=== PATIENT | male | born 1945 | race Caucasian/White ===

== ENCOUNTER 2017-03-06 06:48 | Inpatient (IN) | payer BC ==
[~2017-03-06] VITALS: Ht 182.9 cm; Wt 101.9 kg
[~2017-03-06 06:48] MED LIST: ABIR250T PO; ASPI-482 PO; BICA50TA4 PO; BISA-42 PO; BUDE10.2 IH; CALC625T12 PO; CHOL100013 PO; CLOP75TA PO; ENZA40CA PO; FURO40TA4 PO; GABA600T2 PO; LORA0.5T96 PO; METO25TA9 PO; MULT-246 PO; OMEP40CA5 PO; PANT40TA3 PO; POTA20TA4 PO; PRED20TA PO; SENN-37 PO; SIMV40TA3 PO; TIOT18CA IH; lupron
[2017-03-06] MEDS ORDERED: CHOL10003 PO (07:05)
[2017-03-06] MEDS ORDERED: CALC-98 PO (07:05)
[2017-03-06 07:15] LABS: HEMATOCRIT 36.9 % (39.0-53.0); HEMOGLOBIN 11.8 g/dL (13.0-17.5); RED BLOOD COUNT 4.05 x10^6/uL (4.30-5.70); RED CELL DISTRIBUTION WIDTH 16.4 % (11.5-14.5); WHITE BLOOD COUNT 8.4 x10^3/uL (4.0-11.0)
[2017-03-06 07:27] LABS: INR 1.1 (0.8-1.1); PROTHROMBIN TIME PATIENT 13.3 SEC (11.7-14.0)
[2017-03-06 07:31] LABS: GFR 73.9; POTASSIUM 4.2 mmol/L (3.5-5.1)
[2017-03-06] MEDS ORDERED: LIDOCAINE 2% 20 ML VIAL. ONE (07:33)
[2017-03-06] MEDS ORDERED: IODIXANOL 320 MG/ML 100 ML VIAL. ONE (07:33)
[2017-03-06 08:18] VITALS: BP 149/75
[2017-03-06] MEDS ORDERED: MIDAZOLAM HCL/PF 5 MG/5 ML VIAL. ONE (08:28)
[2017-03-06] MEDS ORDERED: fentaNYL PF VIAL 250 MCG/5 ML VIAL ONE (08:28)
[2017-03-06] MEDS ORDERED: HEPARIN for IV BOLUS 10,000 UNIT/10 ML VIAL. ONE ×2 (08:28→11:32)
[2017-03-06] MEDS ORDERED: IODIXANOL 320 MG/ML 100 ML VIAL. IART ONE (08:45)
[2017-03-06] MEDS ORDERED: LIDOCAINE 2% 20 ML VIAL. IJ ONE (08:45)
[2017-03-06] MEDS ORDERED: MIDAZOLAM HCL/PF 5 MG/5 ML VIAL. IV ONE (08:45)
[2017-03-06] MEDS ORDERED: fentaNYL PF VIAL 250 MCG/5 ML VIAL IV ONE (08:45)
[2017-03-06] MEDS ORDERED: CONTRAST GIVEN MC PRN (09:00)
[2017-03-06] MEDS ORDERED: HEPARIN for IV BOLUS 10,000 UNIT/10 ML VIAL. IV ONE (09:30)
[2017-03-06] MEDS ORDERED: MIDAZOLAM HCL/PF 2 MG/2 ML VIAL. ONE ×2 (10:34→11:33)
[2017-03-06] MEDS ORDERED: fentaNYL PF VIAL 100 MCG/2 ML VIAL ONE ×2 (10:34→11:33)
[2017-03-06] MEDS ORDERED: NITROGLYCERIN 200 MCG/2 ML SYRINGE FOR CATH/VASC LAB. IART ONE (11:30)
[2017-03-06] MEDS ORDERED: MIDAZOLAM HCL/PF 2 MG/2 ML VIAL. IV ONE (11:30)
[2017-03-06] MEDS ORDERED: fentaNYL PF VIAL 100 MCG/2 ML VIAL IV ONE ×2 (11:30→13:00)
[2017-03-06] MEDS ORDERED: ASPIRIN 325 MG TABLET ONE (12:22)
[2017-03-06] MEDS ORDERED: NITROGLYCERIN 200 MCG/2 ML SYRINGE FOR CATH/VASC LAB. ONE (12:22)
[2017-03-06] MEDS ORDERED: CLOPIDOGREL BISULFATE 75 MG TABLET ONE (12:22)
[2017-03-06] MEDS ORDERED: CLOPIDOGREL BISULFATE 75 MG TABLET PO ONE (12:30)
[2017-03-06] MEDS ORDERED: ASPIRIN 325 MG TABLET PO ONE (12:30)
[2017-03-06 12:43] VITALS: BP 160/88
[2017-03-06] MEDS: IV 1/2 NORMAL SALINE 1,000 ML IV SCH ×2 (12:47→22:47)
--- NOTE | 2017-03-06 12:47 | PDOC ---
MODERATE SEDATION ASSESSMENT RISKS/ALTERNATIVES Risks/Alternatives Risks and alternatives of this type of sedation and procedure discussed with: RISK/ALTERNATIVES: Patient H & P ON CHART H & P H & P on chart and reviewed for co-morbid conditions and appropriate labs. H&P ON CHART: Yes STATUS PREG STATUS ASSESSED: N/A MEDS/ALLERGIES REVIEWED Meds/Allergies Reviewed Medications and Allergies including time and route of recently administered narcotics and sedatives. MEDS/ALLERGIES REVIEWED: Yes ASA RATING ASA RATING: II AIRWAY ASSESSMENT Airway Assessment Airway patency, oral function limitations, presence of caps, crowns, dentures, partials, and ability to extend neck assessed. AIRWAY ASSESSMENT: Yes MALLAMPATI SCORE MALLAMPATI SCORE: II PRE-SEDATION ASSESSMENT PRE-SEDATION ASSESSMENT: Yes CHRIS LOUIS MD March 06, 2017 12:47
[2017-03-06] MEDS ORDERED: MAGNESIUM HYDROXIDE 2,400 MG/30 ML ORAL.SUSP. PO PRN (13:00)
[2017-03-06] MEDS ORDERED: ACETAMINOPHEN 325 MG TABLET. PO PRN (13:00)
[2017-03-06] MEDS ORDERED: NITROGLYCERIN SUBLINGUAL 0.4 MG BOTTLE OF 25. SL PRN (13:00)
[2017-03-06] MEDS ORDERED: ONDANSETRON PF 4 MG/2 ML VIAL. IV PRN (13:15)
[2017-03-06] MEDS ORDERED: ENZA40CA PO (13:22)
[2017-03-06] MEDS ORDERED: VENTOLIN HFA18 GM INH (13:25)
[2017-03-06 13:26] VITALS: BP 117/64
[2017-03-06] MEDS: HYDROcodone/APAP 5/325MG 1 TAB TABLET PO PRN ×3 (13:47→20:43)
--- NOTE | 2017-03-06 14:46 | CARD ---
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 He presented today for angioplasty and stent placement since his symptoms did not improve with conservative management.. PROCEDURE NARRATIVE After explaining the risks, benefits and alternative options, informed consent was obtained from kathy ent. Patient was brought to the [facility], placed in prone position and his left popliteal lorin a was prepped and draped in the usual fashion. 10 mL of 2% lidocaine was infiltrated into the skin an d subcutaneous tissues for local anesthesia. Under vascular ultrasound guidance, the left popliteal a rtery was accessed and a 6 Icelandic sheath was inserted. Several initial attempts to cross the long, he avily calcified and chronic total occlusion involving the left superficial femoral artery using 0.014 Astato 20, Duff 250T and 0.018 Glidewire advantage guidewires with support from quickcross microca theter for unsuccessful. Subsequently, this lesion was crossed with a 0.035 inch Glidewire with suppo rt from 4F angled glide catheter. Multiple dilations were then performed within the lesion using 4.0 x 40 mm Leming balloon followed by 5.5 x 1 50 mm Leming balloon. There was a resistant lesion in the midsegment there was again dilated with a 6.0 x 40 mm Leming balloon. Subsequently, the left superfic ial femoral artery was treated with two overlapping 5.5 x 1 50 mm Duff Supera self expanding stents that were post dilated with the 5.5 balloon. Follow-up angiography showed resolution of the stenosi s to 0% with good distal flow. Patient part of the procedure well. Hemostasis was achieved using manu al compression. There were no immediate complications. Conclusion Successful complex LOAN APPROVER/stents placement to chronic total occlusion involving the left superficial fem oral artery
[2017-03-06 15:00] VITALS: BP 112/59
[2017-03-06] MEDS: PANTOPRAZOLE 40 MG TABLET.DR. PO SCH (16:30)
[2017-03-06] MEDS: FUROSEMIDE 40 MG TABLET. PO SCH (16:30)
[2017-03-06] MEDS: POTASSIUM CHLORIDE 20 MEQ TABLET.ER. PO SCH (16:30)
[2017-03-06] MEDS: predniSONE 5 MG TABLET PO SCH (17:41)
[2017-03-06] MEDS: METOPROLOL SUCC 24HR ER 25 MG TAB.ER.24H. PO SCH (17:41)
[2017-03-06 19:10] VITALS: BP 117/87
[2017-03-06] MEDS: GABAPENTIN 300 MG CAPSULE. PO SCH (20:42)
[2017-03-06] MEDS: SENNOSIDES/DOCUSATE 8.6/50MG TABLET. PO SCH (20:42)
[2017-03-06] MEDS ORDERED: SIMVASTATIN 40 MG TABLET. PO SCH (21:00)
[2017-03-06] MEDS ORDERED: predniSONE 20 MG TABLET PO SCH (21:00)
[2017-03-06 23:00] VITALS: BP 122/59
[2017-03-07 03:10] VITALS: BP 125/66
[2017-03-07] MEDS: HYDROcodone/APAP 5/325MG 1 TAB TABLET PO PRN ×2 (05:09→09:27)
[2017-03-07 05:52] LABS: CALCIUM 8.8 mg/dL (8.5-10.1); CREATININE 0.9 mg/dL (0.7-1.3); GFR 83.4; POTASSIUM 4.1 mmol/L (3.5-5.1)
[2017-03-07 07:00] VITALS: BP 129/60
[2017-03-07] MEDS: IV 1/2 NORMAL SALINE 1,000 ML IV SCH (08:47)
[2017-03-07] MEDS: FUROSEMIDE 40 MG TABLET. PO SCH (09:00)
[2017-03-07] MEDS: POTASSIUM CHLORIDE 20 MEQ TABLET.ER. PO SCH (09:02)
[2017-03-07] MEDS: GABAPENTIN 300 MG CAPSULE. PO SCH (09:02)
[2017-03-07 09:03] VITALS: BP 129/60
[2017-03-07] MEDS: METOPROLOL SUCC 24HR ER 25 MG TAB.ER.24H. PO SCH (09:03)
[2017-03-07] MEDS: SENNOSIDES/DOCUSATE 8.6/50MG TABLET. PO SCH (09:04)
[2017-03-07] MEDS: PANTOPRAZOLE 40 MG TABLET.DR. PO SCH (09:04)
[2017-03-07] MEDS: predniSONE 5 MG TABLET PO SCH (09:07)
--- NOTE | 2017-03-07 10:15 | PDOC3 ---
Discharge Summary Visit Information Date of Admission: March 06, 2017 Date of Discharge: March 07, 2017 Admitting Diagnosis: peripheral vascular disease with claudication Final Diagnosis Peripheral vascular disease with claudication Coronary artery disease Hypertension Hyperlipidemia Brief Hospital Course Allergies Allergies Coded Allergies Type Severity Reaction Last Updated Verified NSAIDS (Non-Steroidal Anti-Inflamma Adverse Reaction Intermediate "vomiting" 10/10/14 Yes Vital Signs Vital Signs Date Time Temp Pulse Resp B/P (MAP) Pulse Ox O2 Delivery O2 Flow Rate FiO2 03/07/17 09:27 Nasal Cannula 3.0 03/07/17 09:03 84 129/60 03/07/17 07:00 97.6 20 91 97.6 Lab Results Laboratory Tests Test 03/06/17 07:09 03/07/17 05:00 White Blood Count 8.4 x10^3/uL (4.0-11.0) Red Blood Count 4.05 x10^6/uL (4.30-5.70) Hemoglobin 11.8 g/dL (13.0-17.5) Hematocrit 36.9 % (39.0-53.0) Mean Corpuscular Volume 91 fL (79-100) Mean Corpuscular Hemoglobin 29 pg (25-35) Mean Corpuscular Hemoglobin Concent 32 g/dL (31-37) Red Cell Distribution Width 16.4 % (11.5-14.5) Platelet Count 181 x10^3/uL (140-400) Prothrombin Time 13.3 SEC (11.7-14.0) Prothromb Time International Ratio 1.1 (0.8-1.1) Activated Partial Thromboplast Time 31 SEC (24-38) Sodium Level 140 mmol/L (136-145) 139 mmol/L (136-145) Potassium Level 4.2 mmol/L (3.5-5.1) 4.1 mmol/L (3.5-5.1) Chloride Level 101 mmol/L (98-107) 102 mmol/L (98-107) Carbon Dioxide Level 27 mmol/L (21-32) 28 mmol/L (21-32) Anion Gap 12 (6-14) 9 (6-14) Blood Urea Nitrogen 15 mg/dL (8-26) 16 mg/dL (8-26) Creatinine 1.0 mg/dL (0.7-1.3) 0.9 mg/dL (0.7-1.3) Estimated GFR (Cockcroft-Gault) 73.9 83.4 Glucose Level 120 mg/dL (70-99) 111 mg/dL (70-99) Calcium Level 10.0 mg/dL (8.5-10.1) 8.8 mg/dL (8.5-10.1) Laboratory Tests Test 03/07/17 05:00 Sodium Level 139 mmol/L (136-145) Potassium Level 4.1 mmol/L (3.5-5.1) Chloride Level 102 mmol/L (98-107) Carbon Dioxide Level 28 mmol/L (21-32) Anion Gap 9 (6-14) Blood Urea Nitrogen 16 mg/dL (8-26) Creatinine 0.9 mg/dL (0.7-1.3) Estimated GFR (Cockcroft-Gault) 83.4 Glucose Level 111 mg/dL (70-99) Calcium Level 8.8 mg/dL (8.5-10.1) Brief Hospital Course Mr. Balderas is a 71 old male with history of peripheral vascular disease was found to have patent aortobifemoral bypass graft and patent right femoropopliteal bypass graft on aortogram done in September 2016. His left femoropopliteal bypass graft was found to be occluded and he had long heavily calcified chronic total occlusion of left superficial femoral artery at that time. He initially elected for conservative management but since he continued to be symptomatic he presented for percutaneous intervention. He underwent successful complex angioplasty and stents placement to his left superficial femoral artery via left popliteal artery access. He remained hemodynamically stable and symptom-free during his hospital stay. His access site looked good at the time of discharge. He will follow up with our office in one month. Discharge Information Condition at Discharge: Stable Follow Up: Months (one) Disposition/Orders: D/C to Home Scheduled Abiraterone Acetate (Zytiga), 1,000 MG PO DAILY@1700, (Reported) Albuterol Sulfate (Ventolin Hfa Inhaler), 2 PUFF INH Q4HRS, (Reported) Aspirin (Aspir 81), 81 MG PO DAILY, (Reported) Budesonide/Formoterol Fumarate (Symbicort 160-4.5 Mcg Inhaler), 2 PUFF IH BID, ( Reported) Calcium Carbonate/Vitamin D3 (Calcium + Vitamin D Tablet), 1 EACH PO BID, ( Reported) Cholecalciferol (Vitamin D3) (Vitamin D3), 1 TAB PO DAILY, (Reported) Clopidogrel Bisulfate (Clopidogrel), 75 MG PO DAILY, (Reported) Enzalutamide (Xtandi), 160 MG PO DAILY@1000, (Reported) Furosemide (Furosemide), 40 MG PO DAILY, (Reported) Gabapentin (Gabapentin), 600 MG PO BID, (Reported) Metoprolol Succinate (Metoprolol Succinate ( Xl )), 25 MG PO DAILY, (Reported) Pantoprazole Sodium (Protonix), 40 MG PO DAILY, (Reported) Potassium Chloride (Klor-Con M20), 10 MEQ PO DAILY, (Reported) Prednisone (Prednisone), 5 MG PO BID, (Reported) Simvastatin (Simvastatin), 40 MG PO HS, (Reported) Tiotropium Moca (Spiriva), 2 INH IH DAILY, (Reported) Miscellaneous Medications Cholecalciferol (Vitamin D3) (Vitamin D), 1,000 UNIT PO, (Reported) Sennosides/Docusate Sodium (Senokot-S Tablet), 1 EACH PO, (Reported) [lupron], (Reported) Discontinued Medications Enzalutamide (Xtandi), 40 MG PO QID, (Reported) CHRIS LOUIS MD March 07, 2017 10:15
--- NOTE | 2017-03-07 11:28 | ACF ---
Admission Forms Criteria VASCULAR DISEASE GRG Clinical Indications for Admission to Inpatient Care (Place 'X' for any and all applicable criteria): Hospital admission is needed for appropriate care of the patient because of ANY ONE of the following (1)(2)(3)(4): [ ]I. Life-threatening or limb-threatening skin ulcer as indicated by ANY ONE of the following(5): [ ]a) Surrounding cellulitis unresponsive to outpatient treatment [ ]b) Wet gangrene [ ]c) Lymphangitis [ ]d) Bacteremia [ ]II. Gangrene requiring intensity and frequency of care not manageable to outpatient, emergency, or observation level of care(5) [ ]III. Severe pain requiring acute inpatient management [X]IV. Interventional revascularization (eg, surgery, thrombolysis) needed (eg , critical limb ischemia)(21) [ ]V. Urgent inpatient IV anticoagulation needed due to ALL of the following: [ ]a) Temporary subtherapeutic anticoagulation unacceptable because of high risk of short-term venous or arterial thromboembolism due to ANY ONE of the following(7)(8)(9): [ ]i) Venous thromboembolism within the past 12 months [ ]ii) Underlying malignancy [ ]iii) Patient with mechanical cardiac valve(10)(11) [ ]iv) Underlying hypercoagulable state (eg, protein C or protein S deficiency, antithrombin deficiency, antiphospholipid antibodies) [ ]v) Patient at high risk of thromboembolism (eg, status post orthopedic surgery, history of recurrent venous thromboembolism) [ ]vi) Atrial fibrillation with rheumatic valvular heart disease [ ]vii) Atrial fibrillation with 3 or MORE of the following : [ ]1) Congestive heart failure [ ]2) Hypertension [ ]3) Age 65 years or older [ ]4) Diabetes mellitus [ ]5) History of thromboembolism (eg, stroke, TIA , or systemic embolization) more than 3 months ago [ ]6) Female gender [ ]b) Contraindications to outpatient use of "bridging" agent or alternative oral anticoagulant as indicated by ALL of the following: [ ]i) Contraindication to outpatient use of low-molecular -weight heparin as "bridging" agent as indicated by ANY ONE of the following(8) : [ ]1) Documented current or history of heparin- induced thrombocytopenia(12) [ ]2) Severe thrombocytopenia (eg, platelet count less than 50,000/mm3 (50 x109/L)) [ ]3) Documented allergy to heparin, low- molecular-weight heparin, or pork products [ ]4) Renal failure (creatinine clearance < 30 mL /min/1.73m2 (0.50 mL/sec/1.73m2) or on dialysis) [ ]5) Inability to manage self-injection (eg, by patient, caregiver, or visiting nurse) [ ]ii) Contraindication to outpatient use of fondaparinux as "bridging" agent as indicated by ANY ONE of the following(13)(14)(15)(16): [ ]1) Severe thrombocytopenia (eg, platelet count less than 50,000/mm3 (50 x109/L)) [ ]2) Hypersensitivity to fondaparinux, related drugs, or product components [ ]3) Renal failure (creatinine clearance less than 30 mL/min/1.73m2 (0.50 mL/sec/1.73m2) or on dialysis) [ ]4) Inability to manage self-injection (eg, by patient, caregiver, or visiting nurse) [ ]iii) Oral direct thrombin inhibitor (eg, dabigatran) or oral coagulation factor Xa inhibitor (eg, rivaroxaban) not appropriate as oral anticoagulation (eg, indication not appropriate) or contraindicated (eg, hypersensitivity, renal failure)(13)(16)(17)(18)(19)(20) [ ]. Suspected severe acute ischemia due to peripheral vascular disease as indicated by ANY ONE of the following(5)(6): [ ]a) Tissue necrosis [ ]b) Severe pain [ ]c) Acute pulselessness [ ]d) Other evidence of acute severe ischemia (eg, lactic acidosis , motor dysfunction) [ ]VII. Acute or newly diagnosed major vessel (eg, aorta) dissection, rupture, or leakage(5)(6)(22)(23) [ ]VIII.Vascular Disease and ALL of the following: [ ]a) Symptom or finding for which emergency and observation care have failed or are not considered appropriate (Use General Criteria: Observation Care as appropriate) [ ]b) Presence of ANY ONE of the following: [ ]i) A General Admission Criteria [ ]ii) A Pediatric General Admission Criteria The original [facility] content created by [facility] has been revised. The portions of the content which have been revised are identified through the use of italic text or in bold, and [facility] has neither reviewed nor approved the modified material. All other unmodified content is copyright [facility]. Please see references footnoted in the original [facility] edition 2016 Admission Criteria Met?: Yes ERI TERAN March 07, 2017 11:28
== END 2017-03-07 11:05 | disposition home or self-care (01) | DRG 253 ==
LOC: CCL 06:48 → 2 NORTH 11:18
PROVIDERS: ADMIT Internal Medicine Cardiovascular Disease; ATTEND Internal Medicine Cardiovascular Disease
PROC: 047L3EZ Dilation of Left Femoral Artery with Two Intraluminal Devices, Percutaneous Approach (ICD-10-PCS; principal; 2017-03-06)
DX: I70.512 Atherosclerosis of nonautologous biological bypass graft(s) of the extremities with intermittent claudication, left leg (principal); I70.92 Chronic total occlusion of artery of the extremities; E78.5 Hyperlipidemia, unspecified; I10 Essential (primary) hypertension; I25.10 Atherosclerotic heart disease of native coronary artery without angina pectoris; Z88.8 Allergy status to other drugs, medicaments and biological substances
CPT/HCPCS: 36415; 37226; 76937; 80048; 85027; 85610; 85730; C1769; C1876; C1885; C1892; J2250; J2405; J3010; J3490; J7512

== ENCOUNTER → 2017-04-24 | Outpatient (CLI) | payer BC ==
[~2017-04-24] MED LIST changes: +CALC-98 PO; +CHOL10003 PO; +VENTOLIN HFA18 GM INH
--- NOTE | 2017-04-24 09:33 | RAD ---
Bilateral lower extremity venous ultrasound, 04/24/2017: History: Bilateral leg edema Duplex evaluation of the deep veins in the lower extremities was performed including grayscale, color-flow and spectral Doppler analysis. The femoral and popliteal veins demonstrate normal compressibility and normal responses to distal augmentation maneuvers. Color imaging of those vessels shows no evidence of intraluminal clot. The visualized deep veins in both calves are patent. IMPRESSION: There is no sonographic evidence of deep vein thrombosis in either lower extremity.
== END | disposition home or self-care (01) ==
LOC: US 07:11
PROVIDERS: ATTEND Internal Medicine Hematology & Oncology
DX: R60.0 Localized edema (principal)
CPT/HCPCS: 93970

== ENCOUNTER 2017-05-05 08:14 | Inpatient (IN) | payer BC ==
[~2017-05-05] VITALS: Ht 182.9 cm; Wt 90.4 kg
[2017-05-05 08:58] LABS: BASO % 1 % (0-3); EOS % 1 % (0-3); HEMATOCRIT 35.4 % (39.0-53.0); HEMOGLOBIN 11.5 g/dL (13.0-17.5); LYMPH # 0.3 x10^3/uL (1.0-4.8); LYMPH % 3 % (24-48); MEAN CORPUSCULAR HEMOGLOBIN 27 pg (25-35); MEAN CORPUSCULAR HGB CONC 33 g/dL (31-37); MEAN CORPUSCULAR VOLUME 83 fL (79-100); MONO % 11 % (0-9); NEUT % 85 % (31-73); PLATELET COUNT 185 x10^3/uL (140-400); RED BLOOD COUNT 4.25 x10^6/uL (4.30-5.70); RED CELL DISTRIBUTION WIDTH 17.1 % (11.5-14.5); WHITE BLOOD COUNT 10.3 x10^3/uL (4.0-11.0)
--- NOTE | 2017-05-05 09:07 | EKG ---
[facility] [address] [place] [address] Test Date: 2017-05-05 Test Time: 08:43:51 Pat Name: LEYDA GUARDADO Department: Room: Gender: Hotel [employer]ge: : 1945 Requested By: MILY DEL VALLE Order Number: [id number] Reading MD: Rosales Ziegler Measurements Intervals Fletcher Rate: 71 P: 49 LA: 160 QRS: 76 QRSD: 84 T: 83 QT: 402 QTc: 442 Interpretive Statements SINUS RHYTHM Electronically Signed On 05-07-2017 8:47:57 CDT by Rosales Ziegler
[2017-05-05 09:08] LABS: CALCIUM 11.1 mg/dL (8.5-10.1); CREATININE 1.1 mg/dL (0.7-1.3); GFR 66.2; POTASSIUM 3.5 mmol/L (3.5-5.1)
[2017-05-05 09:12] LABS: ALBUMIN 3.6 g/dL (3.4-5.0); ALBUMIN/GLOBULIN RATIO 0.8 (1.0-1.7); TOTAL BILIRUBIN 1.1 mg/dL (0.2-1.0)
[2017-05-05] MEDS ORDERED: IV NORMAL SALINE 1000ML BAG 1,000 ML IV ONE (09:30)
--- NOTE | 2017-05-05 10:05 | PHYS DOC ---
Past Medical History Past Medical History: Cancer, COPD, High Cholesterol, [place] Additional Past Medical Histor: hernia, prostate ca Past Surgical History: Coronary Bypass Surgery Additional Past Surgical Histo: heart stent, neck surgery, left hip, rt hip, colonoscopy, lt & rt fempop, Alcohol Use: None Drug Use: None Adult General Chief Complaint Chief Complaint: ABDOMINAL PAIN HPI HPI Patient is a 71 year old male who presents with symptoms of generalized weakness, intermittent nausea and burning sensation in his abdomen. He's had these symptoms since Thursday of last week, 4 days ago. He denies any chest pain or shortness of breath, no focal weakness. Patient states he's feeling so weak he can't walk from one room to the next without requiring assistance. Patient had a new medication prescribed on , Metolazone. Symptoms started the following day, he continued to take the medication until Thursday when he stopped taking the medicine. He denies any known fevers. He states he was taking medication for bilateral lower extremity edema which is significantly improved since starting the medication. Review of Systems Review of Systems Constitutional: Denies fever or chills [] Eyes: Denies change in visual acuity, redness, or eye pain [] HENT: Denies nasal congestion or sore throat [] Respiratory: Denies cough Cardiovascular: Denies chest pain GI: Denies vomiting, bloody stools or diarrhea [] : Denies dysuria or hematuria [] Musculoskeletal: Denies back pain or joint pain [] Integument: Denies rash or skin lesions [] Neurologic: Denies headache, focal weakness or sensory changes [] Current Medications Current Medications Current Medications Medications (Trade) Dose Ordered Sig/Antoinette Start Time Stop Time Status Last Admin Dose Admin Sodium Chloride 1,000 ml @ 125 mls/hr 1X ONCE 05/05/17 09:30 05/05/17 17:29 05/05/17 11:16 125 MLS/HR Allergies Allergies Allergies Coded Allergies Type Severity Reaction Last Updated Verified NSAIDS (Non-Steroidal Anti-Inflamma Adverse Reaction Intermediate "vomiting" 10/10/14 Yes Physical Exam Physical Exam Constitutional: Well developed, well nourished, appears weak, softened speech HENT: Normocephalic, atraumatic, bilateral external ears normal, oropharynx moist, no oral exudates, nose normal. [] Eyes: PERRLA, EOMI, conjunctiva normal, no discharge. [] Neck: Normal range of motion, no tenderness, supple, no stridor. [] Cardiovascular:Heart rate regular with regular rhythm, no murmur [] Lungs & Thorax: Bilateral breath sounds clear to auscultation, no wheeze or crackles Abdomen: Bowel sounds normal, soft, no tenderness, no masses, no pulsatile masses. [] Skin: Warm, dry, no erythema, no rash. [] Back: No tenderness, no CVA tenderness. [] Extremities: No tenderness, no cyanosis, no clubbing, ROM intact, no edema. [] Neurologic: Alert and oriented X 3, normal motor function, normal sensory function, no focal deficits noted. CN II-XII intact, normal cerebellar function Psychologic: Affect normal, judgement normal, mood normal. [] Current Patient Data Vital Signs Vital Signs Date Time Temp Pulse Resp B/P (MAP) Pulse Ox O2 Delivery O2 Flow Rate FiO2 05/05/17 09:30 66 18 176/76 (109) 98 Nasal Cannula 3.0 05/05/17 08:30 98.3 98.3 Lab Values Laboratory Tests Test 05/05/17 08:40 White Blood Count 10.3 x10^3/uL (4.0-11.0) Red Blood Count 4.25 x10^6/uL (4.30-5.70) L Hemoglobin 11.5 g/dL (13.0-17.5) L Hematocrit 35.4 % (39.0-53.0) L Mean Corpuscular Volume 83 fL (79-100) Mean Corpuscular Hemoglobin 27 pg (25-35) Mean Corpuscular Hemoglobin Concent 33 g/dL (31-37) Red Cell Distribution Width 17.1 % (11.5-14.5) H Platelet Count 185 x10^3/uL (140-400) Neutrophils (%) (Auto) 85 % (31-73) H Lymphocytes (%) (Auto) 3 % (24-48) L Monocytes (%) (Auto) 11 % (0-9) H Eosinophils (%) (Auto) 1 % (0-3) Basophils (%) (Auto) 1 % (0-3) Neutrophils # (Auto) 8.8 x10^3uL (1.8-7.7) H Lymphocytes # (Auto) 0.3 x10^3/uL (1.0-4.8) L Monocytes # (Auto) 1.1 x10^3/uL (0.0-1.1) Eosinophils # (Auto) 0.1 x10^3/uL (0.0-0.7) Basophils # (Auto) 0.0 x10^3/uL (0.0-0.2) Segmented Neutrophils % 70 % (35-66) H Band Neutrophils % 16 % (0-9) H Lymphocytes % 3 % (24-48) L Monocytes % 10 % (0-10) Metamyelocytes % 1 % (0-0) H Platelet Estimate Adequate (ADEQUATE) Anisocytosis Slight Sodium Level 131 mmol/L (136-145) L Potassium Level 3.5 mmol/L (3.5-5.1) Chloride Level 88 mmol/L (98-107) L Carbon Dioxide Level 34 mmol/L (21-32) H Anion Gap 9 (6-14) Blood Urea Nitrogen 18 mg/dL (8-26) Creatinine 1.1 mg/dL (0.7-1.3) Estimated GFR (Cockcroft-Gault) 66.2 BUN/Creatinine Ratio 16 (6-20) Glucose Level 160 mg/dL (70-99) H Calcium Level 11.1 mg/dL (8.5-10.1) H Total Bilirubin 1.1 mg/dL (0.2-1.0) H Aspartate Amino Transferase (AST) 19 U/L (15-37) Alanine Aminotransferase (ALT) 17 U/L (16-63) Alkaline Phosphatase 71 U/L (46-116) Total Protein 8.0 g/dL (6.4-8.2) Albumin 3.6 g/dL (3.4-5.0) Albumin/Globulin Ratio 0.8 (1.0-1.7) L Laboratory Tests 05/05/17 08:40 Laboratory Tests 05/05/17 08:40 EKG EKG 71 bpm, sinus, normal axis, normal intervals no ST elevation or depression, nonischemic T waves, interpreted by me [] Radiology/Procedures Radiology/Procedures [] Course & Med Decision Making Course & Med Decision Making Pertinent Labs and Imaging studies reviewed. (See chart for details) Pt given IV fluids, pt has acute hypercalcemia. Will continue to hydrate and talked with Dr. Antonio, who accepted the patient for admission. Likely 2/2 to new medication. Dragon Disclaimer Dragon Disclaimer This electronic medical record was generated, in whole or in part, using a voice recognition dictation system. Departure Departure Impression: Primary Impression: Hypercalcemia Disposition: ADMITTED INPATIENT Admitting Physician: Aquilino Antonio Condition: STABLE Referrals: AQUILINO ANTONIO MD (PCP) MILY DEL VALLE MD May 05, 2017 10:05
[2017-05-05 13:04] LABS: BILIRUBIN,URINE NEGATIVE (NEG); GLUCOSE,URINE NEGATIVE (NEG); NITRITE,URINE NEGATIVE (NEG); PROTEIN,URINE NEGATIVE (NEG-TRACE); UROBILINOGEN,URINE 0.2 mg/dL (0.2 mg/dL)
[2017-05-05 13:11] LABS: SQUAMOUS EPITHELIAL CELL,UR FEW /LPF
[2017-05-05 13:13] LABS: BACTERIA,URINE FEW /HPF (0-FEW)
[2017-05-05 13:30] LABS: PLT ESTIMATE ADEQUATE (ADEQUATE)
[2017-05-05 13:31] LABS: ANISOCYTOSIS SLIGHT
[2017-05-05 15:08] VITALS: BP 167/65
[2017-05-05] MEDS: IV NORMAL SALINE 1000ML BAG 1,000 ML IV SCH (18:30)
[2017-05-05 19:00] VITALS: BP 138/36
[2017-05-05] MEDS ORDERED: NON FORMULARY ITEM (Albuterol Sulfate (Ventolin Hfa Inhaler) 2 PUFF) INH SCH (20:00)
[2017-05-05] MEDS: IPRATRPIUM/ALBUTEROL 0.5/2.5MG 3 ML NEBU. NEB SCH (20:50)
[2017-05-05] MEDS: BUDESONIDE 0.5 MG/2 ML NEBU. NEB SCH (20:50)
[2017-05-05] MEDS ORDERED: NON FORMULARY ITEM (Budesonide/Formoterol Fumarate (Symbicort 160-4.5 Mcg Inhaler) 2 PUFF) IH SCH (21:00)
[2017-05-05] MEDS ORDERED: SIMVASTATIN 40 MG TABLET. PO SCH (21:00)
[2017-05-05] MEDS: predniSONE 5 MG TABLET PO SCH (21:23)
[2017-05-05] MEDS: GABAPENTIN 300 MG CAPSULE. PO SCH (21:25)
[2017-05-05 23:50] VITALS: BP 155/51
[2017-05-06] MEDS: IV NORMAL SALINE 1000ML BAG 1,000 ML IV SCH (02:15)
[2017-05-06 03:23] VITALS: BP 143/61
--- NOTE | 2017-05-06 05:29 | ACF ---
Admission Forms Criteria GENERAL ADMISSION CRITERIA (Place 'X' for any and all applicable criteria): Admission is indicated for ANY ONE of the following: [ ]I. Hemodynamic instability as indicated by ANY ONE of the following(1)(2) (3)(4)(5): [ ]a) Vital sign abnormality not readily corrected by appropriate treatment within 12 to 24 hours indicated by ANY ONE of the following: [ ]i) Hypotension [ ]ii) Symptomatic Tachycardia unresponsive to treatment (eg , analgesia, fluids, sedation as indicated) [ ]iii) Orthostatic vital sign changes unresponsive to treatment (eg, fluids) [ ]b) Vital sign abnormality that is severe indicated by ANY ONE of the following: [ ]i) Inadequate perfusion indicated by ANY ONE of the following: [ ]1) Lactic acidosis (greater than 2 mmol/L) [ ]2) New abnormal capillary refill (greater than 3 seconds) [ ]3) Other metabolic acidosis (arterial pH less than 7.35) not otherwise explained [ ]4) Reduced urine output [ ]5) Altered mental status [ ]6) Myocardial Ischemia [ ]v) Mean arterial pressure[A] less than 60 mm Hg [ ]vi) Mean arterial pressure[A] less than 70 mm Hg after 30 minutes of appropriate treatment (eg, fluid resuscitation) [ ]vii) IV inotropic or vasopressor medication required to maintain adequate blood pressure or perfusion [ ]viii) Sustained heart rate greater than 120 beats per minute in adult or child 6 years or older[B]] [ ]II. Hypertension requiring inpatient treatment as indicated by ANY ONE of the following(6)(7)(8): [ ]a) SBP greater than 220 mm Hg or DBP greater than 120 mm Hg despite treatment [ ]b) SBP greater than 140 mm Hg or DBP greater than 100 mm Hg with evidence of acute end organ damage as indicated by ANY ONE of the following: [ ]i) Encephalopathy [ ]ii) Acute renal failure as indicated by new onset of ANY ONE of the following(9)(10)(11)(12)(13): [ ]1) A 3-fold rise in serum creatinine from baseline [ ]2) Serum creatinine greater than 4 mg/dL ( 354 micromoles/L) with acute rise greater than 0.5 mg/dL (44.2 micromoles/L) [ ]3) Reduction of more than 75% in estimated glomerular filtration rate from baseline [ ]4) Estimated glomerular filtration rate less than 35 mL/min/1.73m2 (0.59 mL/sec/1.73m2) in child up to 18 years of age [ ]5) Cessation of urine output indicated by ALL of the following: [ ]A. Adequate volume status [ ]B. Inadequate urine output as indicated by ANY ONE of the following: [ ]a. Urine output less than 0.3 mL/kg/hr for 24 hours [ ]b. Anuria (urine output less than 0.1 mL/kg/hr) for 12 hours [ ]iii) Aortic dissection [ ]iv) Myocardial ischemia [ ]v) Left ventricular heart failure [ ]vi) Retinal hemorrhage [ ]vii) Other significant finding [ ]c) Hypertension in child requiring inpatient treatment as indicated by ALL of the following(14)(15)(16): [ ]i) Outpatient treatment not effective, not available, or not appropriate [ ]ii) SBP or DBP greater than 95th percentile for age [ ]iii) Evidence of acute end organ damage as indicated by ANY ONE of the following: [ ]1) Altered mental status [ ]2) Acute renal failure as indicated by new onset of ANY ONE of the following(9)(10)(11)(12)(13): [ ]A. A 3-fold rise in serum creatinine from baseline [ ]B. Serum creatinine greater than 4 mg/dL (354 micromoles/L) with acute rise greater than 0.5 mg/dL (44.2 micromoles/L) [ ]C. Reduction of more than 75% in estimated glomerular filtration rate from baseline [ ]D. Estimated glomerular filtration rate less than 35 mL/min/1.73m2 (0.59 mL/sec/1.73m2)in child up to 18 years of age [ ]E. Cessation of urine output indicated by ALL of the following: [ ]a. Adequate volume status [ ]b. Inadequate urine output as indicated by ANY ONE of the following: [ ]1) Urine output less than 0.3 mL/kg/hr for 24 hours [ ]2) Anuria (urine output less than 0.1 mL/kg/hr) for 12 hours [ ]3) Severe headache [ ]4) Visual disturbance [ ]5) Retinal hemorrhage [ ]6) Other significant finding [ ]III. Acute cardiac or peripheral ischemia as indicated by ANY ONE of the following: [ ]a) Acute coronary syndrome(17)(18) [ ]b) Acute peripheral ischemia (eg, pulseless, cool, mottled, or cyanotic extremity)(19) [ ]IV. Cardiac arrhythmias or findings of immediate concern indicated by ANY ONE of the following(20)(21): [ ]a) Heart rhythms that are inherently dangerous or unstable indicated by ANY ONE of the following(22)(23)(24): [ ]i) Resuscitated ventricular fibrillation or cardiac arrest [ ]ii) Ventricular escape rhythm [ ]iii) Sustained ventricular tachycardia (30 seconds or more of ventricular rhythm at greater than 100 beats per minute) [ ]iv) Nonsustained ventricular tachycardia and ANY ONE of the following: [ ]1) Suspected cardiac ischemia as cause or consequence of ventricular tachycardia [ ]2) In setting of acute myocarditis [ ]b) Unstable cardiac conduction defects indicated by ANY ONE of the following(24)(25)(26): [ ]i) Type II second-degree atrioventricular block [ ]ii) Third-degree atrioventricular block [ ]iii) New-onset left bundle branch block with suspected myocardial ischemia [ ]c) Any heart rhythm and ANY ONE of the following(22)(23)(27)(28)( 29): [ ] i) Continuous long-term ECG monitoring needed (eg, initiation of drug requiring monitoring for more than 24 hours) [ ] ii) Patient has automatic implanted cardioverter defibrillator that is repeatedly firing, malfunctioning, or in need of immediate adjustment of settings beyond the scope of ambulatory or observation care. [ ]d) Heart rhythms of concern due to ANY ONE of the following: [ ]i) Hypotension [ ]ii) Respiratory distress [ ]iii) Association with other significant symptoms (eg, bradycardia with syncope or ongoing dizziness, supraventricular tachycardia with chest pain) (27)(28) (30) [ ] V. Severe heart failure as indicated by ANY ONE of the following ( 31)(32): [ ]a) Respiratory distress [ ]b) Hypotension [ ]c) Anasarca (refractory to outpatient therapy) [ ]d) Cardiac arrhythmias of immediate concern [ ]e) Myocardial ischemia [ ]. Respiratory abnormalities, including ANY ONE of the following(33)(34) (35)(36): [ ]a) Respiratory rate greater than 30 breaths per minute unresponsive to treatment [A] [ ]b) New saturation of arterial oxygen less than 90% [ ]c) New partial pressure of carbon dioxide greater than 44 mm Hg ( 5.9 kPa) [ ]d) Supplemental oxygen or respiratory treatments needed that are new or not performable at other levels of care [ ]e) New-onset cyanosis [ ]f) Inability to protect airway [ ]g) Chronic lung disease with severe deterioration (not responsive to emergency and observation care treatment as appropriate) as indicated by ANY ONE of the following(34)(36 ): [ ]i) SaO2 5% below baseline in patient with chronic hypoxemia [ ]ii) New requirement for supplemental oxygen to keep SaO2 at baseline or acceptable level [ ]iii) Required supplemental oxygen performable only in acute inpatient setting [ ]iv) Severe airflow or ventilation abnormalities [ ]v) Previously mobile patient unable to walk between rooms [ ]vi Inability to eat or sleep due to dyspnea [ ]vii) Rapid rate of exacerbation onset [ ]viii) Altered mental status ]VII. Severe airflow or ventilation abnormalities (not responsive to emergency and observation care treatment as appropriate) as indicated by ANY ONE of the following(33)(34)(35)(37): [ ]a) PCO2 greater than 42 mm Hg (5.6 kPa) and pH less than 7.35 (new ) [ ]b) Documented PCO2 increased more than 5 mm Hg (0.7 kPa) from disease baseline [ ]c) Airflow measurements [B] less than 60% of previous best or predicted (eg, peak expiratory flow rate less than 300 L/minute) despite intensive emergent treatment [C] [ ]d) Required respiratory treatments that are performable only in acute inpatient setting [ ]VIII. Impending or actual respiratory arrest ( Also use Respiratory Failure GRG for severe respiratory disease and long-term mechanical ventilation patients) [ ]IX. Neurologic abnormalities, including ANY ONE of the following: [ ]a) New findings that suggest ANY ONE of the following: [ ]i) SERVICE DELIVERY ANALYST infection(38) [ ]ii) Cerebral bleeding, ischemia, or vasospasm(39)(40) [ ]iii) Increased intracranial pressure, hydrocephalus, or cerebral edema(41)(42)(43) [ ]iv) Spinal cord injury(44) [ ]b) Uncontrolled seizures(45) [ ]c) New-onset coma (eg, Cinthya coma scale score less than 9) or unexplained abnormal mental status (eg, Cinthya coma scale score less than 14) [D](41)(46)(47) [ ]X. New-onset severe neurologic findings requiring inpatient care; examples include(42)(48)(49): [ ]a) Papilledema [ ]b) Cerebral edema [ ]c) Mass effect on CT scan [ ]XI. Suspected acute intra-abdominal process with peritoneal signs, abdominal mass, or similar findings (50)(51)(52) [ ]XII. Severe physiologic disorder remaining after emergency or observation level care (as appropriate) as indicated by ANY ONE of the following (53): [ ]a) Significant dehydration [ ]b) Diabetic ketoacidosis [ ]c) Hyperglycemic hyperosmolar state (eg, osmolality greater than 320 mOsm/kg (mmol/kg) [ ]d) Hypoglycemia [ ]e) Other (new) acid-base disorder with pH less than 7.35 or greater than 7.5(54) [ ]f) Thyroid storm (55) [ ]g) Myxedema coma (55) [ ]XIII. Abdominal abnormalities with ANY ONE of the following(56)(57): [ ]a) Absent bowel sounds with complete ileus [ ]b) Signs of intestinal obstruction or peritonitis [E] [ ]c) Nausea and vomiting that cannot be controlled with outpatient or observation care [ ]XIV. Acute renal failure as indicated by new onset of ANY ONE of the following(9)(10)(11)(12)(13): [ ]a) A 3-fold rise in serum creatinine from baseline [ ]b) Serum creatinine greater than 4 mg/dL (354 micromoles/L) with acute rise greater than 0.5 mg/dL (44.2 micromoles/L) [ ]c) Reduction of more than 75% in estimated glomerular filtration rate from baseline [ ]d) Estimated glomerular filtration rate less than 35 mL/min/ 1.73m2 (0.59 mL/sec/1.73m2) in child up to 18 years of age [ ]e) Cessation of urine output indicated by ALL of the following: [ ]i) Adequate volume status [ ]ii) Inadequate urine output as indicated by ANY ONE of the following: [ ]1) Urine output less than 0.3 mL/kg/hr for 24 hours [ ]2) Anuria (urine output less than 0.1 mL/kg/hr) for 12 hours [ ]XV. Significant uremic complications as indicated by ANY ONE of the following(58)(59)(60): [ ]a) Outpatient therapy is ineffective or not feasible for ANY ONE of the following: [ ]i) Severe heart failure [ ]ii) Severehypertension [ ]iii) Pleural effusion [ ]iv) Pericarditis or pericardial effusion [ ]b) Cardiac arrhythmias of immediate concern [ ]c) Intractable nausea or vomiting [ ]d) Recurrent seizures [ ]e) Encephalopathy [ ]f) Bleeding abnormalities (eg, platelet dysfunction) with active (eg, gastrointestinal) bleeding [ ]g) Dialysis indicated before long-term access or ambulatory arrangements can be made [ ]h) Significant metabolic or electrolyte abnormalities (eg, severe acidosis or hyperkalemia) [ ]XVI. High fever or other high-risk infection situation as indicated by ANY ONE of the following(61)(62)(63)(64): [ ]a) Outpatient and observation care antimicrobial treatment unavailable, not effective, or not appropriate [ ]b) Documented bacteremia [ ]c) Temperature greater than 40.5 degrees C (104.9 degrees F) ( oral) [ ]d) Temperature greater than 39.5 degrees C (103.1 degrees F) ( oral) or less than 36 degrees C (96.8 degrees F) (rectal) that does not respond to e treatment and observation care [ ] XVII. Temperature less than 95 degrees F (35 degrees C)(rectal)(65) [ ] XVIII. Severe nutritional abnormalities as indicated by ALL of the following (66)(67): [ ]a) Inability to tolerate or establish sufficient oral or other enteral nutrition in outpatient setting [ ]b) Parenteral nutrition regimen need that must be implemented on inpatient basis [ ] XIX. Severe electrolyte abnormalities indicated by ALL of the following(68) (69)(70): [ ]a) Electrolytes and associated findings are not as expected for patient baseline or acceptable treatment effects. [ ]b) Severe abnormalities indicated by ANY ONE of the following: [ ]i) Sodium less than 130 mEq/L (mmol/L) (new) [ ]ii)Sodium less than 135 mEq/L (mmol/L) with ANY ONE of the following: [ ]1) Uncorrectable (to near normal or chronic baseline) after trial of outpatient and emergency treatment [ ]2) Altered mental status [ ]3) Seizures [ ]4) Severe medical etiology requiring inpatient management (eg, heart failure, hypovolemia) [ ]iii) Sodium greater than 155 mEq/L (mmol/L) [ ]iv) Sodium greater than 150 mEq/L (mmol/L) with ANY ONE of the following: [ ]1) Uncorrectable (to near normal or chronic baseline) with outpatient and emergency treatment [ ]2) Altered mental status [ ]3) Seizures [ ]4) Severe medical etiology (eg, hypovolemia, diabetes insipidus) [ ]v) Potassium less than 2.5 mEq/L (mmol/L) despite outpatient and emergency treatment [ ]vi) Potassium less than 3 mEq/L (mmol/L) with ANY ONE of the following: [ ]1) Weakness [ ]2) Cardiac abnormality (eg, arrhythmia, conduction disturbance) [ ]3) Cardiac ischemia [ ]4) Ileus [ ]5) Ongoing medical cause requiring inpatient management (eg, acute renal wasting or SIADH) [ ]6) Other severe symptoms [ ]vii) Potassium greater than 6.5 mEq/L (mmol/L) [ ]viii) Potassium greater than 5 mEq/L (mmol/L) with ANY ONE of the following: [ ]1) Uncorrectable (to near normal or chronic baseline) with outpatient and emergency treatment [ ]2) Severe ECG findings [F] [ ]3) Acute worsening of renal failure (creatinine greater than 2.5 mg/dL (221 micromoles/L) or significant elevation for age and size) [ ]4) Severe weakness [ ]5) Severe medical etiology (eg, hemolysis, infection, drug overdose) [ ]ix) Calcium less than 7 mg/dL (1.75 mmol/L) despite outpatient and emergency treatment (72) [ ]x) Calcium less than 8 mg/dL (2 mmol/L) with significant symptoms or findings; examples include(72): [ ]1) Altered mental status [ ]2) Muscle spasms [ ]3) Seizures [ ]4) Breathing difficulty [ ]5) Cardiac abnormality (eg, arrhythmia or conduction disturbance) [ ]xi) Calcium greater than 14 mg/dL (3.5 mmol/L)(72) [ ]xii) Calcium greater than 12 mg/dL (3 mmol/L) with ANY ONE of the following(72): [ ]1) Uncorrectable (to near normal or chronic baseline) with outpatient and emergency treatment [ ]2) Significant dehydration or hypovolemia as indicated by ALL of the following(70)(73)(74): [ ]A. Not resolved with initial treatments [ ]B. Clinically significant dehydration as indicated by ANY ONE of the following: [ ]a. Vomiting refractory to outpatient treatment (ie, precluding oral rehydration) [ ]b. Inability to drink [ ]c. Hypernatremia or other electrolyte abnormality unable to be corrected with outpatient and emergency treatment [ ]d. Failure to remain hydrated with outpatient therapy [ ]e. Reduced urine output [ ]f. Hypotension [ ]g. Serious cause for dehydration requiring acute hospitalization (eg, bowel obstruction, increased intracranial pressure, infectious cause) [ ]h. Child with ANY ONE of the following(75): [ ]1) Severe abdominal tenderness [ ]2) Adequate care not available at home [ ]3) Severe dehydration ( greater than 9% loss of body weight) [ ]4) Significant symptoms or findings; examples include: [ ]A. Altered mental status [ ]B. Cardiac abnormality (eg, arrhythmia, conduction disturbance) [ ]C. Malignant etiology requiring inpatient treatment [ ]xiii) Phosphorus less than 1 mg/dL (0.32 mmol/L) [ ]xiv) Phosphorus less than 1.5 mg/dL (0.48 mmol/L) with ANY ONE of the following: [ ]1) Patient unresponsive to outpatient and emergency treatment [ ]2) Significant symptoms or findings; examples include: [ ]A. Weakness [ ]B. Altered mental status [ ]C. Breathing difficulty [ ]D. Seizures [ ]E. Rhabdomyolysis [ ]xv) Phosphorus greater than 10 mg/dL (3.2 mmol/L) [ ]xvi) Phosphorus greater than 4.5 mg/dL (1.45 mmol/L) (new) with ANY ONE of the following: [ ]1) Severe medical etiology (eg, crush injury, acute renal failure) [ ]2) Associated hypocalcemia with significant findings; examples include: [ ]A. Neurologic symptoms [ ]B. Altered mental status [ ]C. Muscle spasms [ ]D. Seizures [ ]E. Breathing difficulty [ ]F. Cardiac abnormality (eg, arrhythmia, conduction disturbance) [ ]xvii) Magnesium less than 1 mg/dL (0.41 mmol/L) [ ]xviii) Magnesium less than 1.5 mg/dL (0.62 mmol/L) with ANY ONE of the following: [ ]1) Patient unresponsive to outpatient and emergency treatment [ ]2) Associated hypocalcemia with significant findings; examples include: [ ]A. Altered mental status [ ]B. Muscle spasms [ ]C. Seizures [ ]D. Breathing difficulty [ ]E. Cardiac abnormality (eg, arrhythmia , conduction disturbance) [ ]3) Associated hypokalemia (potassium less than 3 mEq/L (mmol/L)) with risk of arrhythmia [ ]xix) Magnesium greater than 4 mEq/L (2 mmol/L) [ ]xx) Magnesium greater than 2.5 mEq/L (1.25 mmol/L) with significant symptoms or findings; examples include: [ ]1) Weakness [ ]2) Altered mental status [ ]3) Cardiac abnormality (eg, arrhythmia, conduction disturbance) [ ]4) Breathing difficulty [ ]5) Severe medical etiology (eg, renal failure, hypovolemia) [ ]xxi) Uric acid greater than 20 mg/dL (1190 micromoles/L)(76) [ ]xxii) Uric acid greater than 8 mg/dL (476 micromoles/L) with significant symptoms or findings of tumor lysis syndrome; examples include(76): [ ]1) Creatinine greater than 1.5 times upper limit of normal [ ]2) Cardiac abnormality (eg, arrhythmia, conduction disturbance) [ ]3) Seizure [ ]XX. Acute blood loss causing significant abnormality as indicated by ANY ONE of the following(77)(78): [ ]a) Hemoglobin less than 10 g/dL (100 g/L) (not baseline) [ ]b) Hematocrit less than 30% (0.30) (not baseline) [ ]c) Repeat hematocrit decreased more than 2% (0.02) [ ]d) Uncontrolled bleeding [ ]XXI. Severe anemia indicated by ANY ONE of the following(78)(79): [ ]a) Altered mental status [ ]b) Chest pain [ ]c) Exertional dyspnea [ ]d) Syncope [ ]e) Other findings suggesting inadequate perfusion [ ]f) Treatment with transfusion or volume replacement is ineffective at resolving ANY ONE of the following [G]: [ ]i) Tachycardia for age [ ]ii) Orthostatic vital sign changes as indicated by ANY ONE of the following(80): [ ]1) Fall in SBP of 20 mm Hg or more 1 to 3 minutes after patient sits or stands from recumbent position [ ]2) Fall in DBP of 10 mm Hg or more 1 to 3 minutes after patient sits or stands from recumbent position [ ]XXII. High-risk low platelet count as indicated by ANY ONE of the following( 81)(82): [ ]a) Severe or life-threatening bleeding (eg, intracranial, major gastrointestinal, or extensive mucosal bleeding), with any reduced platelet count [ ]b) Platelet count less than 20,000/mm3 (20 x109/L) with any active bleeding [ ]c) Platelet count less than 10,000/mm3 (10 x109/L) with minor purpura or petechiae [ ]d) Platelet count less than 5000/mm3 (5 x109/L) [ ]e) Low platelet count with hemolytic anemia [ ]XXIII. Disseminated intravascular coagulation(77)(83) [ ]XXIV. Severe adverse drug or systemic toxin reaction requiring inpatient treatment; examples include(84)(85): [ ]a) Serotonin syndrome(86) [ ]b) Neuroleptic malignant syndrome(86) [ ]c) Cholinergic syndrome with severe symptoms (eg, bronchorrhea, weakness, mental status changes, seizures) [ ]d) Sympathetic syndrome with severe symptoms (eg, seizures, mental status changes, cardiac dysrhythmias) [ ]e) Anticholinergic syndrome [ ]XXV. Severe pain requiring acute inpatient management as indicated by ALL of the following (87)(88)(89): [ ]a) Continuous or frequent (eg, every 2 to 4 hours) parenteral analgesics required [H] [ ]b) Rapid improvement expected from treatment or acute intervention (eg, surgery, anesthesia procedure) [ ]XXVI.Severe behavioral health issues judged unmanageable at a lower level of care (eg, residential) in a patient who is ANY ONE of the following(91) [ ]a) Acutely suicidal [ ]b) A danger to self (eg, self-mutilating or suicidal behavior) [ ]c) A danger to others (eg, assaultive or homicidal behavior) [ ]d) Incapacitated because of grave disability (eg, inability to provide for self at lower level of care) (92) [X]XXVII. Inpatient monitoring needed; examples include(1)(3)(87)(93)(94)(95)(96 ): [X]a) Vital signs, neurologic signs, or vascular checks more frequently than every 4 hours [ ]b) Cardiac or respiratory monitoring beyond the scope (eg, over 24 hours) of observation care [ ]c) Pulmonary artery catheter monitoring [ ]d) Suspected compartment syndrome(97) (98) [ ]e) Cerebral bleeding, hydrocephalus, or vasospasm monitoring [ ]f) Increased intracranial pressure or cerebral edema monitoring [ ]g) monitoring [ ]XXVIII. Treatment requiring inpatient care; examples include: [ ]a) IV fluid to replace significant ongoing losses (greater than 3 L/m2 per day)(53) [ ]b) High concentration oxygen (greater than 40%)(33)(99)(100) [ ]c) Frequent respiratory therapy (more frequently than every 4 hours) to maintain airflow rates greater than 60% of baseline(33)(99)(100) [ ]d) Epidural analgesia(87) [ ]e) IV anticoagulation, vasoactive, or antiarrhythmic medication(19 )(23) [ ]f) Acute thrombolytics (generally require 24 hours of observation )(101)(102) [ ]XXIX. Emergency procedures needed; examples include: [ ]a) Emergency inpatient surgery [ ]b) Temporary pacemaker placement(103) [ ]c) Chest tube placement with active evacuation (eg, suction, drainage)(104) [ ]d) Emergent cardioversion(105) [ ]e) Emergent cardiac or vascular procedures (eg, cardiac catheterization, angioplasty) (17)(18) [ ]f) Emergent dialysis access placement and institution(10)(106) [ ]g) Emergent pericardiocentesis(107) [ ]h) Emergent plasmapheresis or leukapheresis(83) [ ]i) Emergent tracheostomy The original [employer] content created by [employer] has been revised. The portions of the content which have been revised are identified through the use of italic text or in bold, and [employer] has neither reviewed nor approved the modified material. All other unmodified content is copyright [employer]. Please see references footnoted in the original [employer] edition 2016 Admission Criteria Met?: Yes ZEV BAJWA May 06, 2017 05:29
[2017-05-06 06:01] LABS: CALCIUM 8.4 mg/dL (8.5-10.1); CREATININE 0.9 mg/dL (0.7-1.3); GFR 83.4
[2017-05-06 06:03] LABS: POTASSIUM 2.9 mmol/L (3.5-5.1)
[2017-05-06] MEDS ORDERED: PANTOPRAZOLE 40 MG TABLET.DR. PO SCH (07:30)
[2017-05-06 07:55] VITALS: BP 147/53
[2017-05-06] MEDS ORDERED: POTASSIUM CHLORIDE 10 MEQ TABLET.ER. PO SCH (08:00)
[2017-05-06] MEDS: POTASSIUM CHLORIDE 20 MEQ TABLET.ER. PO SCH ×2 (08:00→12:08)
[2017-05-06] MEDS ORDERED: CALCIUM CARB/VIT D3 500/200 TABLET. PO SCH (08:00)
[2017-05-06] MEDS: IPRATRPIUM/ALBUTEROL 0.5/2.5MG 3 ML NEBU. NEB SCH ×2 (08:12→11:29)
[2017-05-06] MEDS: BUDESONIDE 0.5 MG/2 ML NEBU. NEB SCH (08:12)
--- NOTE | 2017-05-06 08:44 | DISCH ---
DISCHARGE INSTRUCTIONS Diet after Discharge Diet after Discharge: Cardiac Follow-Up Follow up with: as scheduled STEF ROYAL MD May 06, 2017 08:44
[2017-05-06] MEDS: GABAPENTIN 300 MG CAPSULE. PO SCH (08:45)
[2017-05-06] MEDS: SENNOSIDES/DOCUSATE 8.6/50MG TABLET. PO SCH ×2 (08:46→08:51)
[2017-05-06] MEDS: predniSONE 5 MG TABLET PO SCH (08:46)
[2017-05-06] MEDS: METOPROLOL SUCC 24HR ER 25 MG TAB.ER.24H. PO SCH ×2 (08:47→08:51)
--- NOTE | 2017-05-06 08:47 | PDOC ---
Provider Note Provider Note [id number] STEF ROYAL MD May 06, 2017 08:47
[2017-05-06] MEDS ORDERED: NON FORMULARY ITEM (Tiotropium Bromide (Spiriva) 2 INH) IH SCH (09:00)
[2017-05-06] MEDS ORDERED: CHOLECALCIFEROL (VITAMIN D3) 1,000 UNIT TABLET PO SCH (09:00)
[2017-05-06] MEDS ORDERED: FUROSEMIDE 40 MG TABLET. PO SCH (09:00)
[2017-05-06] MEDS ORDERED: CLOPIDOGREL BISULFATE 75 MG TABLET PO SCH (09:00)
[2017-05-06] MEDS ORDERED: ASPIRIN ENTERIC COATED 81 MG TABLET.DR. PO SCH (09:00)
--- NOTE | 2017-05-06 09:29 | SSS ---
ADMIT DATE: 05/05/2017 23-HOUR SUMMARY CHIEF COMPLAINT: Weakness. HISTORY OF PRESENT ILLNESS: A 71-year-old white male with history of coronary artery disease, prostate cancer and PAD who had seen Dr. Vargas recently and because of his increasing leg edema despite Lasix was given metolazone. He took 3 days in a row of unknown milligram and had increasing diuresis with increasing weakness, fatigue and inability to walk. The calcium was elevated at 11.1 with normal electrolytes and potassium was 3.5. After hydration, potassium was down to 2.9, but his calcium is down to 8.2 and he is feeling somewhat better with good blood pressure. If he is comfortable later today, he will be discharged and followed as an outpatient after receiving about 3 liters of saline. FINAL DIAGNOSES: Diuretic induced weakness and hypokalemia. OPERATIONS, PROCEDURES, COMPLICATIONS, AND CONSULTATIONS: None. DISPOSITION: He will not take furosemide for 2 more days. He will take high doses of dietary potassium to replace potassium. Rest of home meds remain the same. Follow up with Dr. Vargas and other doctors as scheduled and his prognosis is guarded. STEF ROYAL MD DR: DEYVI/nts JOB#: [id number] / [id number]
[2017-05-06 10:55] VITALS: BP 137/65
== END 2017-05-06 14:34 | disposition home or self-care (01) | DRG 641 ==
LOC: ER 08:14 → 6 SOUTH 09:51
PROVIDERS: ADMIT Family Medicine; ATTEND Family Medicine
DX: E87.6 Hypokalemia (principal); R53.1 Weakness; E83.52 Hypercalcemia; I25.10 Atherosclerotic heart disease of native coronary artery without angina pectoris; T50.2X5A Adverse effect of carbonic-anhydrase inhibitors, benzothiadiazides and other diuretics, initial encounter; J44.9 Chronic obstructive pulmonary disease, unspecified; Z85.46 Personal history of malignant neoplasm of prostate; Z95.1 Presence of aortocoronary bypass graft; Z95.5 Presence of coronary angioplasty implant and graft; Z95.818 Presence of other cardiac implants and grafts; I25.2 Old myocardial infarction; I73.9 Peripheral vascular disease, unspecified
CPT/HCPCS: 36415; 80048; 80053; 81001; 85007; 85027; 93005; 94250; 94640; C1887; J7030; J7512; J7620; J7626; 99285-25

== ENCOUNTER 2017-08-21 10:35 | Inpatient (IN) | payer BC ==
[2017-08-21] VITALS (13 sets, daily range): BP systolic 102–126; BP diastolic 49–66
[~2017-08-21] VITALS: Ht 182.9 cm; Wt 93.0 kg
[~2017-08-21 10:35] MED LIST changes: +METO-239 PO; -METO25TA9 PO
[2017-08-21 11:03] LABS: BASO % 0 % (0-3); EOS % 0 % (0-3); HEMATOCRIT 34.5 % (39.0-53.0); HEMOGLOBIN 10.9 g/dL (13.0-17.5); LYMPH # 0.3 x10^3/uL (1.0-4.8); LYMPH % 2 % (24-48); MEAN CORPUSCULAR HEMOGLOBIN 27 pg (25-35); MEAN CORPUSCULAR HGB CONC 32 g/dL (31-37); MEAN CORPUSCULAR VOLUME 87 fL (79-100); MONO % 6 % (0-9); NEUT % 92 % (31-73); PLATELET COUNT 186 x10^3/uL (140-400); RED BLOOD COUNT 3.99 x10^6/uL (4.30-5.70); WHITE BLOOD COUNT 23.4 x10^3/uL (4.0-11.0)
[2017-08-21 11:12] LABS: CALCIUM 11.6 mg/dL (8.5-10.1); GFR 33.1; POTASSIUM 3.6 mmol/L (3.5-5.1)
[2017-08-21 11:18] LABS: ALBUMIN 3.3 g/dL (3.4-5.0); DIRECT BILIRUBIN 0.1 mg/dL (0.0-0.2); TOTAL BILIRUBIN 0.6 mg/dL (0.2-1.0); TOTAL PROTEIN 7.3 g/dL (6.4-8.2)
[2017-08-21] MEDS ORDERED: PIP/TAZO PER PHARMACY MC PRN (11:30)
[2017-08-21] MEDS ORDERED: IV NORMAL SALINE 500ML BAG 500 ML IV ONE (11:30)
[2017-08-21] MEDS ORDERED: HEPARIN for IV BOLUS 10,000 UNIT/10 ML VIAL. IV PRN (11:30)
[2017-08-21] MEDS ORDERED: ASPIRIN CHEWABLE 81 MG TABLET. PO ONE (11:30)
[2017-08-21] MEDS ORDERED: HEPARIN for IV BOLUS 10,000 UNIT/10 ML VIAL. IV ONE (11:30)
[2017-08-21] MEDS ORDERED: VANCOMYCIN 2 GM in IV DEXTROSE 5% 500 ML IV ONE (11:45)
[2017-08-21] MEDS ORDERED: PIPERACILLIN/TAZO IV Push 3.375 GM VIAL. IVP ONE (11:45)
[2017-08-21] MEDS: HEPARIN 25,000UTS/500ML PREMIX 500 ML IV PRN (11:58)
--- NOTE | 2017-08-21 12:05 | RAD ---
Portable AP semiupright view CXR: Clinical indications: Cough and fever and shortness of breath and weakness. Comparison: October 23, 2015. Findings: Bibasilar interstitial lung infiltrates are seen greater on the right side. No pleural effusion or pneumothorax is seen. Sternotomy is again evident. The heart size, pulmonary vasculature, mediastinum and both ellis are otherwise unremarkable. Impression: Bibasilar lung infiltrates..
[2017-08-21 12:16] LABS: INR 1.1 (0.8-1.1); PROTHROMBIN TIME PATIENT 13.3 SEC (11.7-14.0)
[2017-08-21] MEDS ORDERED: MORPHINE SULFATE 4 MG/ML DISP.SYRIN. IV PRN (12:45)
[2017-08-21] MEDS ORDERED: ONDANSETRON PF 4 MG/2 ML VIAL. IV PRN (12:45)
[2017-08-21 12:49] LABS: PLT ESTIMATE ADEQUATE (ADEQUATE)
--- NOTE | 2017-08-21 12:50 | EKG ---
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
[2017-08-21 12:52] LABS: ANISOCYTOSIS SLIGHT
[2017-08-21 12:58] LABS: TOXIC VACUOLATION SLIGHT
[2017-08-21] MEDS ORDERED: IV NORMAL SALINE 1000ML BAG 1,000 ML IV SCH (13:00)
--- NOTE | 2017-08-21 13:15 | PDOC2 ---
PRAFUL LI HARMONIC ANALYST 08/21/17 1315: CARDIAC CONSULT DATE OF CONSULT Date of Consult DATE: 08/21/17 TIME: 12:41 REASON FOR CONSULT Reason for Consult: Elevated troponin REFERRING PHYSICIAN Referring Physician: Mik SOURCE Source: Caregiver (daughter), Chart review, Patient HISTORY OF PRESENT ILLNESS HISTORY OF PRESENT ILLNESS This is a pleasant 72 yo male admitted for complains of abdominal pain, fever and cough. Reports that he has been feeling weak and more tired. He has been having this cough but unable to expectorate. He ate very well last night but overnight he developed fever of 101, complains of diffuse lower abdominal pain with nausea and no vomiting. No diarrhea. Denies any CP or SOA. She was so weak this am that he could not stay standing. Denies any palpitations. Denies being exposed to someone that is sick recently. PAST MEDICAL HISTORY Cardiovascular: CAD, HTN, Hyperlipidemia, Other (LE PAD; right carotid artery disease) Pulmonary: COPD, Other (severe pulmonary HTN) CENTRAL NERVOUS SYSTEM: Other (No pertinent history) GI: Constipation, GERD Psych: No pertinent hx Musculoskeletal: Osteoarthritis Infectious disease: No pertinent hx ENT: No pertinent hx Renal/: Chronic renal insuff (recently taken lisinopril due to decreasing GFR ), Prostate Ca. Endocrine: No pertinent hx Dermatology: No pertinent hx PAST SURGICAL HISTORY Past Surgical History PCI in 2013, PCI/PTCA on 09/2016 to OMB of LCx, Aortobifemoral bypass graft in 1999. Left femoropopliteal bypass graft with chronic total occlusion prompting TIRE FABRIC INSPECTOR/stent to LSFA, CABGx3, right carotid endarterectomy, right hip revision, bilateral RITESH, inguinal hernia repair FAMILY HISTORY Family History: Family History Unknown SOCIAL HISTORY Smoke: Quit ALCOHOL: none Drugs: None Lives: with Family CURRENT MEDICATIONS CURRENT MEDICATIONS Current Medications Medications (Trade) Dose Ordered Sig/Antoinette Route PRN Reason Start Time Stop Time Status Last Admin Dose Admin Aspirin (Children'S Aspirin) 324 mg 1X ONCE PO 08/21/17 11:30 08/21/17 11:31 DC 08/21/17 11:58 Sodium Chloride 500 ml @ 500 mls/hr 1X ONCE IV 08/21/17 11:30 08/21/17 12:29 DC 08/21/17 12:00 Heparin Sodium (Porcine) (Heparin Sodium) 4,000 unit 1X ONCE IV 08/21/17 11:30 11/10/17 11:35 DC 08/21/17 11:58 Heparin Sodium/ Dextrose 500 ml @ 0 mls/hr CONT PRN IV SEE I/O RECORD 08/21/17 11:30 08/21/17 11:58 Piperacillin Sod/ Tazobactam Sod (Zosyn) 3.375 gm 1X ONCE IVP 08/21/17 11:45 08/21/17 11:46 DC 08/21/17 11:56 ALLERGIES ALLERGIES: Coded Allergies: NSAIDS (Non-Steroidal Anti-Inflamma (Verified Adverse Reaction, Intermediate, "vomiting", 10/10/14) ROS Review of System 14 point ROS evaluated with pertinent positives noted per HPI PHYSICAL EXAM General: Alert, Oriented X3, Cooperative, No acute distress HEENT: Atraumatic, Mucous membr. moist/pink Lungs: Other (RLL crackles) Heart: Regular rate (SR), Normal S1, Normal S2 Abdomen: Soft, Other (mild diffuse lower abd tenderness) Extremities: No cyanosis, Other (trace to 1+ bilateral LE pitting edema) Skin: Other (generalized bilateral arm ecchymoses) Neuro: Normal speech, Sensation intact Psych/Mental Status: Mental status NL, Mood NL MUSCULOSKELETAL: Osteoarthritic changes both hands VITALS VITALS Vital Signs Date Time Temp Pulse Resp B/P (MAP) Pulse Ox O2 Delivery O2 Flow Rate FiO2 08/21/17 10:35 98.4 95 22 130/57 (81) 88 Nasal Cannula 3.0 98.4 LABS Lab: Laboratory Tests Test 08/21/17 10:40 White Blood Count 23.4 x10^3/uL (4.0-11.0) Red Blood Count 3.99 x10^6/uL (4.30-5.70) Hemoglobin 10.9 g/dL (13.0-17.5) Hematocrit 34.5 % (39.0-53.0) Mean Corpuscular Volume 87 fL (79-100) Mean Corpuscular Hemoglobin 27 pg (25-35) Mean Corpuscular Hemoglobin Concent 32 g/dL (31-37) Red Cell Distribution Width 18.0 % (11.5-14.5) Platelet Count 186 x10^3/uL (140-400) Neutrophils (%) (Auto) 92 % (31-73) Lymphocytes (%) (Auto) 2 % (24-48) Monocytes (%) (Auto) 6 % (0-9) Eosinophils (%) (Auto) 0 % (0-3) Basophils (%) (Auto) 0 % (0-3) Neutrophils # (Auto) 21.5 x10^3uL (1.8-7.7) Lymphocytes # (Auto) 0.3 x10^3/uL (1.0-4.8) Monocytes # (Auto) 1.4 x10^3/uL (0.0-1.1) Eosinophils # (Auto) 0.1 x10^3/uL (0.0-0.7) Basophils # (Auto) 0.0 x10^3/uL (0.0-0.2) Prothrombin Time 13.3 SEC (11.7-14.0) Prothromb Time International Ratio 1.1 (0.8-1.1) Activated Partial Thromboplast Time 28 SEC (24-38) Sodium Level 136 mmol/L (136-145) Potassium Level 3.6 mmol/L (3.5-5.1) Chloride Level 96 mmol/L (98-107) Carbon Dioxide Level 33 mmol/L (21-32) Anion Gap 7 (6-14) Blood Urea Nitrogen 26 mg/dL (8-26) Creatinine 2.0 mg/dL (0.7-1.3) Estimated GFR (Cockcroft-Gault) 33.1 Glucose Level 107 mg/dL (70-99) Lactic Acid Level 3.2 mmol/L (0.4-2.0) Calcium Level 11.6 mg/dL (8.5-10.1) Total Bilirubin 0.6 mg/dL (0.2-1.0) Direct Bilirubin 0.1 mg/dL (0.0-0.2) Aspartate Amino Transf (AST/SGOT) 24 U/L (15-37) Alanine Aminotransferase (ALT/SGPT) 16 U/L (16-63) Alkaline Phosphatase 65 U/L (46-116) Troponin I Quantitative 2.104 ng/mL (0.000-0.055) Total Protein 7.3 g/dL (6.4-8.2) Albumin 3.3 g/dL (3.4-5.0) Lipase 183 U/L (73-393) ECHOCARDIOGRAM ECHOCARDIOGRAM <Conclusion> Left ventricle systolic function is low normal. The Ejection Fraction is 50-55%. Septal motion suggestive of post-operative state. Left ventricle systolic function is low normal. The Ejection Fraction is 50-55%. The right ventricle is mildly dilated. The right atrium is moderately dilated. Doppler and Color Flow revealed moderate to severe tricuspid regurgitation. There is severe pulmonary hypertension. The PA pressure was estimated at 77 mmHg. DATE: 08/29/16 0936 STRESS TEST STRESS TEST Conclusion 1. No evidence of vasodilator stress induced EKG changes. 2. There is a fully reversible moderate-sized inferolateral defect suggestive of impaired perfusion reserve. 3. Moderate risk study 4. Preserve ejection fraction greater than 65%. DATE: 08/29/16 1358 HEART CATH HEART CATH Conclusion 1. Severe diomede vessel coronary artery disease s/p coronary artery bypass surgery as described above with patent sequential KAPLAN to LAD/diagonal and patent SVG to RCA. The previously placed stent in the proximal LCx is patent. The obtuse marginal branch which is a medium caliber vessel showed critical 95% stenosis. 2. Successful balloon PTCA to the obtuse marginal branch of left circumflex artery. DATE: 09/16/16 1638 ASSESSMENT/PLAN ASSESSMENT/PLAN 1. Fever/cough/CAP: Tmax at home 101. 2. Abdominal pain: burning with urination. per PCP 3. NSTEMI: CP free. initial troponin 2.1 with new LBBB. 4. CAD: CABGx3. Recent LHC 5. PAD: recent TIRE FABRIC INSPECTOR/stent to LSFA. Bilateral LE without claudication symptoms. 6. CKD: Cr 2.0, notable decrease in GFR after ACEi start per daughter. 7. Chronic diastolic CHF: appears compensated 8. COPD/severe pulmonary HTN 9. HTN: controlled 10. HLP Recommendations 1. Pulmonary/ID consult pending 2. Heparin per protocol, continue DAPT 3. Continue with secondary prevention measures. 4. Ischemic workup pending treatment of infectious process. Will discuss with primary data reduction technician 5. Renal duplex. 6. TTE. Problems: NAGI HENLEY MD 08/21/17 1712: CARDIAC CONSULT ALLERGIES ALLERGIES: Coded Allergies: NSAIDS (Non-Steroidal Anti-Inflamma (Verified Adverse Reaction, Intermediate, "vomiting", 10/10/14) ASSESSMENT/PLAN ASSESSMENT/PLAN Patient seen and examined Community acquired pneumonia. Pulmonary treatments and antibiotics as above. ID consult and pulmonary consult pending. Abdominal pain. Continuing to monitor. History of coronary artery disease with mild elevation in troponin. No acute EKG changes. At least in part demand ischemia. We'll rule out for myocardial infarction. Initiate anticoagulation. Repeat echocardiogram. Future ischemic evaluation. Peripheral arterial disease. Continue medical treatment. Compensated diastolic heart failure. Pulmonary hypertension. Anticoagulate. Repeat echocardiogram as above. Controlled hypertension. Adjusting medications as needed. Thank you for allowing us to participate in the care of your patient. Problems: PRAFUL LI APRN Aug 21, 2017 13:15 NAGI HENLEY MD Aug 21, 2017 17:12
[2017-08-21 13:18] LABS: STOMATOCYTES PRESENT
--- NOTE | 2017-08-21 13:18 | PHYS DOC ---
Past Medical History Past Medical History: Cancer, COPD, High Cholesterol, PA Additional Past Medical Histor: hernia, prostate ca Past Surgical History: Coronary Bypass Surgery Additional Past Surgical Histo: heart stent, neck surgery, left hip, rt hip, colonoscopy, lt & rt fempop, Alcohol Use: None Drug Use: None Adult General Chief Complaint Chief Complaint: ABDOMINAL PAIN HPI HPI 72-year-old male presenting to the emergency department today with abdominal pain intermittently over the past 2 months. The patient has had a cough over the past 5 days and a fever at home. His cough is productive with yellow sputum. He denies having chest pain or shortness of breath. He arrives by EMS today placed on 3 L nasal cannula initially which was increased to 4 L nasal cannula. His family member states that he had a fever at home of 101F. He is currently undergoing oral chemotherapy for prostate cancer. Review of systems is negative for chest pain shortness of breath abdominal pain. Negative for neck stiffness or confusion. All other review of systems is negative unless otherwise noted in history of present illness. ED course: 72-year-old male presenting to the emergency department with a cough fever and worsening oxygen requirements. Vital signs afebrile here with mild tachycardia. Pertinent physical exam findings showed rhonchi in the right middle lung field with mild wheezing on the right side. Normal lung sounds on the left. No wheezing or crackles on the left. Otherwise the abdomen is soft nondistended nontender and without rebound tenderness or guarding. Neck has normal range of motion negative Brudzinski sign. Negative Kernig sign. Chest x- ray shows bilateral infiltrates. Patient initiated on IV antibiotics along with IV fluid therapy. Patient's troponin came back as elevated at 2. Discussed the case with Dr. Vargas's team. Initiated aspirin and heparin. I discussed the case with Dr. Marcano partner who accepted the pt for admission to the [facility]. Impression: bilateral PNA with hypoxi with type II NSTEMI. Severe sepsis. Review of Systems Review of Systems SEE ABOVE. Current Medications Current Medications Current Medications Medications (Trade) Dose Ordered Sig/Antoinette Start Time Stop Time Status Last Admin Dose Admin Aspirin (Children'S Aspirin) 324 mg 1X ONCE 08/21/17 11:30 08/21/17 11:31 DC 08/21/17 11:58 324 MG Heparin Sodium (Porcine) (Heparin Sodium) 2,400 unit PRN Q6HRS PRN 08/21/17 11:30 Heparin Sodium/ Dextrose 500 ml @ 0 mls/hr CONT PRN 08/21/17 11:30 08/21/17 11:58 0 MLS/HR Info (Anti-Coagulation Monitoring By Pharmacy) 1 each PRN DAILY PRN 08/21/17 11:45 Piperacillin Sod/ Tazobactam Sod (Zosyn Per Pharmacy) 1 each PRN DAILY PRN 08/21/17 11:30 Piperacillin Sod/ Tazobactam Sod (Zosyn) 3.375 gm 1X ONCE 08/21/17 11:45 08/21/17 11:46 DC 08/21/17 11:56 3.375 GM Sodium Chloride 500 ml @ 500 mls/hr 1X ONCE 08/21/17 11:30 08/21/17 12:29 DC 08/21/17 12:00 500 MLS/HR Vancomycin HCl (Vanco Per Pharmacy) 1 each PRN DAILY PRN 08/21/17 11:30 Vancomycin HCl 2 gm/Dextrose 500 ml @ 250 mls/hr 1X ONCE 08/21/17 11:45 08/21/17 13:44 08/21/17 12:58 250 MLS/HR Allergies Allergies Allergies Coded Allergies Type Severity Reaction Last Updated Verified NSAIDS (Non-Steroidal Anti-Inflamma Adverse Reaction Intermediate "vomiting" 10/10/14 Yes Physical Exam Physical Exam SEE ABOVE Constitutional: Well developed, well nourished, not in any distress. HENT: Normocephalic, atraumatic, bilateral external ears normal, oropharynx moist, no oral exudates, nose normal. [] Eyes: PERRLA, EOMI, conjunctiva normal, no discharge. [] Neck: Normal range of motion, no tenderness, supple, no stridor. [] Cardiovascular:Heart rate regular rhythm, no murmur [] Lungs & Thorax: SEE ABOVE Abdomen: Bowel sounds normal, soft, no tenderness, no masses, no pulsatile masses. [] Skin: Warm, dry, no erythema, no rash. [] Back: No tenderness, no CVA tenderness. [] Extremities: No tenderness, no cyanosis, no clubbing, ROM intact, no edema. [] Neurologic: Alert and oriented X 3, normal motor function, normal sensory function, no focal deficits noted. [] Psychologic: Affect normal, judgement normal, mood normal. [] Current Patient Data Vital Signs Vital Signs Date Time Temp Pulse Resp B/P (MAP) Pulse Ox O2 Delivery O2 Flow Rate FiO2 08/21/17 10:35 98.4 95 22 130/57 (81) 88 Nasal Cannula 3.0 98.4 Lab Values Laboratory Tests Test 08/21/17 10:40 White Blood Count 23.4 x10^3/uL (4.0-11.0) H Red Blood Count 3.99 x10^6/uL (4.30-5.70) L Hemoglobin 10.9 g/dL (13.0-17.5) L Hematocrit 34.5 % (39.0-53.0) L Mean Corpuscular Volume 87 fL (79-100) Mean Corpuscular Hemoglobin 27 pg (25-35) Mean Corpuscular Hemoglobin Concent 32 g/dL (31-37) Red Cell Distribution Width 18.0 % (11.5-14.5) H Platelet Count 186 x10^3/uL (140-400) Neutrophils (%) (Auto) 92 % (31-73) H Lymphocytes (%) (Auto) 2 % (24-48) L Monocytes (%) (Auto) 6 % (0-9) Eosinophils (%) (Auto) 0 % (0-3) Basophils (%) (Auto) 0 % (0-3) Neutrophils # (Auto) 21.5 x10^3uL (1.8-7.7) H Lymphocytes # (Auto) 0.3 x10^3/uL (1.0-4.8) L Monocytes # (Auto) 1.4 x10^3/uL (0.0-1.1) H Eosinophils # (Auto) 0.1 x10^3/uL (0.0-0.7) Basophils # (Auto) 0.0 x10^3/uL (0.0-0.2) Segmented Neutrophils % 63 % (35-66) Band Neutrophils % 31 % (0-9) H Lymphocytes % 3 % (24-48) L Monocytes % 3 % (0-10) Toxic Vacuolation Slight Platelet Estimate Adequate (ADEQUATE) Anisocytosis Slight Prothrombin Time 13.3 SEC (11.7-14.0) Prothrombin Time INR 1.1 (0.8-1.1) PTT 28 SEC (24-38) Sodium Level 136 mmol/L (136-145) Potassium Level 3.6 mmol/L (3.5-5.1) Chloride Level 96 mmol/L (98-107) L Carbon Dioxide Level 33 mmol/L (21-32) H Anion Gap 7 (6-14) Blood Urea Nitrogen 26 mg/dL (8-26) Creatinine 2.0 mg/dL (0.7-1.3) H Estimated GFR (Cockcroft-Gault) 33.1 Glucose Level 107 mg/dL (70-99) H Lactic Acid Level 3.2 mmol/L (0.4-2.0) H Calcium Level 11.6 mg/dL (8.5-10.1) H Total Bilirubin 0.6 mg/dL (0.2-1.0) Direct Bilirubin 0.1 mg/dL (0.0-0.2) Aspartate Amino Transferase (AST) 24 U/L (15-37) Alanine Aminotransferase (ALT) 16 U/L (16-63) Alkaline Phosphatase 65 U/L (46-116) Troponin I Quantitative 2.104 ng/mL (0.000-0.055) Total Protein 7.3 g/dL (6.4-8.2) Albumin 3.3 g/dL (3.4-5.0) L Lipase 183 U/L (73-393) Laboratory Tests 08/21/17 10:40 Laboratory Tests 08/21/17 10:40 EKG EKG [] Radiology/Procedures Radiology/Procedures [] Course & Med Decision Making Course & Med Decision Making Pertinent Labs and Imaging studies reviewed. (See chart for details) [] Dragon Disclaimer Dragon Disclaimer This electronic medical record was generated, in whole or in part, using a voice recognition dictation system. Departure Departure Disposition: ADMITTED INPATIENT Admitting Physician: Aquilino Royal Condition: GUARDED Referrals: AQUILINO ROYAL MD (PCP) Critical Care Time Critical care time was [40] minutes exclusive of procedures. time was spent evaluating pt, ordering blood work, discussing with admitting provider, documenting, discussing with family, and ordering the administration of abx. MADIHA PARR MD Aug 21, 2017 13:18
[2017-08-21 13:37] LABS: CHOLESTEROL/HDL RATIO 4.8
[2017-08-21] MEDS: METOPROLOL SUCC 24HR ER 25 MG TAB.ER.24H. PO SCH (14:00)
--- NOTE | 2017-08-21 14:09 | PDOC2 ---
CONSULT Date of Consult Date of Consult DATE: 08/21/17 TIME: 14:08 Reason for Consult Reason for Consult: BURT Referring Physician Referring Physician: Dr Tata Antonio Identification/Chief Complaint Chief Complaint Weakness Problems: Source Source: Chart review, Patient History of Present Illness Reason for Visit: as dictated Past Medical History Cardiovascular: CAD, HTN, Hyperlipidemia, Other (LE PAD; right carotid artery disease) Pulmonary: COPD, Other (severe pulmonary HTN) CENTRAL NERVOUS SYSTEM: Other (No pertinent history) GI: Constipation, GERD Psych: No pertinent hx Musculoskeletal: Osteoarthritis Infectious disease: No pertinent hx ENT: No pertinent hx Renal/: Chronic renal insuff (recently taken lisinopril due to decreasing GFR ), Prostate Ca. Endocrine: No pertinent hx Dermatology: No pertinent hx Family History Family History: Family History Unknown Social History Quit ALCOHOL: none Drugs: None Lives: with Family Current Medications Current Medications Current Medications Aspirin (Children'S Aspirin) 324 mg 1X ONCE PO Last administered on 11:58; Start 08/21/17 at 11:30; Stop 08/21/17 at 11:31; Status DC Vancomycin HCl (Vanco Per Pharmacy) 1 each PRN DAILY PRN MC SEE COMMENTS; Start 08/21/17 at 11:30 Piperacillin Sod/ Tazobactam Sod (Zosyn Per Pharmacy) 1 each PRN DAILY PRN MC SEE COMMENTS; Start 08/21/17 at 11:30 Sodium Chloride 500 ml @ 500 mls/hr 1X ONCE IV Last administered on 12:00; Start 08/21/17 at 11:30; Stop 08/21/17 at 12:29; Status DC Heparin Sodium (Porcine) (Heparin Sodium) 4,000 unit 1X ONCE IV Last administered on 08/21/17 11:58; Start 08/21/17 at 11:30; Stop 08/21/17 at 11 :35; Status DC Heparin Sodium/ Dextrose 500 ml @ 0 mls/hr CONT PRN IV SEE I/O RECORD Last administered on 08/21/17 11:58; Start 08/21/17 at 11:30 Heparin Sodium (Porcine) (Heparin Sodium) 2,400 unit PRN Q6HRS PRN IV FOR UFH LEVEL LESS THAN 0.2; Start 08/21/17 at 11:30 Vancomycin HCl 2 gm/Dextrose 500 ml @ 250 mls/hr 1X ONCE IV Last administered on 08/21/17t 12:58; Start 08/21/17 at 11:45; Stop 08/21/17 at 13 :44; Status DC Piperacillin Sod/ Tazobactam Sod (Zosyn) 3.375 gm 1X ONCE IVP Last administered on 08/21/17t 11:56; Start 08/21/17 at 11:45; Stop 08/21/17 at 11 :46; Status DC Info (Anti-Coagulation Monitoring By Pharmacy) 1 each PRN DAILY PRN MC SEE COMMENTS; Start 08/21/17 at 11:45 Ondansetron HCl (Zofran) 4 mg PRN Q8HRS PRN IV NAUSEA/VOMITING; Start at 12:45; Stop 08/22/17 at 12:44 Morphine Sulfate 2 mg PRN Q2HR PRN IV PAIN; Start 08/21/17 at 12:45; Stop 08/28 at 12:44 Sodium Chloride 1,000 ml @ 80 mls/hr [id number] IV ; Start 08/21/17 at 13:00; Stop 08/21/17 at 13:01; Status DC Piperacillin Sod/ Tazobactam Sod (Zosyn) 3.375 gm Q6HRS IVP ; Start 08/21/17 at 18:00 Aspirin (Ecotrin) 81 mg DAILY PO ; Start 08/22/17 at 09:00 Clopidogrel Bisulfate (Plavix) 75 mg DAILY PO ; Start 08/21/17 at 14:00 Metoprolol Succinate (Toprol Xl) 25 mg DAILY PO ; Start 08/21/17 at 14:00 Pantoprazole Sodium (Protonix) 40 mg DAILYAC PO ; Start 08/21/17 at 14:00 Simvastatin (Zocor) 40 mg HS PO ; Start 08/21/17 at 21:00 Active Scripts Active Reported Ventolin Hfa Inhaler (Albuterol Sulfate) 18 Gm Hfa.aer.ad 2 Puff INH Q4HRS Xtandi (Enzalutamide) 40 Mg Capsule 160 Mg PO DAILY@1000 Vitamin D3 (Cholecalciferol (Vitamin D3)) 1,000 Unit Tablet 1 Tab PO DAILY Calcium + Vitamin D Tablet (Calcium Carbonate/Vitamin D3) 1 Each Tablet 1 Each PO BID [lupron] Zytiga (Abiraterone Acetate) 250 Mg Tablet 1,000 Mg PO DAILY@1700 Vitamin D (Cholecalciferol (Vitamin D3)) 1,000 Unit Capsule 1,000 Unit PO Senokot-S Tablet (Sennosides/Docusate Sodium) 1 Each Tablet 1 Each PO Protonix (Pantoprazole Sodium) 40 Mg Tablet.dr 40 Mg PO DAILY Symbicort 160-4.5 Mcg Inhaler (Budesonide/Formoterol Fumarate) 10.2 Gm Hfa.aer.ad 2 Puff IH BID Prednisone 20 Mg Tablet 5 Mg PO BID Klor-Con M20 (Potassium Chloride) 20 Meq Tab.er.prt 10 Meq PO DAILY Furosemide 40 Mg Tablet 40 Mg PO DAILY Simvastatin 40 Mg Tablet 40 Mg PO HS Aspir 81 (Aspirin) 81 Mg Tablet.dr 81 Mg PO DAILY Clopidogrel (Clopidogrel Bisulfate) 75 Mg Tablet 75 Mg PO DAILY Spiriva (Tiotropium [place]) 18 Mcg Cap.w.dev 2 Inh IH DAILY Metoprolol Succinate ( Xl ) (Metoprolol Succinate) 25 Mg Tab.er.24h 25 Mg PO DAILY Gabapentin 600 Mg Tablet 600 Mg PO BID Allergies Allergies: Coded Allergies: NSAIDS (Non-Steroidal Anti-Inflamma (Verified Adverse Reaction, Intermediate, "vomiting", 10/10/14) ROS Review of System GEN: + Fevers no Chills + Gen Weakness EYES: no new Visual Complaints ENT: no EN Drainage no Hearing deficiets CVS: no Orthopnea no CP RESP: min SOB no MERCADO + Cough - wet GI: + Nausea ? Vomiting : no Dysuria no Urgency HEME: no easy bruising no Palp Ly Nodes NEURO no Focal Weakness no Sz PSYCH: no Suicidal Ideation no Depression SKIN: no Rashes ENDO: no Polyuria or Polydipsia no Hot/Cold Intolerance MU SK: min Arthraigia min Myalgia Physical Exam Physical Exam General Appearance: Awake Alert Oriented x 3 In no Distress Eyes: VIsion Unchanged Conjunctiva Normal EN: No EN Drainage Mucous Memb. dryish Neck: no JVD min JVP Supple no Thyromegaly CVS: S1 S2 no Murmur No Gallop No Rub no Edema Resp: few basal Rales no Rhonchi no Acc. Muscle use GI: BAS +ve NO Bruit Non Tender Non Distended : + Reese CVA tenderness; no Suprapubic Tenderness SKIN: no Rashes Breast Exam deferred Mu.Sk: Adequate ROM no Muscle Atrophy Heme: Unable to palpate Obvious LAD no Splenomegaly NEURO: Good Strength and Tone Cranial Nerves II - XII grossly intact Psych: ? Depressed no Active hallucination Vital Signs Vital Signs Date Time Temp Pulse Resp B/P (MAP) Pulse Ox O2 Delivery O2 Flow Rate FiO2 08/21/17 12:30 90 18 118/53 (74) 93 Nasal Cannula 4.5 08/21/17 10:35 98.4 98.4 Assessment & Plan ARF: Suspect VMN from lasix, Poor PO intake. ? AIN due to fever/ ? Pyelo cannot be ruled out. Current FLuid and E-lyte status does not necessitate emergent need for Dialysis. Will re-evaluate for Dialysis in am Lactic Acidemia - would like to use IVF but Resp status is tenous and so will use Gentle IVF ? Adr Insuff with Occ low BP - start Hydrocortisone and wean once BP is better ^ dwayne - on Dwayne at home, ? due to dehydration - Gentle IVF, ? findings on Bone scan (known to have metastatic Prostate Ca) Sepsis - ? Source - await Pulm eval. UTI was ruled out as OP, recheck UA C and S. check Abd CT to r/o Pyelo. Abx as ordered NSTEMI - defer to Cardiology; await ECHO occ HypoTN: Prn IVF Discussed Plan of Care and prognosis etc. at length with family () Labs Labs Laboratory Tests Test 08/21/17 10:40 White Blood Count 23.4 x10^3/uL (4.0-11.0) Red Blood Count 3.99 x10^6/uL (4.30-5.70) Hemoglobin 10.9 g/dL (13.0-17.5) Hematocrit 34.5 % (39.0-53.0) Mean Corpuscular Volume 87 fL (79-100) Mean Corpuscular Hemoglobin 27 pg (25-35) Mean Corpuscular Hemoglobin Concent 32 g/dL (31-37) Red Cell Distribution Width 18.0 % (11.5-14.5) Platelet Count 186 x10^3/uL (140-400) Neutrophils (%) (Auto) 92 % (31-73) Lymphocytes (%) (Auto) 2 % (24-48) Monocytes (%) (Auto) 6 % (0-9) Eosinophils (%) (Auto) 0 % (0-3) Basophils (%) (Auto) 0 % (0-3) Neutrophils # (Auto) 21.5 x10^3uL (1.8-7.7) Lymphocytes # (Auto) 0.3 x10^3/uL (1.0-4.8) Monocytes # (Auto) 1.4 x10^3/uL (0.0-1.1) Eosinophils # (Auto) 0.1 x10^3/uL (0.0-0.7) Basophils # (Auto) 0.0 x10^3/uL (0.0-0.2) Segmented Neutrophils % 63 % (35-66) Band Neutrophils % 31 % (0-9) Lymphocytes % 3 % (24-48) Monocytes % 3 % (0-10) Toxic Vacuolation Slight Platelet Estimate Adequate (ADEQUATE) Anisocytosis Slight Stomatocytes Present Prothrombin Time 13.3 SEC (11.7-14.0) Prothromb Time International Ratio 1.1 (0.8-1.1) Activated Partial Thromboplast Time 28 SEC (24-38) Sodium Level 136 mmol/L (136-145) Potassium Level 3.6 mmol/L (3.5-5.1) Chloride Level 96 mmol/L (98-107) Carbon Dioxide Level 33 mmol/L (21-32) Anion Gap 7 (6-14) Blood Urea Nitrogen 26 mg/dL (8-26) Creatinine 2.0 mg/dL (0.7-1.3) Estimated GFR (Cockcroft-Gault) 33.1 Glucose Level 107 mg/dL (70-99) Lactic Acid Level 3.2 mmol/L (0.4-2.0) Calcium Level 11.6 mg/dL (8.5-10.1) Total Bilirubin 0.6 mg/dL (0.2-1.0) Direct Bilirubin 0.1 mg/dL (0.0-0.2) Aspartate Amino Transf (AST/SGOT) 24 U/L (15-37) Alanine Aminotransferase (ALT/SGPT) 16 U/L (16-63) Alkaline Phosphatase 65 U/L (46-116) Troponin I Quantitative 2.104 ng/mL (0.000-0.055) Total Protein 7.3 g/dL (6.4-8.2) Albumin 3.3 g/dL (3.4-5.0) Triglycerides Level 115 mg/dL (0-150) Cholesterol Level 245 mg/dL (0-200) LDL Cholesterol, Calculated 171 mg/dL (0-100) VLDL Cholesterol, Calculated 23 mg/dL (0-40) Non-HDL Cholesterol Calculated 194 mg/dL (0-129) HDL Cholesterol 51 mg/dL (40-60) Cholesterol/HDL Ratio 4.8 Lipase 183 U/L (73-393) Laboratory Tests Test 08/21/17 10:40 White Blood Count 23.4 x10^3/uL (4.0-11.0) Red Blood Count 3.99 x10^6/uL (4.30-5.70) Hemoglobin 10.9 g/dL (13.0-17.5) Hematocrit 34.5 % (39.0-53.0) Mean Corpuscular Volume 87 fL (79-100) Mean Corpuscular Hemoglobin 27 pg (25-35) Mean Corpuscular Hemoglobin Concent 32 g/dL (31-37) Red Cell Distribution Width 18.0 % (11.5-14.5) Platelet Count 186 x10^3/uL (140-400) Neutrophils (%) (Auto) 92 % (31-73) Lymphocytes (%) (Auto) 2 % (24-48) Monocytes (%) (Auto) 6 % (0-9) Eosinophils (%) (Auto) 0 % (0-3) Basophils (%) (Auto) 0 % (0-3) Neutrophils # (Auto) 21.5 x10^3uL (1.8-7.7) Lymphocytes # (Auto) 0.3 x10^3/uL (1.0-4.8) Monocytes # (Auto) 1.4 x10^3/uL (0.0-1.1) Eosinophils # (Auto) 0.1 x10^3/uL (0.0-0.7) Basophils # (Auto) 0.0 x10^3/uL (0.0-0.2) Segmented Neutrophils % 63 % (35-66) Band Neutrophils % 31 % (0-9) Lymphocytes % 3 % (24-48) Monocytes % 3 % (0-10) Toxic Vacuolation Slight Platelet Estimate Adequate (ADEQUATE) Anisocytosis Slight Stomatocytes Present Prothrombin Time 13.3 SEC (11.7-14.0) Prothromb Time International Ratio 1.1 (0.8-1.1) Activated Partial Thromboplast Time 28 SEC (24-38) Sodium Level 136 mmol/L (136-145) Potassium Level 3.6 mmol/L (3.5-5.1) Chloride Level 96 mmol/L (98-107) Carbon Dioxide Level 33 mmol/L (21-32) Anion Gap 7 (6-14) Blood Urea Nitrogen 26 mg/dL (8-26) Creatinine 2.0 mg/dL (0.7-1.3) Estimated GFR (Cockcroft-Gault) 33.1 Glucose Level 107 mg/dL (70-99) Lactic Acid Level 3.2 mmol/L (0.4-2.0) Calcium Level 11.6 mg/dL (8.5-10.1) Total Bilirubin 0.6 mg/dL (0.2-1.0) Direct Bilirubin 0.1 mg/dL (0.0-0.2) Aspartate Amino Transf (AST/SGOT) 24 U/L (15-37) Alanine Aminotransferase (ALT/SGPT) 16 U/L (16-63) Alkaline Phosphatase 65 U/L (46-116) Troponin I Quantitative 2.104 ng/mL (0.000-0.055) Total Protein 7.3 g/dL (6.4-8.2) Albumin 3.3 g/dL (3.4-5.0) Triglycerides Level 115 mg/dL (0-150) Cholesterol Level 245 mg/dL (0-200) LDL Cholesterol, Calculated 171 mg/dL (0-100) VLDL Cholesterol, Calculated 23 mg/dL (0-40) Non-HDL Cholesterol Calculated 194 mg/dL (0-129) HDL Cholesterol 51 mg/dL (40-60) Cholesterol/HDL Ratio 4.8 Lipase 183 U/L (73-393) Images Images Comparison: October 23, 2015. Findings: Bibasilar interstitial lung infiltrates are seen greater on the right side. No pleural effusion or pneumothorax is seen. Sternotomy is again evident. The heart size, pulmonary vasculature, mediastinum and both ellis are otherwise unremarkable. Impression: Bibasilar lung infiltrates.. KRISTIAN MCLEAN MD Aug 21, 2017 14:09
[2017-08-21] MEDS ORDERED: MAGNESIUM SULFATE 2GM 50 ML IV PRN (14:15)
[2017-08-21] MEDS: VANCOMYCIN PER PHARMACY MC PRN (14:15)
[2017-08-21] MEDS ORDERED: IV NORMAL SALINE 500ML BAG 250 ML IV PRN (14:45)
[2017-08-21 15:03] LABS: OBC FLU VALID
--- NOTE | 2017-08-21 15:59 | CARD ---
APPROVED REPORT EXAM: Two-dimensional and M-mode echocardiogram with Doppler and color Doppler. Other Information Quality : Good INDICATION Non STEMI 2D DIMENSIONS Left Atrium(2D)4.8 (1.6-4.0cm)IVSd1.3 (0.7-1.1cm) Aortic Root(2D)3.1 (2.0-3.7cm)LVDd4.3 (3.9-5.9cm) LVOT Diameter2.0 (1.8-2.4cm)PWd1.3 (0.7-1.1cm) LVDs3.1 (2.5-4.0cm)FS (%) 27.5 % SV43.7 mlLVEF(%)55.0 (>50%) Aortic Valve AoV Peak Deonte.194.5cm/sAoV VTI33.0cm AO Peak GR.15.1mmHgLVOT Peak Deonte.154.0cm/s AO Mean GR.8mmHgAVA (VMAX)2.44cm2 JULIETTE (VTI)2.60cm2 Mitral Valve MV E Yxkgcomg16.9cm/sMV DECEL [id number] MV A Qfbvmynf99.1cm/sE/A Ratio0.9 Tricuspid Valve TR P. [id number]/sRAP [id number] TR Peak Gr.98kvFxGXDB01weTa LEFT VENTRICLE The left ventricle is normal size. There is mild concentric left ventricular hypertrophy. The left ve ntricular systolic function is normal and the ejection fraction is within normal range. The Ejection Fraction is 55-60%. There is normal LV segmental wall motion. The left ventricular diastolic function and filling is normal for age. RIGHT VENTRICLE The right ventricle is normal size. The right ventricular systolic function is normal. ATRIA The left atrium is mildly dilated. The right atrium is mildly dilated. The interatrial septum is inta ct with no evidence for an atrial septal defect or patent foramen ovale as noted on 2-D or Doppler im aging. AORTIC VALVE The aortic valve is not well visualized. Doppler and Color Flow revealed no significant aortic regurg itation. There is no significant aortic valvular stenosis. MITRAL VALVE The mitral valve is normal in structure and function. There is no evidence of mitral valve prolapse. There is no mitral valve stenosis. Doppler and Color Flow revealed no mitral valve regurgitation note d. TRICUSPID VALVE The tricuspid valve is normal in structure and function. Doppler and Color Flow revealed trace tricus pid regurgitation. The PA pressure was estimated at 38 mmHg. There is no tricuspid valve stenosis. PULMONIC VALVE Doppler and Color Flow revealed no pulmonic valvular regurgitation. There is no pulmonic valvular antwan nosis. GREAT VESSELS The aortic root is normal in size. The ascending aorta is normal in size. The IVC is normal in size a nd collapses >50% with inspiration. PERICARDIAL EFFUSION There is no evidence of significant pericardial effusion. Critical Notification Critical Value: No <Conclusion> The left ventricular systolic function is normal and the ejection fraction is within normal range. Th e Ejection Fraction is 55-60%. There is normal LV segmental wall motion. Doppler and Color Flow revealed trace tricuspid regurgitation. The PA pressure was estimated at 38 mm Hg.
--- NOTE | 2017-08-21 17:21 | RAD ---
CT study of the abdomen and pelvis without contrast Clinical indications: Fever and sepsis. Bilateral flank pain. Metastatic prostate cancer. Technique: Noncontrast helical CT scanning of the abdomen and pelvis was performed. Without contrast, the sensitivity to detect organ pathology and GI tract pathology is decreased. PQRS Compliance Statement: One or more of the following individualized dose reduction techniques were utilized for this examination: 1. Automated exposure control 2. Adjustment of the mA and/or kV according to patient size 3. Use of iterative reconstruction technique Comparison: PET/CT dated November 15, 2015. Chest CT dated January 21, 2016. Findings: The liver and spleen and pancreas are homogeneous in appearance on this noncontrast study. The spleen is mildly enlarged measuring 13.8 cm in length. The gallbladder is normal and no extra hepatic biliary ductal dilatation is seen. No adrenal mass is evident. No hydronephrosis or hydroureter is evident. The distal ureters and urinary bladder are obscured due to streak artifact from bilateral hip prostheses. Lower portion of the pelvis is obscured as well. Calcified atheromatous disease of the abdominal aorta is seen but no focal aneurysmal dilatation is evident. Aortic femoral bypass graft is seen. No enlarged abdominal or pelvic lymphadenopathy is seen. No obstructive bowel pattern is seen. The appendix is normal. The terminal ileum is unremarkable. No free air or free fluid or mesenteric inflammatory change is seen. Osteosclerotic metastatic disease is again evident. This most prominently involves the L1 vertebral body. This has been seen previously. Bibasilar interstitial and nodular lung infiltrates are seen which have increased since 2016. This may represent infectious or inflammatory lung disease. The nodules of the inferior aspect of the right middle lobe could be infectious or inflammatory in nature or secondary to metastatic disease. IMPRESSION: Bibasilar interstitial and nodular lung infiltrates. Osteoblastic metastatic disease. No acute abnormality of the abdomen or pelvis is seen otherwise. Mild splenomegaly.
--- NOTE | 2017-08-21 17:55 | PDOC ---
PULMONARY PROGRESS NOTES Vitals Vital Signs Date Time Temp Pulse Resp B/P (MAP) Pulse Ox O2 Delivery O2 Flow Rate FiO2 08/21/17 16:00 Nasal Cannula 4.0 08/21/17 14:44 97.6 85 18 113/55 (74) 95 97.6 General: Alert HEENT: Other Lungs: Wheezing Cardiovascular: S1, S2 Abdomen: Soft Extremities: No Edema Labs Laboratory Tests Test 08/21/17 10:40 08/21/17 12:03 08/21/17 12:25 White Blood Count 23.4 x10^3/uL (4.0-11.0) Red Blood Count 3.99 x10^6/uL (4.30-5.70) Hemoglobin 10.9 g/dL (13.0-17.5) Hematocrit 34.5 % (39.0-53.0) Mean Corpuscular Volume 87 fL (79-100) Mean Corpuscular Hemoglobin 27 pg (25-35) Mean Corpuscular Hemoglobin Concent 32 g/dL (31-37) Red Cell Distribution Width 18.0 % (11.5-14.5) Platelet Count 186 x10^3/uL (140-400) Neutrophils (%) (Auto) 92 % (31-73) Lymphocytes (%) (Auto) 2 % (24-48) Monocytes (%) (Auto) 6 % (0-9) Eosinophils (%) (Auto) 0 % (0-3) Basophils (%) (Auto) 0 % (0-3) Neutrophils # (Auto) 21.5 x10^3uL (1.8-7.7) Lymphocytes # (Auto) 0.3 x10^3/uL (1.0-4.8) Monocytes # (Auto) 1.4 x10^3/uL (0.0-1.1) Eosinophils # (Auto) 0.1 x10^3/uL (0.0-0.7) Basophils # (Auto) 0.0 x10^3/uL (0.0-0.2) Segmented Neutrophils % 63 % (35-66) Band Neutrophils % 31 % (0-9) Lymphocytes % 3 % (24-48) Monocytes % 3 % (0-10) Toxic Vacuolation Slight Platelet Estimate Adequate (ADEQUATE) Anisocytosis Slight Stomatocytes Present Prothrombin Time 13.3 SEC (11.7-14.0) Prothromb Time International Ratio 1.1 (0.8-1.1) Activated Partial Thromboplast Time 28 SEC (24-38) Sodium Level 136 mmol/L (136-145) Potassium Level 3.6 mmol/L (3.5-5.1) Chloride Level 96 mmol/L (98-107) Carbon Dioxide Level 33 mmol/L (21-32) Anion Gap 7 (6-14) Blood Urea Nitrogen 26 mg/dL (8-26) Creatinine 2.0 mg/dL (0.7-1.3) Estimated GFR (Cockcroft-Gault) 33.1 Glucose Level 107 mg/dL (70-99) Lactic Acid Level 3.2 mmol/L (0.4-2.0) Calcium Level 11.6 mg/dL (8.5-10.1) Total Bilirubin 0.6 mg/dL (0.2-1.0) Direct Bilirubin 0.1 mg/dL (0.0-0.2) Aspartate Amino Transf (AST/SGOT) 24 U/L (15-37) Alanine Aminotransferase (ALT/SGPT) 16 U/L (16-63) Alkaline Phosphatase 65 U/L (46-116) Troponin I Quantitative 2.104 ng/mL (0.000-0.055) Total Protein 7.3 g/dL (6.4-8.2) Albumin 3.3 g/dL (3.4-5.0) Triglycerides Level 115 mg/dL (0-150) Cholesterol Level 245 mg/dL (0-200) LDL Cholesterol, Calculated 171 mg/dL (0-100) VLDL Cholesterol, Calculated 23 mg/dL (0-40) Non-HDL Cholesterol Calculated 194 mg/dL (0-129) HDL Cholesterol 51 mg/dL (40-60) Cholesterol/HDL Ratio 4.8 Lipase 183 U/L (73-393) Influenza Type A Antigen Negative (NEGATIVE) Influenza Type B Antigen Negative (NEGATIVE) Uric Acid 8.0 mg/dL (3.5-7.2) Creatine Kinase 70 U/L (39-308) Laboratory Tests Test 08/21/17 10:40 08/21/17 12:03 08/21/17 12:25 White Blood Count 23.4 x10^3/uL (4.0-11.0) Red Blood Count 3.99 x10^6/uL (4.30-5.70) Hemoglobin 10.9 g/dL (13.0-17.5) Hematocrit 34.5 % (39.0-53.0) Mean Corpuscular Volume 87 fL (79-100) Mean Corpuscular Hemoglobin 27 pg (25-35) Mean Corpuscular Hemoglobin Concent 32 g/dL (31-37) Red Cell Distribution Width 18.0 % (11.5-14.5) Platelet Count 186 x10^3/uL (140-400) Neutrophils (%) (Auto) 92 % (31-73) Lymphocytes (%) (Auto) 2 % (24-48) Monocytes (%) (Auto) 6 % (0-9) Eosinophils (%) (Auto) 0 % (0-3) Basophils (%) (Auto) 0 % (0-3) Neutrophils # (Auto) 21.5 x10^3uL (1.8-7.7) Lymphocytes # (Auto) 0.3 x10^3/uL (1.0-4.8) Monocytes # (Auto) 1.4 x10^3/uL (0.0-1.1) Eosinophils # (Auto) 0.1 x10^3/uL (0.0-0.7) Basophils # (Auto) 0.0 x10^3/uL (0.0-0.2) Segmented Neutrophils % 63 % (35-66) Band Neutrophils % 31 % (0-9) Lymphocytes % 3 % (24-48) Monocytes % 3 % (0-10) Toxic Vacuolation Slight Platelet Estimate Adequate (ADEQUATE) Anisocytosis Slight Stomatocytes Present Prothrombin Time 13.3 SEC (11.7-14.0) Prothromb Time International Ratio 1.1 (0.8-1.1) Activated Partial Thromboplast Time 28 SEC (24-38) Sodium Level 136 mmol/L (136-145) Potassium Level 3.6 mmol/L (3.5-5.1) Chloride Level 96 mmol/L (98-107) Carbon Dioxide Level 33 mmol/L (21-32) Anion Gap 7 (6-14) Blood Urea Nitrogen 26 mg/dL (8-26) Creatinine 2.0 mg/dL (0.7-1.3) Estimated GFR (Cockcroft-Gault) 33.1 Glucose Level 107 mg/dL (70-99) Lactic Acid Level 3.2 mmol/L (0.4-2.0) Calcium Level 11.6 mg/dL (8.5-10.1) Total Bilirubin 0.6 mg/dL (0.2-1.0) Direct Bilirubin 0.1 mg/dL (0.0-0.2) Aspartate Amino Transf (AST/SGOT) 24 U/L (15-37) Alanine Aminotransferase (ALT/SGPT) 16 U/L (16-63) Alkaline Phosphatase 65 U/L (46-116) Troponin I Quantitative 2.104 ng/mL (0.000-0.055) Total Protein 7.3 g/dL (6.4-8.2) Albumin 3.3 g/dL (3.4-5.0) Triglycerides Level 115 mg/dL (0-150) Cholesterol Level 245 mg/dL (0-200) LDL Cholesterol, Calculated 171 mg/dL (0-100) VLDL Cholesterol, Calculated 23 mg/dL (0-40) Non-HDL Cholesterol Calculated 194 mg/dL (0-129) HDL Cholesterol 51 mg/dL (40-60) Cholesterol/HDL Ratio 4.8 Lipase 183 U/L (73-393) Influenza Type A Antigen Negative (NEGATIVE) Influenza Type B Antigen Negative (NEGATIVE) Uric Acid 8.0 mg/dL (3.5-7.2) Creatine Kinase 70 U/L (39-308) Medications Active Scripts Medications Dose Route/Sig Max Daily Dose Days Date Category Ventolin Hfa Inhaler (Albuterol Sulfate) 18 Gm Hfa.aer.ad 2 Puff INH Q4HRS 03/06/17 Reported Xtandi (Enzalutamide) 40 Mg Capsule 160 Mg PO DAILY@1000 03/06/17 Reported Vitamin D3 (Cholecalciferol (Vitamin D3)) 1,000 Unit Tablet 1 Tab PO DAILY 03/06/17 Reported Calcium + Vitamin D Tablet (Calcium Carbonate/Vitamin D3) 1 Each Tablet 1 Each PO BID 03/06/17 Reported [lupron] 09/16/16 Reported Zytiga (Abiraterone Acetate) 250 Mg Tablet 1,000 Mg PO DAILY@1700 09/16/16 Reported Vitamin D (Cholecalciferol (Vitamin D3)) 1,000 Unit Capsule 1,000 Unit PO 09/16/16 Reported Senokot-S Tablet (Sennosides/Docusate Sodium) 1 Each Tablet 1 Each PO 09/16/16 Reported Protonix (Pantoprazole Sodium) 40 Mg Tablet.dr 40 Mg PO DAILY 09/16/16 Reported Symbicort 160-4.5 Mcg Inhaler (Budesonide/Formoterol Fumarate) 10.2 Gm Hfa.aer.ad 2 Puff IH BID 10/12/14 Reported Prednisone 20 Mg Tablet 5 Mg PO BID 10/12/14 Reported Klor-Con M20 (Potassium Chloride) 20 Meq Tab.er.prt 10 Meq PO DAILY 10/10/14 Reported Furosemide 40 Mg Tablet 40 Mg PO DAILY 10/10/14 Reported Simvastatin 40 Mg Tablet 40 Mg PO HS 10/10/14 Reported Aspir 81 (Aspirin) 81 Mg Tablet.dr 81 Mg PO DAILY 10/10/14 Reported Clopidogrel (Clopidogrel Bisulfate) 75 Mg Tablet 75 Mg PO DAILY 10/10/14 Reported Spiriva (Tiotropium [place]) 18 Mcg Cap.w.dev 2 Inh IH DAILY 10/10/14 Reported Metoprolol Succinate ( Xl ) (Metoprolol Succinate) 25 Mg Tab.er.24h 25 Mg PO DAILY 10/10/14 Reported Gabapentin 600 Mg Tablet 600 Mg PO BID 10/10/14 Reported Impression . dictated agree with current rx antibx for pneumonia JENNIFER CHANG MD Aug 21, 2017 17:55
[2017-08-21] MEDS: CLOPIDOGREL BISULFATE 75 MG TABLET PO SCH (18:06)
[2017-08-21] MEDS: PANTOPRAZOLE 40 MG TABLET.DR. PO SCH (18:06)
[2017-08-21] MEDS: HYDROCORTISONE SOD SUCC/PF 100 MG/2 ML VIAL. IV SCH ×2 (18:06→22:38)
[2017-08-21] MEDS: PIPERACILLIN/TAZO IV Push 3.375 GM VIAL. IVP SCH (18:58)
[2017-08-21] MEDS: ATORVASTATIN CALCIUM 40 MG TABLET. PO SCH (20:19)
[2017-08-21 20:59] LABS: BILIRUBIN,URINE NEGATIVE (NEG); GLUCOSE,URINE NEGATIVE (NEG); NITRITE,URINE NEGATIVE (NEG); PROTEIN,URINE NEGATIVE (NEG-TRACE); UROBILINOGEN,URINE 0.2 mg/dL (0.2 mg/dL)
[2017-08-21] MEDS ORDERED: SIMVASTATIN 40 MG TABLET. PO SCH (21:00)
[2017-08-21 21:07] LABS: BACTERIA,URINE 0 /HPF (0-FEW); RBC,URINE 0 /HPF (0-2); SQUAMOUS EPITHELIAL CELL,UR OCC /LPF; WBC,URINE OCC /HPF (0-4)
[2017-08-22] VITALS (19 sets, daily range): BP systolic 101–223; BP diastolic 48–95
[2017-08-22] MEDS: PIPERACILLIN/TAZO IV Push 3.375 GM VIAL. IVP SCH ×5 (00:17→23:25)
--- NOTE | 2017-08-22 02:09 | CONS ---
DATE OF CONSULTATION: PRIMARY PHYSICIAN: Dr. Antonio. REASON FOR CONSULTATION: Acute renal failure. HISTORY OF PRESENT ILLNESS: The patient is a 72-year-old gentleman with known history of metastatic prostate cancer, severe pulmonary hypertension and no known underlying renal insufficiency per se. He is currently under the treatment of Dr. Menjivar for prostate cancer. He recently had a CT scan at [facility] as part of his 3-monthly scans for metastatic prostate cancer. He was noted to have worsening weakness in the recent past and has been seen at his primary care's office a few times. His baseline GFR was 90. It has dropped down to the mid 40s and his creatinine had gone up. He was initially on lisinopril and Norvasc for the hypertension; these have been discontinued. He actually had marginal low blood pressures, today 98/56. He also had fevers to 101, has been extremely shaky and weak. He complains of significant abdominal pain, although his lipase is only 183. He is nauseated, but has not thrown up. In this setting, we were asked to see him for further evaluation of his renal dysfunction. For rest of details, see electronic records. KRISTIAN MCLEAN MD DR: CHARI/chilango JOB#: [id number] / [id number]
[2017-08-22 03:36] LABS: BASO % 0 % (0-3); EOS % 0 % (0-3); HEMATOCRIT 27.8 % (39.0-53.0); HEMOGLOBIN 8.8 g/dL (13.0-17.5); LYMPH # 0.3 x10^3/uL (1.0-4.8); LYMPH % 2 % (24-48); MEAN CORPUSCULAR HEMOGLOBIN 28 pg (25-35); MEAN CORPUSCULAR HGB CONC 32 g/dL (31-37); MEAN CORPUSCULAR VOLUME 88 fL (79-100); MONO % 6 % (0-9); NEUT % 93 % (31-73); PLATELET COUNT 141 x10^3/uL (140-400); RED BLOOD COUNT 3.17 x10^6/uL (4.30-5.70); RED CELL DISTRIBUTION WIDTH 18.3 % (11.5-14.5); WHITE BLOOD COUNT 15.7 x10^3/uL (4.0-11.0)
[2017-08-22 04:07] LABS: CALCIUM 9.9 mg/dL (8.5-10.1); GFR 33.1
[2017-08-22] MEDS: HYDROCORTISONE SOD SUCC/PF 100 MG/2 ML VIAL. IV SCH ×3 (05:38→21:40)
[2017-08-22 07:00] LABS: ALBUMIN 2.5 g/dL (3.4-5.0); CALCIUM 9.9 mg/dL (8.5-10.1); GFR 33.1; POTASSIUM 4.2 mmol/L (3.5-5.1)
[2017-08-22] MEDS: VANCOMYCIN PER PHARMACY MC PRN (07:53)
[2017-08-22] MEDS: ANTI-COAG MONITOR BY PHARMACY. MC PRN (07:59)
--- NOTE | 2017-08-22 08:24 | RAD ---
EXAM: Grayscale and color Doppler renal artery sonogram. HISTORY: Hypertension. TECHNIQUE: Grayscale and color Doppler sonographic imaging of the renal arteries with spectral waveform analysis was performed. COMPARISON: CT dated 08/21/2017. FINDINGS: The right kidney measures 10.5 cm [id number] and the left kidney measures 13.5 cm [id number]. There is mild right renal cortical thinning. There is an 8 mm echogenic focus within the lower mid zone of the right kidney with posterior shadowing, likely a vascular calcification based on the recent CT. No solid or cystic renal lesion is seen. There is no hydronephrosis. The bladder is unremarkable. The ureteral jets are both seen. The visualized portions of the aorta and inferior vena cava are unremarkable. The peak systolic velocity within the right renal artery is 99 cm/s. The peak systolic velocity within the left renal artery is 103 cm/s. The proximal left renal artery is obscured. There are normal renal artery to aorta velocity ratios. The renal veins are patent. IMPRESSION: 1. No Doppler evidence of greater than 60% stenosis within the renal arteries. The proximal left renal artery is obscured. 2. 8 mm echogenic focus within the right kidney, likely representing a vascular calcification based on the recent CT. 3. Mild right renal cortical thinning, suggesting slight atrophy. 4. Note is made that the aortofemoral bypass graft demonstrated on the recent CT is not formally assessed sonographically.
--- NOTE | 2017-08-22 08:47 | PDOC ---
CARDIO Progress Notes Date and Time Date of Service 08/22/2017 Time of Evaluation 0800 Subjective Subjective: No Chest Pain, No shortness of breath, No Palpitations, Other ( feels tired today but denies discomfort at this time and abd a little better) Vitals Vitals Vital Signs Date Time Temp Pulse Resp B/P (MAP) Pulse Ox O2 Delivery O2 Flow Rate FiO2 08/22/17 08:00 98.2 70 18 149/68 (95) 96 Nasal Cannula 4.0 98.2 Weight Weight [ ] Input and Output Intake and Output Intake and Output 08/23/17 07:00 Intake Total 250 ml Output Total 225 ml Balance 25 ml Intake Oral 250 ml Output Urine Total 225 ml Laboratory Labs Laboratory Tests Test 08/21/17 10:40 08/21/17 12:03 08/21/17 12:25 08/21/17 18:05 White Blood Count 23.4 x10^3/uL (4.0-11.0) Red Blood Count 3.99 x10^6/uL (4.30-5.70) Hemoglobin 10.9 g/dL (13.0-17.5) Hematocrit 34.5 % (39.0-53.0) Mean Corpuscular Volume 87 fL (79-100) Mean Corpuscular Hemoglobin 27 pg (25-35) Mean Corpuscular Hemoglobin Concent 32 g/dL (31-37) Red Cell Distribution Width 18.0 % (11.5-14.5) Platelet Count 186 x10^3/uL (140-400) Neutrophils (%) (Auto) 92 % (31-73) Lymphocytes (%) (Auto) 2 % (24-48) Monocytes (%) (Auto) 6 % (0-9) Eosinophils (%) (Auto) 0 % (0-3) Basophils (%) (Auto) 0 % (0-3) Neutrophils # (Auto) 21.5 x10^3uL (1.8-7.7) Lymphocytes # (Auto) 0.3 x10^3/uL (1.0-4.8) Monocytes # (Auto) 1.4 x10^3/uL (0.0-1.1) Eosinophils # (Auto) 0.1 x10^3/uL (0.0-0.7) Basophils # (Auto) 0.0 x10^3/uL (0.0-0.2) Segmented Neutrophils % 63 % (35-66) Band Neutrophils % 31 % (0-9) Lymphocytes % 3 % (24-48) Monocytes % 3 % (0-10) Toxic Vacuolation Slight Platelet Estimate Adequate (ADEQUATE) Anisocytosis Slight Stomatocytes Present Prothrombin Time 13.3 SEC (11.7-14.0) Prothromb Time International Ratio 1.1 (0.8-1.1) Activated Partial Thromboplast Time 28 SEC (24-38) Sodium Level 136 mmol/L (136-145) Potassium Level 3.6 mmol/L (3.5-5.1) Chloride Level 96 mmol/L (98-107) Carbon Dioxide Level 33 mmol/L (21-32) Anion Gap 7 (6-14) Blood Urea Nitrogen 26 mg/dL (8-26) Creatinine 2.0 mg/dL (0.7-1.3) Estimated GFR (Cockcroft-Gault) 33.1 Glucose Level 107 mg/dL (70-99) Lactic Acid Level 3.2 mmol/L (0.4-2.0) 1.2 mmol/L (0.4-2.0) Calcium Level 11.6 mg/dL (8.5-10.1) Total Bilirubin 0.6 mg/dL (0.2-1.0) Direct Bilirubin 0.1 mg/dL (0.0-0.2) Aspartate Amino Transf (AST/SGOT) 24 U/L (15-37) Alanine Aminotransferase (ALT/SGPT) 16 U/L (16-63) Alkaline Phosphatase 65 U/L (46-116) Troponin I Quantitative 2.104 ng/mL (0.000-0.055) 3.490 ng/mL (0.000-0.055) Total Protein 7.3 g/dL (6.4-8.2) Albumin 3.3 g/dL (3.4-5.0) Triglycerides Level 115 mg/dL (0-150) Cholesterol Level 245 mg/dL (0-200) LDL Cholesterol, Calculated 171 mg/dL (0-100) VLDL Cholesterol, Calculated 23 mg/dL (0-40) Non-HDL Cholesterol Calculated 194 mg/dL (0-129) HDL Cholesterol 51 mg/dL (40-60) Cholesterol/HDL Ratio 4.8 Lipase 183 U/L (73-393) Influenza Type A Antigen Negative (NEGATIVE) Influenza Type B Antigen Negative (NEGATIVE) Uric Acid 8.0 mg/dL (3.5-7.2) Creatine Kinase 70 U/L (39-308) Test 08/21/17 18:15 08/21/17 20:30 08/22/17 03:15 Heparin Anti-Xa Act, Unfractionated 0.58 IU/mL (0.30-0.70) 0.47 IU/mL (0.30-0.70) Urine Color Yellow Urine Clarity Clear Urine pH 6.0 Urine Specific [place] 1.015 Urine Protein Negative mg/dL (NEG-TRACE) Urine Glucose (UA) Negative mg/dL (NEG) Urine Ketones (Stick) Negative mg/dL (NEG) Urine Blood Negative (NEG) Urine Nitrite Negative (NEG) Urine Bilirubin Negative (NEG) Urine Urobilinogen Dipstick 0.2 mg/dL (0.2 mg/dL) Urine Leukocyte Esterase Negative (NEG) Urine RBC 0 /HPF (0-2) Urine WBC Occ /HPF (0-4) Urine Squamous Epithelial Cells Occ /LPF Urine Bacteria 0 /HPF (0-FEW) Urine Hyaline Casts Occasional /HPF Urine Mucus Slight /LPF White Blood Count 15.7 x10^3/uL (4.0-11.0) Red Blood Count 3.17 x10^6/uL (4.30-5.70) Hemoglobin 8.8 g/dL (13.0-17.5) Hematocrit 27.8 % (39.0-53.0) Mean Corpuscular Volume 88 fL (79-100) Mean Corpuscular Hemoglobin 28 pg (25-35) Mean Corpuscular Hemoglobin Concent 32 g/dL (31-37) Red Cell Distribution Width 18.3 % (11.5-14.5) Platelet Count 141 x10^3/uL (140-400) Neutrophils (%) (Auto) 93 % (31-73) Lymphocytes (%) (Auto) 2 % (24-48) Monocytes (%) (Auto) 6 % (0-9) Eosinophils (%) (Auto) 0 % (0-3) Basophils (%) (Auto) 0 % (0-3) Neutrophils # (Auto) 14.5 x10^3uL (1.8-7.7) Lymphocytes # (Auto) 0.3 x10^3/uL (1.0-4.8) Monocytes # (Auto) 0.9 x10^3/uL (0.0-1.1) Eosinophils # (Auto) 0.0 x10^3/uL (0.0-0.7) Basophils # (Auto) 0.0 x10^3/uL (0.0-0.2) Sodium Level 132 mmol/L (136-145) Potassium Level 4.2 mmol/L (3.5-5.1) Chloride Level 97 mmol/L (98-107) Carbon Dioxide Level 24 mmol/L (21-32) Anion Gap 11 (6-14) Blood Urea Nitrogen 25 mg/dL (8-26) Creatinine 2.0 mg/dL (0.7-1.3) Estimated GFR (Cockcroft-Gault) 33.1 Glucose Level 161 mg/dL (70-99) Calcium Level 9.9 mg/dL (8.5-10.1) Phosphorus Level 4.0 mg/dL (2.6-4.7) Magnesium Level 1.6 mg/dL (1.8-2.4) Troponin I Quantitative 1.588 ng/mL (0.000-0.055) Albumin 2.5 g/dL (3.4-5.0) Physical Exam HEENT: Neck Supple W Full Motion Chest: Symmetric LUNGS: Other (basilar crackles) Heart: S1S2, RRR (SR) Abdomen: Soft N/T Extremities: No Calf Tenderness Neurology: alert, oriented, follow commands Assessment Assessment Hgb down to 8.8 likely hemodilution BP and HR good Trop down to 1.5 continue with Heparn. treat infectious process. fever. Hemogram this afternoon bone mets 1. Fever/cough/CAP: Tmax at home 101. Pulmonary following 2. Abdominal pain: better. per PCP 3. NSTEMI: CP free.peaked troponin 2.1. CP free, possibly demand mediated but suspicion of ischemia as well with new LBBB. Normal EF and wall motion 4. CAD: CABGx3. S/P PTCA OM of LCx 09/2016. 5. PAD: recent SLIP FILLER/stent to LSFA. Bilateral LE without claudication symptoms. 6. CKD: Cr 2.0, renal duplex negative for significant PABLO 7. Chronic diastolic CHF: not SOA 8. COPD/severe pulmonary HTN 9. HTN: controlled 10. HLP 11. Prostate CA with metastasis 12. Normocytic Anemia: Hgb 8.8 from 10.9 likely hemodilutional Recommendations 1. Follow ID and pulmonary recommendation 2. Heparin per protocol, continue DAPT. Check hemogram this afternoon. 3. Continue with secondary prevention measures. increase statin 4. Ischemic workup pending treatment of infectious process. PRAFUL LI IND[employer] DES[employer] INTERN Aug 22, 2017 08:47
[2017-08-22] MEDS ORDERED: MAGNESIUM SULFATE 2GM 50 ML IV ONE (09:00)
[2017-08-22] MEDS: METOPROLOL SUCC 24HR ER 25 MG TAB.ER.24H. PO SCH ×2 (09:00→12:11)
[2017-08-22] MEDS: ASPIRIN ENTERIC COATED 81 MG TABLET.DR. PO SCH (10:18)
[2017-08-22] MEDS: CLOPIDOGREL BISULFATE 75 MG TABLET PO SCH (10:19)
[2017-08-22] MEDS: PANTOPRAZOLE 40 MG TABLET.DR. PO SCH (10:19)
--- NOTE | 2017-08-22 10:42 | PDOC ---
PULMONARY PROGRESS NOTES Subjective PT FEELS BETTER LESS SOA Vitals Vital Signs Date Time Temp Pulse Resp B/P (MAP) Pulse Ox O2 Delivery O2 Flow Rate FiO2 08/22/17 09:00 75 15 141/67 (91) 96 Nasal Cannula 4.0 08/22/17 08:00 98.2 98.2 ROS: No Nausea, No Chest Pain, No Increase Cough General: Alert HEENT: Other Lungs: Clear Cardiovascular: S1, S2 Abdomen: Soft, Non-tender Neuro Exam: Alert Extremities: No Edema Skin: Warm Labs Laboratory Tests Test 08/21/17 10:40 08/21/17 12:03 08/21/17 12:25 08/21/17 18:05 White Blood Count 23.4 x10^3/uL (4.0-11.0) Red Blood Count 3.99 x10^6/uL (4.30-5.70) Hemoglobin 10.9 g/dL (13.0-17.5) Hematocrit 34.5 % (39.0-53.0) Mean Corpuscular Volume 87 fL (79-100) Mean Corpuscular Hemoglobin 27 pg (25-35) Mean Corpuscular Hemoglobin Concent 32 g/dL (31-37) Red Cell Distribution Width 18.0 % (11.5-14.5) Platelet Count 186 x10^3/uL (140-400) Neutrophils (%) (Auto) 92 % (31-73) Lymphocytes (%) (Auto) 2 % (24-48) Monocytes (%) (Auto) 6 % (0-9) Eosinophils (%) (Auto) 0 % (0-3) Basophils (%) (Auto) 0 % (0-3) Neutrophils # (Auto) 21.5 x10^3uL (1.8-7.7) Lymphocytes # (Auto) 0.3 x10^3/uL (1.0-4.8) Monocytes # (Auto) 1.4 x10^3/uL (0.0-1.1) Eosinophils # (Auto) 0.1 x10^3/uL (0.0-0.7) Basophils # (Auto) 0.0 x10^3/uL (0.0-0.2) Segmented Neutrophils % 63 % (35-66) Band Neutrophils % 31 % (0-9) Lymphocytes % 3 % (24-48) Monocytes % 3 % (0-10) Toxic Vacuolation Slight Platelet Estimate Adequate (ADEQUATE) Anisocytosis Slight Stomatocytes Present Prothrombin Time 13.3 SEC (11.7-14.0) Prothromb Time International Ratio 1.1 (0.8-1.1) Activated Partial Thromboplast Time 28 SEC (24-38) Sodium Level 136 mmol/L (136-145) Potassium Level 3.6 mmol/L (3.5-5.1) Chloride Level 96 mmol/L (98-107) Carbon Dioxide Level 33 mmol/L (21-32) Anion Gap 7 (6-14) Blood Urea Nitrogen 26 mg/dL (8-26) Creatinine 2.0 mg/dL (0.7-1.3) Estimated GFR (Cockcroft-Gault) 33.1 Glucose Level 107 mg/dL (70-99) Lactic Acid Level 3.2 mmol/L (0.4-2.0) 1.2 mmol/L (0.4-2.0) Calcium Level 11.6 mg/dL (8.5-10.1) Total Bilirubin 0.6 mg/dL (0.2-1.0) Direct Bilirubin 0.1 mg/dL (0.0-0.2) Aspartate Amino Transf (AST/SGOT) 24 U/L (15-37) Alanine Aminotransferase (ALT/SGPT) 16 U/L (16-63) Alkaline Phosphatase 65 U/L (46-116) Troponin I Quantitative 2.104 ng/mL (0.000-0.055) 3.490 ng/mL (0.000-0.055) Total Protein 7.3 g/dL (6.4-8.2) Albumin 3.3 g/dL (3.4-5.0) Triglycerides Level 115 mg/dL (0-150) Cholesterol Level 245 mg/dL (0-200) LDL Cholesterol, Calculated 171 mg/dL (0-100) VLDL Cholesterol, Calculated 23 mg/dL (0-40) Non-HDL Cholesterol Calculated 194 mg/dL (0-129) HDL Cholesterol 51 mg/dL (40-60) Cholesterol/HDL Ratio 4.8 Lipase 183 U/L (73-393) Influenza Type A Antigen Negative (NEGATIVE) Influenza Type B Antigen Negative (NEGATIVE) Uric Acid 8.0 mg/dL (3.5-7.2) Creatine Kinase 70 U/L (39-308) Test 08/21/17 18:15 08/21/17 20:30 08/22/17 03:15 Heparin Anti-Xa Act, Unfractionated 0.58 IU/mL (0.30-0.70) 0.47 IU/mL (0.30-0.70) Urine Color Yellow Urine Clarity Clear Urine pH 6.[address] 1.015 Urine Protein Negative mg/dL (NEG-TRACE) Urine Glucose (UA) Negative mg/dL (NEG) Urine Ketones (Stick) Negative mg/dL (NEG) Urine Blood Negative (NEG) Urine Nitrite Negative (NEG) Urine Bilirubin Negative (NEG) Urine Urobilinogen Dipstick 0.2 mg/dL (0.2 mg/dL) Urine Leukocyte Esterase Negative (NEG) Urine RBC 0 /HPF (0-2) Urine WBC Occ /HPF (0-4) Urine Squamous Epithelial Cells Occ /LPF Urine Bacteria 0 /HPF (0-FEW) Urine Hyaline Casts Occasional /HPF Urine Mucus Slight /LPF White Blood Count 15.7 x10^3/uL (4.0-11.0) Red Blood Count 3.17 x10^6/uL (4.30-5.70) Hemoglobin 8.8 g/dL (13.0-17.5) Hematocrit 27.8 % (39.0-53.0) Mean Corpuscular Volume 88 fL (79-100) Mean Corpuscular Hemoglobin 28 pg (25-35) Mean Corpuscular Hemoglobin Concent 32 g/dL (31-37) Red Cell Distribution Width 18.3 % (11.5-14.5) Platelet Count 141 x10^3/uL (140-400) Neutrophils (%) (Auto) 93 % (31-73) Lymphocytes (%) (Auto) 2 % (24-48) Monocytes (%) (Auto) 6 % (0-9) Eosinophils (%) (Auto) 0 % (0-3) Basophils (%) (Auto) 0 % (0-3) Neutrophils # (Auto) 14.5 x10^3uL (1.8-7.7) Lymphocytes # (Auto) 0.3 x10^3/uL (1.0-4.8) Monocytes # (Auto) 0.9 x10^3/uL (0.0-1.1) Eosinophils # (Auto) 0.0 x10^3/uL (0.0-0.7) Basophils # (Auto) 0.0 x10^3/uL (0.0-0.2) Sodium Level 132 mmol/L (136-145) Potassium Level 4.2 mmol/L (3.5-5.1) Chloride Level 97 mmol/L (98-107) Carbon Dioxide Level 24 mmol/L (21-32) Anion Gap 11 (6-14) Blood Urea Nitrogen 25 mg/dL (8-26) Creatinine 2.0 mg/dL (0.7-1.3) Estimated GFR (Cockcroft-Gault) 33.1 Glucose Level 161 mg/dL (70-99) Calcium Level 9.9 mg/dL (8.5-10.1) Phosphorus Level 4.0 mg/dL (2.6-4.7) Magnesium Level 1.6 mg/dL (1.8-2.4) Troponin I Quantitative 1.588 ng/mL (0.000-0.055) Albumin 2.5 g/dL (3.4-5.0) Laboratory Tests Test 08/21/17 10:40 08/21/17 12:03 08/21/17 12:25 08/21/17 18:05 White Blood Count 23.4 x10^3/uL (4.0-11.0) Red Blood Count 3.99 x10^6/uL (4.30-5.70) Hemoglobin 10.9 g/dL (13.0-17.5) Hematocrit 34.5 % (39.0-53.0) Mean Corpuscular Volume 87 fL (79-100) Mean Corpuscular Hemoglobin 27 pg (25-35) Mean Corpuscular Hemoglobin Concent 32 g/dL (31-37) Red Cell Distribution Width 18.0 % (11.5-14.5) Platelet Count 186 x10^3/uL (140-400) Neutrophils (%) (Auto) 92 % (31-73) Lymphocytes (%) (Auto) 2 % (24-48) Monocytes (%) (Auto) 6 % (0-9) Eosinophils (%) (Auto) 0 % (0-3) Basophils (%) (Auto) 0 % (0-3) Neutrophils # (Auto) 21.5 x10^3uL (1.8-7.7) Lymphocytes # (Auto) 0.3 x10^3/uL (1.0-4.8) Monocytes # (Auto) 1.4 x10^3/uL (0.0-1.1) Eosinophils # (Auto) 0.1 x10^3/uL (0.0-0.7) Basophils # (Auto) 0.0 x10^3/uL (0.0-0.2) Segmented Neutrophils % 63 % (35-66) Band Neutrophils % 31 % (0-9) Lymphocytes % 3 % (24-48) Monocytes % 3 % (0-10) Toxic Vacuolation Slight Platelet Estimate Adequate (ADEQUATE) Anisocytosis Slight Stomatocytes Present Prothrombin Time 13.3 SEC (11.7-14.0) Prothromb Time International Ratio 1.1 (0.8-1.1) Activated Partial Thromboplast Time 28 SEC (24-38) Sodium Level 136 mmol/L (136-145) Potassium Level 3.6 mmol/L (3.5-5.1) Chloride Level 96 mmol/L (98-107) Carbon Dioxide Level 33 mmol/L (21-32) Anion Gap 7 (6-14) Blood Urea Nitrogen 26 mg/dL (8-26) Creatinine 2.0 mg/dL (0.7-1.3) Estimated GFR (Cockcroft-Gault) 33.1 Glucose Level 107 mg/dL (70-99) Lactic Acid Level 3.2 mmol/L (0.4-2.0) 1.2 mmol/L (0.4-2.0) Calcium Level 11.6 mg/dL (8.5-10.1) Total Bilirubin 0.6 mg/dL (0.2-1.0) Direct Bilirubin 0.1 mg/dL (0.0-0.2) Aspartate Amino Transf (AST/SGOT) 24 U/L (15-37) Alanine Aminotransferase (ALT/SGPT) 16 U/L (16-63) Alkaline Phosphatase 65 U/L (46-116) Troponin I Quantitative 2.104 ng/mL (0.000-0.055) 3.490 ng/mL (0.000-0.055) Total Protein 7.3 g/dL (6.4-8.2) Albumin 3.3 g/dL (3.4-5.0) Triglycerides Level 115 mg/dL (0-150) Cholesterol Level 245 mg/dL (0-200) LDL Cholesterol, Calculated 171 mg/dL (0-100) VLDL Cholesterol, Calculated 23 mg/dL (0-40) Non-HDL Cholesterol Calculated 194 mg/dL (0-129) HDL Cholesterol 51 mg/dL (40-60) Cholesterol/HDL Ratio 4.8 Lipase 183 U/L (73-393) Influenza Type A Antigen Negative (NEGATIVE) Influenza Type B Antigen Negative (NEGATIVE) Uric Acid 8.0 mg/dL (3.5-7.2) Creatine Kinase 70 U/L (39-308) Test 08/21/17 18:15 08/21/17 20:30 08/22/17 03:15 Heparin Anti-Xa Act, Unfractionated 0.58 IU/mL (0.30-0.70) 0.47 IU/mL (0.30-0.70) Urine Color Yellow Urine Clarity Clear Urine pH 6.[address] 1.015 Urine Protein Negative mg/dL (NEG-TRACE) Urine Glucose (UA) Negative mg/dL (NEG) Urine Ketones (Stick) Negative mg/dL (NEG) Urine Blood Negative (NEG) Urine Nitrite Negative (NEG) Urine Bilirubin Negative (NEG) Urine Urobilinogen Dipstick 0.2 mg/dL (0.2 mg/dL) Urine Leukocyte Esterase Negative (NEG) Urine RBC 0 /HPF (0-2) Urine WBC Occ /HPF (0-4) Urine Squamous Epithelial Cells Occ /LPF Urine Bacteria 0 /HPF (0-FEW) Urine Hyaline Casts Occasional /HPF Urine Mucus Slight /LPF White Blood Count 15.7 x10^3/uL (4.0-11.0) Red Blood Count 3.17 x10^6/uL (4.30-5.70) Hemoglobin 8.8 g/dL (13.0-17.5) Hematocrit 27.8 % (39.0-53.0) Mean Corpuscular Volume 88 fL (79-100) Mean Corpuscular Hemoglobin 28 pg (25-35) Mean Corpuscular Hemoglobin Concent 32 g/dL (31-37) Red Cell Distribution Width 18.3 % (11.5-14.5) Platelet Count 141 x10^3/uL (140-400) Neutrophils (%) (Auto) 93 % (31-73) Lymphocytes (%) (Auto) 2 % (24-48) Monocytes (%) (Auto) 6 % (0-9) Eosinophils (%) (Auto) 0 % (0-3) Basophils (%) (Auto) 0 % (0-3) Neutrophils # (Auto) 14.5 x10^3uL (1.8-7.7) Lymphocytes # (Auto) 0.3 x10^3/uL (1.0-4.8) Monocytes # (Auto) 0.9 x10^3/uL (0.0-1.1) Eosinophils # (Auto) 0.0 x10^3/uL (0.0-0.7) Basophils # (Auto) 0.0 x10^3/uL (0.0-0.2) Sodium Level 132 mmol/L (136-145) Potassium Level 4.2 mmol/L (3.5-5.1) Chloride Level 97 mmol/L (98-107) Carbon Dioxide Level 24 mmol/L (21-32) Anion Gap 11 (6-14) Blood Urea Nitrogen 25 mg/dL (8-26) Creatinine 2.0 mg/dL (0.7-1.3) Estimated GFR (Cockcroft-Gault) 33.1 Glucose Level 161 mg/dL (70-99) Calcium Level 9.9 mg/dL (8.5-10.1) Phosphorus Level 4.0 mg/dL (2.6-4.7) Magnesium Level 1.6 mg/dL (1.8-2.4) Troponin I Quantitative 1.588 ng/mL (0.000-0.055) Albumin 2.5 g/dL (3.4-5.0) Medications Active Scripts Medications Dose Route/Sig Max Daily Dose Days Date Category Ventolin Hfa Inhaler (Albuterol Sulfate) 18 Gm Hfa.aer.ad 2 Puff INH Q4HRS 03/06/17 Reported Xtandi (Enzalutamide) 40 Mg Capsule 160 Mg PO DAILY@1000 03/06/17 Reported Vitamin D3 (Cholecalciferol (Vitamin D3)) 1,000 Unit Tablet 1 Tab PO DAILY 03/06/17 Reported Calcium + Vitamin D Tablet (Calcium Carbonate/Vitamin D3) 1 Each Tablet 1 Each PO BID 03/06/17 Reported [lupron] 09/16/16 Reported Zytiga (Abiraterone Acetate) 250 Mg Tablet 1,000 Mg PO DAILY@1700 09/16/16 Reported Vitamin D (Cholecalciferol (Vitamin D3)) 1,000 Unit Capsule 1,000 Unit PO 09/16/16 Reported Senokot-S Tablet (Sennosides/Docusate Sodium) 1 Each Tablet 1 Each PO 09/16/16 Reported Protonix (Pantoprazole Sodium) 40 Mg Tablet.dr 40 Mg PO DAILY 09/16/16 Reported Symbicort 160-4.5 Mcg Inhaler (Budesonide/Formoterol Fumarate) 10.2 Gm Hfa.aer.ad 2 Puff IH BID 10/12/14 Reported Prednisone 20 Mg Tablet 5 Mg PO BID 10/12/14 Reported Klor-Con M20 (Potassium Chloride) 20 Meq Tab.er.prt 10 Meq PO DAILY 10/10/14 Reported Furosemide 40 Mg Tablet 40 Mg PO DAILY 10/10/14 Reported Simvastatin 40 Mg Tablet 40 Mg PO HS 10/10/14 Reported Aspir 81 (Aspirin) 81 Mg Tablet.dr 81 Mg PO DAILY 10/10/14 Reported Clopidogrel (Clopidogrel Bisulfate) 75 Mg Tablet 75 Mg PO DAILY 10/10/14 Reported Spiriva (Tiotropium [place]) 18 Mcg Cap.w.dev 2 Inh IH DAILY 10/10/14 Reported Metoprolol Succinate ( Xl ) (Metoprolol Succinate) 25 Mg Tab.er.24h 25 Mg PO DAILY 10/10/14 Reported Gabapentin 600 Mg Tablet 600 Mg PO BID 10/10/14 Reported Impression . 1. RESP FAILURE POSSIBLE PNEUMONIA 2.ABDOMINAL PAIN 3. NSTEMI PER CARD 4. CAD S/P CABG 5. PAD S/P STENT 6. CKD PER NEPHRO 7. A/C DIASTOLIC HF 8. COPD 9. HTN: controlled 10. SECONDARY HYPERTENSION Plan . 1. CONTINUE ANTIBX 2. Heparin 3. FOLLOW CARD 4. SPOKE WITH RN/ 5. INCREASE ORAL INTAKE JENNIFER CHANG MD Aug 22, 2017 10:42
--- NOTE | 2017-08-22 10:48 | PDOC1 ---
History and Physical Date of Admission Date of Admission 08/21/17 Source Source: Chart review, Patient History of Present Illness History of Present Illness 72-year-old male presenting to the emergency department with abdominal pain intermittently over the past 2 months. The patient has had a mild cough over the past 5 days and a fever at home. He denies having chest pain or shortness of breath. he is undergoing Tx for prostate CA , he is very weak could not stay standing yesterday, he ate good yesterday later on had abdominal pain with nause but no vomiting and no diarrhea Past Medical History Cardiovascular: CAD, HTN, Hyperlipidemia, Other (LE PAD; right carotid artery disease) Pulmonary: COPD, Other (severe pulmonary HTN) CENTRAL NERVOUS SYSTEM: Other (No pertinent history) GI: Constipation, GERD Heme/Onc: Cancer (prostate) Psych: Depression Infectious disease: No pertinent hx ENT: No pertinent hx Renal/: Chronic renal insuff (recently taken lisinopril due to decreasing GFR ), Prostate Ca. Endocrine: No pertinent hx Dermatology: No pertinent hx Past Surgical History Past Surgical History: CABG, Hernia Repair, Total hip replacement (bilateral), Other (back surgery for disc, endarterectomy, femopopliteal bypass syrgery) Family History Family History: Heart Disease, Hypertension, Family History Unknown Social History Smoke: Quit ALCOHOL: none Drugs: None Current Problem List Problem List Problems Medical Problems: (1) PNA (pneumonia) Status: Acute Current Medications Current Medications Current Medications Medications (Trade) Dose Ordered Sig/Antoinette Start Time Stop Time Status Last Admin Dose Admin Aspirin (Children'S Aspirin) 324 mg 1X ONCE 08/21/17 11:30 08/21/17 11:31 DC 08/21/17 11:58 324 MG Aspirin (Ecotrin) 81 mg DAILY 08/22/17 09:00 08/22/17 10:18 81 MG Atorvastatin Calcium (Lipitor) 80 mg QHS 08/21/17 21:00 08/21/17 20:19 80 MG Clopidogrel Bisulfate (Plavix) 75 mg DAILY 08/21/17 14:00 08/22/17 10:19 75 MG Heparin Sodium (Porcine) (Heparin Sodium) 2,400 unit PRN Q6HRS PRN 08/21/17 11:30 Heparin Sodium/ Dextrose 500 ml @ 0 mls/hr CONT PRN 08/21/17 11:30 08/21/17 11:58 0 MLS/HR Hydrocortisone Sodium Succinate (Solu-CORTEF) 50 mg Q8HRS 08/21/17 15:30 08/22/17 05:38 50 MG Info (Anti-Coagulation Monitoring By Pharmacy) 1 each PRN DAILY PRN 08/21/17 11:45 08/22/17 07:59 1 EACH Magnesium Sulfate/ Dextrose 50 ml @ 25 mls/hr 1X ONCE 08/22/17 09:00 08/22/17 10:59 08/22/17 10:19 25 MLS/HR Metoprolol Succinate (Toprol Xl) 25 mg DAILY 08/21/17 14:00 Morphine Sulfate 2 mg PRN Q2HR PRN 08/21/17 12:45 08/22/17 12:44 Ondansetron HCl (Zofran) 4 mg PRN Q8HRS PRN 08/21/17 12:45 08/22/17 12:44 08/21/17 20:10 4 MG Pantoprazole Sodium (Protonix) 40 mg DAILYAC 08/21/17 14:00 08/22/17 10:19 40 MG Piperacillin Sod/ Tazobactam Sod (Zosyn Per Pharmacy) 1 each PRN DAILY PRN 08/21/17 11:30 Piperacillin Sod/ Tazobactam Sod (Zosyn) 3.375 gm Q6HRS 08/21/17 18:00 08/22/17 05:38 3.375 GM Simvastatin (Zocor) 40 mg HS 08/21/17 21:00 08/21/17 21:00 DC Sodium Chloride 250 ml @ 0 mls/hr QID PRN 08/21/17 14:45 Vancomycin HCl 1 each 1X ONCE 08/23/17 12:30 08/23/17 12:31 Vancomycin HCl (Vanco Per Pharmacy) 1 each PRN DAILY PRN 08/21/17 11:30 08/22/17 07:53 1 EACH Vancomycin HCl 1.5 gm/Dextrose 500 ml @ 250 mls/hr Q24H 08/22/17 13:00 Vancomycin HCl 2 gm/Dextrose 500 ml @ 250 mls/hr 1X ONCE 08/21/17 11:45 08/21/17 13:44 DC 08/21/17 12:58 250 MLS/HR Allergies Allergies Allergies Coded Allergies Type Severity Reaction Last Updated Verified NSAIDS (Non-Steroidal Anti-Inflamma Adverse Reaction Intermediate "vomiting" 10/10/14 Yes ROS Review of System CONSTITUTIONAL: + fever 101 at home EYES: No recent changes SKIN: No rash or itching CARDIOVASCULAR: No chest pain, syncope, palpitations, or edema RESPIRATORY: mild cough GASTROINTESTINAL: + nausea and abdominal pain lower abdomen , No vomiting NEUROLOGICAL: No headaches + remarkable weakness ENDOCRINE: No cold or heat intolerance GENITOURINARY: No urgency or frequency of urination MUSCULOSKELETAL: has DJD and chronic neck pain had epidural in past and hx back surgery no increase pain LYMPHATICS: No enlarged lymph nodes PSYCHIATRIC: he looks depressed Physical Exam Physical Exam GEN.: No apparent distress. Alert and oriented. HEENT: Head is normocephalic, atraumatic NECK: Supple. LUNGS: decrease BS in bases with rales HEART: RRR, S1, S2 present. ABDOMEN: Soft, nontender today Positive bowel sounds. EXTREMITIES: Without any cyanosis. NEUROLOGIC: Normal speech, normal tone PSYCHIATRIC: somewhat flat affect SKIN: No ulcerations Vitals Vitals Vital Signs Date Time Temp Pulse Resp B/P (MAP) Pulse Ox O2 Delivery O2 Flow Rate FiO2 08/22/17 09:00 75 15 141/67 (91) 96 Nasal Cannula 4.0 08/22/17 08:00 98.2 98.2 Labs Labs Laboratory Tests Test 08/21/17 10:40 08/21/17 12:03 08/21/17 12:25 08/21/17 18:05 White Blood Count 23.4 x10^3/uL (4.0-11.0) Red Blood Count 3.99 x10^6/uL (4.30-5.70) Hemoglobin 10.9 g/dL (13.0-17.5) Hematocrit 34.5 % (39.0-53.0) Mean Corpuscular Volume 87 fL (79-100) Mean Corpuscular Hemoglobin 27 pg (25-35) Mean Corpuscular Hemoglobin Concent 32 g/dL (31-37) Red Cell Distribution Width 18.0 % (11.5-14.5) Platelet Count 186 x10^3/uL (140-400) Neutrophils (%) (Auto) 92 % (31-73) Lymphocytes (%) (Auto) 2 % (24-48) Monocytes (%) (Auto) 6 % (0-9) Eosinophils (%) (Auto) 0 % (0-3) Basophils (%) (Auto) 0 % (0-3) Neutrophils # (Auto) 21.5 x10^3uL (1.8-7.7) Lymphocytes # (Auto) 0.3 x10^3/uL (1.0-4.8) Monocytes # (Auto) 1.4 x10^3/uL (0.0-1.1) Eosinophils # (Auto) 0.1 x10^3/uL (0.0-0.7) Basophils # (Auto) 0.0 x10^3/uL (0.0-0.2) Segmented Neutrophils % 63 % (35-66) Band Neutrophils % 31 % (0-9) Lymphocytes % 3 % (24-48) Monocytes % 3 % (0-10) Toxic Vacuolation Slight Platelet Estimate Adequate (ADEQUATE) Anisocytosis Slight Stomatocytes Present Prothrombin Time 13.3 SEC (11.7-14.0) Prothromb Time International Ratio 1.1 (0.8-1.1) Activated Partial Thromboplast Time 28 SEC (24-38) Sodium Level 136 mmol/L (136-145) Potassium Level 3.6 mmol/L (3.5-5.1) Chloride Level 96 mmol/L (98-107) Carbon Dioxide Level 33 mmol/L (21-32) Anion Gap 7 (6-14) Blood Urea Nitrogen 26 mg/dL (8-26) Creatinine 2.0 mg/dL (0.7-1.3) Estimated GFR (Cockcroft-Gault) 33.1 Glucose Level 107 mg/dL (70-99) Lactic Acid Level 3.2 mmol/L (0.4-2.0) 1.2 mmol/L (0.4-2.0) Calcium Level 11.6 mg/dL (8.5-10.1) Total Bilirubin 0.6 mg/dL (0.2-1.0) Direct Bilirubin 0.1 mg/dL (0.0-0.2) Aspartate Amino Transf (AST/SGOT) 24 U/L (15-37) Alanine Aminotransferase (ALT/SGPT) 16 U/L (16-63) Alkaline Phosphatase 65 U/L (46-116) Troponin I Quantitative 2.104 ng/mL (0.000-0.055) 3.490 ng/mL (0.000-0.055) Total Protein 7.3 g/dL (6.4-8.2) Albumin 3.3 g/dL (3.4-5.0) Triglycerides Level 115 mg/dL (0-150) Cholesterol Level 245 mg/dL (0-200) LDL Cholesterol, Calculated 171 mg/dL (0-100) VLDL Cholesterol, Calculated 23 mg/dL (0-40) Non-HDL Cholesterol Calculated 194 mg/dL (0-129) HDL Cholesterol 51 mg/dL (40-60) Cholesterol/HDL Ratio 4.8 Lipase 183 U/L (73-393) Influenza Type A Antigen Negative (NEGATIVE) Influenza Type B Antigen Negative (NEGATIVE) Uric Acid 8.0 mg/dL (3.5-7.2) Creatine Kinase 70 U/L (39-308) Test 08/21/17 18:15 08/21/17 20:30 08/22/17 03:15 Heparin Anti-Xa Act, Unfractionated 0.58 IU/mL (0.30-0.70) 0.47 IU/mL (0.30-0.70) Urine Color Yellow Urine Clarity Clear Urine pH 6.0 Urine Specific [place] 1.015 Urine Protein Negative mg/dL (NEG-TRACE) Urine Glucose (UA) Negative mg/dL (NEG) Urine Ketones (Stick) Negative mg/dL (NEG) Urine Blood Negative (NEG) Urine Nitrite Negative (NEG) Urine Bilirubin Negative (NEG) Urine Urobilinogen Dipstick 0.2 mg/dL (0.2 mg/dL) Urine Leukocyte Esterase Negative (NEG) Urine RBC 0 /HPF (0-2) Urine WBC Occ /HPF (0-4) Urine Squamous Epithelial Cells Occ /LPF Urine Bacteria 0 /HPF (0-FEW) Urine Hyaline Casts Occasional /HPF Urine Mucus Slight /LPF White Blood Count 15.7 x10^3/uL (4.0-11.0) Red Blood Count 3.17 x10^6/uL (4.30-5.70) Hemoglobin 8.8 g/dL (13.0-17.5) Hematocrit 27.8 % (39.0-53.0) Mean Corpuscular Volume 88 fL (79-100) Mean Corpuscular Hemoglobin 28 pg (25-35) Mean Corpuscular Hemoglobin Concent 32 g/dL (31-37) Red Cell Distribution Width 18.3 % (11.5-14.5) Platelet Count 141 x10^3/uL (140-400) Neutrophils (%) (Auto) 93 % (31-73) Lymphocytes (%) (Auto) 2 % (24-48) Monocytes (%) (Auto) 6 % (0-9) Eosinophils (%) (Auto) 0 % (0-3) Basophils (%) (Auto) 0 % (0-3) Neutrophils # (Auto) 14.5 x10^3uL (1.8-7.7) Lymphocytes # (Auto) 0.3 x10^3/uL (1.0-4.8) Monocytes # (Auto) 0.9 x10^3/uL (0.0-1.1) Eosinophils # (Auto) 0.0 x10^3/uL (0.0-0.7) Basophils # (Auto) 0.0 x10^3/uL (0.0-0.2) Sodium Level 132 mmol/L (136-145) Potassium Level 4.2 mmol/L (3.5-5.1) Chloride Level 97 mmol/L (98-107) Carbon Dioxide Level 24 mmol/L (21-32) Anion Gap 11 (6-14) Blood Urea Nitrogen 25 mg/dL (8-26) Creatinine 2.0 mg/dL (0.7-1.3) Estimated GFR (Cockcroft-Gault) 33.1 Glucose Level 161 mg/dL (70-99) Calcium Level 9.9 mg/dL (8.5-10.1) Phosphorus Level 4.0 mg/dL (2.6-4.7) Magnesium Level 1.6 mg/dL (1.8-2.4) Troponin I Quantitative 1.588 ng/mL (0.000-0.055) Albumin 2.5 g/dL (3.4-5.0) Laboratory Tests Test 08/21/17 12:03 08/21/17 12:25 08/21/17 18:05 08/21/17 18:15 Influenza Type A Antigen Negative (NEGATIVE) Influenza Type B Antigen Negative (NEGATIVE) Uric Acid 8.0 mg/dL (3.5-7.2) Creatine Kinase 70 U/L (39-308) Lactic Acid Level 1.2 mmol/L (0.4-2.0) Troponin I Quantitative 3.490 ng/mL (0.000-0.055) Heparin Anti-Xa Act, Unfractionated 0.58 IU/mL (0.30-0.70) Test 08/21/17 20:30 08/22/17 03:15 Urine Color Yellow Urine Clarity Clear Urine pH 6.0 Urine Specific [place] 1.015 Urine Protein Negative mg/dL (NEG-TRACE) Urine Glucose (UA) Negative mg/dL (NEG) Urine Ketones (Stick) Negative mg/dL (NEG) Urine Blood Negative (NEG) Urine Nitrite Negative (NEG) Urine Bilirubin Negative (NEG) Urine Urobilinogen Dipstick 0.2 mg/dL (0.2 mg/dL) Urine Leukocyte Esterase Negative (NEG) Urine RBC 0 /HPF (0-2) Urine WBC Occ /HPF (0-4) Urine Squamous Epithelial Cells Occ /LPF Urine Bacteria 0 /HPF (0-FEW) Urine Hyaline Casts Occasional /HPF Urine Mucus Slight /LPF White Blood Count 15.7 x10^3/uL (4.0-11.0) Red Blood Count 3.17 x10^6/uL (4.30-5.70) Hemoglobin 8.8 g/dL (13.0-17.5) Hematocrit 27.8 % (39.0-53.0) Mean Corpuscular Volume 88 fL (79-100) Mean Corpuscular Hemoglobin 28 pg (25-35) Mean Corpuscular Hemoglobin Concent 32 g/dL (31-37) Red Cell Distribution Width 18.3 % (11.5-14.5) Platelet Count 141 x10^3/uL (140-400) Neutrophils (%) (Auto) 93 % (31-73) Lymphocytes (%) (Auto) 2 % (24-48) Monocytes (%) (Auto) 6 % (0-9) Eosinophils (%) (Auto) 0 % (0-3) Basophils (%) (Auto) 0 % (0-3) Neutrophils # (Auto) 14.5 x10^3uL (1.8-7.7) Lymphocytes # (Auto) 0.3 x10^3/uL (1.0-4.8) Monocytes # (Auto) 0.9 x10^3/uL (0.0-1.1) Eosinophils # (Auto) 0.0 x10^3/uL (0.0-0.7) Basophils # (Auto) 0.0 x10^3/uL (0.0-0.2) Heparin Anti-Xa Act, Unfractionated 0.47 IU/mL (0.30-0.70) Sodium Level 132 mmol/L (136-145) Potassium Level 4.2 mmol/L (3.5-5.1) Chloride Level 97 mmol/L (98-107) Carbon Dioxide Level 24 mmol/L (21-32) Anion Gap 11 (6-14) Blood Urea Nitrogen 25 mg/dL (8-26) Creatinine 2.0 mg/dL (0.7-1.3) Estimated GFR (Cockcroft-Gault) 33.1 Glucose Level 161 mg/dL (70-99) Calcium Level 9.9 mg/dL (8.5-10.1) Phosphorus Level 4.0 mg/dL (2.6-4.7) Magnesium Level 1.6 mg/dL (1.8-2.4) Troponin I Quantitative 1.588 ng/mL (0.000-0.055) Albumin 2.5 g/dL (3.4-5.0) VTE Prophylaxis Ordered VTE Prophylaxis Devices: Yes VTE Pharmacological Prophylaxi: Yes Assessment/Plan Assessment/Plan 1. CAP with sepsis and lactic acidosis 2. Abdominal pain 3. NSTEMI due to demand ischemia 4. CAD: CABGx3. Recent LHC 5. PAD: recent BOX BRANDER/stent to LSFA. Bilateral LE without claudication symptoms. 6. CKD: 7. Chronic diastolic CHF 8. COPD/severe pulmonary HTN 9. HTN: controlled 10. HLP 11- acute respiratory failure 12-metastatic prostate Cancer 13-hypercalcemia due to metastatic prostate cancer 14-anemia multifactorial : chronic disease with acute illness continue ABx, echo, Pulmonary/cardiology/ID/renal consults MALA MARIE MD Aug 22, 2017 10:48
--- NOTE | 2017-08-22 10:49 | PDOC ---
Infectious Disease Note Vital Sign Vital Signs Vital Signs Date Time Temp Pulse Resp B/P (MAP) Pulse Ox O2 Delivery O2 Flow Rate FiO2 08/22/17 09:00 75 15 141/67 (91) 96 Nasal Cannula 4.0 08/22/17 08:00 98.2 98.2 Labs Lab Laboratory Tests Test 08/21/17 10:40 08/21/17 12:03 08/21/17 12:25 08/21/17 18:05 White Blood Count 23.4 x10^3/uL (4.0-11.0) Red Blood Count 3.99 x10^6/uL (4.30-5.70) Hemoglobin 10.9 g/dL (13.0-17.5) Hematocrit 34.5 % (39.0-53.0) Mean Corpuscular Volume 87 fL (79-100) Mean Corpuscular Hemoglobin 27 pg (25-35) Mean Corpuscular Hemoglobin Concent 32 g/dL (31-37) Red Cell Distribution Width 18.0 % (11.5-14.5) Platelet Count 186 x10^3/uL (140-400) Neutrophils (%) (Auto) 92 % (31-73) Lymphocytes (%) (Auto) 2 % (24-48) Monocytes (%) (Auto) 6 % (0-9) Eosinophils (%) (Auto) 0 % (0-3) Basophils (%) (Auto) 0 % (0-3) Neutrophils # (Auto) 21.5 x10^3uL (1.8-7.7) Lymphocytes # (Auto) 0.3 x10^3/uL (1.0-4.8) Monocytes # (Auto) 1.4 x10^3/uL (0.0-1.1) Eosinophils # (Auto) 0.1 x10^3/uL (0.0-0.7) Basophils # (Auto) 0.0 x10^3/uL (0.0-0.2) Segmented Neutrophils % 63 % (35-66) Band Neutrophils % 31 % (0-9) Lymphocytes % 3 % (24-48) Monocytes % 3 % (0-10) Toxic Vacuolation Slight Platelet Estimate Adequate (ADEQUATE) Anisocytosis Slight Stomatocytes Present Prothrombin Time 13.3 SEC (11.7-14.0) Prothromb Time International Ratio 1.1 (0.8-1.1) Activated Partial Thromboplast Time 28 SEC (24-38) Sodium Level 136 mmol/L (136-145) Potassium Level 3.6 mmol/L (3.5-5.1) Chloride Level 96 mmol/L (98-107) Carbon Dioxide Level 33 mmol/L (21-32) Anion Gap 7 (6-14) Blood Urea Nitrogen 26 mg/dL (8-26) Creatinine 2.0 mg/dL (0.7-1.3) Estimated GFR (Cockcroft-Gault) 33.1 Glucose Level 107 mg/dL (70-99) Lactic Acid Level 3.2 mmol/L (0.4-2.0) 1.2 mmol/L (0.4-2.0) Calcium Level 11.6 mg/dL (8.5-10.1) Total Bilirubin 0.6 mg/dL (0.2-1.0) Direct Bilirubin 0.1 mg/dL (0.0-0.2) Aspartate Amino Transf (AST/SGOT) 24 U/L (15-37) Alanine Aminotransferase (ALT/SGPT) 16 U/L (16-63) Alkaline Phosphatase 65 U/L (46-116) Troponin I Quantitative 2.104 ng/mL (0.000-0.055) 3.490 ng/mL (0.000-0.055) Total Protein 7.3 g/dL (6.4-8.2) Albumin 3.3 g/dL (3.4-5.0) Triglycerides Level 115 mg/dL (0-150) Cholesterol Level 245 mg/dL (0-200) LDL Cholesterol, Calculated 171 mg/dL (0-100) VLDL Cholesterol, Calculated 23 mg/dL (0-40) Non-HDL Cholesterol Calculated 194 mg/dL (0-129) HDL Cholesterol 51 mg/dL (40-60) Cholesterol/HDL Ratio 4.8 Lipase 183 U/L (73-393) Influenza Type A Antigen Negative (NEGATIVE) Influenza Type B Antigen Negative (NEGATIVE) Uric Acid 8.0 mg/dL (3.5-7.2) Creatine Kinase 70 U/L (39-308) Test 08/21/17 18:15 08/21/17 20:30 08/22/17 03:15 Heparin Anti-Xa Act, Unfractionated 0.58 IU/mL (0.30-0.70) 0.47 IU/mL (0.30-0.70) Urine Color Yellow Urine Clarity Clear Urine pH 6.0 Urine Specific [place] 1.015 Urine Protein Negative mg/dL (NEG-TRACE) Urine Glucose (UA) Negative mg/dL (NEG) Urine Ketones (Stick) Negative mg/dL (NEG) Urine Blood Negative (NEG) Urine Nitrite Negative (NEG) Urine Bilirubin Negative (NEG) Urine Urobilinogen Dipstick 0.2 mg/dL (0.2 mg/dL) Urine Leukocyte Esterase Negative (NEG) Urine RBC 0 /HPF (0-2) Urine WBC Occ /HPF (0-4) Urine Squamous Epithelial Cells Occ /LPF Urine Bacteria 0 /HPF (0-FEW) Urine Hyaline Casts Occasional /HPF Urine Mucus Slight /LPF White Blood Count 15.7 x10^3/uL (4.0-11.0) Red Blood Count 3.17 x10^6/uL (4.30-5.70) Hemoglobin 8.8 g/dL (13.0-17.5) Hematocrit 27.8 % (39.0-53.0) Mean Corpuscular Volume 88 fL (79-100) Mean Corpuscular Hemoglobin 28 pg (25-35) Mean Corpuscular Hemoglobin Concent 32 g/dL (31-37) Red Cell Distribution Width 18.3 % (11.5-14.5) Platelet Count 141 x10^3/uL (140-400) Neutrophils (%) (Auto) 93 % (31-73) Lymphocytes (%) (Auto) 2 % (24-48) Monocytes (%) (Auto) 6 % (0-9) Eosinophils (%) (Auto) 0 % (0-3) Basophils (%) (Auto) 0 % (0-3) Neutrophils # (Auto) 14.5 x10^3uL (1.8-7.7) Lymphocytes # (Auto) 0.3 x10^3/uL (1.0-4.8) Monocytes # (Auto) 0.9 x10^3/uL (0.0-1.1) Eosinophils # (Auto) 0.0 x10^3/uL (0.0-0.7) Basophils # (Auto) 0.0 x10^3/uL (0.0-0.2) Sodium Level 132 mmol/L (136-145) Potassium Level 4.2 mmol/L (3.5-5.1) Chloride Level 97 mmol/L (98-107) Carbon Dioxide Level 24 mmol/L (21-32) Anion Gap 11 (6-14) Blood Urea Nitrogen 25 mg/dL (8-26) Creatinine 2.0 mg/dL (0.7-1.3) Estimated GFR (Cockcroft-Gault) 33.1 Glucose Level 161 mg/dL (70-99) Calcium Level 9.9 mg/dL (8.5-10.1) Phosphorus Level 4.0 mg/dL (2.6-4.7) Magnesium Level 1.6 mg/dL (1.8-2.4) Troponin I Quantitative 1.588 ng/mL (0.000-0.055) Albumin 2.5 g/dL (3.4-5.0) Portable AP semiupright view CXR: Impression: Bibasilar lung infiltrates.. CT abd/pelvis: IMPRESSION: Bibasilar interstitial and nodular lung infiltrates. Osteoblastic metastatic disease. No acute abnormality of the abdomen or pelvis is seen otherwise. Mild splenomegaly. Objective Assessment Bibasilar interstitial and nodular lung infiltrates, pneumonia not ruled out - influenza negative Lactic acidosis Leukocytosis/bandemia Fever and chills, prior to admission BURT, renal following NSTEMI, cardiology following ? Adrenal Insufficiency, on steroids Metastatic prostate cancer on Zytiga & Xtandi along w/ prednisone Plan Plan of Care Hold vanc given renal failure and continue Zosyn for now Monitor renal function, WBC and temp check strep pneumo UR Ag f/u am labs f/u cultures D/w RN, Dr. Ramirez and Thank you [id number] Attending Co-Sign The patient was seen and interviewed as well as examined at the bedside. The chart was reviewed. The case was discussed. Agree with the plan of care. Reese pul infiltrate, high risk for PCP, d/w in detail. GREGG CAMARGO APRN Aug 22, 2017 10:49 NANCY MCLEAN MD Aug 22, 2017 14:17
--- NOTE | 2017-08-22 11:20 | CONS ---
DATE OF CONSULTATION: 08/21/2017 ATTENDING PHYSICIAN: Dr. Aquilino Antonio. CONSULTING PHYSICIAN: Jennifer Cahng MD. REASON FOR CONSULTATION: The patient is seen in pulmonary consultation at the request of Dr. Antonio for increasing shortness of air and abnormal x-ray. HISTORY OF PRESENT ILLNESS: The patient is a 72-year-old that presented to the Emergency Room with abdominal pain over the last several months. He has also had increasing shortness of breath, fever and cough productive of discolored sputum at home. He was unable to walk very far. He was having some chest pain. He was placed on 3 liters of oxygen supplementation in the Emergency Room. He had a fever at home of 101. He normally does not wear oxygen. The patient underwent imaging studies including a chest x-ray. I reviewed the x-ray. There are bibasilar pulmonary infiltrates compatible with pneumonia. The patient also underwent CT abdomen and pelvis today. There are bibasilar infiltrates and nodular lung infiltrates. Otherwise, no acute abnormalities of the abdomen. PAST MEDICAL HISTORY: Remarkable for prostate cancer with recurrence. He is undergoing treatment. Has a history of COPD, hyperlipidemia, obstructive sleep apnea, coronary artery bypass grafting. PAST SURGICAL HISTORY: Status post coronary artery bypass grafting, neck surgery, left hip and right hip surgery, colonoscopy in the past. MEDICATIONS: List was reviewed. ALLERGIES: NONSTEROIDALS. REVIEW OF SYSTEMS: As indicated above, otherwise, a 10-point system was reviewed and negative. CURRENT MEDICATIONS: List was reviewed. Please see the MRAD. He is currently in the intensive care unit undergoing IV heparin. He is receiving vancomycin and Zosyn. PHYSICAL EXAMINATION: VITAL SIGNS: The patient was in no significant respiratory distress, currently on 3 liters. HEENT: Eyes, the sclerae were nonicteric. NECK: Jugular venous distention was not elevated. No lymphadenopathy. CHEST: Full expansion. LUNGS: Crackles in the bases. No wheezes. CARDIOVASCULAR: Regular rate and rhythm with S1, S2, no S3. ABDOMEN: Soft, nontender, nondistended. EXTREMITIES: No clubbing, cyanosis or pitting edema. NEUROLOGIC: The patient is awake, alert, following commands. He was very weak. He was barely able to sit up in bed. A detailed neuro exam was not performed. LABORATORY DATA: White count was elevated. Hemoglobin and hematocrit were noted. Serology for influenza was negative. BUN and creatinine were elevated. Albumin was low. IMPRESSION: 1. Acute respiratory failure, multifactorial, present upon admission. 2. Bibasilar infiltrates on x-ray compatible with pneumonia. Continue broad spectrum antibiotics. 3. Gram-negative and gram-positive pneumonia. 4. Acute on chronic kidney injury. 5. Prostate cancer, recurrent disease. 6. Coronary artery disease, presents with chest pain, non-ST segment elevation myocardial infarction. Initial troponin was elevated. 7. Peripheral arterial disease, status post stent placement to the left superficial femoral artery. 8. Chronic diastolic heart failure. 9. Chronic obstructive pulmonary disease. 10. Secondary pulmonary hypertension. PLAN: 1. Continue current empiric antibiotics. 2. Heparin per protocol. 3. Continue supportive care. 4. Follow nephrology input. Case was discussed with the at the bedside. JENNIFER CHANG MD DR: FAN/chilango JOB#: [id number] / [id number]
[2017-08-22] MEDS ORDERED: VANCOMYCIN 1.5 GM in IV DEXTROSE 5% 500 ML IV SCH (13:00)
--- NOTE | 2017-08-22 13:59 | PDOC ---
PROGRESS NOTES Subjective Subjective SEEN IN FOLLOW UP OF ARF IN SETTING OF PNEUMONIA Objective Objective Vital Signs Date Time Temp Pulse Resp B/P (MAP) Pulse Ox O2 Delivery O2 Flow Rate FiO2 08/22/17 13:00 97.9 77 17 131/73 (92) 95 Nasal Cannula 3.0 97.9 Intake and Output 08/23/17 07:00 Intake Total 500 ml Output Total 525 ml Balance -25 ml Intake Oral 500 ml Output Urine Total 525 ml Physical Exam Abdomen: Normal bowel sounds, Soft, No tenderness, No hepatosplenomegaly, No masses Extremities: No clubbing, No cyanosis, No edema, Normal pulses, No tenderness/ swelling General: Alert, Oriented X3, Cooperative, No acute distress Lungs: Clear to auscultation, Normal air movement Psych/Mental Status: Mental status NL, Mood NL Diagnosis RESPIRATORY FAILURE: Other (PNEUMONIA) RENAL FAILURE: Acute (Acute tubular necrosis) Assessment Assessment Problems Medical Problems: (1) PNA (pneumonia) Status: Acute Plan Plan of Care STABLE RENAL FUNCTION. NO HYDRONEPHROSIS. CONT FLUIDS AND FOLLOW . Comment Review of Relevant I have reviewed the following items demetrius (where applicable) has been applied. Labs Laboratory Tests Test 08/21/17 10:40 08/21/17 12:03 08/21/17 12:25 08/21/17 18:05 White Blood Count 23.4 x10^3/uL (4.0-11.0) Red Blood Count 3.99 x10^6/uL (4.30-5.70) Hemoglobin 10.9 g/dL (13.0-17.5) Hematocrit 34.5 % (39.0-53.0) Mean Corpuscular Volume 87 fL (79-100) Mean Corpuscular Hemoglobin 27 pg (25-35) Mean Corpuscular Hemoglobin Concent 32 g/dL (31-37) Red Cell Distribution Width 18.0 % (11.5-14.5) Platelet Count 186 x10^3/uL (140-400) Neutrophils (%) (Auto) 92 % (31-73) Lymphocytes (%) (Auto) 2 % (24-48) Monocytes (%) (Auto) 6 % (0-9) Eosinophils (%) (Auto) 0 % (0-3) Basophils (%) (Auto) 0 % (0-3) Neutrophils # (Auto) 21.5 x10^3uL (1.8-7.7) Lymphocytes # (Auto) 0.3 x10^3/uL (1.0-4.8) Monocytes # (Auto) 1.4 x10^3/uL (0.0-1.1) Eosinophils # (Auto) 0.1 x10^3/uL (0.0-0.7) Basophils # (Auto) 0.0 x10^3/uL (0.0-0.2) Segmented Neutrophils % 63 % (35-66) Band Neutrophils % 31 % (0-9) Lymphocytes % 3 % (24-48) Monocytes % 3 % (0-10) Toxic Vacuolation Slight Platelet Estimate Adequate (ADEQUATE) Anisocytosis Slight Stomatocytes Present Prothrombin Time 13.3 SEC (11.7-14.0) Prothromb Time International Ratio 1.1 (0.8-1.1) Activated Partial Thromboplast Time 28 SEC (24-38) Sodium Level 136 mmol/L (136-145) Potassium Level 3.6 mmol/L (3.5-5.1) Chloride Level 96 mmol/L (98-107) Carbon Dioxide Level 33 mmol/L (21-32) Anion Gap 7 (6-14) Blood Urea Nitrogen 26 mg/dL (8-26) Creatinine 2.0 mg/dL (0.7-1.3) Estimated GFR (Cockcroft-Gault) 33.1 Glucose Level 107 mg/dL (70-99) Lactic Acid Level 3.2 mmol/L (0.4-2.0) 1.2 mmol/L (0.4-2.0) Calcium Level 11.6 mg/dL (8.5-10.1) Total Bilirubin 0.6 mg/dL (0.2-1.0) Direct Bilirubin 0.1 mg/dL (0.0-0.2) Aspartate Amino Transf (AST/SGOT) 24 U/L (15-37) Alanine Aminotransferase (ALT/SGPT) 16 U/L (16-63) Alkaline Phosphatase 65 U/L (46-116) Troponin I Quantitative 2.104 ng/mL (0.000-0.055) 3.490 ng/mL (0.000-0.055) Total Protein 7.3 g/dL (6.4-8.2) Albumin 3.3 g/dL (3.4-5.0) Triglycerides Level 115 mg/dL (0-150) Cholesterol Level 245 mg/dL (0-200) LDL Cholesterol, Calculated 171 mg/dL (0-100) VLDL Cholesterol, Calculated 23 mg/dL (0-40) Non-HDL Cholesterol Calculated 194 mg/dL (0-129) HDL Cholesterol 51 mg/dL (40-60) Cholesterol/HDL Ratio 4.8 Lipase 183 U/L (73-393) Influenza Type A Antigen Negative (NEGATIVE) Influenza Type B Antigen Negative (NEGATIVE) Uric Acid 8.0 mg/dL (3.5-7.2) Creatine Kinase 70 U/L (39-308) Test 08/21/17 18:15 08/21/17 20:30 08/22/17 03:15 08/22/17 12:15 Heparin Anti-Xa Act, Unfractionated 0.58 IU/mL (0.30-0.70) 0.47 IU/mL (0.30-0.70) Urine Color Yellow Urine Clarity Clear Urine pH 6.0 Urine Specific [place] 1.015 Urine Protein 28.0 mg/dL (Not Estab.) Urine Glucose (UA) Negative mg/dL (NEG) Urine Ketones (Stick) Negative mg/dL (NEG) Urine Blood Negative (NEG) Urine Nitrite Negative (NEG) Urine Bilirubin Negative (NEG) Urine Urobilinogen Dipstick 0.2 mg/dL (0.2 mg/dL) Urine Leukocyte Esterase Negative (NEG) Urine RBC 0 /HPF (0-2) Urine WBC Occ /HPF (0-4) Urine Squamous Epithelial Cells Occ /LPF Urine Bacteria 0 /HPF (0-FEW) Urine Hyaline Casts Occasional /HPF Urine Mucus Slight /LPF Urine Random Sodium <60 mmol/L (Not Estab.) Urine Creatinine 111.9 mg/dL (Not Estab.) Urine Protein/Creatinine Ratio 250 mg/g creat (0-200) White Blood Count 15.7 x10^3/uL (4.0-11.0) Red Blood Count 3.17 x10^6/uL (4.30-5.70) Hemoglobin 8.8 g/dL (13.0-17.5) 8.1 g/dL (13.0-17.5) Hematocrit 27.8 % (39.0-53.0) Mean Corpuscular Volume 88 fL (79-100) Mean Corpuscular Hemoglobin 28 pg (25-35) Mean Corpuscular Hemoglobin Concent 32 g/dL (31-37) Red Cell Distribution Width 18.3 % (11.5-14.5) Platelet Count 141 x10^3/uL (140-400) Neutrophils (%) (Auto) 93 % (31-73) Lymphocytes (%) (Auto) 2 % (24-48) Monocytes (%) (Auto) 6 % (0-9) Eosinophils (%) (Auto) 0 % (0-3) Basophils (%) (Auto) 0 % (0-3) Neutrophils # (Auto) 14.5 x10^3uL (1.8-7.7) Lymphocytes # (Auto) 0.3 x10^3/uL (1.0-4.8) Monocytes # (Auto) 0.9 x10^3/uL (0.0-1.1) Eosinophils # (Auto) 0.0 x10^3/uL (0.0-0.7) Basophils # (Auto) 0.0 x10^3/uL (0.0-0.2) Sodium Level 132 mmol/L (136-145) Potassium Level 4.2 mmol/L (3.5-5.1) Chloride Level 97 mmol/L (98-107) Carbon Dioxide Level 24 mmol/L (21-32) Anion Gap 11 (6-14) Blood Urea Nitrogen 25 mg/dL (8-26) Creatinine 2.0 mg/dL (0.7-1.3) Estimated GFR (Cockcroft-Gault) 33.1 Glucose Level 161 mg/dL (70-99) Calcium Level 9.9 mg/dL (8.5-10.1) Phosphorus Level 4.0 mg/dL (2.6-4.7) Magnesium Level 1.6 mg/dL (1.8-2.4) Troponin I Quantitative 1.588 ng/mL (0.000-0.055) Albumin 2.5 g/dL (3.4-5.0) Laboratory Tests Test 08/21/17 18:05 08/21/17 18:15 08/21/17 20:30 11/11/17 03:15 Lactic Acid Level 1.2 mmol/L (0.4-2.0) Troponin I Quantitative 3.490 ng/mL (0.000-0.055) 1.588 ng/mL (0.000-0.055) Heparin Anti-Xa Act, Unfractionated 0.58 IU/mL (0.30-0.70) 0.47 IU/mL (0.30-0.70) Urine Color Yellow Urine Clarity Clear Urine pH 6.0 Urine Specific [place] 1.015 Urine Protein 28.0 mg/dL (Not Estab.) Urine Glucose (UA) Negative mg/dL (NEG) Urine Ketones (Stick) Negative mg/dL (NEG) Urine Blood Negative (NEG) Urine Nitrite Negative (NEG) Urine Bilirubin Negative (NEG) Urine Urobilinogen Dipstick 0.2 mg/dL (0.2 mg/dL) Urine Leukocyte Esterase Negative (NEG) Urine RBC 0 /HPF (0-2) Urine WBC Occ /HPF (0-4) Urine Squamous Epithelial Cells Occ /LPF Urine Bacteria 0 /HPF (0-FEW) Urine Hyaline Casts Occasional /HPF Urine Mucus Slight /LPF Urine Random Sodium <60 mmol/L (Not Estab.) Urine Creatinine 111.9 mg/dL (Not Estab.) Urine Protein/Creatinine Ratio 250 mg/g creat (0-200) White Blood Count 15.7 x10^3/uL (4.0-11.0) Red Blood Count 3.17 x10^6/uL (4.30-5.70) Hemoglobin 8.8 g/dL (13.0-17.5) Hematocrit 27.8 % (39.0-53.0) Mean Corpuscular Volume 88 fL (79-100) Mean Corpuscular Hemoglobin 28 pg (25-35) Mean Corpuscular Hemoglobin Concent 32 g/dL (31-37) Red Cell Distribution Width 18.3 % (11.5-14.5) Platelet Count 141 x10^3/uL (140-400) Neutrophils (%) (Auto) 93 % (31-73) Lymphocytes (%) (Auto) 2 % (24-48) Monocytes (%) (Auto) 6 % (0-9) Eosinophils (%) (Auto) 0 % (0-3) Basophils (%) (Auto) 0 % (0-3) Neutrophils # (Auto) 14.5 x10^3uL (1.8-7.7) Lymphocytes # (Auto) 0.3 x10^3/uL (1.0-4.8) Monocytes # (Auto) 0.9 x10^3/uL (0.0-1.1) Eosinophils # (Auto) 0.0 x10^3/uL (0.0-0.7) Basophils # (Auto) 0.0 x10^3/uL (0.0-0.2) Sodium Level 132 mmol/L (136-145) Potassium Level 4.2 mmol/L (3.5-5.1) Chloride Level 97 mmol/L (98-107) Carbon Dioxide Level 24 mmol/L (21-32) Anion Gap 11 (6-14) Blood Urea Nitrogen 25 mg/dL (8-26) Creatinine 2.0 mg/dL (0.7-1.3) Estimated GFR (Cockcroft-Gault) 33.1 Glucose Level 161 mg/dL (70-99) Calcium Level 9.9 mg/dL (8.5-10.1) Phosphorus Level 4.0 mg/dL (2.6-4.7) Magnesium Level 1.6 mg/dL (1.8-2.4) Albumin 2.5 g/dL (3.4-5.0) Test 08/22/17 12:15 Hemoglobin 8.1 g/dL (13.0-17.5) Microbiology 08/21/17 Blood Culture - Preliminary, Resulted NO GROWTH AFTER 1 DAY Medications Current Medications Aspirin (Children'S Aspirin) 324 mg 1X ONCE PO Last administered on 11:58; Start 08/21/17 at 11:30; Stop 08/21/17 at 11:31; Status DC Vancomycin HCl (Vanco Per Pharmacy) 1 each PRN DAILY PRN MC SEE COMMENTS Last administered on 08/22/17 07:53; Start 08/21/17 at 11:30; Stop 08/22/17 at 10 :35; Status DC Piperacillin Sod/ Tazobactam Sod (Zosyn Per Pharmacy) 1 each PRN DAILY PRN MC SEE COMMENTS; Start 08/21/17 at 11:30 Sodium Chloride 500 ml @ 500 mls/hr 1X ONCE IV Last administered on 12:00; Start 08/21/17 at 11:30; Stop 08/21/17 at 12:29; Status DC Heparin Sodium (Porcine) (Heparin Sodium) 4,000 unit 1X ONCE IV Last administered on 08/21/17 11:58; Start 08/21/17 at 11:30; Stop 08/21/17 at 11 :35; Status DC Heparin Sodium/ Dextrose 500 ml @ 0 mls/hr CONT PRN IV SEE I/O RECORD Last administered on 08/21/17 11:58; Start 08/21/17 at 11:30 Heparin Sodium (Porcine) (Heparin Sodium) 2,400 unit PRN Q6HRS PRN IV FOR UFH LEVEL LESS THAN 0.2; Start 08/21/17 at 11:30 Vancomycin HCl 2 gm/Dextrose 500 ml @ 250 mls/hr 1X ONCE IV Last administered on 08/21/17 12:58; Start 08/21/17 at 11:45; Stop 08/21/17 at 13 :44; Status DC Piperacillin Sod/ Tazobactam Sod (Zosyn) 3.375 gm 1X ONCE IVP Last administered on 08/21/17 11:56; Start 08/21/17 at 11:45; Stop 08/21/17 at 11 :46; Status DC Info (Anti-Coagulation Monitoring By Pharmacy) 1 each PRN DAILY PRN MC SEE COMMENTS Last administered on 08/22/17 07:59; Start 08/21/17 at 11:45 Ondansetron HCl (Zofran) 4 mg PRN Q8HRS PRN IV NAUSEA/VOMITING Last administered on 08/21/17 20:10; Start 08/21/17 at 12:45; Stop 08/22/17 at 12 :44; Status DC Morphine Sulfate 2 mg PRN Q2HR PRN IV PAIN; Start 08/21/17 at 12:45; Stop 08/28 at 12:44; Status DC Sodium Chloride 1,000 ml @ 80 mls/hr [id number] IV Last administered on 18:07; Start 08/21/17 at 13:00; Stop 08/21/17 at 13:01; Status DC Piperacillin Sod/ Tazobactam Sod (Zosyn) 3.375 gm Q6HRS IVP Last administered on 08/22/17 12:12; Start 08/21/17 at 18:00 Aspirin (Ecotrin) 81 mg DAILY PO Last administered on 08/22/17 10:18; Start 08/22/17 at 09:00 Clopidogrel Bisulfate (Plavix) 75 mg DAILY PO Last administered on 08/22/17 10:19; Start 08/21/17 at 14:00 Metoprolol Succinate (Toprol Xl) 25 mg DAILY PO Last administered on 12:11; Start 08/21/17 at 14:00 Pantoprazole Sodium (Protonix) 40 mg DAILYAC PO Last administered on 10:19; Start 08/21/17 at 14:00 Simvastatin (Zocor) 40 mg HS PO ; Start 08/21/17 at 21:00; Stop 08/21/17 at 21 :00; Status DC Magnesium Sulfate/ Dextrose 50 ml @ 25 mls/hr PRN DAILY PRN IV for Mag < 1.7 on am labs; Start 08/21/17 at 14:15 Vancomycin HCl 1.5 gm/Dextrose 500 ml @ 250 mls/hr Q24H IV ; Start 08/22/17 at 13:00; Stop 08/22/17 at 13:00; Status DC Vancomycin HCl 1 each 1X ONCE MC ; Start 08/23/17 at 12:30; Stop 08/23/17 at 12:31; Status Cancel Sodium Chloride 250 ml @ 0 mls/hr QID PRN IV UO< 30cc/hr over previous 6hrs; Start 08/21/17 at 14:45 Hydrocortisone Sodium Succinate (Solu-CORTEF) 50 mg Q8HRS IV Last administered on 08/22/17 05:38; Start 08/21/17 at 15:30 Atorvastatin Calcium (Lipitor) 80 mg QHS PO Last administered on 08/21/17 20: 19; Start 08/21/17 at 21:00 Magnesium Sulfate/ Dextrose 50 ml @ 25 mls/hr 1X ONCE IV Last administered on 08/22/17 10:19; Start 08/22/17 at 09:00; Stop 08/22/17 at 10:59; Status DC Active Scripts Active Reported Ventolin Hfa Inhaler (Albuterol Sulfate) 18 Gm Hfa.aer.ad 2 Puff INH Q4HRS Xtandi (Enzalutamide) 40 Mg Capsule 160 Mg PO DAILY@1000 Vitamin D3 (Cholecalciferol (Vitamin D3)) 1,000 Unit Tablet 1 Tab PO DAILY Calcium + Vitamin D Tablet (Calcium Carbonate/Vitamin D3) 1 Each Tablet 1 Each PO BID [lupron] Zytiga (Abiraterone Acetate) 250 Mg Tablet 1,000 Mg PO DAILY@1700 Vitamin D (Cholecalciferol (Vitamin D3)) 1,000 Unit Capsule 1,000 Unit PO Senokot-S Tablet (Sennosides/Docusate Sodium) 1 Each Tablet 1 Each PO Protonix (Pantoprazole Sodium) 40 Mg Tablet.dr 40 Mg PO DAILY Symbicort 160-4.5 Mcg Inhaler (Budesonide/Formoterol Fumarate) 10.2 Gm Hfa.aer.ad 2 Puff IH BID Prednisone 20 Mg Tablet 5 Mg PO BID Klor-Con M20 (Potassium Chloride) 20 Meq Tab.er.prt 10 Meq PO DAILY Furosemide 40 Mg Tablet 40 Mg PO DAILY Simvastatin 40 Mg Tablet 40 Mg PO HS Aspir 81 (Aspirin) 81 Mg Tablet.dr 81 Mg PO DAILY Clopidogrel (Clopidogrel Bisulfate) 75 Mg Tablet 75 Mg PO DAILY Spiriva (Tiotropium Rhodes) 18 Mcg Cap.w.dev 2 Inh IH DAILY Metoprolol Succinate ( Xl ) (Metoprolol Succinate) 25 Mg Tab.er.24h 25 Mg PO DAILY Gabapentin 600 Mg Tablet 600 Mg PO BID Vitals/I & O Vital Sign - Last 24 Hours 08/21/17 08/21/17 08/21/17 08/21/17 14:44 16:00 16:15 16:30 Temp 97.6 99.4 97.6 99.4 Pulse 85 82 84 Resp 18 22 21 B/P (MAP) 113/55 (74) 126/58 (80) 104/53 (70) Pulse Ox 95 94 95 O2 Delivery Room Air Nasal Cannula Nasal Cannula Nasal Cannula O2 Flow Rate 4.0 4.0 4.0 08/21/17 08/21/17 08/21/17 08/21/17 16:45 17:00 17:30 18:00 Pulse 82 86 84 97 Resp 20 18 17 16 B/P (MAP) 110/52 (71) 103/52 (69) 107/49 (68) 102/56 (71) Pulse Ox 93 92 92 93 O2 Delivery Nasal Cannula Nasal Cannula Nasal Cannula Nasal Cannula O2 Flow Rate 4.0 4.0 4.0 4.0 08/21/17 08/21/17 08/21/17 08/21/17 19:00 20:00 20:00 21:00 Temp 97.9 97.9 Pulse 80 100 76 Resp 20 22 15 B/P (MAP) 111/53 (72) 104/51 (68) 109/50 (69) Pulse Ox 91 89 98 O2 Delivery Nasal Cannula Nasal Cannula Nasal Cannula Nasal Cannula O2 Flow Rate 2.0 4.0 4.0 4.0 08/21/17 08/21/17 08/21/17 08/21/17 22:00 23:00 23:59 23:59 Temp 98.5 98.5 Pulse 70 84 74 Resp 15 27 13 B/P (MAP) 105/49 (67) 104/57 (73) 118/66 (83) Pulse Ox 98 96 95 O2 Delivery Nasal Cannula Nasal Cannula Nasal Cannula Nasal Cannula O2 Flow Rate 4.0 4.0 4.0 4.0 08/22/17 08/22/17 08/22/17 08/22/17 01:00 02:00 03:00 04:00 Temp 97.6 97.6 Pulse 76 70 69 84 Resp 23 14 13 22 B/P (MAP) 101/48 (65) 107/56 (73) 111/55 (73) 126/59 (81) Pulse Ox 93 93 97 95 O2 Delivery Nasal Cannula Nasal Cannula Nasal Cannula Nasal Cannula O2 Flow Rate 4.0 4.0 4.0 4.0 08/22/17 08/22/17 08/22/17 08/22/17 04:00 05:00 06:00 07:00 Pulse 69 70 68 Resp 17 12 16 B/P (MAP) 128/60 (82) 119/56 (77) 130/68 (88) Pulse Ox 98 100 98 O2 Delivery Nasal Cannula Nasal Cannula Nasal Cannula Nasal Cannula O2 Flow Rate 4.0 4.0 4.0 4.0 08/22/17 08/22/17 08/22/17 08/22/17 08:00 08:00 09:00 10:00 Temp 98.2 98.2 Pulse 70 75 76 Resp 18 15 14 B/P (MAP) 149/68 (95) 141/67 (91) 137/54 (81) Pulse Ox 96 96 97 O2 Delivery Nasal Cannula Nasal Cannula Nasal Cannula Nasal Cannula O2 Flow Rate 4.0 4.0 4.0 4.0 08/22/17 08/22/17 08/22/17 08/22/17 11:00 12:00 12:00 12:11 Pulse 76 87 76 Resp 16 16 B/P (MAP) 139/62 (87) 138/66 (90) 139/62 Pulse Ox 97 94 O2 Delivery Nasal Cannula Nasal Cannula Nasal Cannula O2 Flow Rate 3.0 3.0 3.0 08/22/17 13:00 Temp 97.9 97.9 Pulse 77 Resp 17 B/P (MAP) 131/73 (92) Pulse Ox 95 O2 Delivery Nasal Cannula O2 Flow Rate 3.0 Intake and Output 08/22/17 08/22/17 08/23/17 15:00 23:00 07:00 Intake Total 500 ml Output Total 525 ml Balance -25 ml TREASURE MASTERSON MD Aug 22, 2017 13:59
[2017-08-22] MEDS: ATORVASTATIN CALCIUM 40 MG TABLET. PO SCH (21:40)
[2017-08-23 03:00] VITALS: BP 193/76
[2017-08-23 05:13] LABS: HEMATOCRIT 26.8 % (39.0-53.0); HEMOGLOBIN 8.6 g/dL (13.0-17.5); RED BLOOD COUNT 3.07 x10^6/uL (4.30-5.70)
--- NOTE | 2017-08-23 05:20 | CONS ---
DATE OF CONSULTATION: 08/21/2017 REFERRING PHYSICIAN: Dr. Houser REASON FOR CONSULTATION: Cough with leukocytosis. HISTORY OF PRESENT ILLNESS: This patient is a pleasant 72-year-old male with metastatic prostate cancer, on Zytiga and Xtandi along with prednisone and is followed by oncologist, Dr. Menjivar. A couple of days ago, he started not to feel well. He was not very hungry, was feeling weak. Developed a fever of 101.1 with chills. He complains of a mild cough with phlegm production. Has a history of chronic obstructive pulmonary disease, oxygen dependency on 3 liters nasal cannula at home. Denies chest pain or shortness of air. On arrival to the ER, he was hypoxic, requiring increased oxygen supplementation. He had elevated white blood cell count of 23,400 with segs 63% and bands 31%. Lactic acid was 3.2 and troponin 2.104. Influenza screen was negative. Imaging revealed interstitial and nodular lung infiltrates. He was in acute renal failure with the creatinine of 2.0 and BUN 26. He was dosed with vancomycin and Zosyn in the ER. The patient is feeling better. He reports having swelling in his legs that has since gone down. He has a mild headache. Denies nasal/sinus congestion, sore throat or difficulty swallowing. Denies difficulty urinating. He has some chronic neck and back pain. Denies rash. No long-term lines. PAST MEDICAL HISTORY: Metastatic prostate cancer status post radiation; peripheral arterial disease; chronic obstructive pulmonary disease, oxygen dependent on 3 liters nasal cannula; coronary artery disease; pulmonary hypertension; hyperlipidemia; hypertension and gastroesophageal reflux disease. PAST SURGICAL HISTORY: Coronary artery bypass graft, RCA cardiac stenting, inguinal hernia repair, right carotid endarterectomy and aortic bifemoral bypass graft. SOCIAL HISTORY: The patient is . He is retired. Former smoker. FAMILY HISTORY: Positive for cardiovascular disease, cardiomyopathy and cancer. ALLERGIES: NONSTEROIDALS. MEDICATIONS: Vancomycin, Zosyn and steroids. Other medications are available and have been reviewed on the DEC. REVIEW OF SYSTEMS: Per HPI. Otherwise, all other review of systems negative. PHYSICAL EXAMINATION: GENERAL: male, propped up in bed, in no apparent distress. VITAL SIGNS: Temperature is 98.2, blood pressure 141/67, heart rate 75, respiratory rate 15, pulse oximetry is 96% on 4 liters nasal cannula, weight is 204 pounds and BMI 27. HEENT: Pupils equally round. Normal conjunctivae. Oral mucosa is pink and moist. Dentures in place. NECK: Supple. LUNGS: Clear to auscultation, nonlabored. HEART: Normal S1 and S2. ABDOMEN: Obese. Bowel sounds present. Soft and nontender. EXTREMITIES: No gross edema or cyanosis. SKIN: Without rash. NEUROLOGIC: Alert and oriented x 3. Moves all extremities. LABORATORIES: Today's WBC 15.7 from 23.4 on admission; hemoglobin 8.8 and platelet count 141,000. Creatinine 2.0 and BUN 25. Sodium 132 and potassium 4.2. Lactic acid 1.2 from 3.2 on admission. Uric acid 8.0. Total bilirubin 0.6. AST 24 and ALT 16. Albumin 3.3. Lipase 183. Urinalysis unremarkable for infection. Influenza screen negative. Blood cultures pending. Abdominal/pelvis CT revealed bibasilar interstitial and nodular lung infiltrates. Osteoplastic metastatic disease. No acute abnormality of the abdomen or pelvis otherwise. Mild splenomegaly. Chest x-ray shows bibasilar lung infiltrates without pleural effusion or pneumothorax. IMPRESSION: 1. Bibasilar interstitial nodular lung infiltrates, pneumonia not ruled out. 2. Lactic acidosis. 3. Leukocytosis and bandemia. 4. Fever and chills prior to admission. 5. Acute kidney injury. 6. Non-ST elevation myocardial infarction. 7. Possible adrenal insufficiency, on steroids. 8. Metastatic prostate cancer, on Zytiga and Xtandi. PLAN: Hold vancomycin given renal failure and continue Zosyn for now. Monitor WBC count, temperature and renal function. We will check Strep pneumoniae urine antigen. We will follow up on morning laboratory values and cultures. Discussed with patient's . Thank you, Dr. Houser, for asking us to participate in this patient's care. Should you have further questions or concerns, please call. NANCY MCLEAN MD DR: ROSEANN/chilango JOB#: [id number] / [id number]
[2017-08-23 05:40] LABS: ALBUMIN 2.7 g/dL (3.4-5.0); ALBUMIN/GLOBULIN RATIO 0.6 (1.0-1.7); CALCIUM 9.6 mg/dL (8.5-10.1); CREATININE 1.7 mg/dL (0.7-1.3); GFR 39.9; POTASSIUM 3.4 mmol/L (3.5-5.1); TOTAL BILIRUBIN 0.6 mg/dL (0.2-1.0); TOTAL PROTEIN 7.1 g/dL (6.4-8.2)
[2017-08-23 06:07] LABS: MAGNESIUM 1.9 mg/dL (1.8-2.4); PHOSPHORUS 2.9 mg/dL (2.6-4.7)
[2017-08-23] MEDS: PIPERACILLIN/TAZO IV Push 3.375 GM VIAL. IVP SCH ×4 (06:27→23:09)
[2017-08-23] MEDS: HYDROCORTISONE SOD SUCC/PF 100 MG/2 ML VIAL. IV SCH ×3 (06:27→21:10)
[2017-08-23 07:10] VITALS: BP 179/80
[2017-08-23] MEDS: METOPROLOL SUCC 24HR ER 25 MG TAB.ER.24H. PO SCH (08:53)
[2017-08-23] MEDS: PANTOPRAZOLE 40 MG TABLET.DR. PO SCH (08:53)
[2017-08-23] MEDS: CLOPIDOGREL BISULFATE 75 MG TABLET PO SCH (08:53)
[2017-08-23] MEDS: ASPIRIN ENTERIC COATED 81 MG TABLET.DR. PO SCH (08:53)
--- NOTE | 2017-08-23 10:06 | PDOC ---
Infectious Disease Note Subjective Subjective Patient became disoriented last night per Diminished appetite ROS ROS GEN: Denies fevers, chills, sweats CV: Denies chest pain RESP: Denies shortness of air, cough GI: Denies n/v/d Vital Sign Vital Signs Vital Signs Date Time Temp Pulse Resp B/P (MAP) Pulse Ox O2 Delivery O2 Flow Rate FiO2 08/23/17 08:53 79 179/80 08/23/17 08:00 Nasal Cannula 3.0 08/23/17 07:10 97.7 18 94 97.7 Physical Exam PHYSICAL EXAM GENERAL: Propped up in bed, calm, NAD LUNGS: Clear to auscultation, nonlabored. HEART: Normal S1 and S2. ABDOMEN: Obese. Bowel sounds present. Soft and nontender. EXTREMITIES: No gross edema or cyanosis. SKIN: Without rash. NEUROLOGIC: Alert, ? confused vs joking; following commands PIV: Labs Lab Laboratory Tests Test 08/22/17 12:15 08/23/17 04:30 08/23/17 05:10 Hemoglobin 8.1 g/dL (13.0-17.5) 8.6 g/dL (13.0-17.5) Lactate Dehydrogenase 194 U/L (85-227) White Blood Count 8.0 x10^3/uL (4.0-11.0) Red Blood Count 3.07 x10^6/uL (4.30-5.70) Hematocrit 26.8 % (39.0-53.0) Mean Corpuscular Volume 87 fL (79-100) Mean Corpuscular Hemoglobin 28 pg (25-35) Mean Corpuscular Hemoglobin Concent 32 g/dL (31-37) Red Cell Distribution Width 18.0 % (11.5-14.5) Platelet Count 139 x10^3/uL (140-400) Heparin Anti-Xa Act, Unfractionated 0.34 IU/mL (0.30-0.70) Sodium Level 136 mmol/L (136-145) Potassium Level 3.4 mmol/L (3.5-5.1) Chloride Level 98 mmol/L (98-107) Carbon Dioxide Level 33 mmol/L (21-32) Anion Gap 5 (6-14) Blood Urea Nitrogen 18 mg/dL (8-26) Creatinine 1.7 mg/dL (0.7-1.3) Estimated GFR (Cockcroft-Gault) 39.9 BUN/Creatinine Ratio 11 (6-20) Glucose Level 110 mg/dL (70-99) Calcium Level 9.6 mg/dL (8.5-10.1) Total Bilirubin 0.6 mg/dL (0.2-1.0) Aspartate Amino Transf (AST/SGOT) 20 U/L (15-37) Alanine Aminotransferase (ALT/SGPT) 14 U/L (16-63) Alkaline Phosphatase 44 U/L (46-116) Total Protein 7.1 g/dL (6.4-8.2) Albumin 2.7 g/dL (3.4-5.0) Albumin/Globulin Ratio 0.6 (1.0-1.7) Phosphorus Level 2.9 mg/dL (2.6-4.7) Magnesium Level 1.9 mg/dL (1.8-2.4) Micro BLOOD CULTURE Preliminary NO GROWTH AFTER 1 DAY Objective Assessment Bibasilar interstitial and nodular lung infiltrates, pneumonia not ruled out; high risk for PCP - influenza negative Lactic acidosis, better Leukocytosis/bandemia, improving Fever and chills, prior to admission BURT, renal following NSTEMI, cardiology following ? Adrenal Insufficiency, on steroids Metastatic prostate cancer on Zytiga & Xtandi along w/ prednisone Plan Plan of Care continue Zosyn Monitor renal function, WBC and temp strep pneumo UR Ag f/u am labs f/u cultures D/w Attending Co-Sign The patient was seen and interviewed as well as examined at the bedside. The chart was reviewed. The case was discussed. Agree with the plan of care. GREGG CAMARGO APRN Aug 23, 2017 10:06 NANCY MCLEAN MD Aug 23, 2017 14:18
--- NOTE | 2017-08-23 10:43 | PDOC ---
SUBJECTIVE Subjective no new complaints, still seems depressed not sleeping good discussed with pt and OBJECTIVE Vital Signs Vital Signs Date Time Temp Pulse Resp B/P (MAP) Pulse Ox O2 Delivery O2 Flow Rate FiO2 08/23/17 08:53 79 179/80 08/23/17 08:00 Nasal Cannula 3.0 08/23/17 07:10 97.7 79 18 179/80 (113) 94 Nasal Cannula 3.0 97.7 08/23/17 03:00 97.1 87 22 193/76 (115) 96 Nasal Cannula 3.0 97.1 08/22/17 23:33 97.4 81 18 172/71 (104) 96 Nasal Cannula 3.0 97.4 08/22/17 19:35 97.4 72 21 166/68 (100) 98 Nasal Cannula 3.0 97.4 08/22/17 19:15 Nasal Cannula 3.0 08/22/17 18:15 97.4 74 20 146/48 (80) 97 Room Air 97.4 08/22/17 16:00 Nasal Cannula 3.0 08/22/17 16:00 72 18 160/73 (102) 98 Nasal Cannula 3.0 08/22/17 15:00 73 14 160/73 (102) 98 Nasal Cannula 3.0 08/22/17 14:00 80 22 145/68 (93) 99 Nasal Cannula 3.0 08/22/17 13:00 97.9 77 17 131/73 (92) 95 Nasal Cannula 3.0 97.9 08/22/17 12:11 76 139/62 08/22/17 12:00 Nasal Cannula 3.0 08/22/17 12:00 87 16 138/66 (90) 94 Nasal Cannula 3.0 08/22/17 11:00 76 16 139/62 (87) 97 Nasal Cannula 3.0 PHYSICAL EXAM Physical Exam lungs decrease BS more R heart RRR abd soft ext no edema ASSESSMENT/PLAN Assessment/Plan 1. CAP with sepsis and lactic acidosis improving clinically 2. Abdominal pain resolved now 3. NSTEMI due to demand ischemia on heparin 4. CAD: CABGx3. Recent LHC 5. 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 Bilateral LE without claudication symptoms. 6. CKD: 7. Chronic diastolic CHF 8. COPD/severe pulmonary HTN 9. HTN: controlled 10. HLP 11- acute respiratory failure 12-metastatic prostate Cancer 13-hypercalcemia due to metastatic prostate cancer 14-anemia multifactorial : chronic disease with acute illness 15- depression and insomnia started Zoloft and treat insomnia as needed Dr. whalen will resume care in AM Problems: COMMENT Lab Laboratory Tests Test 08/22/17 12:15 08/23/17 04:30 08/23/17 05:10 Hemoglobin 8.1 g/dL (13.0-17.5) 8.6 g/dL (13.0-17.5) Lactate Dehydrogenase 194 U/L (85-227) White Blood Count 8.0 x10^3/uL (4.0-11.0) Red Blood Count 3.07 x10^6/uL (4.30-5.70) Hematocrit 26.8 % (39.0-53.0) Mean Corpuscular Volume 87 fL (79-100) Mean Corpuscular Hemoglobin 28 pg (25-35) Mean Corpuscular Hemoglobin Concent 32 g/dL (31-37) Red Cell Distribution Width 18.0 % (11.5-14.5) Platelet Count 139 x10^3/uL (140-400) Heparin Anti-Xa Act, Unfractionated 0.34 IU/mL (0.30-0.70) Sodium Level 136 mmol/L (136-145) Potassium Level 3.4 mmol/L (3.5-5.1) Chloride Level 98 mmol/L (98-107) Carbon Dioxide Level 33 mmol/L (21-32) Anion Gap 5 (6-14) Blood Urea Nitrogen 18 mg/dL (8-26) Creatinine 1.7 mg/dL (0.7-1.3) Estimated GFR (Cockcroft-Gault) 39.9 BUN/Creatinine Ratio 11 (6-20) Glucose Level 110 mg/dL (70-99) Calcium Level 9.6 mg/dL (8.5-10.1) Total Bilirubin 0.6 mg/dL (0.2-1.0) Aspartate Amino Transf (AST/SGOT) 20 U/L (15-37) Alanine Aminotransferase (ALT/SGPT) 14 U/L (16-63) Alkaline Phosphatase 44 U/L (46-116) Total Protein 7.1 g/dL (6.4-8.2) Albumin 2.7 g/dL (3.4-5.0) Albumin/Globulin Ratio 0.6 (1.0-1.7) Phosphorus Level 2.9 mg/dL (2.6-4.7) Magnesium Level 1.9 mg/dL (1.8-2.4) MALA MARIE MD Aug 23, 2017 10:43
[2017-08-23 10:45] VITALS: BP 147/61
[2017-08-23] MEDS ORDERED: POTASSIUM CHLORIDE 20 MEQ TABLET.ER. PO ONE (11:00)
[2017-08-23 12:09] LABS: SPECIMEN SOURCE Urine (.)
--- NOTE | 2017-08-23 12:13 | PDOC ---
PROGRESS NOTES Subjective Subjective Confused last night. Mildly more comfortable today. Objective Objective Vital Signs Date Time Temp Pulse Resp B/P (MAP) Pulse Ox O2 Delivery O2 Flow Rate FiO2 08/23/17 10:45 97.7 84 20 147/61 (89) 96 Nasal Cannula 3.0 97.7 Physical Exam Abdomen: Normal bowel sounds Heart: Regular rate General: mild distress Lungs: Other (mildly decreased breath sounds) Assessment Assessment Problems Medical Problems: (1) PNA (pneumonia) Status: Acute 1. Fever/cough/CAP: Tmax at home 101. Pulmonary following. Mild improvement. 2. Abdominal pain: better. per PCP 3. NSTEMI: CP free.peaked troponin 2.1. CP free, possibly demand mediated but suspicion of ischemia as well with new LBBB. Normal EF and wall motion. Continue medical treatment. 4. CAD: CABGx3. S/P PTCA OM of LCx 09/2016. 5. 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 Bilateral LE without claudication symptoms. 6. CKD: Followed by renal. renal duplex negative for significant PABLO 7. Chronic diastolic CHF: continue medications 8. COPD/severe pulmonary HTN 9. HTN: controlled 10. HLP 11. Prostate CA with metastasis 12. Normocytic Anemia Comment Review of Relevant I have reviewed the following items demetrius (where applicable) has been applied. Labs Laboratory Tests Test 08/21/17 12:25 08/21/17 18:05 08/21/17 18:15 08/21/17 20:30 Uric Acid 8.0 mg/dL (3.5-7.2) Creatine Kinase 70 U/L (39-308) Lactic Acid Level 1.2 mmol/L (0.4-2.0) Troponin I Quantitative 3.490 ng/mL (0.000-0.055) Heparin Anti-Xa Act, Unfractionated 0.58 IU/mL (0.30-0.70) Urine Color Yellow Urine Clarity Clear Urine pH 6.0 Urine Specific [place] 1.015 Urine Protein 28.0 mg/dL (Not Estab.) Urine Glucose (UA) Negative mg/dL (NEG) Urine Ketones (Stick) Negative mg/dL (NEG) Urine Blood Negative (NEG) Urine Nitrite Negative (NEG) Urine Bilirubin Negative (NEG) Urine Urobilinogen Dipstick 0.2 mg/dL (0.2 mg/dL) Urine Leukocyte Esterase Negative (NEG) Urine RBC 0 /HPF (0-2) Urine WBC Occ /HPF (0-4) Urine Squamous Epithelial Cells Occ /LPF Urine Bacteria 0 /HPF (0-FEW) Urine Hyaline Casts Occasional /HPF Urine Mucus Slight /LPF Urine Random Sodium <60 mmol/L (Not Estab.) Urine Creatinine 111.9 mg/dL (Not Estab.) Urine Protein/Creatinine Ratio 250 mg/g creat (0-200) Body Fluid Culture (LAB) (.) Streptococcus pneumoniae Antigen Negative (Negative) Organism Identification (LAB) (.) STEPHANIE Specimen Source Urine (.) Test 08/22/17 03:15 08/22/17 05:55 08/22/17 12:15 08/23/17 04:30 White Blood Count 15.7 x10^3/uL (4.0-11.0) 8.0 x10^3/uL (4.0-11.0) Red Blood Count 3.17 x10^6/uL (4.30-5.70) 3.07 x10^6/uL (4.30-5.70) Hemoglobin 8.8 g/dL (13.0-17.5) 8.1 g/dL (13.0-17.5) 8.6 g/dL (13.0-17.5) Hematocrit 27.8 % (39.0-53.0) 26.8 % (39.0-53.0) Mean Corpuscular Volume 88 fL (79-100) 87 fL (79-100) Mean Corpuscular Hemoglobin 28 pg (25-35) 28 pg (25-35) Mean Corpuscular Hemoglobin Concent 32 g/dL (31-37) 32 g/dL (31-37) Red Cell Distribution Width 18.3 % (11.5-14.5) 18.0 % (11.5-14.5) Platelet Count 141 x10^3/uL (140-400) 139 x10^3/uL (140-400) Neutrophils (%) (Auto) 93 % (31-73) Lymphocytes (%) (Auto) 2 % (24-48) Monocytes (%) (Auto) 6 % (0-9) Eosinophils (%) (Auto) 0 % (0-3) Basophils (%) (Auto) 0 % (0-3) Neutrophils # (Auto) 14.5 x10^3uL (1.8-7.7) Lymphocytes # (Auto) 0.3 x10^3/uL (1.0-4.8) Monocytes # (Auto) 0.9 x10^3/uL (0.0-1.1) Eosinophils # (Auto) 0.0 x10^3/uL (0.0-0.7) Basophils # (Auto) 0.0 x10^3/uL (0.0-0.2) Heparin Anti-Xa Act, Unfractionated 0.47 IU/mL (0.30-0.70) 0.34 IU/mL (0.30-0.70) Sodium Level 132 mmol/L (136-145) 136 mmol/L (136-145) Potassium Level 4.2 mmol/L (3.5-5.1) 3.4 mmol/L (3.5-5.1) Chloride Level 97 mmol/L (98-107) 98 mmol/L (98-107) Carbon Dioxide Level 24 mmol/L (21-32) 33 mmol/L (21-32) Anion Gap 11 (6-14) 5 (6-14) Blood Urea Nitrogen 25 mg/dL (8-26) 18 mg/dL (8-26) Creatinine 2.0 mg/dL (0.7-1.3) 1.7 mg/dL (0.7-1.3) Estimated GFR (Cockcroft-Gault) 33.1 39.9 Glucose Level 161 mg/dL (70-99) 110 mg/dL (70-99) Calcium Level 9.9 mg/dL (8.5-10.1) 9.6 mg/dL (8.5-10.1) Phosphorus Level 4.0 mg/dL (2.6-4.7) Magnesium Level 1.6 mg/dL (1.8-2.4) Troponin I Quantitative 1.588 ng/mL (0.000-0.055) Albumin 2.5 g/dL (3.4-5.0) 2.7 g/dL (3.4-5.0) Nasal Screen MRSA (PCR) Negative (Negative) Lactate Dehydrogenase 194 U/L (85-227) BUN/Creatinine Ratio 11 (6-20) Total Bilirubin 0.6 mg/dL (0.2-1.0) Aspartate Amino Transf (AST/SGOT) 20 U/L (15-37) Alanine Aminotransferase (ALT/SGPT) 14 U/L (16-63) Alkaline Phosphatase 44 U/L (46-116) Total Protein 7.1 g/dL (6.4-8.2) Albumin/Globulin Ratio 0.6 (1.0-1.7) Test 08/23/17 05:10 Phosphorus Level 2.9 mg/dL (2.6-4.7) Magnesium Level 1.9 mg/dL (1.8-2.4) Laboratory Tests Test 08/22/17 12:15 08/23/17 04:30 08/23/17 05:10 Hemoglobin 8.1 g/dL (13.0-17.5) 8.6 g/dL (13.0-17.5) Lactate Dehydrogenase 194 U/L (85-227) White Blood Count 8.0 x10^3/uL (4.0-11.0) Red Blood Count 3.07 x10^6/uL (4.30-5.70) Hematocrit 26.8 % (39.0-53.0) Mean Corpuscular Volume 87 fL (79-100) Mean Corpuscular Hemoglobin 28 pg (25-35) Mean Corpuscular Hemoglobin Concent 32 g/dL (31-37) Red Cell Distribution Width 18.0 % (11.5-14.5) Platelet Count 139 x10^3/uL (140-400) Heparin Anti-Xa Act, Unfractionated 0.34 IU/mL (0.30-0.70) Sodium Level 136 mmol/L (136-145) Potassium Level 3.4 mmol/L (3.5-5.1) Chloride Level 98 mmol/L (98-107) Carbon Dioxide Level 33 mmol/L (21-32) Anion Gap 5 (6-14) Blood Urea Nitrogen 18 mg/dL (8-26) Creatinine 1.7 mg/dL (0.7-1.3) Estimated GFR (Cockcroft-Gault) 39.9 BUN/Creatinine Ratio 11 (6-20) Glucose Level 110 mg/dL (70-99) Calcium Level 9.6 mg/dL (8.5-10.1) Total Bilirubin 0.6 mg/dL (0.2-1.0) Aspartate Amino Transf (AST/SGOT) 20 U/L (15-37) Alanine Aminotransferase (ALT/SGPT) 14 U/L (16-63) Alkaline Phosphatase 44 U/L (46-116) Total Protein 7.1 g/dL (6.4-8.2) Albumin 2.7 g/dL (3.4-5.0) Albumin/Globulin Ratio 0.6 (1.0-1.7) Phosphorus Level 2.9 mg/dL (2.6-4.7) Magnesium Level 1.9 mg/dL (1.8-2.4) Microbiology 08/21/17 Blood Culture - Preliminary, Resulted NO GROWTH AFTER 1 DAY Medications Current Medications Aspirin (Children'S Aspirin) 324 mg 1X ONCE PO Last administered on 11:58; Start 08/21/17 at 11:30; Stop 08/21/17 at 11:31; Status DC Vancomycin HCl (Vanco Per Pharmacy) 1 each PRN DAILY PRN MC SEE COMMENTS Last administered on 08/22/17 07:53; Start 08/21/17 at 11:30; Stop 08/22/17 at 10 :35; Status DC Piperacillin Sod/ Tazobactam Sod (Zosyn Per Pharmacy) 1 each PRN DAILY PRN MC SEE COMMENTS; Start 08/21/17 at 11:30 Sodium Chloride 500 ml @ 500 mls/hr 1X ONCE IV Last administered on 12:00; Start 08/21/17 at 11:30; Stop 08/21/17 at 12:29; Status DC Heparin Sodium (Porcine) (Heparin Sodium) 4,000 unit 1X ONCE IV Last administered on 08/21/17 11:58; Start 08/21/17 at 11:30; Stop 08/21/17 at 11 :35; Status DC Heparin Sodium/ Dextrose 500 ml @ 0 mls/hr CONT PRN IV SEE I/O RECORD Last administered on 08/21/17 11:58; Start 08/21/17 at 11:30 Heparin Sodium (Porcine) (Heparin Sodium) 2,400 unit PRN Q6HRS PRN IV FOR UFH LEVEL LESS THAN 0.2; Start 08/21/17 at 11:30 Vancomycin HCl 2 gm/Dextrose 500 ml @ 250 mls/hr 1X ONCE IV Last administered on 08/21/17 12:58; Start 08/21/17 at 11:45; Stop 08/21/17 at 13 :44; Status DC Piperacillin Sod/ Tazobactam Sod (Zosyn) 3.375 gm 1X ONCE IVP Last administered on 08/21/17 11:56; Start 08/21/17 at 11:45; Stop 08/21/17 at 11 :46; Status DC Info (Anti-Coagulation Monitoring By Pharmacy) 1 each PRN DAILY PRN MC SEE COMMENTS Last administered on 08/22/17 07:59; Start 08/21/17 at 11:45 Ondansetron HCl (Zofran) 4 mg PRN Q8HRS PRN IV NAUSEA/VOMITING Last administered on 08/21/17 20:10; Start 08/21/17 at 12:45; Stop 08/22/17 at 12 :44; Status DC Morphine Sulfate 2 mg PRN Q2HR PRN IV PAIN; Start 08/21/17 at 12:45; Stop 08/28 at 12:44; Status DC Sodium Chloride 1,000 ml @ 80 mls/hr [id number] IV Last administered on 18:07; Start 08/21/17 at 13:00; Stop 08/21/17 at 13:01; Status DC Piperacillin Sod/ Tazobactam Sod (Zosyn) 3.375 gm Q6HRS IVP Last administered on 08/23/17 06:27; Start 08/21/17 at 18:00 Aspirin (Ecotrin) 81 mg DAILY PO Last administered on 08/23/17 08:53; Start 08/22/17 at 09:00 Clopidogrel Bisulfate (Plavix) 75 mg DAILY PO Last administered on 08/23/17 08:53; Start 08/21/17 at 14:00 Metoprolol Succinate (Toprol Xl) 25 mg DAILY PO Last administered on 08:53; Start 08/21/17 at 14:00 Pantoprazole Sodium (Protonix) 40 mg DAILYAC PO Last administered on 08:53; Start 08/21/17 at 14:00 Simvastatin (Zocor) 40 mg HS PO ; Start 08/21/17 at 21:00; Stop 08/21/17 at 21 :00; Status DC Magnesium Sulfate/ Dextrose 50 ml @ 25 mls/hr PRN DAILY PRN IV for Mag < 1.7 on am labs; Start 08/21/17 at 14:15 Vancomycin HCl 1.5 gm/Dextrose 500 ml @ 250 mls/hr Q24H IV ; Start 08/22/17 at 13:00; Stop 08/22/17 at 13:00; Status DC Vancomycin HCl 1 each 1X ONCE MC ; Start 08/23/17 at 12:30; Stop 08/23/17 at 12:31; Status Cancel Sodium Chloride 250 ml @ 0 mls/hr QID PRN IV UO< 30cc/hr over previous 6hrs; Start 08/21/17 at 14:45 Hydrocortisone Sodium Succinate (Solu-CORTEF) 50 mg Q8HRS IV Last administered on 08/23/17 06:27; Start 08/21/17 at 15:30 Atorvastatin Calcium (Lipitor) 80 mg QHS PO Last administered on 08/22/17t 21: 40; Start 08/21/17 at 21:00 Magnesium Sulfate/ Dextrose 50 ml @ 25 mls/hr 1X ONCE IV Last administered on 08/22/17t 10:19; Start 08/22/17 at 09:00; Stop 08/22/17 at 10:59; Status DC Potassium Chloride (Klor-Con) 20 meq 1X ONCE PO ; Start 08/23/17 at 11:00; Stop 08/23/17 at 11:01; Status DC Active Scripts Active Reported Ventolin Hfa Inhaler (Albuterol Sulfate) 18 Gm Hfa.aer.ad 2 Puff INH Q4HRS Xtandi (Enzalutamide) 40 Mg Capsule 160 Mg PO DAILY@1000 Vitamin D3 (Cholecalciferol (Vitamin D3)) 1,000 Unit Tablet 1 Tab PO DAILY Calcium + Vitamin D Tablet (Calcium Carbonate/Vitamin D3) 1 Each Tablet 1 Each PO BID [lupron] Zytiga (Abiraterone Acetate) 250 Mg Tablet 1,000 Mg PO DAILY@1700 Vitamin D (Cholecalciferol (Vitamin D3)) 1,000 Unit Capsule 1,000 Unit PO Senokot-S Tablet (Sennosides/Docusate Sodium) 1 Each Tablet 1 Each PO Protonix (Pantoprazole Sodium) 40 Mg Tablet.dr 40 Mg PO DAILY Symbicort 160-4.5 Mcg Inhaler (Budesonide/Formoterol Fumarate) 10.2 Gm Hfa.aer.ad 2 Puff IH BID Prednisone 20 Mg Tablet 5 Mg PO BID Klor-Con M20 (Potassium Chloride) 20 Meq Tab.er.prt 10 Meq PO DAILY Furosemide 40 Mg Tablet 40 Mg PO DAILY Simvastatin 40 Mg Tablet 40 Mg PO HS Aspir 81 (Aspirin) 81 Mg Tablet.dr 81 Mg PO DAILY Clopidogrel (Clopidogrel Bisulfate) 75 Mg Tablet 75 Mg PO DAILY Spiriva (Tiotropium [place]) 18 Mcg Cap.w.dev 2 Inh IH DAILY Metoprolol Succinate ( Xl ) (Metoprolol Succinate) 25 Mg Tab.er.24h 25 Mg PO DAILY Gabapentin 600 Mg Tablet 600 Mg PO BID Vitals/I & O Vital Sign - Last 24 Hours 08/22/17 08/22/17 08/22/17 08/22/17 12:11 13:00 14:00 15:00 Temp 97.9 97.9 Pulse 76 77 80 73 Resp 17 22 14 B/P (MAP) 139/62 131/73 (92) 145/68 (93) 160/73 (102) Pulse Ox 95 99 98 O2 Delivery Nasal Cannula Nasal Cannula Nasal Cannula O2 Flow Rate 3.0 3.0 3.0 08/22/17 08/22/17 08/22/17 08/22/17 16:00 16:00 18:15 19:15 Temp 97.4 97.4 Pulse 72 74 Resp 18 20 B/P (MAP) 160/73 (102) 146/48 (80) Pulse Ox 98 97 O2 Delivery Nasal Cannula Nasal Cannula Room Air Nasal Cannula O2 Flow Rate 3.0 3.0 3.0 08/22/17 08/22/17 08/23/17 08/23/17 19:35 23:33 03:00 07:10 Temp 97.4 97.4 97.1 97.7 97.4 97.4 97.1 97.7 Pulse 72 81 87 79 Resp 21 18 22 18 B/P (MAP) 166/68 (100) 172/71 (104) 193/76 (115) 179/80 (113) Pulse Ox 98 96 96 94 O2 Delivery Nasal Cannula Nasal Cannula Nasal Cannula Nasal Cannula O2 Flow Rate 3.0 3.0 3.0 3.0 08/23/17 08/23/17 08/23/17 08:00 08:53 10:45 Temp 97.7 97.7 Pulse 79 84 Resp 20 B/P (MAP) 179/80 147/61 (89) Pulse Ox 96 O2 Delivery Nasal Cannula Nasal Cannula O2 Flow Rate 3.0 3.0 NAGI HENLEY MD Aug 23, 2017 12:13
[2017-08-23] MEDS: HEPARIN 25,000UTS/500ML PREMIX 500 ML IV PRN (12:25)
[2017-08-23] MEDS ORDERED: ZOLPIDEM 5 MG TABLET. PO PRN (12:45)
[2017-08-23 14:35] VITALS: BP 196/62
[2017-08-23] MEDS: SERTRALINE 50 MG TABLET. PO SCH (14:53)
--- NOTE | 2017-08-23 17:20 | PDOC ---
PULMONARY PROGRESS NOTES Subjective PT NOT BETTER TODAY COUGHED UP SOME BLOOD Vitals Vital Signs Date Time Temp Pulse Resp B/P (MAP) Pulse Ox O2 Delivery O2 Flow Rate FiO2 08/23/17 14:35 97.3 84 26 196/62 (106) 93 Nasal Cannula 3.0 97.3 ROS: No Nausea, No Chest Pain, No Abdominal Pain, No Increase Cough General: Alert HEENT: Other Lungs: Clear Cardiovascular: S1, S2 Abdomen: Soft, Non-tender Neuro Exam: Alert Extremities: No Edema Skin: Warm Labs Laboratory Tests Test 08/21/17 18:05 08/21/17 18:15 08/21/17 20:30 08/22/17 03:15 Lactic Acid Level 1.2 mmol/L (0.4-2.0) Troponin I Quantitative 3.490 ng/mL (0.000-0.055) 1.588 ng/mL (0.000-0.055) Heparin Anti-Xa Act, Unfractionated 0.58 IU/mL (0.30-0.70) 0.47 IU/mL (0.30-0.70) Urine Color Yellow Urine Clarity Clear Urine pH 6.0 Urine Specific [place] 1.015 Urine Protein 28.0 mg/dL (Not Estab.) Urine Glucose (UA) Negative mg/dL (NEG) Urine Ketones (Stick) Negative mg/dL (NEG) Urine Blood Negative (NEG) Urine Nitrite Negative (NEG) Urine Bilirubin Negative (NEG) Urine Urobilinogen Dipstick 0.2 mg/dL (0.2 mg/dL) Urine Leukocyte Esterase Negative (NEG) Urine RBC 0 /HPF (0-2) Urine WBC Occ /HPF (0-4) Urine Squamous Epithelial Cells Occ /LPF Urine Bacteria 0 /HPF (0-FEW) Urine Hyaline Casts Occasional /HPF Urine Mucus Slight /LPF Urine Random Sodium <60 mmol/L (Not Estab.) Urine Creatinine 111.9 mg/dL (Not Estab.) Urine Protein/Creatinine Ratio 250 mg/g creat (0-200) Body Fluid Culture (LAB) (.) Streptococcus pneumoniae Antigen Negative (Negative) Organism Identification (LAB) (.) STEPHANIE Specimen Source Urine (.) White Blood Count 15.7 x10^3/uL (4.0-11.0) Red Blood Count 3.17 x10^6/uL (4.30-5.70) Hemoglobin 8.8 g/dL (13.0-17.5) Hematocrit 27.8 % (39.0-53.0) Mean Corpuscular Volume 88 fL (79-100) Mean Corpuscular Hemoglobin 28 pg (25-35) Mean Corpuscular Hemoglobin Concent 32 g/dL (31-37) Red Cell Distribution Width 18.3 % (11.5-14.5) Platelet Count 141 x10^3/uL (140-400) Neutrophils (%) (Auto) 93 % (31-73) Lymphocytes (%) (Auto) 2 % (24-48) Monocytes (%) (Auto) 6 % (0-9) Eosinophils (%) (Auto) 0 % (0-3) Basophils (%) (Auto) 0 % (0-3) Neutrophils # (Auto) 14.5 x10^3uL (1.8-7.7) Lymphocytes # (Auto) 0.3 x10^3/uL (1.0-4.8) Monocytes # (Auto) 0.9 x10^3/uL (0.0-1.1) Eosinophils # (Auto) 0.0 x10^3/uL (0.0-0.7) Basophils # (Auto) 0.0 x10^3/uL (0.0-0.2) Sodium Level 132 mmol/L (136-145) Potassium Level 4.2 mmol/L (3.5-5.1) Chloride Level 97 mmol/L (98-107) Carbon Dioxide Level 24 mmol/L (21-32) Anion Gap 11 (6-14) Blood Urea Nitrogen 25 mg/dL (8-26) Creatinine 2.0 mg/dL (0.7-1.3) Estimated GFR (Cockcroft-Gault) 33.1 Glucose Level 161 mg/dL (70-99) Calcium Level 9.9 mg/dL (8.5-10.1) Phosphorus Level 4.0 mg/dL (2.6-4.7) Magnesium Level 1.6 mg/dL (1.8-2.4) Albumin 2.5 g/dL (3.4-5.0) Test 08/22/17 05:55 08/22/17 12:15 08/23/17 04:30 08/23/17 05:10 Nasal Screen MRSA (PCR) Negative (Negative) Hemoglobin 8.1 g/dL (13.0-17.5) 8.6 g/dL (13.0-17.5) Lactate Dehydrogenase 194 U/L (85-227) White Blood Count 8.0 x10^3/uL (4.0-11.0) Red Blood Count 3.07 x10^6/uL (4.30-5.70) Hematocrit 26.8 % (39.0-53.0) Mean Corpuscular Volume 87 fL (79-100) Mean Corpuscular Hemoglobin 28 pg (25-35) Mean Corpuscular Hemoglobin Concent 32 g/dL (31-37) Red Cell Distribution Width 18.0 % (11.5-14.5) Platelet Count 139 x10^3/uL (140-400) Heparin Anti-Xa Act, Unfractionated 0.34 IU/mL (0.30-0.70) Sodium Level 136 mmol/L (136-145) Potassium Level 3.4 mmol/L (3.5-5.1) Chloride Level 98 mmol/L (98-107) Carbon Dioxide Level 33 mmol/L (21-32) Anion Gap 5 (6-14) Blood Urea Nitrogen 18 mg/dL (8-26) Creatinine 1.7 mg/dL (0.7-1.3) Estimated GFR (Cockcroft-Gault) 39.9 BUN/Creatinine Ratio 11 (6-20) Glucose Level 110 mg/dL (70-99) Calcium Level 9.6 mg/dL (8.5-10.1) Total Bilirubin 0.6 mg/dL (0.2-1.0) Aspartate Amino Transf (AST/SGOT) 20 U/L (15-37) Alanine Aminotransferase (ALT/SGPT) 14 U/L (16-63) Alkaline Phosphatase 44 U/L (46-116) Total Protein 7.1 g/dL (6.4-8.2) Albumin 2.7 g/dL (3.4-5.0) Albumin/Globulin Ratio 0.6 (1.0-1.7) Phosphorus Level 2.9 mg/dL (2.6-4.7) Magnesium Level 1.9 mg/dL (1.8-2.4) Laboratory Tests Test 08/23/17 04:30 08/23/17 05:10 White Blood Count 8.0 x10^3/uL (4.0-11.0) Red Blood Count 3.07 x10^6/uL (4.30-5.70) Hemoglobin 8.6 g/dL (13.0-17.5) Hematocrit 26.8 % (39.0-53.0) Mean Corpuscular Volume 87 fL (79-100) Mean Corpuscular Hemoglobin 28 pg (25-35) Mean Corpuscular Hemoglobin Concent 32 g/dL (31-37) Red Cell Distribution Width 18.0 % (11.5-14.5) Platelet Count 139 x10^3/uL (140-400) Heparin Anti-Xa Act, Unfractionated 0.34 IU/mL (0.30-0.70) Sodium Level 136 mmol/L (136-145) Potassium Level 3.4 mmol/L (3.5-5.1) Chloride Level 98 mmol/L (98-107) Carbon Dioxide Level 33 mmol/L (21-32) Anion Gap 5 (6-14) Blood Urea Nitrogen 18 mg/dL (8-26) Creatinine 1.7 mg/dL (0.7-1.3) Estimated GFR (Cockcroft-Gault) 39.9 BUN/Creatinine Ratio 11 (6-20) Glucose Level 110 mg/dL (70-99) Calcium Level 9.6 mg/dL (8.5-10.1) Total Bilirubin 0.6 mg/dL (0.2-1.0) Aspartate Amino Transf (AST/SGOT) 20 U/L (15-37) Alanine Aminotransferase (ALT/SGPT) 14 U/L (16-63) Alkaline Phosphatase 44 U/L (46-116) Total Protein 7.1 g/dL (6.4-8.2) Albumin 2.7 g/dL (3.4-5.0) Albumin/Globulin Ratio 0.6 (1.0-1.7) Phosphorus Level 2.9 mg/dL (2.6-4.7) Magnesium Level 1.9 mg/dL (1.8-2.4) Medications Active Scripts Medications Dose Route/Sig Max Daily Dose Days Date Category Ventolin Hfa Inhaler (Albuterol Sulfate) 18 Gm Hfa.aer.ad 2 Puff INH Q4HRS 03/06/17 Reported Xtandi (Enzalutamide) 40 Mg Capsule 160 Mg PO DAILY@1000 03/06/17 Reported Vitamin D3 (Cholecalciferol (Vitamin D3)) 1,000 Unit Tablet 1 Tab PO DAILY 03/06/17 Reported Calcium + Vitamin D Tablet (Calcium Carbonate/Vitamin D3) 1 Each Tablet 1 Each PO BID 03/06/17 Reported [lupron] 09/16/16 Reported Zytiga (Abiraterone Acetate) 250 Mg Tablet 1,000 Mg PO DAILY@1700 09/16/16 Reported Vitamin D (Cholecalciferol (Vitamin D3)) 1,000 Unit Capsule 1,000 Unit PO 09/16/16 Reported Senokot-S Tablet (Sennosides/Docusate Sodium) 1 Each Tablet 1 Each PO 09/16/16 Reported Protonix (Pantoprazole Sodium) 40 Mg Tablet.dr 40 Mg PO DAILY 09/16/16 Reported Symbicort 160-4.5 Mcg Inhaler (Budesonide/Formoterol Fumarate) 10.2 Gm Hfa.aer.ad 2 Puff IH BID 10/12/14 Reported Prednisone 20 Mg Tablet 5 Mg PO BID 10/12/14 Reported Klor-Con M20 (Potassium Chloride) 20 Meq Tab.er.prt 10 Meq PO DAILY 10/10/14 Reported Furosemide 40 Mg Tablet 40 Mg PO DAILY 10/10/14 Reported Simvastatin 40 Mg Tablet 40 Mg PO HS 10/10/14 Reported Aspir 81 (Aspirin) 81 Mg Tablet.dr 81 Mg PO DAILY 10/10/14 Reported Clopidogrel (Clopidogrel Bisulfate) 75 Mg Tablet 75 Mg PO DAILY 10/10/14 Reported Spiriva (Tiotropium [place]) 18 Mcg Cap.w.dev 2 Inh IH DAILY 10/10/14 Reported Metoprolol Succinate ( Xl ) (Metoprolol Succinate) 25 Mg Tab.er.24h 25 Mg PO DAILY 10/10/14 Reported Gabapentin 600 Mg Tablet 600 Mg PO BID 10/10/14 Reported Impression . 1. Acute respiratory failure, multifactorial, present upon admission. 2. Bibasilar infiltrates on x-ray compatible with pneumonia. Continue broad spectrum antibiotics. 3. Gram-negative and gram-positive pneumonia. 4. Acute on chronic kidney injury. 5. Prostate cancer, recurrent disease. 6. Coronary artery disease, presents with chest pain, non-ST segment elevation myocardial infarction. Initial troponin was elevated. 7. Peripheral arterial disease, status post stent placement to the left superficial femoral artery. 8. Chronic diastolic heart failure. 9. Chronic obstructive pulmonary disease. 10. Secondary pulmonary hypertension. Plan . PT NOT BETTER TODAY SOME HEMOPTYSIS WILL MONITOR FOR NOW HE IS ON HEPARIN FOR CARDIAC ORIGIN 1. CONTINUE ANTIBX 2. Heparin 3. FOLLOW CARD 4. SPOKE WITH RN/ 5. INCREASE ORAL INTAKE JENNIFER CHANG MD Aug 23, 2017 17:20
[2017-08-23] MEDS: ALPRAZolam 0.25 MG TABLET PO PRN (19:09)
[2017-08-23 19:50] VITALS: BP 177/81
[2017-08-23] MEDS: LACTOBACILLUS RHAMNOSUS GG 1 CAPSULE. PO SCH (21:10)
[2017-08-23] MEDS: ATORVASTATIN CALCIUM 40 MG TABLET. PO SCH (21:10)
[2017-08-23 23:10] VITALS: BP 168/62
[2017-08-24 03:35] VITALS: BP 174/69
[2017-08-24] MEDS: ALPRAZolam 0.25 MG TABLET PO PRN ×2 (04:14→21:10)
[2017-08-24 04:56] LABS: HEMATOCRIT 25.1 % (39.0-53.0); HEMOGLOBIN 8.1 g/dL (13.0-17.5); RED BLOOD COUNT 2.88 x10^6/uL (4.30-5.70); RED CELL DISTRIBUTION WIDTH 18.4 % (11.5-14.5); WHITE BLOOD COUNT 6.2 x10^3/uL (4.0-11.0)
[2017-08-24 05:15] LABS: ALBUMIN 2.5 g/dL (3.4-5.0); CALCIUM 9.1 mg/dL (8.5-10.1); CREATININE 1.5 mg/dL (0.7-1.3); GFR 46.1; PHOSPHORUS 3.2 mg/dL (2.6-4.7); POTASSIUM 3.2 mmol/L (3.5-5.1)
[2017-08-24] MEDS: PIPERACILLIN/TAZO IV Push 3.375 GM VIAL. IVP SCH ×3 (05:21→18:36)
[2017-08-24] MEDS: HYDROCORTISONE SOD SUCC/PF 100 MG/2 ML VIAL. IV SCH ×3 (05:22→21:09)
[2017-08-24 07:45] VITALS: BP 186/65
[2017-08-24] MEDS: PANTOPRAZOLE 40 MG TABLET.DR. PO SCH (08:27)
[2017-08-24] MEDS: ASPIRIN ENTERIC COATED 81 MG TABLET.DR. PO SCH (08:27)
[2017-08-24] MEDS: LACTOBACILLUS RHAMNOSUS GG 1 CAPSULE. PO SCH ×2 (08:27→21:08)
[2017-08-24] MEDS: CLOPIDOGREL BISULFATE 75 MG TABLET PO SCH (08:27)
[2017-08-24] MEDS: METOPROLOL SUCC 24HR ER 25 MG TAB.ER.24H. PO SCH (08:27)
[2017-08-24] MEDS: SERTRALINE 50 MG TABLET. PO SCH (08:28)
[2017-08-24] MEDS ORDERED: POTASSIUM CHLORIDE 20 MEQ TABLET.ER. PO ONE (08:30)
[2017-08-24] MEDS ORDERED: METOPROLOL SUCC 24HR ER 25 MG TAB.ER.24H. PO ONE (08:45)
[2017-08-24] MEDS ORDERED: MAGNESIUM SULFATE 2GM 50 ML IV ONE (09:00)
--- NOTE | 2017-08-24 09:01 | PDOC ---
Infectious Disease Note Subjective Subjective Hungry but gets nausea [place] sputum ROS ROS GEN: Denies fevers, chills, sweats HEENT: Denies blurred vision, sore throat CV: Denies chest pain RESP: Denies shortness of air, cough GI: Denies n/v/d NEURO: Denies confusion, dizziness MSK: Denies weakness, joint pain/swelling Vital Sign Vital Signs Vital Signs Date Time Temp Pulse Resp B/P (MAP) Pulse Ox O2 Delivery O2 Flow Rate FiO2 08/24/17 08:27 80 08/24/17 07:45 97.7 18 186/65 (105) 96 Nasal Cannula 3.0 97.7 Physical Exam PHYSICAL EXAM GENERAL: male, propped up in bed, in no apparent distress. HEENT: Pupils equally round. Normal conjunctivae. Oral mucosa is pink and moist. Dentures in place. NECK: Supple. LUNGS: Clear to auscultation, nonlabored. HEART: Normal S1 and S2. ABDOMEN: Obese. Bowel sounds present. Soft and nontender. EXTREMITIES: No gross edema or cyanosis. SKIN: Without rash. NEUROLOGIC: Alert and oriented x 3. Moves all extremities. Labs Lab Laboratory Tests Test 08/24/17 04:00 White Blood Count 6.2 x10^3/uL (4.0-11.0) Red Blood Count 2.88 x10^6/uL (4.30-5.70) Hemoglobin 8.1 g/dL (13.0-17.5) Hematocrit 25.1 % (39.0-53.0) Mean Corpuscular Volume 87 fL (79-100) Mean Corpuscular Hemoglobin 28 pg (25-35) Mean Corpuscular Hemoglobin Concent 33 g/dL (31-37) Red Cell Distribution Width 18.4 % (11.5-14.5) Platelet Count 131 x10^3/uL (140-400) Heparin Anti-Xa Act, Unfractionated 0.36 IU/mL (0.30-0.70) Sodium Level 138 mmol/L (136-145) Potassium Level 3.2 mmol/L (3.5-5.1) Chloride Level 99 mmol/L (98-107) Carbon Dioxide Level 31 mmol/L (21-32) Anion Gap 8 (6-14) Blood Urea Nitrogen 14 mg/dL (8-26) Creatinine 1.5 mg/dL (0.7-1.3) Estimated GFR (Cockcroft-Gault) 46.1 Glucose Level 126 mg/dL (70-99) Calcium Level 9.1 mg/dL (8.5-10.1) Phosphorus Level 3.2 mg/dL (2.6-4.7) Magnesium Level 1.7 mg/dL (1.8-2.4) Albumin 2.5 g/dL (3.4-5.0) Objective Assessment Bibasilar interstitial and nodular lung infiltrates, pneumonia not ruled out; high risk for PCP - influenza negative Lactic acidosis, better Leukocytosis/bandemia, improving Fever and chills, prior to admission - none here BURT, renal following NSTEMI, cardiology following ? Adrenal Insufficiency, on steroids Metastatic prostate cancer on Zytiga & Xtandi along w/ prednisone Plan Plan of Care continue Zosyn wean soon Monitor renal function, WBC and temp strep pneumo UR Ag - neg f/u am labs f/u cultures Bubble 02- d/w nursing D/w CONCETTA MANZANO MD Aug 24, 2017 09:01
[2017-08-24] MEDS: ISOSORBIDE MONONITRATE ER 30 MG TAB.ER.24H PO SCH (09:12)
--- NOTE | 2017-08-24 09:40 | PDOC ---
Provider Note Provider Note bp still higher , off lisinopril, will add norvasc- rest of meds same , arf better off lisinopril, only took 1-2 weeks- cont same otherwise STEF ROYAL MD Aug 24, 2017 09:40
--- NOTE | 2017-08-24 09:46 | RAD ---
EXAM: Grayscale and color Doppler renal artery sonogram. HISTORY: Hypertension. TECHNIQUE: Grayscale and color Doppler sonographic imaging of the renal arteries with spectral waveform analysis was performed. COMPARISON: CT dated 08/21/2017. FINDINGS: The right kidney measures 10.5 cm [id number] and the left kidney measures 13.5 cm [id number]. There is mild right renal cortical thinning. There is an 8 mm echogenic focus within the lower mid zone of the right kidney with posterior shadowing, likely a vascular calcification based on the recent CT. No solid or cystic renal lesion is seen. There is no hydronephrosis. The bladder is unremarkable. The ureteral jets are both seen. The visualized portions of the aorta and inferior vena cava are unremarkable. The peak systolic velocity within the right renal artery is 99 cm/s. The peak systolic velocity within the left renal artery is 103 cm/s. The proximal left renal artery is obscured. There are normal renal artery to aorta velocity ratios. The renal veins are patent. IMPRESSION: 1. No Doppler evidence of greater than 60% stenosis within the renal arteries. The proximal left renal artery is obscured. 2. 8 mm echogenic focus within the right kidney, likely representing a vascular calcification based on the recent CT. 3. Mild right renal cortical thinning, suggesting slight atrophy. 4. Note is made that the aortofemoral bypass graft demonstrated on the recent CT is not formally assessed sonographically.
--- NOTE | 2017-08-24 09:56 | RAD ---
EXAM: Grayscale and color Doppler renal artery sonogram. HISTORY: Hypertension. TECHNIQUE: Grayscale and color Doppler sonographic imaging of the renal arteries with spectral waveform analysis was performed. COMPARISON: CT dated 08/21/2017. FINDINGS: The right kidney measures 10.5 cm [id number] and the left kidney measures 13.5 cm sowg-ov-jfrt. There is mild right renal cortical thinning. There is an 8 mm echogenic focus within the lower mid zone of the right kidney with posterior shadowing, likely a vascular calcification based on the recent CT. No solid or cystic renal lesion is seen. There is no hydronephrosis. The bladder is unremarkable. The ureteral jets are both seen. The visualized portions of the aorta and inferior vena cava are unremarkable. The peak systolic velocity within the right renal artery is 99 cm/s. The peak systolic velocity within the left renal artery is 103 cm/s. The proximal left renal artery is obscured. There are normal renal artery to aorta velocity ratios. The renal veins are patent. IMPRESSION: 1. No Doppler evidence of greater than 60% stenosis within the renal arteries. The proximal left renal artery is obscured. 2. 8 mm echogenic focus within the right kidney, likely representing a vascular calcification based on the recent CT. 3. Mild right renal cortical thinning, suggesting slight atrophy. 4. Note is made that the aortofemoral bypass graft demonstrated on the recent CT is not formally assessed sonographically. MTDD
[2017-08-24] MEDS: amLODIPine BESYLATE 2.5 MG TABLET PO SCH (10:42)
[2017-08-24 10:45] VITALS: BP 153/56
--- NOTE | 2017-08-24 11:42 | PDOC ---
Renal-Progress Notes Subjective Notes Notes FEELS BETTER History of Present Illness Hx of present illness STABLE Vitals Vitals Vital Signs Date Time Temp Pulse Resp B/P (MAP) Pulse Ox O2 Delivery O2 Flow Rate FiO2 08/24/17 10:45 97.5 77 20 153/56 (88) 94 Nasal Cannula 3.0 97.5 Weight Weight [ ] I.O. Intake and Output Intake and Output 08/24/17 07:00 Intake Total 820 ml Output Total 600 ml Balance 220 ml Intake Oral 820 ml Output Urine Total 600 ml # Voids 2 Labs Labs Laboratory Tests Test 08/24/17 04:00 White Blood Count 6.2 x10^3/uL (4.0-11.0) Red Blood Count 2.88 x10^6/uL (4.30-5.70) Hemoglobin 8.1 g/dL (13.0-17.5) Hematocrit 25.1 % (39.0-53.0) Mean Corpuscular Volume 87 fL (79-100) Mean Corpuscular Hemoglobin 28 pg (25-35) Mean Corpuscular Hemoglobin Concent 33 g/dL (31-37) Red Cell Distribution Width 18.4 % (11.5-14.5) Platelet Count 131 x10^3/uL (140-400) Heparin Anti-Xa Act, Unfractionated 0.36 IU/mL (0.30-0.70) Sodium Level 138 mmol/L (136-145) Potassium Level 3.2 mmol/L (3.5-5.1) Chloride Level 99 mmol/L (98-107) Carbon Dioxide Level 31 mmol/L (21-32) Anion Gap 8 (6-14) Blood Urea Nitrogen 14 mg/dL (8-26) Creatinine 1.5 mg/dL (0.7-1.3) Estimated GFR (Cockcroft-Gault) 46.1 Glucose Level 126 mg/dL (70-99) Calcium Level 9.1 mg/dL (8.5-10.1) Phosphorus Level 3.2 mg/dL (2.6-4.7) Magnesium Level 1.7 mg/dL (1.8-2.4) Albumin 2.5 g/dL (3.4-5.0) Micro Micro Microbiology 08/21/17 Blood Culture - Preliminary, Resulted NO GROWTH AFTER 2 DAYS Review of Systems Constitutional: yes: weakness, alert, oriented Ears/Nose/Throat: Yes: no symptom reported Eyes: Yes: no symptom reported Pulmonary: Yes no symptom reported Cardiovascular: Yes no symptom reported Gastrointestional: Yes: no symptom reported Genitourinary: Yes: no symptom reported Musculoskeletal: Yes: no symptom reported Skin: Yes no symptom reported Physical Exam General Appearance: no apparent distress Skin: warm Respiratory: bilateral CTA Heart: S1S2, RRR, no thrills Abdomen: soft, bowel sounds present Extremities: pulses present, no edema, atrophy Neurology: alert, oriented, follow commands Assessment Assessment IMP BURT CR 2.0 TO 1.5 PNEUMONIA NSTEMI ANEMIA PLAN AGREE WITH STOPPING HIS ROSALEE-I AGREE WITH [facility] EVAL LABS IN AM MINNIE RUBIO MD Aug 24, 2017 11:42
--- NOTE | 2017-08-24 12:21 | PDOC ---
PULMONARY PROGRESS NOTES Subjective FEELS BETTER, NO HEMOPTYSIS Vitals Vital Signs Date Time Temp Pulse Resp B/P (MAP) Pulse Ox O2 Delivery O2 Flow Rate FiO2 08/24/17 10:45 97.5 77 20 153/56 (88) 94 Nasal Cannula 3.0 97.5 ROS: No Nausea, No Chest Pain, No Abdominal Pain, No Increase Cough General: Alert HEENT: Other Lungs: Clear Cardiovascular: S1, S2 Abdomen: Soft, Non-tender Neuro Exam: Alert Extremities: No Edema Skin: Warm Labs Laboratory Tests Test 08/23/17 04:30 08/23/17 05:10 08/24/17 04:00 White Blood Count 8.0 x10^3/uL (4.0-11.0) 6.2 x10^3/uL (4.0-11.0) Red Blood Count 3.07 x10^6/uL (4.30-5.70) 2.88 x10^6/uL (4.30-5.70) Hemoglobin 8.6 g/dL (13.0-17.5) 8.1 g/dL (13.0-17.5) Hematocrit 26.8 % (39.0-53.0) 25.1 % (39.0-53.0) Mean Corpuscular Volume 87 fL (79-100) 87 fL (79-100) Mean Corpuscular Hemoglobin 28 pg (25-35) 28 pg (25-35) Mean Corpuscular Hemoglobin Concent 32 g/dL (31-37) 33 g/dL (31-37) Red Cell Distribution Width 18.0 % (11.5-14.5) 18.4 % (11.5-14.5) Platelet Count 139 x10^3/uL (140-400) 131 x10^3/uL (140-400) Heparin Anti-Xa Act, Unfractionated 0.34 IU/mL (0.30-0.70) 0.36 IU/mL (0.30-0.70) Sodium Level 136 mmol/L (136-145) 138 mmol/L (136-145) Potassium Level 3.4 mmol/L (3.5-5.1) 3.2 mmol/L (3.5-5.1) Chloride Level 98 mmol/L (98-107) 99 mmol/L (98-107) Carbon Dioxide Level 33 mmol/L (21-32) 31 mmol/L (21-32) Anion Gap 5 (6-14) 8 (6-14) Blood Urea Nitrogen 18 mg/dL (8-26) 14 mg/dL (8-26) Creatinine 1.7 mg/dL (0.7-1.3) 1.5 mg/dL (0.7-1.3) Estimated GFR (Cockcroft-Gault) 39.9 46.1 BUN/Creatinine Ratio 11 (6-20) Glucose Level 110 mg/dL (70-99) 126 mg/dL (70-99) Calcium Level 9.6 mg/dL (8.5-10.1) 9.1 mg/dL (8.5-10.1) Total Bilirubin 0.6 mg/dL (0.2-1.0) Aspartate Amino Transf (AST/SGOT) 20 U/L (15-37) Alanine Aminotransferase (ALT/SGPT) 14 U/L (16-63) Alkaline Phosphatase 44 U/L (46-116) Total Protein 7.1 g/dL (6.4-8.2) Albumin 2.7 g/dL (3.4-5.0) 2.5 g/dL (3.4-5.0) Albumin/Globulin Ratio 0.6 (1.0-1.7) Phosphorus Level 2.9 mg/dL (2.6-4.7) 3.2 mg/dL (2.6-4.7) Magnesium Level 1.9 mg/dL (1.8-2.4) 1.7 mg/dL (1.8-2.4) Laboratory Tests Test 08/24/17 04:00 White Blood Count 6.2 x10^3/uL (4.0-11.0) Red Blood Count 2.88 x10^6/uL (4.30-5.70) Hemoglobin 8.1 g/dL (13.0-17.5) Hematocrit 25.1 % (39.0-53.0) Mean Corpuscular Volume 87 fL (79-100) Mean Corpuscular Hemoglobin 28 pg (25-35) Mean Corpuscular Hemoglobin Concent 33 g/dL (31-37) Red Cell Distribution Width 18.4 % (11.5-14.5) Platelet Count 131 x10^3/uL (140-400) Heparin Anti-Xa Act, Unfractionated 0.36 IU/mL (0.30-0.70) Sodium Level 138 mmol/L (136-145) Potassium Level 3.2 mmol/L (3.5-5.1) Chloride Level 99 mmol/L (98-107) Carbon Dioxide Level 31 mmol/L (21-32) Anion Gap 8 (6-14) Blood Urea Nitrogen 14 mg/dL (8-26) Creatinine 1.5 mg/dL (0.7-1.3) Estimated GFR (Cockcroft-Gault) 46.1 Glucose Level 126 mg/dL (70-99) Calcium Level 9.1 mg/dL (8.5-10.1) Phosphorus Level 3.2 mg/dL (2.6-4.7) Magnesium Level 1.7 mg/dL (1.8-2.4) Albumin 2.5 g/dL (3.4-5.0) Medications Active Scripts Medications Dose Route/Sig Max Daily Dose Days Date Category Ventolin Hfa Inhaler (Albuterol Sulfate) 18 Gm Hfa.aer.ad 2 Puff INH Q4HRS 03/06/17 Reported Xtandi (Enzalutamide) 40 Mg Capsule 160 Mg PO DAILY@1000 03/06/17 Reported Vitamin D3 (Cholecalciferol (Vitamin D3)) 1,000 Unit Tablet 1 Tab PO DAILY 03/06/17 Reported Calcium + Vitamin D Tablet (Calcium Carbonate/Vitamin D3) 1 Each Tablet 1 Each PO BID 03/06/17 Reported [lupron] 09/16/16 Reported Zytiga (Abiraterone Acetate) 250 Mg Tablet 1,000 Mg PO DAILY@1700 09/16/16 Reported Vitamin D (Cholecalciferol (Vitamin D3)) 1,000 Unit Capsule 1,000 Unit PO 09/16/16 Reported Senokot-S Tablet (Sennosides/Docusate Sodium) 1 Each Tablet 1 Each PO 09/16/16 Reported Protonix (Pantoprazole Sodium) 40 Mg Tablet.dr 40 Mg PO DAILY 09/16/16 Reported Symbicort 160-4.5 Mcg Inhaler (Budesonide/Formoterol Fumarate) 10.2 Gm Hfa.aer.ad 2 Puff IH BID 10/12/14 Reported Prednisone 20 Mg Tablet 5 Mg PO BID 10/12/14 Reported Klor-Con M20 (Potassium Chloride) 20 Meq Tab.er.prt 10 Meq PO DAILY 10/10/14 Reported Furosemide 40 Mg Tablet 40 Mg PO DAILY 10/10/14 Reported Simvastatin 40 Mg Tablet 40 Mg PO HS 10/10/14 Reported Aspir 81 (Aspirin) 81 Mg Tablet.dr 81 Mg PO DAILY 10/10/14 Reported Clopidogrel (Clopidogrel Bisulfate) 75 Mg Tablet 75 Mg PO DAILY 10/10/14 Reported Spiriva (Tiotropium [place]) 18 Mcg Cap.w.dev 2 Inh IH DAILY 10/10/14 Reported Metoprolol Succinate ( Xl ) (Metoprolol Succinate) 25 Mg Tab.er.24h 25 Mg PO DAILY 10/10/14 Reported Gabapentin 600 Mg Tablet 600 Mg PO BID 10/10/14 Reported Impression . 1. Acute respiratory failure, multifactorial, present upon admission. 2. Bibasilar infiltrates on x-ray compatible with pneumonia. Continue broad spectrum antibiotics. 3. Gram-negative and gram-positive pneumonia. 4. Acute on chronic kidney injury. 5. Prostate cancer, recurrent disease. 6. Coronary artery disease, presents with chest pain, non-ST segment elevation myocardial infarction. Initial troponin was elevated. 7. Peripheral arterial disease, status post stent placement to the left superficial femoral artery. 8. Chronic diastolic heart failure. 9. Chronic obstructive pulmonary disease. 10. Secondary pulmonary hypertension. Plan . PT BETTER TODAY OFF HEPARIN / NO FURTHER HEMOPTYSIS 1. CONTINUE ANTIBX 3. FOLLOW CARD 4. SPOKE WITH RN/ 5. INCREASE ORAL INTAKE MARIETTA YI MD Aug 24, 2017 12:21
[2017-08-24 14:40] VITALS: BP 120/48
[2017-08-24] MEDS: ANTI-COAG MONITOR BY PHARMACY. MC PRN (14:47)
--- NOTE | 2017-08-24 14:57 | PDOC ---
CARDIO Progress Notes Date and Time Date of Service 08/24/2017 Time of Evaluation 1440 Subjective Subjective: No Chest Pain, No shortness of breath, No Palpitations Vitals Vitals Vital Signs Date Time Temp Pulse Resp B/P (MAP) Pulse Ox O2 Delivery O2 Flow Rate FiO2 08/24/17 10:45 97.5 77 20 153/56 (88) 94 Nasal Cannula 3.0 97.5 Weight Weight [ ] Input and Output Intake and Output Intake and Output 08/24/17 07:00 Intake Total 820 ml Output Total 600 ml Balance 220 ml Intake Oral 820 ml Output Urine Total 600 ml # Voids 2 Laboratory Labs Laboratory Tests Test 08/24/17 04:00 White Blood Count 6.2 x10^3/uL (4.0-11.0) Red Blood Count 2.88 x10^6/uL (4.30-5.70) Hemoglobin 8.1 g/dL (13.0-17.5) Hematocrit 25.1 % (39.0-53.0) Mean Corpuscular Volume 87 fL (79-100) Mean Corpuscular Hemoglobin 28 pg (25-35) Mean Corpuscular Hemoglobin Concent 33 g/dL (31-37) Red Cell Distribution Width 18.4 % (11.5-14.5) Platelet Count 131 x10^3/uL (140-400) Heparin Anti-Xa Act, Unfractionated 0.36 IU/mL (0.30-0.70) Sodium Level 138 mmol/L (136-145) Potassium Level 3.2 mmol/L (3.5-5.1) Chloride Level 99 mmol/L (98-107) Carbon Dioxide Level 31 mmol/L (21-32) Anion Gap 8 (6-14) Blood Urea Nitrogen 14 mg/dL (8-26) Creatinine 1.5 mg/dL (0.7-1.3) Estimated GFR (Cockcroft-Gault) 46.1 Glucose Level 126 mg/dL (70-99) Calcium Level 9.1 mg/dL (8.5-10.1) Phosphorus Level 3.2 mg/dL (2.6-4.7) Magnesium Level 1.7 mg/dL (1.8-2.4) Albumin 2.5 g/dL (3.4-5.0) Microbiology Micro Microbiology 08/21/17 Blood Culture - Preliminary, Resulted NO GROWTH AFTER 3 DAYS Review of Systems Constitutional: yes: weakness, alert, oriented Ears/Nose/Throat: Yes: no symptom reported Eyes: Yes: no symptom reported Pulmonary: Yes no symptom reported Cardiovascular: Yes no symptom reported Gastrointestional: Yes: no symptom reported Genitourinary: Yes: no symptom reported Musculoskeletal: Yes: no symptom reported Skin: Yes no symptom reported Physical Exam HEENT: Neck Supple W Full Motion Chest: Symmetric LUNGS: Other (basilar crackles) Heart: S1S2, RRR (SR) Abdomen: Soft N/T Extremities: No Calf Tenderness Neurology: alert, oriented, follow commands Assessment Assessment 1. CAP: Pulmonary following 2. Abdominal pain: better and no acute bowel changes per CT. per PCP 3. NSTEMI: CP free.peaked troponin 2.1.Possibly demand mediated but suspicion of ischemia as well with new LBBB. Normal EF and wall motion 4. CAD: CABGx3. S/P PTCA OM of LCx 09/2016. 5. PAD: recent [employer]/stent to LSFA. Bilateral LE without claudication symptoms. 6. CKD: Cr 2.0, renal duplex negative for significant PABLO. Nephrology following 7. Chronic diastolic CHF 8. COPD/severe pulmonary HTN 9. HTN: controlled 10. HLP 11. Prostate CA with metastasis 12. Normocytic Anemia: Hgb 8.1 Recommendations 1. Continue with ASA/plavix. Will perform ischemic w/u as an inpt once pulmonary issues are better. MPI vs LHC possibly Thursday. Will discuss with primary elementary science teacher. 2. Continue with secondary prevention measures 3. Increase toprol and add imdur 4. Replace K and Mg. PRAFUL LI DENTAL SERVICE CHIEF Aug 24, 2017 14:57
[2017-08-24 20:30] VITALS: BP 161/64
[2017-08-24] MEDS: ATORVASTATIN CALCIUM 40 MG TABLET. PO SCH (21:08)
[2017-08-24 23:15] VITALS: BP 185/75
[2017-08-25] MEDS: PIPERACILLIN/TAZO IV Push 3.375 GM VIAL. IVP SCH ×5 (01:09→23:32)
[2017-08-25 03:25] VITALS: BP 165/51
[2017-08-25] MEDS: HYDROCORTISONE SOD SUCC/PF 100 MG/2 ML VIAL. IV SCH ×2 (06:20→17:57)
[2017-08-25 06:52] LABS: ALBUMIN 2.5 g/dL (3.4-5.0); CREATININE 1.3 mg/dL (0.7-1.3); GFR 54.4; PHOSPHORUS 3.6 mg/dL (2.6-4.7); POTASSIUM 3.6 mmol/L (3.5-5.1)
[2017-08-25 07:00] VITALS: BP 182/62
--- NOTE | 2017-08-25 08:28 | PDOC ---
Infectious Disease Note Subjective Subjective Hungry but gets nausea [place] sputum still with occ red [place] stool ROS ROS GEN: Denies fevers, chills, sweats HEENT: Denies blurred vision, sore throat CV: Denies chest pain RESP: Denies shortness of air, cough : neg NEURO: Denies confusion, dizziness MSK: Denies weakness, joint pain/swelling Vital Sign Vital Signs Vital Signs Date Time Temp Pulse Resp B/P (MAP) Pulse Ox O2 Delivery O2 Flow Rate FiO2 08/25/17 03:25 97.9 79 20 165/51 (89) 97 Nasal Cannula 3.0 97.9 Physical Exam PHYSICAL EXAM GENERAL: male, propped up in bed, in no apparent distress. HEENT: Pupils equally round. Normal conjunctivae. Oral mucosa is pink and moist. Dentures in place. NECK: Supple. LUNGS: Clear to auscultation, nonlabored.on 02 HEART: Normal S1 and S2. ABDOMEN: Obese. Bowel sounds present. Soft and nontender. EXTREMITIES: No gross edema or cyanosis. SKIN: Without rash. NEUROLOGIC: Alert and oriented x 3. Moves all extremities. Labs Lab Laboratory Tests Test 08/25/17 06:05 Heparin Anti-Xa Act, Unfractionated < 0.10 IU/mL (0.30-0.70) Sodium Level 135 mmol/L (136-145) Potassium Level 3.6 mmol/L (3.5-5.1) Chloride Level 101 mmol/L (98-107) Carbon Dioxide Level 28 mmol/L (21-32) Anion Gap 6 (6-14) Blood Urea Nitrogen 11 mg/dL (8-26) Creatinine 1.3 mg/dL (0.7-1.3) Estimated GFR (Cockcroft-Gault) 54.4 Glucose Level 99 mg/dL (70-99) Calcium Level 9.0 mg/dL (8.5-10.1) Phosphorus Level 3.6 mg/dL (2.6-4.7) Magnesium Level 2.0 mg/dL (1.8-2.4) Albumin 2.5 g/dL (3.4-5.0) Objective Assessment Bibasilar interstitial and nodular lung infiltrates, pneumonia not ruled out; - influenza negative Lactic acidosis, better Leukocytosis/bandemia, improving Fever and chills, prior to admission - none here BURT, renal following NSTEMI, cardiology following ? Adrenal Insufficiency, on steroids Metastatic prostate cancer on Zytiga & Xtandi along w/ prednisone Plan Plan of Care continue Zosyn (08/21) wean soon Cont probiotics Monitor renal function, WBC and temp strep pneumo UR Ag - neg f/u am labs f/u cultures Await further Card/Pulm eval D/w CONCETTA MANZANO MD Aug 25, 2017 08:28
[2017-08-25] MEDS: PANTOPRAZOLE 40 MG TABLET.DR. PO SCH (08:30)
[2017-08-25] MEDS: ISOSORBIDE MONONITRATE ER 30 MG TAB.ER.24H PO SCH (08:30)
[2017-08-25] MEDS: CLOPIDOGREL BISULFATE 75 MG TABLET PO SCH (08:30)
[2017-08-25] MEDS: METOPROLOL SUCC 24HR ER 50 MG TAB.ER.24H. PO SCH (08:30)
[2017-08-25] MEDS: amLODIPine BESYLATE 2.5 MG TABLET PO SCH (08:31)
[2017-08-25] MEDS: SERTRALINE 50 MG TABLET. PO SCH (08:31)
[2017-08-25] MEDS: LACTOBACILLUS RHAMNOSUS GG 1 CAPSULE. PO SCH ×2 (08:31→21:52)
[2017-08-25] MEDS: ASPIRIN ENTERIC COATED 81 MG TABLET.DR. PO SCH (08:31)
--- NOTE | 2017-08-25 09:10 | PDOC ---
Provider Note Provider Note renal better, hb 8.1 off heparin- bp still up- will keep samwe meds, may need more amlo or hydralazine STEF ROYLA MD Aug 25, 2017 09:10
--- NOTE | 2017-08-25 09:54 | PDOC ---
PULMONARY PROGRESS NOTES Subjective unchanged weakness and dyspnea hemoptysis today off heparin Vitals Vital Signs Date Time Temp Pulse Resp B/P (MAP) Pulse Ox O2 Delivery O2 Flow Rate FiO2 08/25/17 08:31 80 08/25/17 07:00 97.3 20 182/62 (102) 97 Nasal Cannula 3.0 97.3 ROS: No Nausea, No Chest Pain, No Abdominal Pain, No Increase Cough General: Alert, No acute distress HEENT: Other Lungs: Crackles (bases) Cardiovascular: S1, S2 Abdomen: Soft, Non-tender Neuro Exam: Alert Extremities: No Edema Skin: Warm Labs Laboratory Tests Test 08/24/17 04:00 08/25/17 06:05 White Blood Count 6.2 x10^3/uL (4.0-11.0) Red Blood Count 2.88 x10^6/uL (4.30-5.70) Hemoglobin 8.1 g/dL (13.0-17.5) Hematocrit 25.1 % (39.0-53.0) Mean Corpuscular Volume 87 fL (79-100) Mean Corpuscular Hemoglobin 28 pg (25-35) Mean Corpuscular Hemoglobin Concent 33 g/dL (31-37) Red Cell Distribution Width 18.4 % (11.5-14.5) Platelet Count 131 x10^3/uL (140-400) Heparin Anti-Xa Act, Unfractionated 0.36 IU/mL (0.30-0.70) < 0.10 IU/mL (0.30-0.70) Sodium Level 138 mmol/L (136-145) 135 mmol/L (136-145) Potassium Level 3.2 mmol/L (3.5-5.1) 3.6 mmol/L (3.5-5.1) Chloride Level 99 mmol/L (98-107) 101 mmol/L (98-107) Carbon Dioxide Level 31 mmol/L (21-32) 28 mmol/L (21-32) Anion Gap 8 (6-14) 6 (6-14) Blood Urea Nitrogen 14 mg/dL (8-26) 11 mg/dL (8-26) Creatinine 1.5 mg/dL (0.7-1.3) 1.3 mg/dL (0.7-1.3) Estimated GFR (Cockcroft-Gault) 46.1 54.4 Glucose Level 126 mg/dL (70-99) 99 mg/dL (70-99) Calcium Level 9.1 mg/dL (8.5-10.1) 9.0 mg/dL (8.5-10.1) Phosphorus Level 3.2 mg/dL (2.6-4.7) 3.6 mg/dL (2.6-4.7) Magnesium Level 1.7 mg/dL (1.8-2.4) 2.0 mg/dL (1.8-2.4) Albumin 2.5 g/dL (3.4-5.0) 2.5 g/dL (3.4-5.0) Laboratory Tests Test 08/25/17 06:05 Heparin Anti-Xa Act, Unfractionated < 0.10 IU/mL (0.30-0.70) Sodium Level 135 mmol/L (136-145) Potassium Level 3.6 mmol/L (3.5-5.1) Chloride Level 101 mmol/L (98-107) Carbon Dioxide Level 28 mmol/L (21-32) Anion Gap 6 (6-14) Blood Urea Nitrogen 11 mg/dL (8-26) Creatinine 1.3 mg/dL (0.7-1.3) Estimated GFR (Cockcroft-Gault) 54.4 Glucose Level 99 mg/dL (70-99) Calcium Level 9.0 mg/dL (8.5-10.1) Phosphorus Level 3.6 mg/dL (2.6-4.7) Magnesium Level 2.0 mg/dL (1.8-2.4) Albumin 2.5 g/dL (3.4-5.0) Medications Active Scripts Medications Dose Route/Sig Max Daily Dose Days Date Category Ventolin Hfa Inhaler (Albuterol Sulfate) 18 Gm Hfa.aer.ad 2 Puff INH Q4HRS 03/06/17 Reported Xtandi (Enzalutamide) 40 Mg Capsule 160 Mg PO DAILY@1000 03/06/17 Reported Vitamin D3 (Cholecalciferol (Vitamin D3)) 1,000 Unit Tablet 1 Tab PO DAILY 03/06/17 Reported Calcium + Vitamin D Tablet (Calcium Carbonate/Vitamin D3) 1 Each Tablet 1 Each PO BID 03/06/17 Reported [lupron] 09/16/16 Reported Zytiga (Abiraterone Acetate) 250 Mg Tablet 1,000 Mg PO DAILY@1700 09/16/16 Reported Vitamin D (Cholecalciferol (Vitamin D3)) 1,000 Unit Capsule 1,000 Unit PO 09/16/16 Reported Senokot-S Tablet (Sennosides/Docusate Sodium) 1 Each Tablet 1 Each PO 09/16/16 Reported Protonix (Pantoprazole Sodium) 40 Mg Tablet.dr 40 Mg PO DAILY 09/16/16 Reported Symbicort 160-4.5 Mcg Inhaler (Budesonide/Formoterol Fumarate) 10.2 Gm Hfa.aer.ad 2 Puff IH BID 10/12/14 Reported Prednisone 20 Mg Tablet 5 Mg PO BID 10/12/14 Reported Klor-Con M20 (Potassium Chloride) 20 Meq Tab.er.prt 10 Meq PO DAILY 10/10/14 Reported Furosemide 40 Mg Tablet 40 Mg PO DAILY 10/10/14 Reported Simvastatin 40 Mg Tablet 40 Mg PO HS 10/10/14 Reported Aspir 81 (Aspirin) 81 Mg Tablet.dr 81 Mg PO DAILY 10/10/14 Reported Clopidogrel (Clopidogrel Bisulfate) 75 Mg Tablet 75 Mg PO DAILY 10/10/14 Reported Spiriva (Tiotropium [place]) 18 Mcg Cap.w.dev 2 Inh IH DAILY 10/10/14 Reported Metoprolol Succinate ( Xl ) (Metoprolol Succinate) 25 Mg Tab.er.24h 25 Mg PO DAILY 10/10/14 Reported Gabapentin 600 Mg Tablet 600 Mg PO BID 10/10/14 Reported Impression . 1. Acute respiratory failure, multifactorial, present upon admission. 2. Bibasilar infiltrates on x-ray compatible with pneumonia. Continue broad spectrum antibiotics. still hemoptysis, will do ct chest 3. Gram-negative and gram-positive pneumonia. 4. Acute on chronic kidney injury. 5. Prostate cancer, recurrent disease. 6. Coronary artery disease, presents with chest pain, non-ST segment elevation myocardial infarction. Initial troponin was elevated. 7. Peripheral arterial disease, status post stent placement to the left superficial femoral artery. 8. Chronic diastolic heart failure. 9. Chronic obstructive pulmonary disease. 10. Secondary pulmonary hypertension. 11. Anemia, off heparin Plan . 1.OFF HEPARIN / STILL HEMOPTYSIS 2.CT CHEST TODAY 3. CONTINUE ANTIBX 4. FOLLOW CARD 5. SPOKE WITH RN/ 6. INCREASE ORAL INTAKE 7. ANEMIA W/U PER PCP MARIETTA YI MD Aug 25, 2017 09:54
--- NOTE | 2017-08-25 10:52 | PDOC ---
CARDIO Progress Notes Date and Time Date of Service 08/25/2017 Time of Evaluation 1040 Subjective Subjective: No Chest Pain, No Palpitations, Other (MERCADO, no SOA at rest, still feels weak) Vitals Vitals Vital Signs Date Time Temp Pulse Resp B/P (MAP) Pulse Ox O2 Delivery O2 Flow Rate FiO2 08/25/17 08:31 80 08/25/17 07:00 97.3 20 182/62 (102) 97 Nasal Cannula 3.0 97.3 Weight Weight [ ] Input and Output Intake and Output Intake and Output 08/25/17 07:00 Intake Total 920 ml Output Total 200 ml Balance 720 ml Intake Oral 920 ml Output Urine Total 200 ml Laboratory Labs Laboratory Tests Test 08/25/17 06:05 Heparin Anti-Xa Act, Unfractionated < 0.10 IU/mL (0.30-0.70) Sodium Level 135 mmol/L (136-145) Potassium Level 3.6 mmol/L (3.5-5.1) Chloride Level 101 mmol/L (98-107) Carbon Dioxide Level 28 mmol/L (21-32) Anion Gap 6 (6-14) Blood Urea Nitrogen 11 mg/dL (8-26) Creatinine 1.3 mg/dL (0.7-1.3) Estimated GFR (Cockcroft-Gault) 54.4 Glucose Level 99 mg/dL (70-99) Calcium Level 9.0 mg/dL (8.5-10.1) Phosphorus Level 3.6 mg/dL (2.6-4.7) Magnesium Level 2.0 mg/dL (1.8-2.4) Albumin 2.5 g/dL (3.4-5.0) Microbiology Micro Microbiology 08/21/17 Blood Culture - Preliminary, Resulted NO GROWTH AFTER 3 DAYS 08/22/17 - Final, Resulted 08/22/17 - Final, Resulted 08/22/17 - Final, Resulted 08/22/17 Gram Stain Evaluation - Final, Resulted 08/22/17 Sputum Culture, Resulted Pending 08/22/17 Sputum Result 1, Resulted Pending Review of Systems Constitutional: yes: weakness, alert, oriented Ears/Nose/Throat: Yes: no symptom reported Eyes: Yes: no symptom reported Pulmonary: Yes no symptom reported Cardiovascular: Yes no symptom reported Gastrointestional: Yes: no symptom reported Genitourinary: Yes: no symptom reported Musculoskeletal: Yes: no symptom reported Skin: Yes no symptom reported Physical Exam HEENT: Neck Supple W Full Motion Chest: Symmetric LUNGS: Other (basilar crackles) Heart: S1S2, RRR (SR) Abdomen: Soft N/T Extremities: No Calf Tenderness, Other (trace to 1+ bilateral LE edema) Neurology: alert, oriented, follow commands Assessment Assessment 1. CAP: Pulmonary following 2. Abdominal pain: better. 3. NSTEMI: CP free.peaked troponin 2.1.Possibly demand mediated but suspicion of ischemia as well with new LBBB. Normal EF and wall motion 4. CAD: CABGx3. S/P PTCA OM of LCx 09/2016. 5. PAD: recent SENIOR TRIAL ATTORNEY/stent to LSFA. Bilateral LE without claudication symptoms. 6. CKD: Cr much better at 1.3. Nephrology following 7. Chronic diastolic CHF: compensated 8. COPD/severe pulmonary HTN 9. HTN: labile 10. HLP 11. Prostate CA with metastasis 12. Normocytic Anemia: Hgb 8.1 Recommendations 1. Continue with ASA/plavix. Plan for MPI possibly tomorrow. 2. Continue with secondary prevention measures 3. Monitor BP trend, increase norvasc and imdur PRAFUL LI COUNSELOR AIDE Aug 25, 2017 10:52
[2017-08-25 11:00] VITALS: BP 173/62
--- NOTE | 2017-08-25 11:26 | PDOC ---
Renal-Progress Notes Subjective Notes Notes NONE History of Present Illness Hx of present illness STABLE Vitals Vitals Vital Signs Date Time Temp Pulse Resp B/P (MAP) Pulse Ox O2 Delivery O2 Flow Rate FiO2 08/25/17 08:31 80 08/25/17 08:15 Nasal Cannula 3.0 08/25/17 07:00 97.3 20 182/62 (102) 97 97.3 Weight Weight [ ] I.O. Intake and Output Intake and Output 08/25/17 07:00 Intake Total 920 ml Output Total 200 ml Balance 720 ml Intake Oral 920 ml Output Urine Total 200 ml Labs Labs Laboratory Tests Test 08/25/17 06:05 Heparin Anti-Xa Act, Unfractionated < 0.10 IU/mL (0.30-0.70) Sodium Level 135 mmol/L (136-145) Potassium Level 3.6 mmol/L (3.5-5.1) Chloride Level 101 mmol/L (98-107) Carbon Dioxide Level 28 mmol/L (21-32) Anion Gap 6 (6-14) Blood Urea Nitrogen 11 mg/dL (8-26) Creatinine 1.3 mg/dL (0.7-1.3) Estimated GFR (Cockcroft-Gault) 54.4 Glucose Level 99 mg/dL (70-99) Calcium Level 9.0 mg/dL (8.5-10.1) Phosphorus Level 3.6 mg/dL (2.6-4.7) Magnesium Level 2.0 mg/dL (1.8-2.4) Albumin 2.5 g/dL (3.4-5.0) Micro Micro Microbiology 08/21/17 Blood Culture - Preliminary, Resulted NO GROWTH AFTER 3 DAYS 08/22/17 - Final, Resulted 08/22/17 - Final, Resulted 08/22/17 - Final, Resulted 08/22/17 Gram Stain Evaluation - Final, Resulted 08/22/17 Sputum Culture, Resulted Pending 08/22/17 Sputum Result 1, Resulted Pending Review of Systems Constitutional: yes: weakness, alert, oriented Ears/Nose/Throat: Yes: no symptom reported Eyes: Yes: no symptom reported Pulmonary: Yes no symptom reported Cardiovascular: Yes no symptom reported Gastrointestional: Yes: no symptom reported Genitourinary: Yes: no symptom reported Musculoskeletal: Yes: no symptom reported Skin: Yes no symptom reported Physical Exam General Appearance: no apparent distress Skin: warm Respiratory: bilateral CTA Heart: S1S2, RRR, no thrills Abdomen: soft, bowel sounds present Extremities: pulses present, no edema, atrophy Neurology: alert, oriented, follow commands Assessment Assessment IMP BURT CR 2.0 TO 1.3 PNEUMONIA NSTEMI ANEMIA HTN PLAN INCREASE [facility] CARDIOLOGY EVAL LABS IN AM MINNIE RUBIO MD Aug 25, 2017 11:26
[2017-08-25] MEDS ORDERED: ISOSORBIDE MONONITRATE ER 30 MG TAB.ER.24H PO ONE (12:30)
[2017-08-25] MEDS ORDERED: amLODIPine BESYLATE 5 MG TABLET PO ONE (12:30)
--- NOTE | 2017-08-25 14:40 | RAD ---
CT of the chest without contrast, 08/25/2017: History: Pneumonia Noncontrast scans were obtained as requested. Comparison is made to a study from 01/21/2016. There are extensive emphysematous changes in the lungs with scattered parenchymal scars. Interstitial opacities in the lower chest have worsened considerably since the previous study. There are new small focal irregular pulmonary opacities in both lung bases, best seen in the right middle lobe, lingula and lateral aspect of the right lower lobe. An inflammatory etiology is suspected. There is a 5 mm nodule in the left upper lobe as seen on image 27 of series 2 which measured 3 mm on the previous study. There is a 2 to 3 mm nodule in the medial aspect of the right upper lobe as seen on image 28 of series #2 which appears to be new. A cluster of small nodules seen anteriorly in the left upper lobe on the previous study have regressed and were presumably inflammatory. There was a small nodular cluster in the right upper lobe which has also regressed. There is calcific plaquing of the thoracic aorta and its branches including the coronary arteries. There has been a previous median sternotomy. No mediastinal adenopathy is seen. Sclerotic change within the L1 vertebral body is again noted, presumably related to this given history of prostate cancer. There are moderate scattered degenerative changes in the spine. IMPRESSION: 1. Emphysema with parenchymal scarring. 2. Considerable interval worsening of the bibasilar interstitial opacities with diagnostic considerations including inflammation, interstitial edema or worsening fibrosis. 3. Small new irregular pulmonary opacities in the lower chest bilaterally are probably inflammatory in nature. A neoplastic etiology is less likely. 4. Bilateral pulmonary nodules, some of which have regressed while others have progressed or are new as described above. Further CT surveillance is suggested. 5. Unchanged L1 blastic lesion. PQRS Compliance Statement: One or more of the following individualized dose reduction techniques were utilized for this examination: 1. Automated exposure control 2. Adjustment of the mA and/or kV according to patient size 3. Use of iterative reconstruction technique
[2017-08-25 15:00] VITALS: BP 168/70
[2017-08-25 19:45] VITALS: BP 164/60
[2017-08-25] MEDS: ALPRAZolam 0.25 MG TABLET PO PRN (21:52)
[2017-08-25] MEDS: ATORVASTATIN CALCIUM 40 MG TABLET. PO SCH (21:52)
[2017-08-25 23:30] VITALS: BP 139/46
[2017-08-26 03:30] VITALS: BP 166/59
[2017-08-26] MEDS: HYDROCORTISONE SOD SUCC/PF 100 MG/2 ML VIAL. IV SCH ×2 (05:21→18:18)
[2017-08-26] MEDS: PIPERACILLIN/TAZO IV Push 3.375 GM VIAL. IVP SCH ×4 (05:21→23:02)
[2017-08-26 06:41] LABS: ALBUMIN 2.5 g/dL (3.4-5.0); CALCIUM 8.9 mg/dL (8.5-10.1); CREATININE 1.3 mg/dL (0.7-1.3); GFR 54.4; MAGNESIUM 1.7 mg/dL (1.8-2.4); PHOSPHORUS 3.4 mg/dL (2.6-4.7)
[2017-08-26 06:45] LABS: POTASSIUM 2.8 mmol/L (3.5-5.1)
[2017-08-26 07:24] LABS: HEMATOCRIT 24.5 % (39.0-53.0); HEMOGLOBIN 7.8 g/dL (13.0-17.5); RED BLOOD COUNT 2.75 x10^6/uL (4.30-5.70); RED CELL DISTRIBUTION WIDTH 18.2 % (11.5-14.5); WHITE BLOOD COUNT 6.3 x10^3/uL (4.0-11.0)
[2017-08-26 07:30] VITALS: BP 187/76
[2017-08-26] MEDS ORDERED: POTASSIUM CHLORIDE 20 MEQ/15 ML ORAL LIQUID. PEG ONE (08:00)
[2017-08-26] MEDS: LACTOBACILLUS RHAMNOSUS GG 1 CAPSULE. PO SCH ×2 (08:53→21:33)
[2017-08-26] MEDS: ISOSORBIDE MONONITRATE ER 30 MG TAB.ER.24H PO SCH (08:53)
[2017-08-26] MEDS: CLOPIDOGREL BISULFATE 75 MG TABLET PO SCH (08:53)
[2017-08-26] MEDS: ASPIRIN ENTERIC COATED 81 MG TABLET.DR. PO SCH (08:53)
[2017-08-26] MEDS: PANTOPRAZOLE 40 MG TABLET.DR. PO SCH (08:53)
[2017-08-26] MEDS: SERTRALINE 50 MG TABLET. PO SCH (08:53)
--- NOTE | 2017-08-26 08:53 | PDOC ---
Infectious Disease Note Subjective Subjective Actually felling some better today Hungry but still gets nausea and will have occ shooting abd pain + hemoptysis ROS ROS GEN: Denies fevers, chills, sweats HEENT: Denies blurred vision, sore throat CV: Denies chest pain RESP: Denies shortness of air, cough NEURO: Denies confusion, dizziness MSK: Denies weakness, joint pain/swelling Vital Sign Vital Signs Vital Signs Date Time Temp Pulse Resp B/P (MAP) Pulse Ox O2 Delivery O2 Flow Rate FiO2 08/26/17 07:30 97.7 71 18 187/76 (113) 97 Nasal Cannula 3.0 97.7 Physical Exam PHYSICAL EXAM GENERAL: male, propped up in bed, in no apparent distress. HEENT: Pupils equally round. Normal conjunctivae. Oral mucosa is pink and moist. Dentures in place. NECK: Supple. LUNGS: Clear to auscultation, nonlabored.on 02 HEART: Normal S1 and S2. ABDOMEN: Obese. Bowel sounds present. Soft and nontender. EXTREMITIES: No gross edema or cyanosis. SKIN: Without rash. NEUROLOGIC: Alert and oriented x 3. Moves all extremities. Labs Lab Laboratory Tests Test 08/26/17 05:55 White Blood Count 6.3 x10^3/uL (4.0-11.0) Red Blood Count 2.75 x10^6/uL (4.30-5.70) Hemoglobin 7.8 g/dL (13.0-17.5) Hematocrit 24.5 % (39.0-53.0) Mean Corpuscular Volume 89 fL (79-100) Mean Corpuscular Hemoglobin 28 pg (25-35) Mean Corpuscular Hemoglobin Concent 32 g/dL (31-37) Red Cell Distribution Width 18.2 % (11.5-14.5) Platelet Count 150 x10^3/uL (140-400) Sodium Level 138 mmol/L (136-145) Potassium Level 2.8 mmol/L (3.5-5.1) Chloride Level 102 mmol/L (98-107) Carbon Dioxide Level 29 mmol/L (21-32) Anion Gap 7 (6-14) Blood Urea Nitrogen 11 mg/dL (8-26) Creatinine 1.3 mg/dL (0.7-1.3) Estimated GFR (Cockcroft-Gault) 54.4 Glucose Level 93 mg/dL (70-99) Calcium Level 8.9 mg/dL (8.5-10.1) Phosphorus Level 3.4 mg/dL (2.6-4.7) Magnesium Level 1.7 mg/dL (1.8-2.4) Albumin 2.5 g/dL (3.4-5.0) Objective Assessment Bibasilar interstitial and nodular lung infiltrates, pneumonia not ruled out; - influenza/strep antigen negative Lactic acidosis, better Leukocytosis/bandemia, improving Fever and chills, prior to admission - none here BURT, renal following NSTEMI, cardiology following ? Adrenal Insufficiency, on steroids Metastatic prostate cancer on Zytiga & Xtandi along w/ prednisone Ongoing nausea and occ abd pain Plan Plan of Care ? GI eval given nausea and occ abd pain not relieved with carafate continue Zosyn (08/21) wean soon Await cardiology work up Await Pulm f/u re CT Cont probiotics f/u am labs f/u cultures - d/w micro this am and normal dionne on sputum D/w CONCETTA MANZANO MD Aug 26, 2017 08:53
[2017-08-26] MEDS: METOPROLOL SUCC 24HR ER 50 MG TAB.ER.24H. PO SCH (08:54)
[2017-08-26] MEDS: amLODIPine BESYLATE 10 MG TABLET PO SCH (08:55)
[2017-08-26] MEDS ORDERED: amLODIPine BESYLATE 5 MG TABLET PO SCH (09:00)
--- NOTE | 2017-08-26 09:14 | PDOC ---
Provider Note Provider Note VSS, BP STILL HIGH SO MORE AMLO- LABS NOTED, k+ 2.8- CONT SAME STEF ROYAL MD Aug 26, 2017 09:14
--- NOTE | 2017-08-26 09:49 | PDOC ---
DARIEL ROBERTS AUTO DAMAGE APPRAISER 08/26/17 0949: CARDIO Progress Notes Date and Time Date of Service 08/26/17 Time of Evaluation 0906 Subjective Subjective: No Chest Pain, No Palpitations, Other (mild MERCADO. Havng increased sputum production) Vitals Vitals Vital Signs Date Time Temp Pulse Resp B/P (MAP) Pulse Ox O2 Delivery O2 Flow Rate FiO2 08/26/17 08:55 71 187/76 08/26/17 07:30 97.7 18 97 Nasal Cannula 3.0 97.7 Weight Weight [ ] Input and Output Intake and Output Intake and Output 08/26/17 06:59 Intake Total 1340 ml Output Total 650 ml Balance 690 ml Intake Oral 1340 ml Output Urine Total 650 ml # Bowel Movements 1 Laboratory Labs Laboratory Tests Test 08/26/17 05:55 White Blood Count 6.3 x10^3/uL (4.0-11.0) Red Blood Count 2.75 x10^6/uL (4.30-5.70) Hemoglobin 7.8 g/dL (13.0-17.5) Hematocrit 24.5 % (39.0-53.0) Mean Corpuscular Volume 89 fL (79-100) Mean Corpuscular Hemoglobin 28 pg (25-35) Mean Corpuscular Hemoglobin Concent 32 g/dL (31-37) Red Cell Distribution Width 18.2 % (11.5-14.5) Platelet Count 150 x10^3/uL (140-400) Sodium Level 138 mmol/L (136-145) Potassium Level 2.8 mmol/L (3.5-5.1) Chloride Level 102 mmol/L (98-107) Carbon Dioxide Level 29 mmol/L (21-32) Anion Gap 7 (6-14) Blood Urea Nitrogen 11 mg/dL (8-26) Creatinine 1.3 mg/dL (0.7-1.3) Estimated GFR (Cockcroft-Gault) 54.4 Glucose Level 93 mg/dL (70-99) Calcium Level 8.9 mg/dL (8.5-10.1) Phosphorus Level 3.4 mg/dL (2.6-4.7) Magnesium Level 1.7 mg/dL (1.8-2.4) Albumin 2.5 g/dL (3.4-5.0) Microbiology Micro Microbiology 08/21/17 Blood Culture - Preliminary, Resulted NO GROWTH AFTER 4 DAYS 08/22/17 - Final, Resulted 08/22/17 - Final, Resulted 08/22/17 - Final, Resulted 08/22/17 Gram Stain Evaluation - Final, Resulted 08/22/17 Sputum Culture - Preliminary, Resulted 08/22/17 Sputum Result 1 - Final, Resulted Review of Systems Constitutional: yes: weakness, alert, oriented Ears/Nose/Throat: Yes: no symptom reported Eyes: Yes: no symptom reported Pulmonary: Yes no symptom reported Cardiovascular: Yes no symptom reported Gastrointestional: Yes: no symptom reported Genitourinary: Yes: no symptom reported Musculoskeletal: Yes: no symptom reported Skin: Yes no symptom reported Physical Exam HEENT: Neck Supple W Full Motion Chest: Symmetric LUNGS: Other (diminished bases. Faint bibasilar crackles) Heart: S1S2, RRR (SR) Abdomen: Soft N/T Extremities: No Calf Tenderness, Other (trace to 1+ bilateral LE edema) Neurology: alert, oriented, follow commands Assessment Assessment 1. CAP: off heparin- hemoptysis continuing. Pulmonary following 2. NSTEMI: CP free.peaked troponin 2.1.Possibly demand mediated but suspicion of ischemia as well with new LBBB. Normal EF and wall motion 3. CAD: CABGx3. S/P PTCA OM of LCx 09/2016. 4. 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 Bilateral LE without claudication symptoms. 5. CKD: Cr stable at 1.3. Nephrology following 6. Chronic diastolic CHF: compensated 7. COPD/severe pulmonary HTN 8. HTN: remains labile 9. HLP; LDL 171. statin 10. Prostate CA with metastasis 11. Anemia; hgb 7.8 12. Hypokalemia/hypomagnesemia Recommendations Norvasc and imdur increased. Monitor to assess need for further titration Continue secondary prevention measures including DAPT with ASA/plavix. Replace lytes as warranted Plan for risk stratification with MPI prior to discharge as long as hgb is stable. Continued antibiotic therapy for treatment of PNA as per CHRIS Song MD 08/27/17 0844: CARDIO Progress Notes Assessment Assessment Patient seen and examined 08/26/17 (late entry). Agree with RELIGION DEPARTMENT CHAIR's assessment and plan. Options discussed with pulmonary team regarding the DAPT in lieu of hemoptysis. Consensus to hold dual antiplatelet therapy for 2-3 days till hemostasis results. DARIEL ROBERTS APRN Aug 26, 2017 09:49 CHRIS LOUIS MD Aug 27, 2017 08:44
[2017-08-26 10:45] VITALS: BP 145/64
--- NOTE | 2017-08-26 10:53 | PDOC ---
Renal-Progress Notes Subjective Notes Notes NONE History of Present Illness Hx of present illness STABLE Vitals Vitals Vital Signs Date Time Temp Pulse Resp B/P (MAP) Pulse Ox O2 Delivery O2 Flow Rate FiO2 08/26/17 10:45 98.1 75 19 145/64 (91) 96 Nasal Cannula 3.0 98.1 Weight Weight [ ] I.O. Intake and Output Intake and Output 08/26/17 07:00 Intake Total 1340 ml Output Total 650 ml Balance 690 ml Intake Oral 1340 ml Output Urine Total 650 ml # Bowel Movements 1 Labs Labs Laboratory Tests Test 08/26/17 05:55 White Blood Count 6.3 x10^3/uL (4.0-11.0) Red Blood Count 2.75 x10^6/uL (4.30-5.70) Hemoglobin 7.8 g/dL (13.0-17.5) Hematocrit 24.5 % (39.0-53.0) Mean Corpuscular Volume 89 fL (79-100) Mean Corpuscular Hemoglobin 28 pg (25-35) Mean Corpuscular Hemoglobin Concent 32 g/dL (31-37) Red Cell Distribution Width 18.2 % (11.5-14.5) Platelet Count 150 x10^3/uL (140-400) Sodium Level 138 mmol/L (136-145) Potassium Level 2.8 mmol/L (3.5-5.1) Chloride Level 102 mmol/L (98-107) Carbon Dioxide Level 29 mmol/L (21-32) Anion Gap 7 (6-14) Blood Urea Nitrogen 11 mg/dL (8-26) Creatinine 1.3 mg/dL (0.7-1.3) Estimated GFR (Cockcroft-Gault) 54.4 Glucose Level 93 mg/dL (70-99) Calcium Level 8.9 mg/dL (8.5-10.1) Phosphorus Level 3.4 mg/dL (2.6-4.7) Magnesium Level 1.7 mg/dL (1.8-2.4) Albumin 2.5 g/dL (3.4-5.0) Micro Micro Microbiology 08/21/17 Blood Culture - Preliminary, Resulted NO GROWTH AFTER 4 DAYS 08/22/17 - Final, Resulted 08/22/17 - Final, Resulted 08/22/17 - Final, Resulted 08/22/17 Gram Stain Evaluation - Final, Resulted 08/22/17 Sputum Culture - Preliminary, Resulted 08/22/17 Sputum Result 1 - Final, Resulted Review of Systems Constitutional: yes: weakness, alert, oriented Ears/Nose/Throat: Yes: no symptom reported Eyes: Yes: no symptom reported Pulmonary: Yes no symptom reported Cardiovascular: Yes no symptom reported Gastrointestional: Yes: no symptom reported Genitourinary: Yes: no symptom reported Musculoskeletal: Yes: no symptom reported Skin: Yes no symptom reported Physical Exam General Appearance: no apparent distress Skin: warm Respiratory: bilateral CTA Heart: S1S2, RRR, no thrills Abdomen: soft, bowel sounds present Extremities: pulses present, no edema, atrophy Neurology: alert, oriented, follow commands Assessment Assessment IMP BURT - RESOLVED LOW K - REPLACED PNEUMONIA NSTEMI ANEMIA HTN PLAN WILL SIGN OFF PLEASE CALL IF NEEDED MINNIE RUBIO MD Aug 26, 2017 10:53
--- NOTE | 2017-08-26 13:28 | PDOC ---
PULMONARY PROGRESS NOTES Subjective unchanged weakness and dyspnea hemoptysis persistent off heparin but on plavix/ ASA Vitals Vital Signs Date Time Temp Pulse Resp B/P (MAP) Pulse Ox O2 Delivery O2 Flow Rate FiO2 08/26/17 10:45 98.1 75 19 145/64 (91) 96 Nasal Cannula 3.0 98.1 ROS: No Nausea, No Chest Pain, No Abdominal Pain, No Increase Cough General: Alert, No acute distress HEENT: Other Lungs: Crackles (bases) Cardiovascular: S1, S2 Abdomen: Soft, Non-tender Neuro Exam: Alert Extremities: No Edema Skin: Warm Labs Laboratory Tests Test 08/25/17 06:05 08/26/17 05:55 Heparin Anti-Xa Act, Unfractionated < 0.10 IU/mL (0.30-0.70) Sodium Level 135 mmol/L (136-145) 138 mmol/L (136-145) Potassium Level 3.6 mmol/L (3.5-5.1) 2.8 mmol/L (3.5-5.1) Chloride Level 101 mmol/L (98-107) 102 mmol/L (98-107) Carbon Dioxide Level 28 mmol/L (21-32) 29 mmol/L (21-32) Anion Gap 6 (6-14) 7 (6-14) Blood Urea Nitrogen 11 mg/dL (8-26) 11 mg/dL (8-26) Creatinine 1.3 mg/dL (0.7-1.3) 1.3 mg/dL (0.7-1.3) Estimated GFR (Cockcroft-Gault) 54.4 54.4 Glucose Level 99 mg/dL (70-99) 93 mg/dL (70-99) Calcium Level 9.0 mg/dL (8.5-10.1) 8.9 mg/dL (8.5-10.1) Phosphorus Level 3.6 mg/dL (2.6-4.7) 3.4 mg/dL (2.6-4.7) Magnesium Level 2.0 mg/dL (1.8-2.4) 1.7 mg/dL (1.8-2.4) Albumin 2.5 g/dL (3.4-5.0) 2.5 g/dL (3.4-5.0) White Blood Count 6.3 x10^3/uL (4.0-11.0) Red Blood Count 2.75 x10^6/uL (4.30-5.70) Hemoglobin 7.8 g/dL (13.0-17.5) Hematocrit 24.5 % (39.0-53.0) Mean Corpuscular Volume 89 fL (79-100) Mean Corpuscular Hemoglobin 28 pg (25-35) Mean Corpuscular Hemoglobin Concent 32 g/dL (31-37) Red Cell Distribution Width 18.2 % (11.5-14.5) Platelet Count 150 x10^3/uL (140-400) Laboratory Tests Test 08/26/17 05:55 White Blood Count 6.3 x10^3/uL (4.0-11.0) Red Blood Count 2.75 x10^6/uL (4.30-5.70) Hemoglobin 7.8 g/dL (13.0-17.5) Hematocrit 24.5 % (39.0-53.0) Mean Corpuscular Volume 89 fL (79-100) Mean Corpuscular Hemoglobin 28 pg (25-35) Mean Corpuscular Hemoglobin Concent 32 g/dL (31-37) Red Cell Distribution Width 18.2 % (11.5-14.5) Platelet Count 150 x10^3/uL (140-400) Sodium Level 138 mmol/L (136-145) Potassium Level 2.8 mmol/L (3.5-5.1) Chloride Level 102 mmol/L (98-107) Carbon Dioxide Level 29 mmol/L (21-32) Anion Gap 7 (6-14) Blood Urea Nitrogen 11 mg/dL (8-26) Creatinine 1.3 mg/dL (0.7-1.3) Estimated GFR (Cockcroft-Gault) 54.4 Glucose Level 93 mg/dL (70-99) Calcium Level 8.9 mg/dL (8.5-10.1) Phosphorus Level 3.4 mg/dL (2.6-4.7) Magnesium Level 1.7 mg/dL (1.8-2.4) Albumin 2.5 g/dL (3.4-5.0) Medications Active Scripts Medications Dose Route/Sig Max Daily Dose Days Date Category Ventolin Hfa Inhaler (Albuterol Sulfate) 18 Gm Hfa.aer.ad 2 Puff INH Q4HRS 03/06/17 Reported Xtandi (Enzalutamide) 40 Mg Capsule 160 Mg PO DAILY@1000 03/06/17 Reported Vitamin D3 (Cholecalciferol (Vitamin D3)) 1,000 Unit Tablet 1 Tab PO DAILY 03/06/17 Reported Calcium + Vitamin D Tablet (Calcium Carbonate/Vitamin D3) 1 Each Tablet 1 Each PO BID 03/06/17 Reported [lupron] 09/16/16 Reported Zytiga (Abiraterone Acetate) 250 Mg Tablet 1,000 Mg PO DAILY@1700 09/16/16 Reported Vitamin D (Cholecalciferol (Vitamin D3)) 1,000 Unit Capsule 1,000 Unit PO 09/16/16 Reported Senokot-S Tablet (Sennosides/Docusate Sodium) 1 Each Tablet 1 Each PO 09/16/16 Reported Protonix (Pantoprazole Sodium) 40 Mg Tablet.dr 40 Mg PO DAILY 09/16/16 Reported Symbicort 160-4.5 Mcg Inhaler (Budesonide/Formoterol Fumarate) 10.2 Gm Hfa.aer.ad 2 Puff IH BID 10/12/14 Reported Prednisone 20 Mg Tablet 5 Mg PO BID 10/12/14 Reported Klor-Con M20 (Potassium Chloride) 20 Meq Tab.er.prt 10 Meq PO DAILY 10/10/14 Reported Furosemide 40 Mg Tablet 40 Mg PO DAILY 10/10/14 Reported Simvastatin 40 Mg Tablet 40 Mg PO HS 10/10/14 Reported Aspir 81 (Aspirin) 81 Mg Tablet.dr 81 Mg PO DAILY 10/10/14 Reported Clopidogrel (Clopidogrel Bisulfate) 75 Mg Tablet 75 Mg PO DAILY 10/10/14 Reported Spiriva (Tiotropium Gentry) 18 Mcg Cap.w.dev 2 Inh IH DAILY 10/10/14 Reported Metoprolol Succinate ( Xl ) (Metoprolol Succinate) 25 Mg Tab.er.24h 25 Mg PO DAILY 10/10/14 Reported Gabapentin 600 Mg Tablet 600 Mg PO BID 10/10/14 Reported Impression . 1. Acute respiratory failure, multifactorial, present upon admission. 2. Bibasilar interstitial infiltrates on ct c/o CHF /pneumonia. Nodular density RLL. Continue broad spectrum antibiotics. still hemoptysis, on plavix 3. Gram-negative and gram-positive pneumonia. 4. Acute on chronic kidney injury. 5. Prostate cancer, recurrent disease. 6. Coronary artery disease, presents with chest pain, non-ST segment elevation myocardial infarction. Initial troponin was elevated. 7. Peripheral arterial disease, status post stent placement to the left superficial femoral artery. 8. Chronic diastolic heart failure. 9. Chronic obstructive pulmonary disease. 10. Secondary pulmonary hypertension. 11. Anemia, off heparin 12 NSTEMI: CP free.peaked troponin 2.1.Possibly demand mediated but suspicion of ischemia as well with new LBBB. Normal EF and wall motion 3. CAD: CABGx3. S/P PTCA OM of LCx 09/2016. Plan . 1.OFF HEPARIN / STILL HEMOPTYSIS, ON PLAVIX/ASA/ WILL ASK CARDIOLOGY IF PLAVIX CAN BE ON HOLD FOR FEW DAYS 2. WILL NEED A F/U CT IN 4-6 WEEKS 3. CONTINUE ANTIBX 4. FOLLOW CARD / STRESS TEST IN AM 5. SPOKE WITH RN 6. INCREASE ORAL INTAKE 7. ANEMIA W/U PER PCP MARIETTA YI MD Aug 26, 2017 13:28
[2017-08-26 14:57] VITALS: BP 162/72
[2017-08-26 19:55] VITALS: BP 168/75
[2017-08-26] MEDS: ATORVASTATIN CALCIUM 40 MG TABLET. PO SCH (21:33)
[2017-08-26] MEDS: ALPRAZolam 0.25 MG TABLET PO PRN (21:38)
[2017-08-26 23:00] VITALS: BP 174/77
[2017-08-27 03:30] VITALS: BP 192/86
[2017-08-27] MEDS: hydrALAZINE 20 MG/ML VIAL. IVP PRN (03:40)
[2017-08-27] MEDS: PIPERACILLIN/TAZO IV Push 3.375 GM VIAL. IVP SCH ×5 (06:12→23:50)
[2017-08-27] MEDS: HYDROCORTISONE SOD SUCC/PF 100 MG/2 ML VIAL. IV SCH (06:13)
[2017-08-27] MEDS: LABETALOL 20 MG/4 ML DISP.SYRIN. IVP PRN ×2 (06:44→23:51)
[2017-08-27 07:00] VITALS: BP 142/64
[2017-08-27 07:51] LABS: BASO % 0 % (0-3); EOS % 2 % (0-3); HEMATOCRIT 25.8 % (39.0-53.0); HEMOGLOBIN 8.3 g/dL (13.0-17.5); LYMPH # 0.4 x10^3/uL (1.0-4.8); LYMPH % 5 % (24-48); MEAN CORPUSCULAR HEMOGLOBIN 28 pg (25-35); MEAN CORPUSCULAR HGB CONC 32 g/dL (31-37); MEAN CORPUSCULAR VOLUME 89 fL (79-100); MONO % 9 % (0-9); NEUT % 84 % (31-73); PLATELET COUNT 161 x10^3/uL (140-400); RED BLOOD COUNT 2.91 x10^6/uL (4.30-5.70); RED CELL DISTRIBUTION WIDTH 18.7 % (11.5-14.5); WHITE BLOOD COUNT 8.3 x10^3/uL (4.0-11.0)
[2017-08-27 07:54] LABS: ALBUMIN 2.7 g/dL (3.4-5.0); ALBUMIN/GLOBULIN RATIO 0.7 (1.0-1.7); CALCIUM 8.6 mg/dL (8.5-10.1); CREATININE 1.3 mg/dL (0.7-1.3); GFR 54.4; MAGNESIUM 1.4 mg/dL (1.8-2.4); PHOSPHORUS 3.1 mg/dL (2.6-4.7); TOTAL BILIRUBIN 1.1 mg/dL (0.2-1.0); TOTAL PROTEIN 6.5 g/dL (6.4-8.2)
[2017-08-27 07:58] LABS: POTASSIUM 2.7 mmol/L (3.5-5.1)
--- NOTE | 2017-08-27 08:25 | PDOC ---
Infectious Disease Note Subjective Subjective Discouraged Less nausea + hemoptysis ROS ROS GEN: Denies fevers, chills, sweats HEENT: Denies blurred vision, sore throat CV: Denies chest pain RESP: Denies shortness of air GI: Denies d NEURO: Denies confusion, dizziness MSK: Denies weakness, joint pain/swelling Vital Sign Vital Signs Vital Signs Date Time Temp Pulse Resp B/P (MAP) Pulse Ox O2 Delivery O2 Flow Rate FiO2 08/27/17 07:00 98.0 76 18 142/64 (90) 92 Nasal Cannula 3.0 98.0 Physical Exam PHYSICAL EXAM GENERAL: NAD, Alert HEENT: PERRL, OC/OP NECK: Supple, no JVD, no LN LUNGS: Clear HEART: S1S2, no gallop, no murmur ABD: Soft, NT, no organomegaly, no rebound EXT: No edema, no cyanosis SYSTEMS DESIGN ENGINEER: Alert, oriented x 3, no focal neurologic deficit SKIN: No rash IV: ok Labs Lab Laboratory Tests Test 08/27/17 06:55 White Blood Count 8.3 x10^3/uL (4.0-11.0) Red Blood Count 2.91 x10^6/uL (4.30-5.70) Hemoglobin 8.3 g/dL (13.0-17.5) Hematocrit 25.8 % (39.0-53.0) Mean Corpuscular Volume 89 fL (79-100) Mean Corpuscular Hemoglobin 28 pg (25-35) Mean Corpuscular Hemoglobin Concent 32 g/dL (31-37) Red Cell Distribution Width 18.7 % (11.5-14.5) Platelet Count 161 x10^3/uL (140-400) Neutrophils (%) (Auto) 84 % (31-73) Lymphocytes (%) (Auto) 5 % (24-48) Monocytes (%) (Auto) 9 % (0-9) Eosinophils (%) (Auto) 2 % (0-3) Basophils (%) (Auto) 0 % (0-3) Neutrophils # (Auto) 7.0 x10^3uL (1.8-7.7) Lymphocytes # (Auto) 0.4 x10^3/uL (1.0-4.8) Monocytes # (Auto) 0.8 x10^3/uL (0.0-1.1) Eosinophils # (Auto) 0.1 x10^3/uL (0.0-0.7) Basophils # (Auto) 0.0 x10^3/uL (0.0-0.2) Sodium Level 138 mmol/L (136-145) Potassium Level 2.7 mmol/L (3.5-5.1) Chloride Level 100 mmol/L (98-107) Carbon Dioxide Level 27 mmol/L (21-32) Anion Gap 11 (6-14) Blood Urea Nitrogen 10 mg/dL (8-26) Creatinine 1.3 mg/dL (0.7-1.3) Estimated GFR (Cockcroft-Gault) 54.4 BUN/Creatinine Ratio 8 (6-20) Glucose Level 96 mg/dL (70-99) Calcium Level 8.6 mg/dL (8.5-10.1) Phosphorus Level 3.1 mg/dL (2.6-4.7) Magnesium Level 1.4 mg/dL (1.8-2.4) Total Bilirubin 1.1 mg/dL (0.2-1.0) Aspartate Amino Transf (AST/SGOT) 29 U/L (15-37) Alanine Aminotransferase (ALT/SGPT) 32 U/L (16-63) Alkaline Phosphatase 39 U/L (46-116) Total Protein 6.5 g/dL (6.4-8.2) Albumin 2.7 g/dL (3.4-5.0) Albumin/Globulin Ratio 0.7 (1.0-1.7) Objective Assessment Bibasilar interstitial and nodular lung infiltrates, pneumonia not ruled out; cults neg. - influenza/strep antigen negative Hemoptysis Anemia Leukocytosis/bandemia,improving Fever and chills, prior to admission - none here BURT, renal following NSTEMI, cardiology following ? Adrenal Insufficiency, on steroids Metastatic prostate cancer on Zytiga & Xtandi along w/ prednisone Plan Plan of Care Anemia/nausea per primary continue Zosyn (08/21) wean soon Await cardiology work up Cont probiotics f/u am labs D/w CONCETTA MANZANO MD Aug 27, 2017 08:25
[2017-08-27] MEDS ORDERED: POTASSIUM CHLORIDE 20 MEQ TABLET.ER. PO ONE (08:45)
[2017-08-27] MEDS ORDERED: MAGNESIUM SULFATE 4GM 100 ML IV ONE (09:00)
[2017-08-27] MEDS: SERTRALINE 50 MG TABLET. PO SCH (09:00)
--- NOTE | 2017-08-27 09:43 | PDOC ---
Provider Note Provider Note vss, no temp, labs stable- will add remeron in place of zoloft re anorexia SETF ROYAL MD Aug 27, 2017 09:43
[2017-08-27] MEDS: amLODIPine BESYLATE 10 MG TABLET PO SCH (10:15)
[2017-08-27] MEDS: LACTOBACILLUS RHAMNOSUS GG 1 CAPSULE. PO SCH ×2 (10:15→20:15)
[2017-08-27] MEDS: METOPROLOL SUCC 24HR ER 50 MG TAB.ER.24H. PO SCH (10:16)
[2017-08-27] MEDS: PANTOPRAZOLE 40 MG TABLET.DR. PO SCH (10:17)
[2017-08-27] MEDS: ISOSORBIDE MONONITRATE ER 30 MG TAB.ER.24H PO SCH (10:17)
[2017-08-27 11:00] VITALS: BP 173/70
--- NOTE | 2017-08-27 12:30 | PDOC ---
PULMONARY PROGRESS NOTES Subjective feels better no further hemoptysis after dc plavix Vitals Vital Signs Date Time Temp Pulse Resp B/P (MAP) Pulse Ox O2 Delivery O2 Flow Rate FiO2 08/27/17 11:00 97.9 76 18 173/70 (104) 98 Nasal Cannula 3.0 97.9 ROS: No Nausea, No Chest Pain, No Abdominal Pain, No Increase Cough General: Alert, No acute distress HEENT: Other Lungs: Crackles (bases) Cardiovascular: S1, S2 Abdomen: Soft, Non-tender Neuro Exam: Alert Extremities: No Edema Skin: Warm Labs Laboratory Tests Test 08/26/17 05:55 08/27/17 06:55 White Blood Count 6.3 x10^3/uL (4.0-11.0) 8.3 x10^3/uL (4.0-11.0) Red Blood Count 2.75 x10^6/uL (4.30-5.70) 2.91 x10^6/uL (4.30-5.70) Hemoglobin 7.8 g/dL (13.0-17.5) 8.3 g/dL (13.0-17.5) Hematocrit 24.5 % (39.0-53.0) 25.8 % (39.0-53.0) Mean Corpuscular Volume 89 fL (79-100) 89 fL (79-100) Mean Corpuscular Hemoglobin 28 pg (25-35) 28 pg (25-35) Mean Corpuscular Hemoglobin Concent 32 g/dL (31-37) 32 g/dL (31-37) Red Cell Distribution Width 18.2 % (11.5-14.5) 18.7 % (11.5-14.5) Platelet Count 150 x10^3/uL (140-400) 161 x10^3/uL (140-400) Sodium Level 138 mmol/L (136-145) 138 mmol/L (136-145) Potassium Level 2.8 mmol/L (3.5-5.1) 2.7 mmol/L (3.5-5.1) Chloride Level 102 mmol/L (98-107) 100 mmol/L (98-107) Carbon Dioxide Level 29 mmol/L (21-32) 27 mmol/L (21-32) Anion Gap 7 (6-14) 11 (6-14) Blood Urea Nitrogen 11 mg/dL (8-26) 10 mg/dL (8-26) Creatinine 1.3 mg/dL (0.7-1.3) 1.3 mg/dL (0.7-1.3) Estimated GFR (Cockcroft-Gault) 54.4 54.4 Glucose Level 93 mg/dL (70-99) 96 mg/dL (70-99) Calcium Level 8.9 mg/dL (8.5-10.1) 8.6 mg/dL (8.5-10.1) Phosphorus Level 3.4 mg/dL (2.6-4.7) 3.1 mg/dL (2.6-4.7) Magnesium Level 1.7 mg/dL (1.8-2.4) 1.4 mg/dL (1.8-2.4) Albumin 2.5 g/dL (3.4-5.0) 2.7 g/dL (3.4-5.0) Neutrophils (%) (Auto) 84 % (31-73) Lymphocytes (%) (Auto) 5 % (24-48) Monocytes (%) (Auto) 9 % (0-9) Eosinophils (%) (Auto) 2 % (0-3) Basophils (%) (Auto) 0 % (0-3) Neutrophils # (Auto) 7.0 x10^3uL (1.8-7.7) Lymphocytes # (Auto) 0.4 x10^3/uL (1.0-4.8) Monocytes # (Auto) 0.8 x10^3/uL (0.0-1.1) Eosinophils # (Auto) 0.1 x10^3/uL (0.0-0.7) Basophils # (Auto) 0.0 x10^3/uL (0.0-0.2) BUN/Creatinine Ratio 8 (6-20) Total Bilirubin 1.1 mg/dL (0.2-1.0) Aspartate Amino Transf (AST/SGOT) 29 U/L (15-37) Alanine Aminotransferase (ALT/SGPT) 32 U/L (16-63) Alkaline Phosphatase 39 U/L (46-116) Total Protein 6.5 g/dL (6.4-8.2) Albumin/Globulin Ratio 0.7 (1.0-1.7) Laboratory Tests Test 08/27/17 06:55 White Blood Count 8.3 x10^3/uL (4.0-11.0) Red Blood Count 2.91 x10^6/uL (4.30-5.70) Hemoglobin 8.3 g/dL (13.0-17.5) Hematocrit 25.8 % (39.0-53.0) Mean Corpuscular Volume 89 fL (79-100) Mean Corpuscular Hemoglobin 28 pg (25-35) Mean Corpuscular Hemoglobin Concent 32 g/dL (31-37) Red Cell Distribution Width 18.7 % (11.5-14.5) Platelet Count 161 x10^3/uL (140-400) Neutrophils (%) (Auto) 84 % (31-73) Lymphocytes (%) (Auto) 5 % (24-48) Monocytes (%) (Auto) 9 % (0-9) Eosinophils (%) (Auto) 2 % (0-3) Basophils (%) (Auto) 0 % (0-3) Neutrophils # (Auto) 7.0 x10^3uL (1.8-7.7) Lymphocytes # (Auto) 0.4 x10^3/uL (1.0-4.8) Monocytes # (Auto) 0.8 x10^3/uL (0.0-1.1) Eosinophils # (Auto) 0.1 x10^3/uL (0.0-0.7) Basophils # (Auto) 0.0 x10^3/uL (0.0-0.2) Sodium Level 138 mmol/L (136-145) Potassium Level 2.7 mmol/L (3.5-5.1) Chloride Level 100 mmol/L (98-107) Carbon Dioxide Level 27 mmol/L (21-32) Anion Gap 11 (6-14) Blood Urea Nitrogen 10 mg/dL (8-26) Creatinine 1.3 mg/dL (0.7-1.3) Estimated GFR (Cockcroft-Gault) 54.4 BUN/Creatinine Ratio 8 (6-20) Glucose Level 96 mg/dL (70-99) Calcium Level 8.6 mg/dL (8.5-10.1) Phosphorus Level 3.1 mg/dL (2.6-4.7) Magnesium Level 1.4 mg/dL (1.8-2.4) Total Bilirubin 1.1 mg/dL (0.2-1.0) Aspartate Amino Transf (AST/SGOT) 29 U/L (15-37) Alanine Aminotransferase (ALT/SGPT) 32 U/L (16-63) Alkaline Phosphatase 39 U/L (46-116) Total Protein 6.5 g/dL (6.4-8.2) Albumin 2.7 g/dL (3.4-5.0) Albumin/Globulin Ratio 0.7 (1.0-1.7) Medications Active Scripts Medications Dose Route/Sig Max Daily Dose Days Date Category Ventolin Hfa Inhaler (Albuterol Sulfate) 18 Gm Hfa.aer.ad 2 Puff INH Q4HRS 03/06/17 Reported Xtandi (Enzalutamide) 40 Mg Capsule 160 Mg PO DAILY@1000 03/06/17 Reported Vitamin D3 (Cholecalciferol (Vitamin D3)) 1,000 Unit Tablet 1 Tab PO DAILY 03/06/17 Reported Calcium + Vitamin D Tablet (Calcium Carbonate/Vitamin D3) 1 Each Tablet 1 Each PO BID 03/06/17 Reported [lupron] 09/16/16 Reported Zytiga (Abiraterone Acetate) 250 Mg Tablet 1,000 Mg PO DAILY@1700 09/16/16 Reported Vitamin D (Cholecalciferol (Vitamin D3)) 1,000 Unit Capsule 1,000 Unit PO 09/16/16 Reported Senokot-S Tablet (Sennosides/Docusate Sodium) 1 Each Tablet 1 Each PO 09/16/16 Reported Protonix (Pantoprazole Sodium) 40 Mg Tablet.dr 40 Mg PO DAILY 09/16/16 Reported Symbicort 160-4.5 Mcg Inhaler (Budesonide/Formoterol Fumarate) 10.2 Gm Hfa.aer.ad 2 Puff IH BID 10/12/14 Reported Prednisone 20 Mg Tablet 5 Mg PO BID 10/12/14 Reported Klor-Con M20 (Potassium Chloride) 20 Meq Tab.er.prt 10 Meq PO DAILY 10/10/14 Reported Furosemide 40 Mg Tablet 40 Mg PO DAILY 10/10/14 Reported Simvastatin 40 Mg Tablet 40 Mg PO HS 10/10/14 Reported Aspir 81 (Aspirin) 81 Mg Tablet.dr 81 Mg PO DAILY 10/10/14 Reported Clopidogrel (Clopidogrel Bisulfate) 75 Mg Tablet 75 Mg PO DAILY 10/10/14 Reported Spiriva (Tiotropium [place]) 18 Mcg Cap.w.dev 2 Inh IH DAILY 10/10/14 Reported Metoprolol Succinate ( Xl ) (Metoprolol Succinate) 25 Mg Tab.er.24h 25 Mg PO DAILY 10/10/14 Reported Gabapentin 600 Mg Tablet 600 Mg PO BID 10/10/14 Reported Impression . 1. Acute respiratory failure, multifactorial, present upon admission. 2. Bibasilar interstitial infiltrates on ct . Nodular density RLL.radiographic increase in infiltrates on ct is probably due to alveolar blood. hemoptysis resolved since off plavix 3. suspected Gram-negative and gram-positive pneumonia. 4. Acute on chronic kidney injury. 5. Prostate cancer, recurrent disease. 6. Coronary artery disease, presents with chest pain, non-ST segment elevation myocardial infarction. Initial troponin was elevated. 7. Peripheral arterial disease, status post stent placement to the left superficial femoral artery. 8. Chronic diastolic heart failure. 9. Chronic obstructive pulmonary disease. 10. Secondary pulmonary hypertension. 11. Anemia, 12 NSTEMI: CP free.peaked troponin 2.1.Possibly demand mediated but suspicion of ischemia as well with new LBBB. Normal EF and wall motion 3. CAD: CABGx3. S/P PTCA OM of LCx 09/2016. Plan . 1.OFF PLAVIX. RESOLVED HEMOPTYSIS, D/W CARDIOLOGY 2. WILL NEED A F/U CT IN 4-6 WEEKS 3. CONTINUE ANTIBX/ CHANGE TO PO 4. FOLLOW CARD / STRESS TEST 5. SPOKE WITH RN 6. INCREASE ORAL INTAKE 7. ANEMIA W/U PER PCP 8. PT 9. TAPER OFF STEROIDS MARIETTA YI MD Aug 27, 2017 12:30
[2017-08-27] MEDS ORDERED: PIP/TAZO PER PHARMACY MC PRN (12:45)
[2017-08-27] MEDS: predniSONE 20 MG TABLET PO SCH (14:04)
[2017-08-27] MEDS: POTASSIUM CHLORIDE 20 MEQ TABLET.ER. PO SCH ×2 (14:05→18:06)
[2017-08-27 15:00] VITALS: BP 147/64
--- NOTE | 2017-08-27 16:00 | PDOC ---
PRAFUL LI TILE LAYER SUPERVISOR 08/27/17 1559: CARDIO Progress Notes Date and Time Date of Service 08/27/2017 Time of Evaluation 1530 Subjective Subjective: No Chest Pain, No shortness of breath, No Palpitations, Other ( laying flat, denies orthopnea, feels a little better today) Vitals Vitals Vital Signs Date Time Temp Pulse Resp B/P (MAP) Pulse Ox O2 Delivery O2 Flow Rate FiO2 08/27/17 11:00 97.9 76 18 173/70 (104) 98 Nasal Cannula 3.0 97.9 Weight Weight [ ] Input and Output Intake and Output Intake and Output 08/27/17 07:00 Intake Total 1290 ml Output Total 800 ml Balance 490 ml Intake Oral 1290 ml Output Urine Total 800 ml # Voids 1 # Bowel Movements 2 Laboratory Labs Laboratory Tests Test 08/27/17 06:55 White Blood Count 8.3 x10^3/uL (4.0-11.0) Red Blood Count 2.91 x10^6/uL (4.30-5.70) Hemoglobin 8.3 g/dL (13.0-17.5) Hematocrit 25.8 % (39.0-53.0) Mean Corpuscular Volume 89 fL (79-100) Mean Corpuscular Hemoglobin 28 pg (25-35) Mean Corpuscular Hemoglobin Concent 32 g/dL (31-37) Red Cell Distribution Width 18.7 % (11.5-14.5) Platelet Count 161 x10^3/uL (140-400) Neutrophils (%) (Auto) 84 % (31-73) Lymphocytes (%) (Auto) 5 % (24-48) Monocytes (%) (Auto) 9 % (0-9) Eosinophils (%) (Auto) 2 % (0-3) Basophils (%) (Auto) 0 % (0-3) Neutrophils # (Auto) 7.0 x10^3uL (1.8-7.7) Lymphocytes # (Auto) 0.4 x10^3/uL (1.0-4.8) Monocytes # (Auto) 0.8 x10^3/uL (0.0-1.1) Eosinophils # (Auto) 0.1 x10^3/uL (0.0-0.7) Basophils # (Auto) 0.0 x10^3/uL (0.0-0.2) Sodium Level 138 mmol/L (136-145) Potassium Level 2.7 mmol/L (3.5-5.1) Chloride Level 100 mmol/L (98-107) Carbon Dioxide Level 27 mmol/L (21-32) Anion Gap 11 (6-14) Blood Urea Nitrogen 10 mg/dL (8-26) Creatinine 1.3 mg/dL (0.7-1.3) Estimated GFR (Cockcroft-Gault) 54.4 BUN/Creatinine Ratio 8 (6-20) Glucose Level 96 mg/dL (70-99) Calcium Level 8.6 mg/dL (8.5-10.1) Phosphorus Level 3.1 mg/dL (2.6-4.7) Magnesium Level 1.4 mg/dL (1.8-2.4) Total Bilirubin 1.1 mg/dL (0.2-1.0) Aspartate Amino Transf (AST/SGOT) 29 U/L (15-37) Alanine Aminotransferase (ALT/SGPT) 32 U/L (16-63) Alkaline Phosphatase 39 U/L (46-116) Total Protein 6.5 g/dL (6.4-8.2) Albumin 2.7 g/dL (3.4-5.0) Albumin/Globulin Ratio 0.7 (1.0-1.7) Microbiology Micro Microbiology 08/21/17 Blood Culture - Final, Complete NO GROWTH AFTER 5 DAYS 08/22/17 - Final, Complete 08/22/17 - Final, Complete 08/22/17 - Final, Complete 08/22/17 Gram Stain Evaluation - Final, Complete 08/22/17 Sputum Culture - Final, Complete 08/22/17 Sputum Result 1 - Final, Complete Review of Systems Constitutional: yes: weakness, alert, oriented Ears/Nose/Throat: Yes: no symptom reported Eyes: Yes: no symptom reported Pulmonary: Yes no symptom reported Cardiovascular: Yes no symptom reported Gastrointestional: Yes: no symptom reported Genitourinary: Yes: no symptom reported Musculoskeletal: Yes: no symptom reported Skin: Yes no symptom reported Physical Exam HEENT: Neck Supple W Full Motion Chest: Symmetric LUNGS: Other (diminished bases. Faint bibasilar crackles) Heart: S1S2, RRR (SR) Abdomen: Soft N/T Extremities: No Calf Tenderness, Other (trace to 1+ bilateral LE edema) Neurology: alert, oriented, follow commands Assessment Assessment 1. CAP/COPD/severe pulmonary HTN: Pulmonary following 2. NSTEMI: possibly demand mediated. New LBBB 3. CAD: CABGx3. S/P PTCA OM of LCx 09/2016. CP free. 4. PAD: recent ANIMAL HOSPITAL CLERK/stent to LSFA. Bilateral LE without claudication symptoms. 5. CKD: Cr much better at 1.3. Nephrology following 6. Chronic diastolic CHF: compensated 7. HTN: labile 8. HLP 9. Prostate CA with metastasis 10. Normocytic Anemia: Hgb 8.1. Noted with hemoptysis. Plavix on hold Recommendations 1. Discussed with pulmonary will tentatively resume plavix in 3 days. MPI tomorrow. 2. Continue with secondary prevention measures 3. Continue current regimen and start on routine hydralazine. CHRIS LOUIS MD 08/27/17 1601: CARDIO Progress Notes Assessment Assessment Patient seen and examined. Agree with SPORTS CARTOONIST's assessment and plan. DAPT on hold secondary to hemoptysis with plans to resume Plavix in 2-3 days. Plan for Lexiscan nuclear stress test tomorrow to rule out ischemia. PRAFUL LI APRN Aug 27, 2017 15:59 CHRIS LOUIS MD Aug 27, 2017 16:01
[2017-08-27 19:35] VITALS: BP 144/64
[2017-08-27] MEDS: MIRTAZAPINE 15 MG TABLET PO SCH (20:15)
[2017-08-27] MEDS: ALPRAZolam 0.25 MG TABLET PO PRN (20:16)
[2017-08-27] MEDS: ATORVASTATIN CALCIUM 40 MG TABLET. PO SCH (20:34)
[2017-08-27 23:27] VITALS: BP 193/77
[2017-08-28] MEDS ORDERED: HYDROcodone/APAP 5/325MG 1 TAB TABLET PO PRN
[2017-08-28 03:30] VITALS: BP 172/73
[2017-08-28 06:09] LABS: ALBUMIN 2.6 g/dL (3.4-5.0); CALCIUM 8.8 mg/dL (8.5-10.1); CREATININE 1.3 mg/dL (0.7-1.3); GFR 54.4; PHOSPHORUS 3.2 mg/dL (2.6-4.7); POTASSIUM 3.5 mmol/L (3.5-5.1)
[2017-08-28] MEDS: PIPERACILLIN/TAZO IV Push 3.375 GM VIAL. IVP SCH (06:13)
[2017-08-28] MEDS: hydrALAZINE 20 MG/ML VIAL. IVP PRN (06:13)
[2017-08-28 07:00] VITALS: BP 131/56
[2017-08-28] MEDS ORDERED: REGADENOSON 0.4 MG/5 ML DISP.SYRIN. IV ONE (07:45)
--- NOTE | 2017-08-28 09:23 | PDOC ---
Infectious Disease Note Subjective Subjective Better No Hemoptysis Ate more ROS ROS GEN: Denies fevers, chills, sweats HEENT: Denies blurred vision, sore throat CV: Denies chest pain RESP: Denies shortness of air, cough GI: Denies n/v/d NEURO: Denies confusion, dizziness MSK: Denies weakness, joint pain/swelling Vital Sign Vital Signs Vital Signs Date Time Temp Pulse Resp B/P (MAP) Pulse Ox O2 Delivery O2 Flow Rate FiO2 08/28/17 07:00 97.6 78 20 131/56 (81) 96 Nasal Cannula 3.0 97.6 Physical Exam PHYSICAL EXAM GENERAL: NAD, Alert HEENT: PERRL NECK: Supple, no JVD, no LN LUNGS: Clear HEART: S1S2, no gallop, no murmur ABD: Soft, NT, no organomegaly, no rebound EXT: No edema, no cyanosis FENCE SUPERVISOR: Alert, oriented x 3, no focal neurologic deficit SKIN: No rash IV: ok Labs Lab Laboratory Tests Test 08/28/17 04:45 Sodium Level 139 mmol/L (136-145) Potassium Level 3.5 mmol/L (3.5-5.1) Chloride Level 103 mmol/L (98-107) Carbon Dioxide Level 27 mmol/L (21-32) Anion Gap 9 (6-14) Blood Urea Nitrogen 12 mg/dL (8-26) Creatinine 1.3 mg/dL (0.7-1.3) Estimated GFR (Cockcroft-Gault) 54.4 Glucose Level 117 mg/dL (70-99) Calcium Level 8.8 mg/dL (8.5-10.1) Phosphorus Level 3.2 mg/dL (2.6-4.7) Albumin 2.6 g/dL (3.4-5.0) Objective Assessment Bibasilar interstitial and nodular lung infiltrates, pneumonia not ruled out; cults neg. - influenza/strep antigen negative Hemoptysis Anemia Leukocytosis/bandemia,improving Fever and chills, prior to admission - none here BURT, renal following NSTEMI, cardiology following ? Adrenal Insufficiency, on steroids Metastatic prostate cancer on Zytiga & Xtandi along w/ prednisone Plan Plan of Care Discontinue Zosyn (08/21) change to po Augmentin for 2 days to complete 10 days Await cardiology work up - now wants outpatient Cont probiotics Ok to d/c home F/u Dr. Antonio and Dr. Ba D/w D/w CONCETTA Falcon MD Aug 28, 2017 09:23
--- NOTE | 2017-08-28 09:32 | PDOC ---
Provider Note Provider Note vss, slept well , better apetite- hb and K up - repeat lab in am, dc when he is able STEF ROYAL MD Aug 28, 2017 09:32
--- NOTE | 2017-08-28 09:56 | PDOC ---
DARIEL ROBERTS ABATEMENT WORKER 08/28/17 0956: CARDIO Progress Notes Date and Time Date of Service 08/28/17 Time of Evaluation 0937 Subjective Subjective: No Chest Pain, No Palpitations, Other (hemoptysis ) Vitals Vitals Vital Signs Date Time Temp Pulse Resp B/P (MAP) Pulse Ox O2 Delivery O2 Flow Rate FiO2 08/28/17 07:00 97.6 78 20 131/56 (81) 96 Nasal Cannula 3.0 97.6 Weight Weight [ ] Input and Output Intake and Output Intake and Output 08/28/17 07:00 Intake Total 800 ml Output Total 650 ml Balance 150 ml Intake Oral 800 ml Output Urine Total 650 ml Laboratory Labs Laboratory Tests Test 08/28/17 04:45 Sodium Level 139 mmol/L (136-145) Potassium Level 3.5 mmol/L (3.5-5.1) Chloride Level 103 mmol/L (98-107) Carbon Dioxide Level 27 mmol/L (21-32) Anion Gap 9 (6-14) Blood Urea Nitrogen 12 mg/dL (8-26) Creatinine 1.3 mg/dL (0.7-1.3) Estimated GFR (Cockcroft-Gault) 54.4 Glucose Level 117 mg/dL (70-99) Calcium Level 8.8 mg/dL (8.5-10.1) Phosphorus Level 3.2 mg/dL (2.6-4.7) Albumin 2.6 g/dL (3.4-5.0) Microbiology Micro Microbiology 08/21/17 Blood Culture - Final, Complete NO GROWTH AFTER 5 DAYS 08/22/17 - Final, Complete 08/22/17 - Final, Complete 08/22/17 - Final, Complete 08/22/17 Gram Stain Evaluation - Final, Complete 08/22/17 Sputum Culture - Final, Complete 08/22/17 Sputum Result 1 - Final, Complete Review of Systems Constitutional: yes: weakness, alert, oriented Ears/Nose/Throat: Yes: no symptom reported Eyes: Yes: no symptom reported Pulmonary: Yes no symptom reported Cardiovascular: Yes no symptom reported Gastrointestional: Yes: no symptom reported Genitourinary: Yes: no symptom reported Musculoskeletal: Yes: no symptom reported Skin: Yes no symptom reported Physical Exam HEENT: Neck Supple W Full Motion Chest: Symmetric LUNGS: Other (diminished bases. Faint bibasilar crackles) Heart: S1S2, RRR (SR) Abdomen: Soft N/T Extremities: No Calf Tenderness, Other (trace LE edema bilaterally) Neurology: alert, oriented, follow commands Assessment Assessment 1. CAP/COPD/severe pulmonary HTN: Pulmonary following 2. NSTEMI: possibly demand mediated. New LBBB 3. CAD: CABGx3. S/P PTCA OM of LCx 09/2016. CP free. 4. PAD: recent PATHOLOGY TRANSCRIPTIONIST/stent to LSFA. Bilateral LE without claudication symptoms. 5. CKD: Cr improved. Nephrology following 6. Chronic diastolic CHF: compensated 7. HTN: better controlled 8. HLP 9. Prostate CA with metastasis 10. Normocytic Anemia: Hgb 8.3. Continued hemoptysis. Plavix on hold Recommendations 1. Wishes not to proceed with an MPI at this time; will consider at a later date. 2. Continue with secondary prevention measures; resume Plavix in 2-3 days 3. Supportive care. CHRIS LOUIS MD 08/28/17 1342: CARDIO Progress Notes Assessment Assessment Patient seen and examined. Agree with ROUTER OPERATOR RADIAL's assessment and plan. Plavix on hold secondary to hemoptysis. Patient continues to have hemoptysis. Pulmonary team considering bronchoscopy. The option of Lexiscan nuclear stress test to rule out ischemia in lieu of elevated troponin level was discussed with patient. He will like to defer this option for now and consider this as an outpatient. I think this is reasonable considering that his CAD status appears stable clinically and his non-STEMI is most probably demand ischemia. Continue current medical regimen. DARIEL ROBERTS APRN Aug 28, 2017 09:56 CHRIS LOUIS MD Aug 28, 2017 13:42
[2017-08-28 11:00] VITALS: BP 150/78
[2017-08-28] MEDS: AMOXICILLIN/K CLAV 875/125MG TABLET. PO SCH ×2 (11:01→20:45)
[2017-08-28] MEDS: LACTOBACILLUS RHAMNOSUS GG 1 CAPSULE. PO SCH ×2 (11:02→20:45)
[2017-08-28] MEDS: POTASSIUM CHLORIDE 20 MEQ TABLET.ER. PO SCH ×3 (11:02→17:50)
[2017-08-28] MEDS: ISOSORBIDE MONONITRATE ER 30 MG TAB.ER.24H PO SCH (11:03)
[2017-08-28] MEDS: METOPROLOL SUCC 24HR ER 50 MG TAB.ER.24H. PO SCH (11:03)
[2017-08-28] MEDS: PANTOPRAZOLE 40 MG TABLET.DR. PO SCH (11:04)
[2017-08-28] MEDS: amLODIPine BESYLATE 10 MG TABLET PO SCH (11:04)
[2017-08-28] MEDS: predniSONE 20 MG TABLET PO SCH (11:05)
--- NOTE | 2017-08-28 12:22 | PDOC ---
PULMONARY PROGRESS NOTES Subjective feels better no further hemoptysis after dc plavix Vitals Vital Signs Date Time Temp Pulse Resp B/P (MAP) Pulse Ox O2 Delivery O2 Flow Rate FiO2 08/28/17 11:04 78 131/56 08/28/17 11:00 97.8 20 96 Nasal Cannula 3.0 97.8 ROS: No Nausea, No Chest Pain, No Abdominal Pain, No Increase Cough General: Alert, No acute distress HEENT: Other Lungs: Crackles (bases) Cardiovascular: S1, S2 Abdomen: Soft, Non-tender Neuro Exam: Alert Extremities: No Edema Skin: Warm Labs Laboratory Tests Test 08/27/17 06:55 08/28/17 04:45 White Blood Count 8.3 x10^3/uL (4.0-11.0) Red Blood Count 2.91 x10^6/uL (4.30-5.70) Hemoglobin 8.3 g/dL (13.0-17.5) Hematocrit 25.8 % (39.0-53.0) Mean Corpuscular Volume 89 fL (79-100) Mean Corpuscular Hemoglobin 28 pg (25-35) Mean Corpuscular Hemoglobin Concent 32 g/dL (31-37) Red Cell Distribution Width 18.7 % (11.5-14.5) Platelet Count 161 x10^3/uL (140-400) Neutrophils (%) (Auto) 84 % (31-73) Lymphocytes (%) (Auto) 5 % (24-48) Monocytes (%) (Auto) 9 % (0-9) Eosinophils (%) (Auto) 2 % (0-3) Basophils (%) (Auto) 0 % (0-3) Neutrophils # (Auto) 7.0 x10^3uL (1.8-7.7) Lymphocytes # (Auto) 0.4 x10^3/uL (1.0-4.8) Monocytes # (Auto) 0.8 x10^3/uL (0.0-1.1) Eosinophils # (Auto) 0.1 x10^3/uL (0.0-0.7) Basophils # (Auto) 0.0 x10^3/uL (0.0-0.2) Sodium Level 138 mmol/L (136-145) 139 mmol/L (136-145) Potassium Level 2.7 mmol/L (3.5-5.1) 3.5 mmol/L (3.5-5.1) Chloride Level 100 mmol/L (98-107) 103 mmol/L (98-107) Carbon Dioxide Level 27 mmol/L (21-32) 27 mmol/L (21-32) Anion Gap 11 (6-14) 9 (6-14) Blood Urea Nitrogen 10 mg/dL (8-26) 12 mg/dL (8-26) Creatinine 1.3 mg/dL (0.7-1.3) 1.3 mg/dL (0.7-1.3) Estimated GFR (Cockcroft-Gault) 54.4 54.4 BUN/Creatinine Ratio 8 (6-20) Glucose Level 96 mg/dL (70-99) 117 mg/dL (70-99) Calcium Level 8.6 mg/dL (8.5-10.1) 8.8 mg/dL (8.5-10.1) Phosphorus Level 3.1 mg/dL (2.6-4.7) 3.2 mg/dL (2.6-4.7) Magnesium Level 1.4 mg/dL (1.8-2.4) Total Bilirubin 1.1 mg/dL (0.2-1.0) Aspartate Amino Transf (AST/SGOT) 29 U/L (15-37) Alanine Aminotransferase (ALT/SGPT) 32 U/L (16-63) Alkaline Phosphatase 39 U/L (46-116) Total Protein 6.5 g/dL (6.4-8.2) Albumin 2.7 g/dL (3.4-5.0) 2.6 g/dL (3.4-5.0) Albumin/Globulin Ratio 0.7 (1.0-1.7) Laboratory Tests Test 08/28/17 04:45 Sodium Level 139 mmol/L (136-145) Potassium Level 3.5 mmol/L (3.5-5.1) Chloride Level 103 mmol/L (98-107) Carbon Dioxide Level 27 mmol/L (21-32) Anion Gap 9 (6-14) Blood Urea Nitrogen 12 mg/dL (8-26) Creatinine 1.3 mg/dL (0.7-1.3) Estimated GFR (Cockcroft-Gault) 54.4 Glucose Level 117 mg/dL (70-99) Calcium Level 8.8 mg/dL (8.5-10.1) Phosphorus Level 3.2 mg/dL (2.6-4.7) Albumin 2.6 g/dL (3.4-5.0) Medications Active Scripts Medications Dose Route/Sig Max Daily Dose Days Date Category Ventolin Hfa Inhaler (Albuterol Sulfate) 18 Gm Hfa.aer.ad 2 Puff INH Q4HRS 03/06/17 Reported Xtandi (Enzalutamide) 40 Mg Capsule 160 Mg PO DAILY@1000 03/06/17 Reported Vitamin D3 (Cholecalciferol (Vitamin D3)) 1,000 Unit Tablet 1 Tab PO DAILY 03/06/17 Reported Calcium + Vitamin D Tablet (Calcium Carbonate/Vitamin D3) 1 Each Tablet 1 Each PO BID 03/06/17 Reported [lupron] 09/16/16 Reported Zytiga (Abiraterone Acetate) 250 Mg Tablet 1,000 Mg PO DAILY@1700 09/16/16 Reported Vitamin D (Cholecalciferol (Vitamin D3)) 1,000 Unit Capsule 1,000 Unit PO 09/16/16 Reported Senokot-S Tablet (Sennosides/Docusate Sodium) 1 Each Tablet 1 Each PO 09/16/16 Reported Protonix (Pantoprazole Sodium) 40 Mg Tablet.dr 40 Mg PO DAILY 09/16/16 Reported Symbicort 160-4.5 Mcg Inhaler (Budesonide/Formoterol Fumarate) 10.2 Gm Hfa.aer.ad 2 Puff IH BID 10/12/14 Reported Prednisone 20 Mg Tablet 5 Mg PO BID 10/12/14 Reported Klor-Con M20 (Potassium Chloride) 20 Meq Tab.er.prt 10 Meq PO DAILY 10/10/14 Reported Furosemide 40 Mg Tablet 40 Mg PO DAILY 10/10/14 Reported Simvastatin 40 Mg Tablet 40 Mg PO HS 10/10/14 Reported Aspir 81 (Aspirin) 81 Mg Tablet.dr 81 Mg PO DAILY 10/10/14 Reported Clopidogrel (Clopidogrel Bisulfate) 75 Mg Tablet 75 Mg PO DAILY 10/10/14 Reported Spiriva (Tiotropium [place]) 18 Mcg Cap.w.dev 2 Inh IH DAILY 10/10/14 Reported Metoprolol Succinate ( Xl ) (Metoprolol Succinate) 25 Mg Tab.er.24h 25 Mg PO DAILY 10/10/14 Reported Gabapentin 600 Mg Tablet 600 Mg PO BID 10/10/14 Reported Impression . 1. Acute respiratory failure, multifactorial, present upon admission. 2. Bibasilar interstitial infiltrates on ct . Nodular density RLL.radiographic increase in infiltrates on ct is probably due to alveolar blood. hemoptysis resolved since off plavix 3. suspected Gram-negative and gram-positive pneumonia. 4. Acute on chronic kidney injury. 5. Prostate cancer, recurrent disease. 6. Coronary artery disease, presents with chest pain, non-ST segment elevation myocardial infarction. Initial troponin was elevated. 7. Peripheral arterial disease, status post stent placement to the left superficial femoral artery. 8. Chronic diastolic heart failure. 9. Chronic obstructive pulmonary disease. 10. Secondary pulmonary hypertension. 11. Anemia, 12 NSTEMI: CP free.peaked troponin 2.1.Possibly demand mediated but suspicion of ischemia as well with new LBBB. Normal EF and wall motion 3. CAD: CABGx3. S/P PTCA OM of LCx 09/2016. Plan . 1.OFF PLAVIX. RESOLVED HEMOPTYSIS, D/W CARDIOLOGY 2. WILL NEED A F/U CT IN 4-6 WEEKS 3. CONTINUE ANTIBX/ CHANGED TO PO 4. FOLLOW CARD / STRESS TEST 5. SPOKE WITH RN 6. INCREASE ORAL INTAKE 7. ANEMIA W/U PER PCP 8. PT 9. TAPER OFF STEROIDS 10. Consider skill transfer MARIETTA YI MD Aug 28, 2017 12:22
[2017-08-28 15:59] VITALS: BP 149/69
[2017-08-28 19:00] VITALS: BP 137/67
[2017-08-28] MEDS: ATORVASTATIN CALCIUM 40 MG TABLET. PO SCH (20:45)
[2017-08-28] MEDS: MIRTAZAPINE 15 MG TABLET PO SCH (20:45)
[2017-08-28] MEDS: ALPRAZolam 0.25 MG TABLET PO PRN (20:50)
[2017-08-28 22:52] VITALS: BP 179/79
[2017-08-29 02:55] VITALS: BP 201/90
[2017-08-29 05:27] LABS: HEMATOCRIT 25.5 % (39.0-53.0); HEMOGLOBIN 8.2 g/dL (13.0-17.5); RED BLOOD COUNT 2.87 x10^6/uL (4.30-5.70); RED CELL DISTRIBUTION WIDTH 19.7 % (11.5-14.5)
[2017-08-29 06:17] VITALS: BP 184/83
[2017-08-29] MEDS ORDERED: ASPIRIN ENTERIC COATED 81 MG TABLET.DR. PO SCH (08:00)
[2017-08-29] MEDS ORDERED: CLOPIDOGREL BISULFATE 75 MG TABLET PO SCH (08:00)
[2017-08-29] MEDS: PANTOPRAZOLE 40 MG TABLET.DR. PO SCH (08:52)
[2017-08-29] MEDS: amLODIPine BESYLATE 10 MG TABLET PO SCH (08:53)
[2017-08-29] MEDS: POTASSIUM CHLORIDE 20 MEQ TABLET.ER. PO SCH (08:53)
[2017-08-29] MEDS: ISOSORBIDE MONONITRATE ER 30 MG TAB.ER.24H PO SCH (08:54)
[2017-08-29] MEDS: AMOXICILLIN/K CLAV 875/125MG TABLET. PO SCH ×2 (08:54→20:38)
[2017-08-29] MEDS: METOPROLOL SUCC 24HR ER 50 MG TAB.ER.24H. PO SCH (08:54)
[2017-08-29] MEDS: LACTOBACILLUS RHAMNOSUS GG 1 CAPSULE. PO SCH ×2 (08:54→20:38)
[2017-08-29] MEDS: predniSONE 20 MG TABLET PO SCH (08:55)
[2017-08-29] MEDS: IPRATRPIUM/ALBUTEROL 0.5/2.5MG 3 ML NEBU. NEB SCH ×4 (09:37→20:30)
[2017-08-29] MEDS: BUDESONIDE 0.5 MG/2 ML NEBU. NEB SCH ×2 (10:00→20:30)
--- NOTE | 2017-08-29 10:40 | PDOC ---
PULMONARY PROGRESS NOTES Subjective no change persistent hemoptysis after off plavix Vitals Vital Signs Date Time Temp Pulse Resp B/P (MAP) Pulse Ox O2 Delivery O2 Flow Rate FiO2 08/29/17 09:37 94 Nasal Cannula 3.0 08/29/17 08:54 80 184/83 08/29/17 06:17 97.6 18 97.6 ROS: No Nausea, No Chest Pain, No Abdominal Pain, No Increase Cough General: Alert, No acute distress Lungs: Crackles (bases) Cardiovascular: S1, S2 Abdomen: Soft, Non-tender Neuro Exam: Alert Extremities: No Edema Skin: Warm Labs Laboratory Tests Test 08/28/17 04:45 08/29/17 05:00 Sodium Level 139 mmol/L (136-145) Potassium Level 3.5 mmol/L (3.5-5.1) 3.5 mmol/L (3.5-5.1) Chloride Level 103 mmol/L (98-107) Carbon Dioxide Level 27 mmol/L (21-32) Anion Gap 9 (6-14) Blood Urea Nitrogen 12 mg/dL (8-26) Creatinine 1.3 mg/dL (0.7-1.3) Estimated GFR (Cockcroft-Gault) 54.4 Glucose Level 117 mg/dL (70-99) Calcium Level 8.8 mg/dL (8.5-10.1) Phosphorus Level 3.2 mg/dL (2.6-4.7) Albumin 2.6 g/dL (3.4-5.0) White Blood Count 9.0 x10^3/uL (4.0-11.0) Red Blood Count 2.87 x10^6/uL (4.30-5.70) Hemoglobin 8.2 g/dL (13.0-17.5) Hematocrit 25.5 % (39.0-53.0) Mean Corpuscular Volume 89 fL (79-100) Mean Corpuscular Hemoglobin 29 pg (25-35) Mean Corpuscular Hemoglobin Concent 32 g/dL (31-37) Red Cell Distribution Width 19.7 % (11.5-14.5) Platelet Count 172 x10^3/uL (140-400) Laboratory Tests Test 08/29/17 05:00 White Blood Count 9.0 x10^3/uL (4.0-11.0) Red Blood Count 2.87 x10^6/uL (4.30-5.70) Hemoglobin 8.2 g/dL (13.0-17.5) Hematocrit 25.5 % (39.0-53.0) Mean Corpuscular Volume 89 fL (79-100) Mean Corpuscular Hemoglobin 29 pg (25-35) Mean Corpuscular Hemoglobin Concent 32 g/dL (31-37) Red Cell Distribution Width 19.7 % (11.5-14.5) Platelet Count 172 x10^3/uL (140-400) Potassium Level 3.5 mmol/L (3.5-5.1) Medications Active Scripts Medications Dose Route/Sig Max Daily Dose Days Date Category Ventolin Hfa Inhaler (Albuterol Sulfate) 18 Gm Hfa.aer.ad 2 Puff INH Q4HRS 03/06/17 Reported Xtandi (Enzalutamide) 40 Mg Capsule 160 Mg PO DAILY@1000 03/06/17 Reported Vitamin D3 (Cholecalciferol (Vitamin D3)) 1,000 Unit Tablet 1 Tab PO DAILY 03/06/17 Reported Calcium + Vitamin D Tablet (Calcium Carbonate/Vitamin D3) 1 Each Tablet 1 Each PO BID 03/06/17 Reported [lupron] 09/16/16 Reported Zytiga (Abiraterone Acetate) 250 Mg Tablet 1,000 Mg PO DAILY@1700 09/16/16 Reported Vitamin D (Cholecalciferol (Vitamin D3)) 1,000 Unit Capsule 1,000 Unit PO 09/16/16 Reported Senokot-S Tablet (Sennosides/Docusate Sodium) 1 Each Tablet 1 Each PO 09/16/16 Reported Protonix (Pantoprazole Sodium) 40 Mg Tablet.dr 40 Mg PO DAILY 09/16/16 Reported Symbicort 160-4.5 Mcg Inhaler (Budesonide/Formoterol Fumarate) 10.2 Gm Hfa.aer.ad 2 Puff IH BID 10/12/14 Reported Prednisone 20 Mg Tablet 5 Mg PO BID 10/12/14 Reported Klor-Con M20 (Potassium Chloride) 20 Meq Tab.er.prt 10 Meq PO DAILY 10/10/14 Reported Furosemide 40 Mg Tablet 40 Mg PO DAILY 10/10/14 Reported Simvastatin 40 Mg Tablet 40 Mg PO HS 10/10/14 Reported Aspir 81 (Aspirin) 81 Mg Tablet.dr 81 Mg PO DAILY 10/10/14 Reported Clopidogrel (Clopidogrel Bisulfate) 75 Mg Tablet 75 Mg PO DAILY 10/10/14 Reported Spiriva (Tiotropium [place]) 18 Mcg Cap.w.dev 2 Inh IH DAILY 10/10/14 Reported Metoprolol Succinate ( Xl ) (Metoprolol Succinate) 25 Mg Tab.er.24h 25 Mg PO DAILY 10/10/14 Reported Gabapentin 600 Mg Tablet 600 Mg PO BID 10/10/14 Reported Impression . 1. Acute respiratory failure, multifactorial, present upon admission. 2. Bibasilar interstitial infiltrates on ct . Nodular density RLL.radiographic increase in infiltrates on ct is probably due to alveolar blood. hemoptysis persist despite off plavix. will need Bronch Thursday 3. suspected Gram-negative and gram-positive pneumonia. 4. Acute on chronic kidney injury. stable 5. Prostate cancer, recurrent disease. 6. Coronary artery disease, presents with chest pain, non-ST segment elevation myocardial infarction. Initial troponin was elevated. pt declines stress test 7. Peripheral arterial disease, status post stent placement to the left superficial femoral artery. 8. Chronic diastolic heart failure. 9. Chronic obstructive pulmonary disease. could be severe 10. Secondary pulmonary hypertension. 11. Anemia, 12 CAD: CABGx3. S/P PTCA OM of LCx 09/2016. Plan . 1.OFF PLAVIX. HEMOPTYSIS PERSIST, WILL DO BRONCH THURSDAY/ PT AGREES. WILL GET CARDIOLOGY CLEARANCE 2. WILL NEED A F/U CT IN 4-6 WEEKS 3. CONTINUE ANTIBX/ CHANGED TO PO 4. FOLLOW CARD RECOMMENDATIONS 5. SPOKE WITH RN 6. INCREASE ORAL INTAKE 7. ANEMIA W/U PER PCP 8. PT 9. TAPER OFF STEROIDS 10.REPEAT CXR TODAY D/W IN DETAIL 08/28 MARIETTA YI MD Aug 29, 2017 10:40
[2017-08-29 11:10] VITALS: BP 161/61
--- NOTE | 2017-08-29 11:47 | PDOC ---
GENERAL General: vss and afebrile. blood pressures still up and cardiology adjusting meds. seems very depressed. ongoing hemoptysis with broch to happen on Thursday. chest with bilateral crackles, heart regular, abdomen benign, and lots bruising. K+ up and stable at 3.5. BURT present on admission has resolved. continue same. Problems: VITAL SIGNS Vital Signs: Vital Signs Date Time Temp Pulse Resp B/P (MAP) Pulse Ox O2 Delivery O2 Flow Rate FiO2 08/29/17 11:10 99.1 85 16 161/61 (94) 92 Nasal Cannula 3.0 99.1 I & O I & O Intake and Output 08/29/17 07:00 Intake Total 1000 ml Output Total 300 ml Balance 700 ml Intake Oral 1000 ml Output Urine Total 300 ml # Voids 4 # Bowel Movements 4 ALLERGIES Allergies: Allergies Coded Allergies Type Severity Reaction Last Updated Verified NSAIDS (Non-Steroidal Anti-Inflamma Adverse Reaction Intermediate "vomiting" 10/10/14 Yes MEDS Medications: Current Medications Medications (Trade) Dose Ordered Sig/Antoinette Start Time Stop Time Status Last Admin Dose Admin Acetaminophen/ Hydrocodone Bitart (Lortab 5/325) 1 tab PRN Q3HRS PRN 08/28/17 00:00 08/28/17 00:10 1 TAB Albuterol/ Ipratropium (Duoneb) 3 ml RTQID 08/29/17 10:00 08/29/17 09:37 3 ML Alprazolam (Xanax) 0.25 mg PRN Q8HRS PRN 08/24/17 09:45 08/28/17 20:50 0.25 MG Amlodipine Besylate (Norvasc) 5 mg 1X ONCE 08/25/17 12:30 08/25/17 12:31 DC 08/25/17 12:56 5 MG Amoxicillin/ Clavulanate Potassium (Augmentin 875/ 125mg) 1 tab BID 08/28/17 09:30 08/29/17 08:54 1 TAB Aspirin (Children'S Aspirin) 324 mg 1X ONCE 08/21/17 11:30 08/21/17 11:31 DC 08/21/17 11:58 324 MG Aspirin (Ecotrin) 81 mg [id number] 08/29/17 08:00 08/29/17 08:00 DC Atorvastatin Calcium (Lipitor) 80 mg QHS 08/21/17 21:00 08/28/17 20:45 80 MG Budesonide (Pulmicort) 0.5 mg RTBID 08/29/17 10:00 Clopidogrel Bisulfate (Plavix) 75 mg [id number] 08/29/17 08:00 08/29/17 08:00 DC Heparin Sodium (Porcine) (Heparin Sodium) 2,400 unit PRN Q6HRS PRN 08/21/17 11:30 08/25/17 08:24 DC Heparin Sodium/ Dextrose 500 ml @ 0 mls/hr CONT PRN 08/21/17 11:30 08/24/17 19:18 DC 08/23/17 12:25 0 MLS/HR Hydralazine HCl (Apresoline Inj) 10 mg PRN Q4HRS PRN 08/26/17 12:15 08/28/17 06:13 10 MG Hydralazine HCl (Apresoline) 50 mg BID 08/27/17 21:00 08/29/17 08:54 50 MG Hydrocortisone Sodium Succinate (Solu-CORTEF) 50 mg [id number] 08/25/17 18:00 08/27/17 12:32 DC 08/27/17 06:13 50 MG Info (Anti-Coagulation Monitoring By Pharmacy) 1 each PRN DAILY PRN 08/21/17 11:45 08/25/17 08:24 DC 08/24/17 14:47 1 EACH Isosorbide Mononitrate (Imdur) 30 mg 1X ONCE 08/25/17 12:30 08/25/17 12:31 DC 08/25/17 12:55 30 MG Labetalol HCl (Normodyne) 20 mg PRN Q2HR PRN 08/24/17 08:30 08/27/17 23:51 20 MG Lactobacillus Rhamnosus (Culturelle) 1 cap BID 08/23/17 21:00 08/29/17 08:54 1 CAP Magnesium Sulfate/ Dextrose 100 ml @ 25 mls/hr 1X ONCE 08/27/17 09:00 08/27/17 12:59 DC 08/27/17 10:14 25 MLS/HR Metoprolol Succinate (Toprol Xl) 25 mg 1X ONCE 08/24/17 08:45 08/24/17 08:46 DC 08/24/17 09:13 25 MG Mirtazapine (Remeron) 15 mg QHS 08/27/17 21:00 08/28/17 20:45 15 MG Morphine Sulfate 2 mg PRN Q2HR PRN 08/21/17 12:45 08/22/17 12:44 DC Ondansetron HCl (Zofran) 4 mg PRN Q8HRS PRN 08/21/17 12:45 08/22/17 12:44 DC 08/21/17 20:10 4 MG Pantoprazole Sodium (Protonix) 40 mg DAILYAC 08/21/17 14:00 08/29/17 08:52 40 MG Piperacillin Sod/ Tazobactam Sod (Zosyn Per Pharmacy) 1 each PRN DAILY PRN 08/27/17 12:45 08/28/17 15:28 DC Piperacillin Sod/ Tazobactam Sod (Zosyn) 3.375 gm Q6HRS 08/27/17 13:00 08/28/17 09:21 DC 08/28/17 06:13 3.375 GM Potassium Chloride (KCl Oral Soln) 30 meq 1X ONCE 08/26/17 08:00 08/26/17 08:01 DC 08/26/17 08:51 30 MEQ Potassium Chloride (Klor-Con) 20 meq TIDWMEALS 08/29/17 12:00 Prednisone (Prednisone) 10 mg DAILY 09/02/17 09:00 09/03/17 09:01 Regadenoson (Lexiscan) 0.4 mg 1X ONCE 08/28/17 07:45 08/28/17 07:46 DC Sertraline HCl (Zoloft) 50 mg DAILY 08/23/17 13:00 08/27/17 09:44 DC 08/26/17 08:53 50 MG Simvastatin (Zocor) 40 mg HS 08/21/17 21:00 08/21/17 21:00 DC Sodium Chloride 250 ml @ 0 mls/hr QID PRN 08/21/17 14:45 Vancomycin HCl 1 each 1X ONCE 08/23/17 12:30 08/23/17 12:31 Cancel Vancomycin HCl (Vanco Per Pharmacy) 1 each PRN DAILY PRN 08/21/17 11:30 08/22/17 10:35 DC 08/22/17 07:53 1 EACH Vancomycin HCl 1.5 gm/Dextrose 500 ml @ 250 mls/hr Q24H 08/22/17 13:00 08/22/17 13:00 DC Vancomycin HCl 2 gm/Dextrose 500 ml @ 250 mls/hr 1X ONCE 08/21/17 11:45 08/21/17 13:44 DC 08/21/17 12:58 250 MLS/HR Zolpidem Tartrate (Ambien) 5 mg PRN QHS PRN 08/23/17 12:45 LAB Lab: Laboratory Tests Test 08/29/17 05:00 White Blood Count 9.0 x10^3/uL (4.0-11.0) Red Blood Count 2.87 x10^6/uL (4.30-5.70) Hemoglobin 8.2 g/dL (13.0-17.5) Hematocrit 25.5 % (39.0-53.0) Mean Corpuscular Volume 89 fL (79-100) Mean Corpuscular Hemoglobin 29 pg (25-35) Mean Corpuscular Hemoglobin Concent 32 g/dL (31-37) Red Cell Distribution Width 19.7 % (11.5-14.5) Platelet Count 172 x10^3/uL (140-400) Potassium Level 3.5 mmol/L (3.5-5.1) GIANA SIMS MD Aug 29, 2017 11:47
[2017-08-29] MEDS ORDERED: hydrALAZINE 25 MG TABLET PO ONE (12:15)
[2017-08-29] MEDS: POTASSIUM CHLORIDE 10 MEQ TABLET.ER. PO SCH ×2 (12:30→17:38)
[2017-08-29 15:30] VITALS: BP 154/66
[2017-08-29 18:38] VITALS: BP 162/49
[2017-08-29] MEDS: ATORVASTATIN CALCIUM 40 MG TABLET. PO SCH (20:38)
[2017-08-29] MEDS: MIRTAZAPINE 15 MG TABLET PO SCH (20:38)
[2017-08-29] MEDS: ALPRAZolam 0.25 MG TABLET PO PRN (22:52)
[2017-08-29 22:56] VITALS: BP 156/51
[2017-08-30 05:28] LABS: BASO % 0 % (0-3); EOS % 2 % (0-3); HEMATOCRIT 24.8 % (39.0-53.0); HEMOGLOBIN 7.9 g/dL (13.0-17.5); LYMPH # 0.5 x10^3/uL (1.0-4.8); LYMPH % 6 % (24-48); MEAN CORPUSCULAR HEMOGLOBIN 29 pg (25-35); MEAN CORPUSCULAR HGB CONC 32 g/dL (31-37); MEAN CORPUSCULAR VOLUME 90 fL (79-100); MONO % 11 % (0-9); NEUT % 81 % (31-73); PLATELET COUNT 172 x10^3/uL (140-400); RED BLOOD COUNT 2.77 x10^6/uL (4.30-5.70); RED CELL DISTRIBUTION WIDTH 20.2 % (11.5-14.5); WHITE BLOOD COUNT 8.3 x10^3/uL (4.0-11.0)
[2017-08-30 06:08] LABS: ALBUMIN 2.7 g/dL (3.4-5.0); ALBUMIN/GLOBULIN RATIO 0.7 (1.0-1.7); CALCIUM 8.7 mg/dL (8.5-10.1); CREATININE 1.2 mg/dL (0.7-1.3); GFR 59.7; POTASSIUM 4.3 mmol/L (3.5-5.1); TOTAL BILIRUBIN 0.7 mg/dL (0.2-1.0); TOTAL PROTEIN 6.5 g/dL (6.4-8.2)
[2017-08-30 06:20] VITALS: BP 117/69
[2017-08-30] MEDS: BUDESONIDE 0.5 MG/2 ML NEBU. NEB SCH ×2 (07:56→19:33)
[2017-08-30] MEDS: IPRATRPIUM/ALBUTEROL 0.5/2.5MG 3 ML NEBU. NEB SCH ×4 (07:56→19:33)
[2017-08-30] MEDS: AMOXICILLIN/K CLAV 875/125MG TABLET. PO SCH ×2 (08:37→21:58)
[2017-08-30] MEDS: PANTOPRAZOLE 40 MG TABLET.DR. PO SCH (08:38)
[2017-08-30] MEDS: LACTOBACILLUS RHAMNOSUS GG 1 CAPSULE. PO SCH ×2 (08:38→21:58)
[2017-08-30] MEDS: METOPROLOL SUCC 24HR ER 50 MG TAB.ER.24H. PO SCH (08:38)
[2017-08-30] MEDS: ISOSORBIDE MONONITRATE ER 30 MG TAB.ER.24H PO SCH (08:38)
[2017-08-30] MEDS: POTASSIUM CHLORIDE 10 MEQ TABLET.ER. PO SCH ×3 (08:39→18:14)
[2017-08-30] MEDS: predniSONE 20 MG TABLET PO SCH (08:39)
[2017-08-30] MEDS: amLODIPine BESYLATE 10 MG TABLET PO SCH (08:39)
--- NOTE | 2017-08-30 09:56 | RAD ---
AP PORTABLE CHEST Clinical Indication: pneumonia/chf. Comparison: AP chest, 9 days ago. Findings: Median sternotomy wires and changes of CABG. Atherosclerotic thoracic aorta. Cardiac size is normal. Moderate interstitial opacities in the lung bases, worse on the left and improved on the right. There is no pneumothorax. No pleural effusion is appreciated. There is no acute bone abnormality. IMPRESSION: Moderate interstitial opacities in the lung bases, worse on the left and improved on the right.
--- NOTE | 2017-08-30 11:06 | PDOC ---
PULMONARY PROGRESS NOTES Subjective very depressed persistent hemoptysis but its getting darker today. off plavix for 4 days now Vitals Vital Signs Date Time Temp Pulse Resp B/P (MAP) Pulse Ox O2 Delivery O2 Flow Rate FiO2 08/30/17 08:39 84 117/69 08/30/17 07:56 98 Nasal Cannula 3.0 08/30/17 06:20 97.7 16 97.7 ROS: No Nausea, No Chest Pain, No Abdominal Pain, No Increase Cough General: Alert, No acute distress Lungs: Crackles (bases) Cardiovascular: S1, S2 Abdomen: Soft, Non-tender Neuro Exam: Alert Extremities: No Edema Skin: Warm Labs Laboratory Tests Test 08/29/17 05:00 08/30/17 03:00 White Blood Count 9.0 x10^3/uL (4.0-11.0) 8.3 x10^3/uL (4.0-11.0) Red Blood Count 2.87 x10^6/uL (4.30-5.70) 2.77 x10^6/uL (4.30-5.70) Hemoglobin 8.2 g/dL (13.0-17.5) 7.9 g/dL (13.0-17.5) Hematocrit 25.5 % (39.0-53.0) 24.8 % (39.0-53.0) Mean Corpuscular Volume 89 fL (79-100) 90 fL (79-100) Mean Corpuscular Hemoglobin 29 pg (25-35) 29 pg (25-35) Mean Corpuscular Hemoglobin Concent 32 g/dL (31-37) 32 g/dL (31-37) Red Cell Distribution Width 19.7 % (11.5-14.5) 20.2 % (11.5-14.5) Platelet Count 172 x10^3/uL (140-400) 172 x10^3/uL (140-400) Potassium Level 3.5 mmol/L (3.5-5.1) 4.3 mmol/L (3.5-5.1) Neutrophils (%) (Auto) 81 % (31-73) Lymphocytes (%) (Auto) 6 % (24-48) Monocytes (%) (Auto) 11 % (0-9) Eosinophils (%) (Auto) 2 % (0-3) Basophils (%) (Auto) 0 % (0-3) Neutrophils # (Auto) 6.7 x10^3uL (1.8-7.7) Lymphocytes # (Auto) 0.5 x10^3/uL (1.0-4.8) Monocytes # (Auto) 0.9 x10^3/uL (0.0-1.1) Eosinophils # (Auto) 0.2 x10^3/uL (0.0-0.7) Basophils # (Auto) 0.0 x10^3/uL (0.0-0.2) Sodium Level 141 mmol/L (136-145) Chloride Level 106 mmol/L (98-107) Carbon Dioxide Level 27 mmol/L (21-32) Anion Gap 8 (6-14) Blood Urea Nitrogen 10 mg/dL (8-26) Creatinine 1.2 mg/dL (0.7-1.3) Estimated GFR (Cockcroft-Gault) 59.7 BUN/Creatinine Ratio 8 (6-20) Glucose Level 92 mg/dL (70-99) Calcium Level 8.7 mg/dL (8.5-10.1) Total Bilirubin 0.7 mg/dL (0.2-1.0) Aspartate Amino Transf (AST/SGOT) 16 U/L (15-37) Alanine Aminotransferase (ALT/SGPT) 27 U/L (16-63) Alkaline Phosphatase 46 U/L (46-116) Total Protein 6.5 g/dL (6.4-8.2) Albumin 2.7 g/dL (3.4-5.0) Albumin/Globulin Ratio 0.7 (1.0-1.7) Laboratory Tests Test 08/30/17 03:00 White Blood Count 8.3 x10^3/uL (4.0-11.0) Red Blood Count 2.77 x10^6/uL (4.30-5.70) Hemoglobin 7.9 g/dL (13.0-17.5) Hematocrit 24.8 % (39.0-53.0) Mean Corpuscular Volume 90 fL (79-100) Mean Corpuscular Hemoglobin 29 pg (25-35) Mean Corpuscular Hemoglobin Concent 32 g/dL (31-37) Red Cell Distribution Width 20.2 % (11.5-14.5) Platelet Count 172 x10^3/uL (140-400) Neutrophils (%) (Auto) 81 % (31-73) Lymphocytes (%) (Auto) 6 % (24-48) Monocytes (%) (Auto) 11 % (0-9) Eosinophils (%) (Auto) 2 % (0-3) Basophils (%) (Auto) 0 % (0-3) Neutrophils # (Auto) 6.7 x10^3uL (1.8-7.7) Lymphocytes # (Auto) 0.5 x10^3/uL (1.0-4.8) Monocytes # (Auto) 0.9 x10^3/uL (0.0-1.1) Eosinophils # (Auto) 0.2 x10^3/uL (0.0-0.7) Basophils # (Auto) 0.0 x10^3/uL (0.0-0.2) Sodium Level 141 mmol/L (136-145) Potassium Level 4.3 mmol/L (3.5-5.1) Chloride Level 106 mmol/L (98-107) Carbon Dioxide Level 27 mmol/L (21-32) Anion Gap 8 (6-14) Blood Urea Nitrogen 10 mg/dL (8-26) Creatinine 1.2 mg/dL (0.7-1.3) Estimated GFR (Cockcroft-Gault) 59.7 BUN/Creatinine Ratio 8 (6-20) Glucose Level 92 mg/dL (70-99) Calcium Level 8.7 mg/dL (8.5-10.1) Total Bilirubin 0.7 mg/dL (0.2-1.0) Aspartate Amino Transf (AST/SGOT) 16 U/L (15-37) Alanine Aminotransferase (ALT/SGPT) 27 U/L (16-63) Alkaline Phosphatase 46 U/L (46-116) Total Protein 6.5 g/dL (6.4-8.2) Albumin 2.7 g/dL (3.4-5.0) Albumin/Globulin Ratio 0.7 (1.0-1.7) Medications Active Scripts Medications Dose Route/Sig Max Daily Dose Days Date Category Ventolin Hfa Inhaler (Albuterol Sulfate) 18 Gm Hfa.aer.ad 2 Puff INH Q4HRS 03/06/17 Reported Xtandi (Enzalutamide) 40 Mg Capsule 160 Mg PO DAILY@1000 03/06/17 Reported Vitamin D3 (Cholecalciferol (Vitamin D3)) 1,000 Unit Tablet 1 Tab PO DAILY 03/06/17 Reported Calcium + Vitamin D Tablet (Calcium Carbonate/Vitamin D3) 1 Each Tablet 1 Each PO BID 03/06/17 Reported [lupron] 09/16/16 Reported Zytiga (Abiraterone Acetate) 250 Mg Tablet 1,000 Mg PO DAILY@1700 09/16/16 Reported Vitamin D (Cholecalciferol (Vitamin D3)) 1,000 Unit Capsule 1,000 Unit PO 09/16/16 Reported Senokot-S Tablet (Sennosides/Docusate Sodium) 1 Each Tablet 1 Each PO 09/16/16 Reported Protonix (Pantoprazole Sodium) 40 Mg Tablet.dr 40 Mg PO DAILY 09/16/16 Reported Symbicort 160-4.5 Mcg Inhaler (Budesonide/Formoterol Fumarate) 10.2 Gm Hfa.aer.ad 2 Puff IH BID 10/12/14 Reported Prednisone 20 Mg Tablet 5 Mg PO BID 10/12/14 Reported Klor-Con M20 (Potassium Chloride) 20 Meq Tab.er.prt 10 Meq PO DAILY 10/10/14 Reported Furosemide 40 Mg Tablet 40 Mg PO DAILY 10/10/14 Reported Simvastatin 40 Mg Tablet 40 Mg PO HS 10/10/14 Reported Aspir 81 (Aspirin) 81 Mg Tablet.dr 81 Mg PO DAILY 10/10/14 Reported Clopidogrel (Clopidogrel Bisulfate) 75 Mg Tablet 75 Mg PO DAILY 10/10/14 Reported Spiriva (Tiotropium [place]) 18 Mcg Cap.w.dev 2 Inh IH DAILY 10/10/14 Reported Metoprolol Succinate ( Xl ) (Metoprolol Succinate) 25 Mg Tab.er.24h 25 Mg PO DAILY 10/10/14 Reported Gabapentin 600 Mg Tablet 600 Mg PO BID 10/10/14 Reported Comments CXR 08/30 mild improvement in right base, no change in left base Impression . 1. Acute respiratory failure, multifactorial, present upon admission. 2. Bibasilar interstitial infiltrates on ct . Nodular density RLL.radiographic increase in infiltrates on ct is probably due to alveolar blood. hemoptysis persist despite off plavix for 4 days. will need Bronch John 3. suspected Gram-negative and gram-positive pneumonia. 4. Acute on chronic kidney injury. stable 5. Prostate cancer, recurrent disease. 6. Coronary artery disease, presents with chest pain, non-ST segment elevation myocardial infarction. Initial troponin was elevated. pt declines stress test 7. Peripheral arterial disease, status post stent placement to the left superficial femoral artery. 8. Chronic diastolic heart failure. 9. Chronic obstructive pulmonary disease. could be severe 10. Secondary pulmonary hypertension. 11. Anemia, 12 CAD: CABGx3. S/P PTCA OM of LCx 09/2016. Plan . 1.OFF PLAVIX. HEMOPTYSIS PERSIST, WILL DO BRONCH THURSDAY/ PT AGREES. WILL GET CARDIOLOGY CLEARANCE/ ALL PROS/CONS OF BRONCH DISCUSSED/ HE AGREES 2. WILL NEED A F/U CT IN 4-6 WEEKS 3. CONTINUE ANTIBX/ CHANGED TO PO 4. FOLLOW CARD RECOMMENDATIONS 5. SPOKE WITH RN 6. INCREASE ORAL INTAKE 7. ANEMIA W/U PER PCP 8. PT 9. TAPER OFF STEROIDS D/W IN DETAIL WELL MARIETTA YI MD Aug 30, 2017 11:06
--- NOTE | 2017-08-30 11:17 | PDOC ---
GENERAL General: vss and afebrile. awake and alert and in attendance. frustrated with length of stay. chest with mild bilateral crackles and heart regular and abdomen benign. hemoptysis more dark red than the bright red he has been expectorating. Hb 7.9 but normochromic and normocytic and likely related to chronic illness and the blood loss and massive bruising. O2 at 3L/NC and has been on O2 prior to admit. CMP essentially ok with albumin of 2.7 cw moderate malnutrition. bronchoscopy planned for tomorrow and stress testing at some point. Problems: VITAL SIGNS Vital Signs: Vital Signs Date Time Temp Pulse Resp B/P (MAP) Pulse Ox O2 Delivery O2 Flow Rate FiO2 08/30/17 08:39 84 117/69 08/30/17 07:56 98 Nasal Cannula 3.0 08/30/17 06:20 97.7 16 97.7 I & O I & O Intake and Output 08/30/17 07:00 Intake Total 2650 ml Output Total 700 ml Balance 1950 ml Intake Oral 2650 ml Output Urine Total 700 ml # Voids 3 ALLERGIES Allergies: Allergies Coded Allergies Type Severity Reaction Last Updated Verified NSAIDS (Non-Steroidal Anti-Inflamma Adverse Reaction Intermediate "vomiting" 10/10/14 Yes MEDS Medications: Current Medications Medications (Trade) Dose Ordered Sig/Antoinette Start Time Stop Time Status Last Admin Dose Admin Acetaminophen/ Hydrocodone Bitart (Lortab 5/325) 1 tab PRN Q3HRS PRN 08/28/17 00:00 08/28/17 00:10 1 TAB Albuterol/ Ipratropium (Duoneb) 3 ml RTQID 08/29/17 10:00 08/30/17 07:56 3 ML Alprazolam (Xanax) 0.25 mg PRN Q8HRS PRN 08/24/17 09:45 08/29/17 22:52 0.25 MG Amlodipine Besylate (Norvasc) 5 mg 1X ONCE 08/25/17 12:30 08/25/17 12:31 DC 08/25/17 12:56 5 MG Amoxicillin/ Clavulanate Potassium (Augmentin 875/ 125mg) 1 tab BID 08/28/17 09:30 08/30/17 08:37 1 TAB Aspirin (Children'S Aspirin) 324 mg 1X ONCE 08/21/17 11:30 08/21/17 11:31 DC 08/21/17 11:58 324 MG Aspirin (Ecotrin) 81 mg [id number] 08/29/17 08:00 08/29/17 08:00 DC Atorvastatin Calcium (Lipitor) 80 mg QHS 08/21/17 21:00 08/29/17 20:38 80 MG Budesonide (Pulmicort) 0.5 mg RTBID 08/29/17 10:00 08/30/17 07:56 0.5 MG Clopidogrel Bisulfate (Plavix) 75 mg DAILYWBKFT 08/29/17 08:00 08/29/17 08:00 DC Heparin Sodium (Porcine) (Heparin Sodium) 2,400 unit PRN Q6HRS PRN 08/21/17 11:30 08/25/17 08:24 DC Heparin Sodium/ Dextrose 500 ml @ 0 mls/hr CONT PRN 08/21/17 11:30 08/24/17 19:18 DC 08/23/17 12:25 0 MLS/HR Hydralazine HCl (Apresoline Inj) 10 mg PRN Q4HRS PRN 08/26/17 12:15 08/28/17 06:13 10 MG Hydralazine HCl (Apresoline) 25 mg 1X ONCE 08/29/17 12:15 08/29/17 12:17 DC 08/29/17 12:31 25 MG Hydrocortisone Sodium Succinate (Solu-CORTEF) 50 mg [id number] 08/25/17 18:00 08/27/17 12:32 DC 08/27/17 06:13 50 MG Info (Anti-Coagulation Monitoring By Pharmacy) 1 each PRN DAILY PRN 08/21/17 11:45 08/25/17 08:24 DC 08/24/17 14:47 1 EACH Isosorbide Mononitrate (Imdur) 30 mg 1X ONCE 08/25/17 12:30 08/25/17 12:31 DC 08/25/17 12:55 30 MG Labetalol HCl (Normodyne) 20 mg PRN Q2HR PRN 08/24/17 08:30 08/27/17 23:51 20 MG Lactobacillus Rhamnosus (Culturelle) 1 cap BID 08/23/17 21:00 08/30/17 08:38 1 CAP Magnesium Sulfate/ Dextrose 100 ml @ 25 mls/hr 1X ONCE 08/27/17 09:00 08/27/17 12:59 DC 08/27/17 10:14 25 MLS/HR Metoprolol Succinate (Toprol Xl) 25 mg 1X ONCE 08/24/17 08:45 08/24/17 08:46 DC 08/24/17 09:13 25 MG Mirtazapine (Remeron) 15 mg QHS 08/27/17 21:00 08/29/17 20:38 15 MG Morphine Sulfate 2 mg PRN Q2HR PRN 08/21/17 12:45 08/22/17 12:44 DC Ondansetron HCl (Zofran) 4 mg PRN Q8HRS PRN 08/21/17 12:45 08/22/17 12:44 DC 08/21/17 20:10 4 MG Pantoprazole Sodium (Protonix) 40 mg DAILYAC 08/21/17 14:00 08/30/17 08:38 40 MG Piperacillin Sod/ Tazobactam Sod (Zosyn Per Pharmacy) 1 each PRN DAILY PRN 08/27/17 12:45 08/28/17 15:28 DC Piperacillin Sod/ Tazobactam Sod (Zosyn) 3.375 gm Q6HRS 08/27/17 13:00 08/28/17 09:21 DC 08/28/17 06:13 3.375 GM Potassium Chloride (KCl Oral Soln) 30 meq 1X ONCE 08/26/17 08:00 08/26/17 08:01 DC 08/26/17 08:51 30 MEQ Potassium Chloride (Klor-Con) 20 meq TIDWMEALS 08/29/17 12:00 08/30/17 08:39 20 MEQ Prednisone (Prednisone) 10 mg DAILY 09/02/17 09:00 09/03/17 09:01 Regadenoson (Lexiscan) 0.4 mg 1X ONCE 08/28/17 07:45 08/28/17 07:46 DC Sertraline HCl (Zoloft) 50 mg DAILY 08/23/17 13:00 08/27/17 09:44 DC 08/26/17 08:53 50 MG Simvastatin (Zocor) 40 mg HS 08/21/17 21:00 08/21/17 21:00 DC Sodium Chloride 250 ml @ 0 mls/hr QID PRN 08/21/17 14:45 Vancomycin HCl 1 each 1X ONCE 08/23/17 12:30 08/23/17 12:31 Cancel Vancomycin HCl (Vanco Per Pharmacy) 1 each PRN DAILY PRN 08/21/17 11:30 08/22/17 10:35 DC 08/22/17 07:53 1 EACH Vancomycin HCl 1.5 gm/Dextrose 500 ml @ 250 mls/hr Q24H 08/22/17 13:00 08/22/17 13:00 DC Vancomycin HCl 2 gm/Dextrose 500 ml @ 250 mls/hr 1X ONCE 08/21/17 11:45 08/21/17 13:44 DC 08/21/17 12:58 250 MLS/HR Zolpidem Tartrate (Ambien) 5 mg PRN QHS PRN 08/23/17 12:45 LAB Lab: Laboratory Tests Test 08/30/17 03:00 White Blood Count 8.3 x10^3/uL (4.0-11.0) Red Blood Count 2.77 x10^6/uL (4.30-5.70) Hemoglobin 7.9 g/dL (13.0-17.5) Hematocrit 24.8 % (39.0-53.0) Mean Corpuscular Volume 90 fL (79-100) Mean Corpuscular Hemoglobin 29 pg (25-35) Mean Corpuscular Hemoglobin Concent 32 g/dL (31-37) Red Cell Distribution Width 20.2 % (11.5-14.5) Platelet Count 172 x10^3/uL (140-400) Neutrophils (%) (Auto) 81 % (31-73) Lymphocytes (%) (Auto) 6 % (24-48) Monocytes (%) (Auto) 11 % (0-9) Eosinophils (%) (Auto) 2 % (0-3) Basophils (%) (Auto) 0 % (0-3) Neutrophils # (Auto) 6.7 x10^3uL (1.8-7.7) Lymphocytes # (Auto) 0.5 x10^3/uL (1.0-4.8) Monocytes # (Auto) 0.9 x10^3/uL (0.0-1.1) Eosinophils # (Auto) 0.2 x10^3/uL (0.0-0.7) Basophils # (Auto) 0.0 x10^3/uL (0.0-0.2) Sodium Level 141 mmol/L (136-145) Potassium Level 4.3 mmol/L (3.5-5.1) Chloride Level 106 mmol/L (98-107) Carbon Dioxide Level 27 mmol/L (21-32) Anion Gap 8 (6-14) Blood Urea Nitrogen 10 mg/dL (8-26) Creatinine 1.2 mg/dL (0.7-1.3) Estimated GFR (Cockcroft-Gault) 59.7 BUN/Creatinine Ratio 8 (6-20) Glucose Level 92 mg/dL (70-99) Calcium Level 8.7 mg/dL (8.5-10.1) Total Bilirubin 0.7 mg/dL (0.2-1.0) Aspartate Amino Transf (AST/SGOT) 16 U/L (15-37) Alanine Aminotransferase (ALT/SGPT) 27 U/L (16-63) Alkaline Phosphatase 46 U/L (46-116) Total Protein 6.5 g/dL (6.4-8.2) Albumin 2.7 g/dL (3.4-5.0) Albumin/Globulin Ratio 0.7 (1.0-1.7) GIANA SIMS MD Aug 30, 2017 11:17
[2017-08-30 11:25] VITALS: BP 156/47
--- NOTE | 2017-08-30 14:17 | PDOC ---
PROGRESS NOTES Subjective Subjective Patient denied any chest pain. Objective Objective Vital Signs Date Time Temp Pulse Resp B/P (MAP) Pulse Ox O2 Delivery O2 Flow Rate FiO2 08/30/17 11:50 Nasal Cannula 3.0 08/30/17 11:25 98.0 79 16 156/47 (83) 93 98.0 Intake and Output 08/30/17 07:00 Intake Total 2650 ml Output Total 700 ml Balance 1950 ml Intake Oral 2650 ml Output Urine Total 700 ml # Voids 3 Physical Exam Abdomen: Normal bowel sounds Heart: Regular rate Extremities: No clubbing, No cyanosis, No edema, Normal pulses, No tenderness/ swelling General: mild distress HEENT: Atraumatic, Mucous membr. moist/pink Lungs: Other (mildly decreased breath sounds) Neuro: Normal speech, Sensation intact Psych/Mental Status: Mental status NL, Mood NL Skin: Other (generalized bilateral arm ecchymoses) Diagnosis RESPIRATORY FAILURE: Other (PNEUMONIA) RENAL FAILURE: Acute (Acute tubular necrosis) Problems: Assessment Assessment 1. CAP/COPD/severe pulmonary HTN: Pulmonary planning bronchoscopy in the morning secondary to refractory hemoptysis. 2. NSTEMI: possibly demand mediated. Patient has a history of CAD s/p CABGx3 and subsequent PTCA OM of LCx 09/2016. Presently CP free. Plavix on hold secondary to hemoptysis. Patient cleared for bronchoscopy from cardiac standpoint. 3. PAD: recent A OPERATOR/stent to LSFA bilateral LE without claudication symptoms. 4. CKD: Cr improved. Nephrology following 5. Chronic diastolic CHF: compensated 6. HTN: better controlled 7. HLP 8. Prostate CA with metastasis Plan Plan of Care Problems Medical Problems: (1) PNA (pneumonia) Status: Acute Comment Review of Relevant I have reviewed the following items demetrius (where applicable) has been applied. Labs Laboratory Tests Test 08/30/17 03:00 White Blood Count 8.3 x10^3/uL (4.0-11.0) Red Blood Count 2.77 x10^6/uL (4.30-5.70) Hemoglobin 7.9 g/dL (13.0-17.5) Hematocrit 24.8 % (39.0-53.0) Mean Corpuscular Volume 90 fL (79-100) Mean Corpuscular Hemoglobin 29 pg (25-35) Mean Corpuscular Hemoglobin Concent 32 g/dL (31-37) Red Cell Distribution Width 20.2 % (11.5-14.5) Platelet Count 172 x10^3/uL (140-400) Neutrophils (%) (Auto) 81 % (31-73) Lymphocytes (%) (Auto) 6 % (24-48) Monocytes (%) (Auto) 11 % (0-9) Eosinophils (%) (Auto) 2 % (0-3) Basophils (%) (Auto) 0 % (0-3) Neutrophils # (Auto) 6.7 x10^3uL (1.8-7.7) Lymphocytes # (Auto) 0.5 x10^3/uL (1.0-4.8) Monocytes # (Auto) 0.9 x10^3/uL (0.0-1.1) Eosinophils # (Auto) 0.2 x10^3/uL (0.0-0.7) Basophils # (Auto) 0.0 x10^3/uL (0.0-0.2) Sodium Level 141 mmol/L (136-145) Potassium Level 4.3 mmol/L (3.5-5.1) Chloride Level 106 mmol/L (98-107) Carbon Dioxide Level 27 mmol/L (21-32) Anion Gap 8 (6-14) Blood Urea Nitrogen 10 mg/dL (8-26) Creatinine 1.2 mg/dL (0.7-1.3) Estimated GFR (Cockcroft-Gault) 59.7 BUN/Creatinine Ratio 8 (6-20) Glucose Level 92 mg/dL (70-99) Calcium Level 8.7 mg/dL (8.5-10.1) Total Bilirubin 0.7 mg/dL (0.2-1.0) Aspartate Amino Transf (AST/SGOT) 16 U/L (15-37) Alanine Aminotransferase (ALT/SGPT) 27 U/L (16-63) Alkaline Phosphatase 46 U/L (46-116) Total Protein 6.5 g/dL (6.4-8.2) Albumin 2.7 g/dL (3.4-5.0) Albumin/Globulin Ratio 0.7 (1.0-1.7) Microbiology 08/21/17 Blood Culture - Final, Complete NO GROWTH AFTER 5 DAYS 08/22/17 - Final, Complete 08/22/17 - Final, Complete 08/22/17 - Final, Complete 08/22/17 Gram Stain Evaluation - Final, Complete 08/22/17 Sputum Culture - Final, Complete 08/22/17 Sputum Result 1 - Final, Complete Medications Current Medications Hydralazine HCl (Apresoline) 75 mg BID PO Last administered on 08/30/17t 08:38 ; Start 08/29/17 at 21:00 Prednisone (Prednisone) 10 mg DAILY PO ; Start 09/02/17 at 09:00; Stop at 09:01 Prednisone (Prednisone) 20 mg DAILY PO ; Start 08/31/17 at 09:00; Stop at 09:01 Vitals/I & O Vital Sign - Last 24 Hours 08/29/17 08/29/17 08/29/17 08/29/17 15:30 16:16 18:38 19:19 Temp 98.2 98.2 Pulse 79 78 Resp 16 16 B/P (MAP) 154/66 (95) 162/49 (86) Pulse Ox 97 96 O2 Delivery Nasal Cannula Nasal Cannula Nasal Cannula Nasal Cannula O2 Flow Rate 3.0 3.0 3.0 3.0 08/29/17 08/29/17 08/29/17 08/30/17 20:30 20:38 22:56 03:01 Temp 97.6 97.6 Pulse 78 79 74 Resp 18 B/P (MAP) 162/49 156/51 (86) Pulse Ox 98 97 O2 Delivery Nasal Cannula Nasal Cannula Nasal Cannula O2 Flow Rate 3.0 3.0 3.0 08/30/17 08/30/17 08/30/17 08/30/17 06:20 07:50 07:56 08:38 Temp 97.7 97.7 Pulse 84 84 Resp 16 B/P (MAP) 117/69 (85) 117/69 Pulse Ox 96 98 O2 Delivery Nasal Cannula Nasal Cannula Nasal Cannula O2 Flow Rate 3.0 3.0 3.0 08/30/17 08/30/17 08/30/17 08/30/17 08:38 08:38 08:39 11:25 Temp 98.0 98.0 Pulse 84 84 84 79 Resp 16 B/P (MAP) 117/69 117/69 117/69 156/47 (83) Pulse Ox 93 O2 Delivery Nasal Cannula O2 Flow Rate 3.0 08/30/17 11:50 O2 Delivery Nasal Cannula O2 Flow Rate 3.0 Intake and Output 08/29/17 08/29/17 08/30/17 15:00 23:00 07:00 Intake Total 700 ml 1100 ml 850 ml Output Total 250 ml 450 ml Balance 700 ml 850 ml 400 ml CHRIS LOUIS MD Aug 30, 2017 14:17
[2017-08-30 19:00] VITALS: BP 158/85
[2017-08-30] MEDS: MIRTAZAPINE 15 MG TABLET PO SCH (21:58)
[2017-08-30] MEDS: ATORVASTATIN CALCIUM 40 MG TABLET. PO SCH (21:58)
[2017-08-30] MEDS: ALPRAZolam 0.25 MG TABLET PO PRN (22:02)
[2017-08-30 23:00] VITALS: BP 148/49
[2017-08-31] VITALS (10 sets, daily range): BP systolic 136–171; BP diastolic 42–71
[2017-08-31] MEDS: BUDESONIDE 0.5 MG/2 ML NEBU. NEB SCH ×2 (07:43→19:37)
[2017-08-31] MEDS: IPRATRPIUM/ALBUTEROL 0.5/2.5MG 3 ML NEBU. NEB SCH ×4 (07:43→19:37)
--- NOTE | 2017-08-31 08:40 | PDOC ---
SUBJECTIVE Subjective Irritated at his length of stay. Upon discussion of possible dc to rehab vs home given long hospital stay, pt strongly declined rehab placement saying, "rehab can come to me". Denies hemoptysis this AM. OBJECTIVE Objective Reviewed Vital Signs Vital Signs Date Time Temp Pulse Resp B/P (MAP) Pulse Ox O2 Delivery O2 Flow Rate FiO2 08/31/17 07:44 95 Nasal Cannula 3.0 08/31/17 07:10 97.5 85 22 160/54 (89) 95 Nasal Cannula 3.0 97.5 08/31/17 03:00 98.9 80 18 170/52 (91) 97 Nasal Cannula 3.0 98.9 08/30/17 23:00 98.2 78 16 148/49 (82) 96 Nasal Cannula 3.0 98.2 08/30/17 21:58 79 156/47 08/30/17 20:00 Nasal Cannula 3.0 08/30/17 19:34 97 Nasal Cannula 3.0 08/30/17 19:33 97 Nasal Cannula 3.0 08/30/17 19:00 97.5 77 16 158/85 (109) 95 Nasal Cannula 3.0 97.5 08/30/17 15:59 Nasal Cannula 3.0 08/30/17 11:50 Nasal Cannula 3.0 08/30/17 11:25 98.0 79 16 156/47 (83) 93 Nasal Cannula 3.0 98.0 08/30/17 08:39 84 117/69 08/30/17 08:38 84 117/69 08/30/17 08:38 84 117/69 08/30/17 08:38 84 117/69 I & O Intake and Output 08/31/17 07:00 Intake Total 2300 ml Output Total 150 ml Balance 2150 ml Intake Oral 2300 ml Output Urine Total 150 ml # Voids 7 PHYSICAL EXAM Physical Exam Alert, oriented RRR Mildly tachypneic with mildly increased work of breathing, fine crackles in bilateral bases, otherwise clear Bruising on upper arms Irritable, cooperative ASSESSMENT/PLAN Assessment/Plan CAP/COPD/severe pulmonary HTN: Tapering steroids. On Augmentin. Pulm planning bronch today to eval hemoptysis continuing despite dc of plavix NSTEMI: possibly demand mediated. Hx of CAD s/p CABGx3 and PTCA OM of LCx 2015. Holding Plavix. 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 Cr improved from 2 on admission. Renal following Chronic diastolic CHF: compensated HTN: monitor, continues to be elevated Prostate CA with metastasis PT/OT consulted for dispo planning. Pt refuses rehab. Problems: TRUSTYISRAEL MD Aug 31, 2017 08:40
[2017-08-31] MEDS: predniSONE 20 MG TABLET PO SCH (08:46)
[2017-08-31] MEDS: ISOSORBIDE MONONITRATE ER 30 MG TAB.ER.24H PO SCH (08:46)
[2017-08-31] MEDS: POTASSIUM CHLORIDE 10 MEQ TABLET.ER. PO SCH ×3 (08:46→18:03)
[2017-08-31] MEDS: AMOXICILLIN/K CLAV 875/125MG TABLET. PO SCH ×2 (08:47→20:49)
[2017-08-31] MEDS: PANTOPRAZOLE 40 MG TABLET.DR. PO SCH (08:47)
[2017-08-31] MEDS: LACTOBACILLUS RHAMNOSUS GG 1 CAPSULE. PO SCH ×2 (08:47→20:49)
[2017-08-31] MEDS: amLODIPine BESYLATE 10 MG TABLET PO SCH (08:48)
[2017-08-31] MEDS: METOPROLOL SUCC 24HR ER 50 MG TAB.ER.24H. PO SCH (08:48)
[2017-08-31] MEDS ORDERED: IV RINGERS,LACTATED 1000ML 1,000 ML IV SCH (11:17)
--- NOTE | 2017-08-31 13:23 | PDOC ---
PULMONARY PROGRESS NOTES Subjective NO INCREASE SOA Vitals Vital Signs Date Time Temp Pulse Resp B/P (MAP) Pulse Ox O2 Delivery O2 Flow Rate FiO2 08/31/17 12:57 Nasal Cannula 3.0 08/31/17 12:53 97.9 84 20 95 97.9 08/31/17 10:30 171/59 (96) ROS: No Nausea, No Chest Pain, No Abdominal Pain, No Increase Cough General: Alert, No acute distress Lungs: Crackles (bases) Cardiovascular: S1, S2 Abdomen: Soft, Non-tender Neuro Exam: Alert Extremities: No Edema Skin: Warm Labs Laboratory Tests Test 08/30/17 03:00 White Blood Count 8.3 x10^3/uL (4.0-11.0) Red Blood Count 2.77 x10^6/uL (4.30-5.70) Hemoglobin 7.9 g/dL (13.0-17.5) Hematocrit 24.8 % (39.0-53.0) Mean Corpuscular Volume 90 fL (79-100) Mean Corpuscular Hemoglobin 29 pg (25-35) Mean Corpuscular Hemoglobin Concent 32 g/dL (31-37) Red Cell Distribution Width 20.2 % (11.5-14.5) Platelet Count 172 x10^3/uL (140-400) Neutrophils (%) (Auto) 81 % (31-73) Lymphocytes (%) (Auto) 6 % (24-48) Monocytes (%) (Auto) 11 % (0-9) Eosinophils (%) (Auto) 2 % (0-3) Basophils (%) (Auto) 0 % (0-3) Neutrophils # (Auto) 6.7 x10^3uL (1.8-7.7) Lymphocytes # (Auto) 0.5 x10^3/uL (1.0-4.8) Monocytes # (Auto) 0.9 x10^3/uL (0.0-1.1) Eosinophils # (Auto) 0.2 x10^3/uL (0.0-0.7) Basophils # (Auto) 0.0 x10^3/uL (0.0-0.2) Sodium Level 141 mmol/L (136-145) Potassium Level 4.3 mmol/L (3.5-5.1) Chloride Level 106 mmol/L (98-107) Carbon Dioxide Level 27 mmol/L (21-32) Anion Gap 8 (6-14) Blood Urea Nitrogen 10 mg/dL (8-26) Creatinine 1.2 mg/dL (0.7-1.3) Estimated GFR (Cockcroft-Gault) 59.7 BUN/Creatinine Ratio 8 (6-20) Glucose Level 92 mg/dL (70-99) Calcium Level 8.7 mg/dL (8.5-10.1) Total Bilirubin 0.7 mg/dL (0.2-1.0) Aspartate Amino Transf (AST/SGOT) 16 U/L (15-37) Alanine Aminotransferase (ALT/SGPT) 27 U/L (16-63) Alkaline Phosphatase 46 U/L (46-116) Total Protein 6.5 g/dL (6.4-8.2) Albumin 2.7 g/dL (3.4-5.0) Albumin/Globulin Ratio 0.7 (1.0-1.7) Medications Active Scripts Medications Dose Route/Sig Max Daily Dose Days Date Category Ventolin Hfa Inhaler (Albuterol Sulfate) 18 Gm Hfa.aer.ad 2 Puff INH Q4HRS 03/06/17 Reported Xtandi (Enzalutamide) 40 Mg Capsule 160 Mg PO DAILY@1000 03/06/17 Reported Vitamin D3 (Cholecalciferol (Vitamin D3)) 1,000 Unit Tablet 1 Tab PO DAILY 03/06/17 Reported Calcium + Vitamin D Tablet (Calcium Carbonate/Vitamin D3) 1 Each Tablet 1 Each PO BID 03/06/17 Reported [lupron] 09/16/16 Reported Zytiga (Abiraterone Acetate) 250 Mg Tablet 1,000 Mg PO DAILY@1700 09/16/16 Reported Vitamin D (Cholecalciferol (Vitamin D3)) 1,000 Unit Capsule 1,000 Unit PO 09/16/16 Reported Senokot-S Tablet (Sennosides/Docusate Sodium) 1 Each Tablet 1 Each PO 09/16/16 Reported Protonix (Pantoprazole Sodium) 40 Mg Tablet.dr 40 Mg PO DAILY 09/16/16 Reported Symbicort 160-4.5 Mcg Inhaler (Budesonide/Formoterol Fumarate) 10.2 Gm Hfa.aer.ad 2 Puff IH BID 10/12/14 Reported Prednisone 20 Mg Tablet 5 Mg PO BID 10/12/14 Reported Klor-Con M20 (Potassium Chloride) 20 Meq Tab.er.prt 10 Meq PO DAILY 10/10/14 Reported Furosemide 40 Mg Tablet 40 Mg PO DAILY 10/10/14 Reported Simvastatin 40 Mg Tablet 40 Mg PO HS 10/10/14 Reported Aspir 81 (Aspirin) 81 Mg Tablet.dr 81 Mg PO DAILY 10/10/14 Reported Clopidogrel (Clopidogrel Bisulfate) 75 Mg Tablet 75 Mg PO DAILY 10/10/14 Reported Spiriva (Tiotropium [place]) 18 Mcg Cap.w.dev 2 Inh IH DAILY 10/10/14 Reported Metoprolol Succinate ( Xl ) (Metoprolol Succinate) 25 Mg Tab.er.24h 25 Mg PO DAILY 10/10/14 Reported Gabapentin 600 Mg Tablet 600 Mg PO BID 10/10/14 Reported Comments CXR 08/30 mild improvement in right base, no change in left base Impression . 1. Acute respiratory failure, multifactorial, present upon admission. 2. Bibasilar interstitial infiltrates on ct . Nodular density RLL.radiographic increase in infiltrates on ct is probably due to alveolar blood. hemoptysis persist despite off plavix for 4 days. will need Bronch Thursday 3. suspected Gram-negative and gram-positive pneumonia. 4. Acute on chronic kidney injury. stable 5. Prostate cancer, recurrent disease. 6. Coronary artery disease, presents with chest pain, non-ST segment elevation myocardial infarction. Initial troponin was elevated. pt declines stress test 7. Peripheral arterial disease, status post stent placement to the left superficial femoral artery. 8. Chronic diastolic heart failure. 9. Chronic obstructive pulmonary disease. could be severe 10. Secondary pulmonary hypertension. 11. Anemia, 12 CAD: CABGx3. S/P PTCA OM of LCx 09/2016. Plan . 1.OFF PLAVIX. HEMOPTYSIS PERSIST, WILL DO BRONCH TODAY 2. WILL NEED A F/U CT IN 4-6 WEEKS 3. CONTINUE ANTIBX/ CHANGED TO PO 4. FOLLOW CARD RECOMMENDATIONS JENNIFER CHANG MD Aug 31, 2017 13:23
[2017-08-31] MEDS ORDERED: PROPOFOL 20 ML IV ONE (13:46)
[2017-08-31] MEDS ORDERED: MEPERIDINE PF 25 MG/ML VIAL. ONE (13:46)
--- NOTE | 2017-08-31 17:33 | PDOC4 ---
PROCEDURE Procedure BRONCH NO ENDOBRONCHIAL LESION NO ACTIVE BLEEDING HOME OK IN [place] FOLLOW UP WITH ME IN OFFICE USE OF PLAVIX WILL DEFER TO CARDIOLOGY JENNIFER CHANG MD Aug 31, 2017 17:33
--- NOTE | 2017-08-31 17:42 | OP ---
DATE OF SURGERY: 08/31/2017 ATTENDING PHYSICIAN: Aquilino Antonio DO. PROCEDURE: Bronchoscopy, bronchoalveolar lavage. INDICATIONS: The patient with persistent hemothorax. Reviewed risks, benefits and alternatives, he consented. DESCRIPTION OF PROCEDURE: Timeout was performed prior to sedation. Vital signs and O2 saturation were maintained within normal limits throughout the procedure. The bronchoscope was passed through the right naris. The vocal cords were identified moving bilaterally without any dysfunction. There was an old blood adhered to the vocal cords, which was cleared with saline. The bronchoscope was passed through the vocal cords into the proximal trachea, which was normal. The distal trachea was likewise normal. The right and left segments and subsegments were visualized. There was no active bleeding. There were no endobronchial lesions. A bronchoalveolar lavage was performed of the left lower lobe. The return was serosanguineous. FINDINGS: 1. Normal vocal cords. 2. No active bleeding. 3. No endobronchial lesion. PLAN: We will continue off of Plavix. Monitor for further hemoptysis, suspect hemoptysis related to acute bronchitis. JENNIFER CHANG MD DR: FAN/chilango JOB#: [id number] / [id number]
[2017-08-31] MEDS: ATORVASTATIN CALCIUM 40 MG TABLET. PO SCH (20:49)
[2017-08-31] MEDS: ALPRAZolam 0.25 MG TABLET PO PRN (20:49)
[2017-08-31] MEDS: MIRTAZAPINE 15 MG TABLET PO SCH (20:49)
[2017-09-01 03:05] VITALS: BP 156/71
[2017-09-01 04:46] LABS: BASO # 0.1 x10^3/uL (0.0-0.2); BASO % 1 % (0-3); EOS % 2 % (0-3); HEMATOCRIT 26.4 % (39.0-53.0); HEMOGLOBIN 8.3 g/dL (13.0-17.5); LYMPH # 0.3 x10^3/uL (1.0-4.8); LYMPH % 4 % (24-48); MEAN CORPUSCULAR HEMOGLOBIN 29 pg (25-35); MEAN CORPUSCULAR HGB CONC 32 g/dL (31-37); MEAN CORPUSCULAR VOLUME 91 fL (79-100); MONO % 9 % (0-9); NEUT % 85 % (31-73); PLATELET COUNT 188 x10^3/uL (140-400); RED BLOOD COUNT 2.92 x10^6/uL (4.30-5.70); RED CELL DISTRIBUTION WIDTH 20.5 % (11.5-14.5); WHITE BLOOD COUNT 8.6 x10^3/uL (4.0-11.0)
[2017-09-01 05:49] LABS: CALCIUM 8.8 mg/dL (8.5-10.1); CREATININE 1.2 mg/dL (0.7-1.3); GFR 59.7; POTASSIUM 3.9 mmol/L (3.5-5.1)
[2017-09-01] MEDS ORDERED: MAGNESIUM SULFATE 2GM 50 ML IV ONE (07:00)
[2017-09-01] MEDS: BUDESONIDE 0.5 MG/2 ML NEBU. NEB SCH (07:01)
[2017-09-01] MEDS: IPRATRPIUM/ALBUTEROL 0.5/2.5MG 3 ML NEBU. NEB SCH ×2 (07:01→11:11)
[2017-09-01 07:45] VITALS: BP 153/50
[2017-09-01] MEDS: amLODIPine BESYLATE 10 MG TABLET PO SCH (08:50)
[2017-09-01] MEDS: AMOXICILLIN/K CLAV 875/125MG TABLET. PO SCH (08:51)
[2017-09-01] MEDS: PANTOPRAZOLE 40 MG TABLET.DR. PO SCH (08:51)
[2017-09-01] MEDS: ISOSORBIDE MONONITRATE ER 30 MG TAB.ER.24H PO SCH (08:51)
[2017-09-01] MEDS: predniSONE 20 MG TABLET PO SCH (08:51)
[2017-09-01] MEDS: POTASSIUM CHLORIDE 10 MEQ TABLET.ER. PO SCH ×2 (08:52→13:14)
[2017-09-01] MEDS: METOPROLOL SUCC 24HR ER 50 MG TAB.ER.24H. PO SCH (08:52)
[2017-09-01] MEDS: LACTOBACILLUS RHAMNOSUS GG 1 CAPSULE. PO SCH (08:52)
[2017-09-01 11:10] VITALS: BP 172/62
--- NOTE | 2017-09-01 11:59 | PDOC ---
CARDIO Progress Notes Date and Time Date of Service 09/01/17 Time of Evaluation 1125 Subjective Subjective: No Chest Pain, No Palpitations, Other (wanting to go home ) Vitals Vitals Vital Signs Date Time Temp Pulse Resp B/P (MAP) Pulse Ox O2 Delivery O2 Flow Rate FiO2 09/01/17 11:12 92 Room Air 3.0 09/01/17 08:52 153/50 09/01/17 08:51 81 09/01/17 07:45 97.8 18 97.8 Weight Weight [ ] Input and Output Intake and Output Intake and Output 09/01/17 07:00 Intake Total 700 ml Output Total 950 ml Balance -250 ml Intake Oral 700 ml Output Urine Total 950 ml Laboratory Labs Laboratory Tests Test 08/31/17 21:01 09/01/17 04:15 Glucose (Fingerstick) 324 mg/dL (70-99) White Blood Count 8.6 x10^3/uL (4.0-11.0) Red Blood Count 2.92 x10^6/uL (4.30-5.70) Hemoglobin 8.3 g/dL (13.0-17.5) Hematocrit 26.4 % (39.0-53.0) Mean Corpuscular Volume 91 fL (79-100) Mean Corpuscular Hemoglobin 29 pg (25-35) Mean Corpuscular Hemoglobin Concent 32 g/dL (31-37) Red Cell Distribution Width 20.5 % (11.5-14.5) Platelet Count 188 x10^3/uL (140-400) Neutrophils (%) (Auto) 85 % (31-73) Lymphocytes (%) (Auto) 4 % (24-48) Monocytes (%) (Auto) 9 % (0-9) Eosinophils (%) (Auto) 2 % (0-3) Basophils (%) (Auto) 1 % (0-3) Neutrophils # (Auto) 7.3 x10^3uL (1.8-7.7) Lymphocytes # (Auto) 0.3 x10^3/uL (1.0-4.8) Monocytes # (Auto) 0.7 x10^3/uL (0.0-1.1) Eosinophils # (Auto) 0.2 x10^3/uL (0.0-0.7) Basophils # (Auto) 0.1 x10^3/uL (0.0-0.2) Sodium Level 137 mmol/L (136-145) Potassium Level 3.9 mmol/L (3.5-5.1) Chloride Level 104 mmol/L (98-107) Carbon Dioxide Level 25 mmol/L (21-32) Anion Gap 8 (6-14) Blood Urea Nitrogen 10 mg/dL (8-26) Creatinine 1.2 mg/dL (0.7-1.3) Estimated GFR (Cockcroft-Gault) 59.7 Glucose Level 92 mg/dL (70-99) Calcium Level 8.8 mg/dL (8.5-10.1) Magnesium Level 1.3 mg/dL (1.8-2.4) Microbiology Micro Microbiology 08/21/17 Blood Culture - Final, Complete NO GROWTH AFTER 5 DAYS 08/31/17 Gram Stain - Final, Complete Review of Systems Constitutional: yes: weakness, alert, oriented Ears/Nose/Throat: Yes: no symptom reported Eyes: Yes: no symptom reported Pulmonary: Yes no symptom reported Cardiovascular: Yes no symptom reported Gastrointestional: Yes: no symptom reported Genitourinary: Yes: no symptom reported Musculoskeletal: Yes: no symptom reported Skin: Yes no symptom reported Physical Exam HEENT: Neck Supple W Full Motion Chest: Symmetric LUNGS: Other (diminished bases. ) Heart: S1S2, RRR (SR) Abdomen: Soft N/T Extremities: No Calf Tenderness, Other (trace LE edema bilaterally) Neurology: alert, oriented, follow commands Assessment Assessment 1. CAP/COPD/severe pulmonary HTN: S/p bronchoscopy to refractory hemoptysis. 2. NSTEMI: possibly demand mediated. Patient has a history of CAD s/p CABGx3 and subsequent PTCA OM of LCx 09/2016. Presently CP free. Plavix on hold secondary to hemoptysis. 3. PAD: recent [employer]/stent to LSFA bilateral LE without claudication symptoms. 4. CKD: Cr improved. Nephrology following 5. Chronic diastolic CHF: compensated 6. HTN: better controlled 7. HLP; statin 8. Prostate CA with metastasis 9. Hypokalemia; replaced Recommendations 1. Continue with secondary prevention measures. Resume Plavix when okay from a pulm standpoint 2. Consider MPI on an outpatient basis if patient agreeable 3. Supportive care. 4. May discharge from a CV standpoint and f/u in our office in 2-3 weeks as scheduled. DARIEL ROBERTS APRN Sep 01, 2017 11:59
[2017-09-01] MEDS ORDERED: METO-239 PO (12:15)
[2017-09-01] MEDS ORDERED: MIRT15TA PO (12:15)
[2017-09-01] MEDS ORDERED: ISOS60TA2 PO (12:16)
[2017-09-01] MEDS ORDERED: PRED20TA PO (12:16)
[2017-09-01] MEDS ORDERED: POTA20TA82 PO (12:17)
--- NOTE | 2017-09-01 13:00 | PDOC3 ---
Discharge Summary [facility] Date of Admission: Aug 21, 2017 Discharge Date: Sep 01, 2017 Admitting Diagnosis Severe sepsis 2/2 pneumonia, NSTEMI, BURT on CKD, lactic acidosis, COPD, prostate cancer with metastasis, PAD, CHF, HTN Problems: Final Diagnosis Same CONSULTS Cardiology, Pulmonary, Renal Procedures Bronchoscopy Brief Hospital Course Mr. Balderas is a 72 old male who presented for admission due to severe sepsis due to bilateral pneumonia, BURT on CKD, NSTEMI and lactic acidosis. He was treated with IV abx, heparin for NSTEMI, prednisone and breathing treatments. During the hospitalization, he began having hemoptysis which was persistent despite stopping aspirin and plavix. A bronchoscopy was performed and found to be negative for acute bleeding. Hemoptysis believed to be 2/2 bronchitis and resolving pneumonia. Cardiology recommended an MPI stress test given NSTEMI and hx significant for CABG x 3 and previous stent, but pt declined during hospitalization. HTN was difficult to control, so amlodipine 10mg and hydralazine 75mg BID was added, Metoprolol XL was increased to 50mg daily. Pt was noted to have hypokalemia which improved with increased KCl replacement of 20meq TID. Lasix was stopped. Considering this, pt may benefit from spironolactone instead of hydralazine in the future. Will consider at outpt follow up. Due to hemoptysis, plavix and ASA were held and will continue to be held at discharge, pending discussion of risks vs benefits with patient at follow up. Remeron was also added to help with sleep and decreased appetite. Pt will follow up with Cardiology, Pulmonology and Renal as outpatient. Follow up with Dr. Akins or Dr. Antonio in 1 week for repeat BMP with Mg. He will complete a taper of prednisone 20mg QOD for 6 additional doses. He has completed antibiotic therapy. 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 Problems: CONDITION AT DISCHARGE: Stable Scheduled Abiraterone Acetate (Zytiga), 1,000 MG PO DAILY@1700, (Reported) Albuterol Sulfate (Ventolin Hfa Inhaler), 2 PUFF INH Q4HRS, (Reported) Aspirin (Aspir 81), 81 MG PO DAILY, (Reported) Budesonide/Formoterol Fumarate (Symbicort 160-4.5 Mcg Inhaler), 2 PUFF IH BID, ( Reported) Calcium Carbonate/Vitamin D3 (Calcium + Vitamin D Tablet), 1 EACH PO BID, ( Reported) Cholecalciferol (Vitamin D3) (Vitamin D3), 1 TAB PO DAILY, (Reported) Clopidogrel Bisulfate (Clopidogrel), 75 MG PO DAILY, (Reported) Enzalutamide (Xtandi), 160 MG PO DAILY@1000, (Reported) Furosemide (Furosemide), 40 MG PO DAILY, (Reported) Gabapentin (Gabapentin), 600 MG PO BID, (Reported) Isosorbide Mononitrate (Isosorbide Mononitrate Er), 1 TAB PO DAILY, (Reported) Metoprolol Succinate (Metoprolol Succinate ( Xl )), 25 MG PO DAILY, (Reported) Metoprolol Succinate (Metoprolol Succinate ( Xl )), 50 MG PO DAILY, (Reported) Mirtazapine (Remeron), 1 TAB PO QHS, (Reported) Pantoprazole Sodium (Protonix), 40 MG PO DAILY, (Reported) Potassium Chloride (Klor-Con M20), 10 MEQ PO DAILY, (Reported) Potassium Chloride (Potassium Chloride), 20 MEQ PO TID, (Reported) Prednisone (Prednisone), 5 MG PO BID, (Reported) Prednisone (Prednisone), 1 TAB PO QODAY, (Reported) Simvastatin (Simvastatin), 40 MG PO HS, (Reported) Tiotropium [place] (Spiriva), 2 INH IH DAILY, (Reported) Miscellaneous Medications Cholecalciferol (Vitamin D3) (Vitamin D), 1,000 UNIT PO, (Reported) Sennosides/Docusate Sodium (Senokot-S Tablet), 1 EACH PO, (Reported) [lupron], (Reported) Follow Up With Dr. Akins or Dr. Antonio in 1 week ISRAEL AKINS MD Sep 01, 2017 13:00
[2017-09-01] MEDS ORDERED: AMLO10TA2 PO (13:38)
[2017-09-01] MEDS ORDERED: HYDR-2869 PO (13:38)
[2017-09-01] MEDS ORDERED: ATOR40TA59 PO (13:47)
[2017-09-01 13:50] VITALS: BP 135/67
--- NOTE | 2017-09-01 14:31 | PDOC ---
PULMONARY PROGRESS NOTES Subjective NO INCREASE SOA Vitals Vital Signs Date Time Temp Pulse Resp B/P (MAP) Pulse Ox O2 Delivery O2 Flow Rate FiO2 09/01/17 13:50 135/67 (89) 09/01/17 11:12 92 Room Air 3.0 09/01/17 11:10 97.5 88 18 97.5 ROS: No Nausea, No Chest Pain, No Abdominal Pain, No Increase Cough General: Alert, No acute distress Lungs: Crackles (bases) Cardiovascular: S1, S2 Abdomen: Soft, Non-tender Neuro Exam: Alert Extremities: No Edema Skin: Warm Labs Laboratory Tests Test 08/31/17 21:01 09/01/17 04:15 Glucose (Fingerstick) 324 mg/dL (70-99) White Blood Count 8.6 x10^3/uL (4.0-11.0) Red Blood Count 2.92 x10^6/uL (4.30-5.70) Hemoglobin 8.3 g/dL (13.0-17.5) Hematocrit 26.4 % (39.0-53.0) Mean Corpuscular Volume 91 fL (79-100) Mean Corpuscular Hemoglobin 29 pg (25-35) Mean Corpuscular Hemoglobin Concent 32 g/dL (31-37) Red Cell Distribution Width 20.5 % (11.5-14.5) Platelet Count 188 x10^3/uL (140-400) Neutrophils (%) (Auto) 85 % (31-73) Lymphocytes (%) (Auto) 4 % (24-48) Monocytes (%) (Auto) 9 % (0-9) Eosinophils (%) (Auto) 2 % (0-3) Basophils (%) (Auto) 1 % (0-3) Neutrophils # (Auto) 7.3 x10^3uL (1.8-7.7) Lymphocytes # (Auto) 0.3 x10^3/uL (1.0-4.8) Monocytes # (Auto) 0.7 x10^3/uL (0.0-1.1) Eosinophils # (Auto) 0.2 x10^3/uL (0.0-0.7) Basophils # (Auto) 0.1 x10^3/uL (0.0-0.2) Sodium Level 137 mmol/L (136-145) Potassium Level 3.9 mmol/L (3.5-5.1) Chloride Level 104 mmol/L (98-107) Carbon Dioxide Level 25 mmol/L (21-32) Anion Gap 8 (6-14) Blood Urea Nitrogen 10 mg/dL (8-26) Creatinine 1.2 mg/dL (0.7-1.3) Estimated GFR (Cockcroft-Gault) 59.7 Glucose Level 92 mg/dL (70-99) Calcium Level 8.8 mg/dL (8.5-10.1) Magnesium Level 1.3 mg/dL (1.8-2.4) Laboratory Tests Test 08/31/17 21:01 09/01/17 04:15 Glucose (Fingerstick) 324 mg/dL (70-99) White Blood Count 8.6 x10^3/uL (4.0-11.0) Red Blood Count 2.92 x10^6/uL (4.30-5.70) Hemoglobin 8.3 g/dL (13.0-17.5) Hematocrit 26.4 % (39.0-53.0) Mean Corpuscular Volume 91 fL (79-100) Mean Corpuscular Hemoglobin 29 pg (25-35) Mean Corpuscular Hemoglobin Concent 32 g/dL (31-37) Red Cell Distribution Width 20.5 % (11.5-14.5) Platelet Count 188 x10^3/uL (140-400) Neutrophils (%) (Auto) 85 % (31-73) Lymphocytes (%) (Auto) 4 % (24-48) Monocytes (%) (Auto) 9 % (0-9) Eosinophils (%) (Auto) 2 % (0-3) Basophils (%) (Auto) 1 % (0-3) Neutrophils # (Auto) 7.3 x10^3uL (1.8-7.7) Lymphocytes # (Auto) 0.3 x10^3/uL (1.0-4.8) Monocytes # (Auto) 0.7 x10^3/uL (0.0-1.1) Eosinophils # (Auto) 0.2 x10^3/uL (0.0-0.7) Basophils # (Auto) 0.1 x10^3/uL (0.0-0.2) Sodium Level 137 mmol/L (136-145) Potassium Level 3.9 mmol/L (3.5-5.1) Chloride Level 104 mmol/L (98-107) Carbon Dioxide Level 25 mmol/L (21-32) Anion Gap 8 (6-14) Blood Urea Nitrogen 10 mg/dL (8-26) Creatinine 1.2 mg/dL (0.7-1.3) Estimated GFR (Cockcroft-Gault) 59.7 Glucose Level 92 mg/dL (70-99) Calcium Level 8.8 mg/dL (8.5-10.1) Magnesium Level 1.3 mg/dL (1.8-2.4) Medications Active Scripts Medications Dose Route/Sig Max Daily Dose Days Date Category Ventolin Hfa Inhaler (Albuterol Sulfate) 18 Gm Hfa.aer.ad 2 Puff INH Q4HRS 03/06/17 Reported Xtandi (Enzalutamide) 40 Mg Capsule 160 Mg PO DAILY@1000 03/06/17 Reported Vitamin D3 (Cholecalciferol (Vitamin D3)) 1,000 Unit Tablet 1 Tab PO DAILY 03/06/17 Reported Calcium + Vitamin D Tablet (Calcium Carbonate/Vitamin D3) 1 Each Tablet 1 Each PO BID 03/06/17 Reported [lupron] 09/16/16 Reported Zytiga (Abiraterone Acetate) 250 Mg Tablet 1,000 Mg PO DAILY@1700 09/16/16 Reported Vitamin D (Cholecalciferol (Vitamin D3)) 1,000 Unit Capsule 1,000 Unit PO 09/16/16 Reported Senokot-S Tablet (Sennosides/Docusate Sodium) 1 Each Tablet 1 Each PO 09/16/16 Reported Protonix (Pantoprazole Sodium) 40 Mg Tablet.dr 40 Mg PO DAILY 09/16/16 Reported Symbicort 160-4.5 Mcg Inhaler (Budesonide/Formoterol Fumarate) 10.2 Gm Hfa.aer.ad 2 Puff IH BID 10/12/14 Reported Prednisone 20 Mg Tablet 5 Mg PO BID 10/12/14 Reported Klor-Con M20 (Potassium Chloride) 20 Meq Tab.er.prt 10 Meq PO DAILY 10/10/14 Reported Furosemide 40 Mg Tablet 40 Mg PO DAILY 10/10/14 Reported Simvastatin 40 Mg Tablet 40 Mg PO HS 10/10/14 Reported Aspir 81 (Aspirin) 81 Mg Tablet.dr 81 Mg PO DAILY 10/10/14 Reported Clopidogrel (Clopidogrel Bisulfate) 75 Mg Tablet 75 Mg PO DAILY 10/10/14 Reported Spiriva (Tiotropium [place]) 18 Mcg Cap.w.dev 2 Inh IH DAILY 10/10/14 Reported Metoprolol Succinate ( Xl ) (Metoprolol Succinate) 25 Mg Tab.er.24h 25 Mg PO DAILY 10/10/14 Reported Gabapentin 600 Mg Tablet 600 Mg PO BID 10/10/14 Reported Comments CXR 08/30 mild improvement in right base, no change in left base Impression . 1. Acute respiratory failure, multifactorial, present upon admission. 2. Bibasilar interstitial infiltrates on ct . Nodular density RLL.radiographic increase in infiltrates on ct is probably due to alveolar blood. hemoptysis persist despite off plavix for 4 days. will need Bronch Thursday 3. suspected Gram-negative and gram-positive pneumonia. 4. Acute on chronic kidney injury. stable 5. Prostate cancer, recurrent disease. 6. Coronary artery disease, presents with chest pain, non-ST segment elevation myocardial infarction. Initial troponin was elevated. pt declines stress test 7. Peripheral arterial disease, status post stent placement to the left superficial femoral artery. 8. Chronic diastolic heart failure. 9. Chronic obstructive pulmonary disease. could be severe 10. Secondary pulmonary hypertension. 11. Anemia, 12 CAD: CABGx3. S/P PTCA OM of LCx 09/2016. Plan . BRONCH NO ENDO LESION WILL FOLLOW UP IN OFFICE SO FAR CULTURES ARE NEGATIVE 2. WILL NEED A F/U CT IN 4-6 WEEKS 3. CONTINUE ANTIBX/ CHANGED TO PO 4. FOLLOW CARD RECOMMENDATIONS JENNIFER CHANG MD Sep 01, 2017 14:31
--- NOTE | 2017-09-01 15:22 | PATHOLOGY ---
CYTOPATHOLOGY REPORT CLINICAL HISTORY: Hemoptysis SPECIMEN(S) RECEIVED: A.Bronchoalveolar lavage FINAL DIAGNOSIS: Bronchoalveolar lavage, ThinPrep: - No malignant cells identified. - Focally reactive bronchial epithelial cells, squamous epithelial cells, and few pulmonary macrophages identified within a background of focally admixed inflammatory cells and red blood cells. (JPM:mgr; 09/01/2017) PATHOLOGIST: Edgardo Valdes M.D. REPORT ELECTRONICALLY SIGNED BY: Edgardo Valdes M.D. DATE/TIME: 09/01/2017 15:21 GROSS PATHOLOGY: A. Bronchoalveolar lavage: The specimen is submitted unfixed, labeled "Leyda Balderas". Received by the Cytology Department is six mL of cloudy red fluid. One ThinPrep slide was prepared. (mm 08.31.2017) METER REPAIRER HELPER(S): CHARLI Crouch(ASCP) INITIAL CPT CODE(S): A; 45852 Professional services performed [place] [address] Technical services performed by [facility] at [address] [place] [address], [address], [place] [address]. PATIENT: LEYDA BALDERAS /AGE: 9 1945 (Age: 72) SEX: M PATIENT #: [id number] ALT CASE #: SPECIMEN COLLECTION DATE: 08/31/2017 SPECIMEN RECEIVED DATE: 08/31/[address] [facility] [address] [place] [address], [address] [place] [address] PHONE: [phone] DIRECTOR: Tino Sheth M.D. * * * END OF REPORT * * *
[2017-09-02] MEDS ORDERED: predniSONE 10 MG TABLET PO SCH (09:00)
[2017-09-22] MEDS ORDERED: GABA600T2 PO ×2 (20:01→20:10)
[2017-09-22] MEDS ORDERED: PRED-220 PO (20:10)
[2017-09-22] MEDS ORDERED: HYDR100T24 PO (20:10)
[2017-10-02] MEDS ORDERED: SPIR25TA PO (10:05)
[2017-10-02] MEDS ORDERED: AMOX1TAB11 PO (10:05)
[2017-10-02] MEDS ORDERED: TEMA7.5C2 PO (10:05)
[2017-10-02] MEDS ORDERED: METO50TA29 PO (10:05)
[2017-10-02] MEDS ORDERED: CHLO25TA PO (10:05)
[2017-10-02] MEDS ORDERED: PRED-220 PO (10:05)
[2017-10-02] MEDS ORDERED: FLUC100T PO (10:05)
== END 2017-09-01 14:30 | disposition home health service (06) | DRG 853 ==
LOC: ER 10:35 → 2 NORTH 12:25 → 1 WEST ICU 16:00 → 2 SOUTH 08-22 18:16
PROVIDERS: ADMIT Family Medicine; ATTEND Family Medicine
PROC: 0B9J8ZX Drainage of Left Lower Lung Lobe, Via Natural or Artificial Opening Endoscopic, Diagnostic (ICD-10-PCS; principal; 2017-08-31 13:30)
DX: A41.9 Sepsis, unspecified organism (principal); I21.4 Non-ST elevation (NSTEMI) myocardial infarction; J96.01 Acute respiratory failure with hypoxia; J18.9 Pneumonia, unspecified organism; J94.2 Hemothorax; C79.51 Secondary malignant neoplasm of bone; E27.40 Unspecified adrenocortical insufficiency; N17.9 Acute kidney failure, unspecified; I50.32 Chronic diastolic (congestive) heart failure; J44.0 Chronic obstructive pulmonary disease with (acute) lower respiratory infection; I27.29 Other secondary pulmonary hypertension; E83.42 Hypomagnesemia; C61 Malignant neoplasm of prostate; D64.9 Anemia, unspecified; E78.5 Hyperlipidemia, unspecified; E83.52 Hypercalcemia; E87.6 Hypokalemia; F32.9 Major depressive disorder, single episode, unspecified; G47.00 Insomnia, unspecified; G47.33 Obstructive sleep apnea (adult) (pediatric); G89.29 Other chronic pain; I15.9 Secondary hypertension, unspecified; I25.10 Atherosclerotic heart disease of native coronary artery without angina pectoris; I44.7 Left bundle-branch block, unspecified; I73.9 Peripheral vascular disease, unspecified; M19.90 Unspecified osteoarthritis, unspecified site; M54.9 Dorsalgia, unspecified; K21.9 Gastro-esophageal reflux disease without esophagitis; N18.9 Chronic kidney disease, unspecified; R65.20 Severe sepsis without septic shock; Z96.643 Presence of artificial hip joint, bilateral; Z79.02 Long term (current) use of antithrombotics/antiplatelets; Z79.51 Long term (current) use of inhaled steroids; Z79.899 Other long term (current) drug therapy; Z82.49 Family history of ischemic heart disease and other diseases of the circulatory system; Z85.46 Personal history of malignant neoplasm of prostate; Z87.891 Personal history of nicotine dependence; Z92.3 Personal history of irradiation; Z95.1 Presence of aortocoronary bypass graft; Z95.5 Presence of coronary angioplasty implant and graft; Z95.820 Peripheral vascular angioplasty status with implants and grafts; Z99.81 Dependence on supplemental oxygen; I25.2 Old myocardial infarction
CPT/HCPCS: 31622; 36415; 71010; 71250; 74176; 76770; 80048; 80053; 80061; 80069; 80076; 81001; 82550; 82570; 82962; 83605; 83615; 83690; 83735; 84100; 84132; 84156; 84300; 84484; 84550; 85007; 85018; 85025; 85027; 85520; 85610; 85730; 87040; 87070; 87205; 87449; 87641; 87804; 88112; 93005; 93306; 94250; 94640; 94760; 96365; 96375; J0360; J1644; J1720; J2175; J2405; J2543; J2704; J3370; J3475; J3490; J7030; J7040; J7060; J7512; J7620; J7626; 97116; 97530; 99291-25

== ENCOUNTER → 2017-12-07 | Outpatient (CLI) | payer BC ==
[2017-12-07 10:50] LABS: ANION GAP 10 (6-14); BLOOD UREA NITROGEN 25 mg/dL (8-26); CALCIUM 8.9 mg/dL (8.5-10.1); CARBON DIOXIDE 31 mmol/L (21-32); CHLORIDE 92 mmol/L (98-107); CREATININE 1.3 mg/dL (0.7-1.3); GFR 54.4; GLUCOSE 146 mg/dL (70-99); POTASSIUM 3.3 mmol/L (3.5-5.1); SODIUM 133 mmol/L (136-145)
== END | disposition home or self-care (01) ==
LOC: RAD 09:22
DX: C34.90 Malignant neoplasm of unspecified part of unspecified bronchus or lung (principal); I51.7 Cardiomegaly; R06.00 Dyspnea, unspecified
CPT/HCPCS: 36415; 71046; 80048

== ENCOUNTER → 2017-12-21 | Outpatient (CLI) | payer BC ==
[2017-12-21 11:06] LABS: POTASSIUM 2.8 mmol/L (3.5-5.1)
[2017-12-21 11:11] LABS: NT-PRO BNP 4351 pg/mL (0-124)
== END | disposition home or self-care (01) ==
LOC: LAB 10:17
DX: J43.8 Other emphysema (principal)
CPT/HCPCS: 36415; 71046; 83880; 84132

== ENCOUNTER 2018-01-19 14:18 | Inpatient (IN) | payer BC ==
[2018-01-19 17:02] LABS: ADD MAN DIFF? YES; BASO % 0 % (0-3); EOS % 1 % (0-3); HEMATOCRIT 25.5 % (39.0-53.0); HEMOGLOBIN 7.7 g/dL (13.0-17.5); LYMPH # 0.3 x10^3/uL (1.0-4.8); LYMPH % 6 % (24-48); MEAN CORPUSCULAR HEMOGLOBIN 23 pg (25-35); MEAN CORPUSCULAR HGB CONC 30 g/dL (31-37); MEAN CORPUSCULAR VOLUME 78 fL (79-100); MONO # 0.9 x10^3/uL (0.0-1.1); MONO % 19 % (0-9); NEUT # 3.3 x10^3uL (1.8-7.7); NEUT % 74 % (31-73); PLATELET COUNT 166 x10^3/uL (140-400); RED BLOOD COUNT 3.29 x10^6/uL (4.30-5.70); RED CELL DISTRIBUTION WIDTH 20.3 % (11.5-14.5); WHITE BLOOD COUNT 4.5 x10^3/uL (4.0-11.0)
[2018-01-19] MEDS: IPRATRPIUM/ALBUTEROL 0.5/2.5MG 3 ML NEBU. NEB (17:02)
[2018-01-19 17:14] LABS: ANION GAP 9 (6-14); BLOOD UREA NITROGEN 16 mg/dL (8-26); CALCIUM 8.9 mg/dL (8.5-10.1); CARBON DIOXIDE 34 mmol/L (21-32); CHLORIDE 93 mmol/L (98-107); CREATININE 1.2 mg/dL (0.7-1.3); GFR 59.7; GLUCOSE 111 mg/dL (70-99); POTASSIUM 3.2 mmol/L (3.5-5.1); SODIUM 136 mmol/L (136-145)
[2018-01-19 17:20] LABS: ALK PHOS 73 U/L (46-116); ALT (SGPT) 20 U/L (16-63); AST (SGOT) 19 U/L (15-37); DIRECT BILIRUBIN 0.5 mg/dL (0.0-0.2); LIPASE 136 U/L (73-393); TOTAL BILIRUBIN 1.8 mg/dL (0.2-1.0); TOTAL PROTEIN 6.9 g/dL (6.4-8.2)
[2018-01-19 17:26] LABS: NT-PRO BNP 6147 pg/mL (0-124); TROPONINI < 0.017 ng/mL (0.000-0.055)
[2018-01-19 17:37] LABS: % BANDS 5 % (0-9); % EOS 2 % (0-5); % LYMPHS 6 % (24-48); % MONOS 17 % (0-10); % SEGS 70 % (35-66)
[2018-01-19 17:41] LABS: ANISOCYTOSIS MOD; HYPOCHROMIA SLIGHT; MICROCYTOSIS SLIGHT; PLT ESTIMATE ADEQUATE (ADEQUATE); POLYCHROMASIA MOD
[2018-01-19] MEDS ORDERED: ONDANSETRON PF 4 MG/2 ML VIAL. IV (18:15)
[2018-01-19] MEDS: FUROSEMIDE 40 MG/4 ML VIAL. IVP (18:30)
[2018-01-19 18:44] LABS: FECAL OB PT NEGATIVE (NEG); NEG OBC FOB NEG; POS OBC FOB POS
[2018-01-19 21:42] LABS: TROPONINI < 0.017 ng/mL (0.000-0.055)
[2018-01-19] MEDS: POTASSIUM CHLORIDE 20 MEQ TABLET.ER. PO (22:04)
[2018-01-19] MEDS ORDERED: IPRATRPIUM/ALBUTEROL 0.5/2.5MG 3 ML NEBU. NEB (23:45)
[2018-01-19] MEDS ORDERED: SENNOSIDES/DOCUSATE 8.6/50MG TABLET. PO (23:45)
[2018-01-20] MEDS ORDERED: NON FORMULARY ITEM (Albuterol Sulfate (Ventolin Hfa Inhaler) 2 PUFF) INH
[2018-01-20] MEDS ORDERED: ALBUTEROL SULFATE 2.5 MG/3 ML NEBU. NEB (00:30)
[2018-01-20 00:57] LABS: TROPONINI < 0.017 ng/mL (0.000-0.055)
[2018-01-20 06:15] LABS: ADD MAN DIFF? NO
[2018-01-20 06:18] LABS: BASO % 0 % (0-3); EOS # 0.1 x10^3/uL (0.0-0.7); EOS % 1 % (0-3); HEMATOCRIT 24.3 % (39.0-53.0); HEMOGLOBIN 7.5 g/dL (13.0-17.5); LYMPH # 0.3 x10^3/uL (1.0-4.8); LYMPH % 5 % (24-48); MEAN CORPUSCULAR HEMOGLOBIN 24 pg (25-35); MEAN CORPUSCULAR HGB CONC 31 g/dL (31-37); MEAN CORPUSCULAR VOLUME 78 fL (79-100); MONO # 1.1 x10^3/uL (0.0-1.1); MONO % 17 % (0-9); NEUT # 4.9 x10^3uL (1.8-7.7); NEUT % 77 % (31-73); PLATELET COUNT 162 x10^3/uL (140-400); RED BLOOD COUNT 3.13 x10^6/uL (4.30-5.70); RED CELL DISTRIBUTION WIDTH 20.4 % (11.5-14.5); WHITE BLOOD COUNT 6.3 x10^3/uL (4.0-11.0)
[2018-01-20] MEDS: PANTOPRAZOLE 40 MG TABLET.DR. PO (06:21)
[2018-01-20 06:31] LABS: ANION GAP 7 (6-14); BLOOD UREA NITROGEN 12 mg/dL (8-26); CALCIUM 8.6 mg/dL (8.5-10.1); CARBON DIOXIDE 34 mmol/L (21-32); CHLORIDE 93 mmol/L (98-107); CREATININE 1.2 mg/dL (0.7-1.3); GFR 59.7; GLUCOSE 100 mg/dL (70-99); SODIUM 134 mmol/L (136-145)
[2018-01-20 06:36] LABS: POTASSIUM 2.2 mmol/L (3.5-5.1)
[2018-01-20] MEDS: BUDESONIDE 0.5 MG/2 ML NEBU. NEB ×2 (07:56→19:47)
[2018-01-20] MEDS: ALBUTEROL SULFATE 2.5 MG/3 ML NEBU. NEB ×4 (07:56→19:47)
[2018-01-20] MEDS: ISOSORBIDE MONONITRATE ER 30 MG TAB.ER.24H PO (07:59)
[2018-01-20] MEDS: POTASSIUM CHLORIDE 20 MEQ TABLET.ER. PO ×2 (08:01→10:30)
[2018-01-20] MEDS: MORPHINE SULFATE 4 MG/ML DISP.SYRIN. IV ×2 (08:02→13:08)
[2018-01-20] MEDS: NITROGLYCERIN OINT 1 GM PACKET. TP (08:06)
[2018-01-20] MEDS ORDERED: NON FORMULARY ITEM (Tiotropium Bromide (Spiriva) 2 INH) IH (09:00)
[2018-01-20] MEDS ORDERED: NON FORMULARY ITEM (Budesonide/Formoterol Fumarate (Symbicort 160-4.5 Mcg Inhaler) 2 PUFF) IH (09:00)
[2018-01-20] MEDS ORDERED: CHLORTHALIDONE 25 MG TABLET. PO (09:00)
[2018-01-20] MEDS: SPIRONOLACTONE 25 MG TABLET PO (10:15)
[2018-01-20] MEDS: predniSONE 10 MG TABLET PO ×2 (10:15→16:58)
[2018-01-20] MEDS: CALCIUM CARB/VIT D3 500/200 TABLET. PO ×2 (10:16→16:57)
[2018-01-20] MEDS: ENZALUTAMIDE 160 MG PO (10:17)
[2018-01-20] MEDS: METOPROLOL SUCC 24HR ER 50 MG TAB.ER.24H. PO (10:17)
[2018-01-20 10:34] LABS: MAGNESIUM 1.3 mg/dL (1.8-2.4)
[2018-01-20] MEDS: FUROSEMIDE 40 MG/4 ML VIAL. IVP (13:05)
[2018-01-20] MEDS: POTASSIUM CHLORIDE 10 MEQ TABLET.ER. PO ×2 (13:06→16:57)
[2018-01-20 15:30] LABS: IMMEDIATE SPIN CROSSMATCH 1
[2018-01-20] MEDS: NON FORMULARY ITEM (Abiraterone Acetate (Zytiga) 1,000 MG) PO (16:57)
[2018-01-20] MEDS: MAGNESIUM SULFATE 4GM 100 ML IV (18:43)
[2018-01-20] MEDS: FUROSEMIDE 20 MG/2 ML VIAL. IVP (18:43)
[2018-01-20] MEDS: MIRTAZAPINE 15 MG TABLET PO (20:37)
[2018-01-20] MEDS: ATORVASTATIN CALCIUM 40 MG TABLET. PO (20:38)
[2018-01-21 04:58] LABS: HEMATOCRIT 27.6 % (39.0-53.0); HEMOGLOBIN 8.7 g/dL (13.0-17.5); MEAN CORPUSCULAR HEMOGLOBIN 24 pg (25-35); MEAN CORPUSCULAR HGB CONC 32 g/dL (31-37); MEAN CORPUSCULAR VOLUME 77 fL (79-100); PLATELET COUNT 169 x10^3/uL (140-400); RED BLOOD COUNT 3.59 x10^6/uL (4.30-5.70); RED CELL DISTRIBUTION WIDTH 20.2 % (11.5-14.5); WHITE BLOOD COUNT 6.7 x10^3/uL (4.0-11.0)
[2018-01-21 05:22] LABS: POTASSIUM 2.1 mmol/L (3.5-5.1)
[2018-01-21] MEDS: BUDESONIDE 0.5 MG/2 ML NEBU. NEB ×2 (08:16→19:31)
[2018-01-21] MEDS: ALBUTEROL SULFATE 2.5 MG/3 ML NEBU. NEB ×4 (08:18→19:32)
[2018-01-21] MEDS: PANTOPRAZOLE 40 MG TABLET.DR. PO (08:56)
[2018-01-21] MEDS: CALCIUM CARB/VIT D3 500/200 TABLET. PO ×2 (08:56→15:51)
[2018-01-21] MEDS: SPIRONOLACTONE 25 MG TABLET PO (08:56)
[2018-01-21] MEDS: SENNOSIDES/DOCUSATE 8.6/50MG TABLET. PO (08:57)
[2018-01-21] MEDS: ISOSORBIDE MONONITRATE ER 30 MG TAB.ER.24H PO (08:57)
[2018-01-21] MEDS: METOPROLOL SUCC 24HR ER 50 MG TAB.ER.24H. PO (08:58)
[2018-01-21] MEDS: predniSONE 10 MG TABLET PO ×2 (08:59→20:39)
[2018-01-21] MEDS: POTASSIUM CHLORIDE 20 MEQ TABLET.ER. PO ×3 (08:59→15:52)
[2018-01-21] MEDS: ENZALUTAMIDE 160 MG PO (08:59)
[2018-01-21] MEDS: FUROSEMIDE 40 MG/4 ML VIAL. IVP (09:00)
[2018-01-21] MEDS: POTASSIUM CHLORIDE 10 MEQ TABLET.ER. PO ×3 (09:13→20:39)
[2018-01-21] MEDS: SUCRALFATE 1 GM/10 ML ORAL.SUSP. PO ×3 (11:27→20:39)
[2018-01-21] MEDS ORDERED: SUCRALFATE 1 GM TABLET. PO (11:30)
[2018-01-21] MEDS: MAGNESIUM HYDROXIDE 2,400 MG/30 ML ORAL.SUSP. PO (11:50)
[2018-01-21] MEDS: FUROSEMIDE 40 MG TABLET. PO (15:52)
[2018-01-21] MEDS: NON FORMULARY ITEM (Abiraterone Acetate (Zytiga) 1,000 MG) PO (15:52)
[2018-01-21] MEDS: ATORVASTATIN CALCIUM 40 MG TABLET. PO (20:40)
[2018-01-21] MEDS: MIRTAZAPINE 15 MG TABLET PO (20:40)
[2018-01-22] MEDS: ALBUTEROL SULFATE 2.5 MG/3 ML NEBU. NEB ×4 (07:23→19:53)
[2018-01-22] MEDS: BUDESONIDE 0.5 MG/2 ML NEBU. NEB ×2 (07:23→19:53)
[2018-01-22] MEDS: PANTOPRAZOLE 40 MG TABLET.DR. PO (08:13)
[2018-01-22] MEDS: POTASSIUM CHLORIDE 20 MEQ TABLET.ER. PO ×3 (08:14→17:00)
[2018-01-22] MEDS: SUCRALFATE 1 GM/10 ML ORAL.SUSP. PO ×4 (08:14→20:39)
[2018-01-22] MEDS: CALCIUM CARB/VIT D3 500/200 TABLET. PO ×2 (08:14→16:59)
[2018-01-22] MEDS: FUROSEMIDE 40 MG TABLET. PO (09:05)
[2018-01-22] MEDS: predniSONE 10 MG TABLET PO ×2 (09:05→20:38)
[2018-01-22] MEDS: POTASSIUM CHLORIDE 10 MEQ TABLET.ER. PO ×2 (09:05→13:54)
[2018-01-22] MEDS: SPIRONOLACTONE 25 MG TABLET PO (09:05)
[2018-01-22] MEDS: METOPROLOL SUCC 24HR ER 50 MG TAB.ER.24H. PO (09:06)
[2018-01-22] MEDS: ISOSORBIDE MONONITRATE ER 30 MG TAB.ER.24H PO (09:07)
[2018-01-22] MEDS: ENZALUTAMIDE 160 MG PO (09:08)
[2018-01-22 11:04] LABS: HEMATOCRIT 27.4 % (39.0-53.0); HEMOGLOBIN 8.6 g/dL (13.0-17.5); MEAN CORPUSCULAR HEMOGLOBIN 25 pg (25-35); MEAN CORPUSCULAR HGB CONC 31 g/dL (31-37); MEAN CORPUSCULAR VOLUME 79 fL (79-100); PLATELET COUNT 176 x10^3/uL (140-400); RED BLOOD COUNT 3.49 x10^6/uL (4.30-5.70); RED CELL DISTRIBUTION WIDTH 20.1 % (11.5-14.5)
[2018-01-22 14:45] LABS: IMMEDIATE SPIN CROSSMATCH 1 2
[2018-01-22] MEDS: NON FORMULARY ITEM (Abiraterone Acetate (Zytiga) 1,000 MG) PO (17:01)
[2018-01-22 19:40] LABS: POTASSIUM 3.7 mmol/L (3.5-5.1)
[2018-01-22] MEDS: ATORVASTATIN CALCIUM 40 MG TABLET. PO (20:38)
[2018-01-23 05:57] LABS: POTASSIUM 4.2 mmol/L (3.5-5.1)
[2018-01-23] MEDS: SUCRALFATE 1 GM/10 ML ORAL.SUSP. PO ×4 (07:30→20:57)
[2018-01-23] MEDS: PANTOPRAZOLE 40 MG TABLET.DR. PO (07:44)
[2018-01-23] MEDS: BUDESONIDE 0.5 MG/2 ML NEBU. NEB ×2 (07:54→19:57)
[2018-01-23] MEDS: ALBUTEROL SULFATE 2.5 MG/3 ML NEBU. NEB ×4 (07:54→19:57)
[2018-01-23] MEDS: SPIRONOLACTONE 25 MG TABLET PO (09:05)
[2018-01-23] MEDS: ISOSORBIDE MONONITRATE ER 30 MG TAB.ER.24H PO (09:05)
[2018-01-23] MEDS: CALCIUM CARB/VIT D3 500/200 TABLET. PO ×2 (09:05→17:53)
[2018-01-23] MEDS: POTASSIUM CHLORIDE 20 MEQ TABLET.ER. PO ×3 (09:06→17:53)
[2018-01-23] MEDS: FUROSEMIDE 40 MG TABLET. PO (09:06)
[2018-01-23] MEDS: predniSONE 10 MG TABLET PO ×2 (09:06→17:54)
[2018-01-23] MEDS: ENZALUTAMIDE 160 MG PO (09:07)
[2018-01-23] MEDS: METOPROLOL SUCC 24HR ER 50 MG TAB.ER.24H. PO (09:07)
[2018-01-23] MEDS: MAGNESIUM CHLORIDE ER 64 MG TABLET.ER PO ×2 (12:46→20:55)
[2018-01-23] MEDS: diazePAM 5 MG TABLET PO ×3 (14:57→20:55)
[2018-01-23] MEDS: NON FORMULARY ITEM (Abiraterone Acetate (Zytiga) 1,000 MG) PO (17:54)
[2018-01-23] MEDS: ATORVASTATIN CALCIUM 40 MG TABLET. PO (20:55)
[2018-01-24 06:14] LABS: ALBUMIN 2.7 g/dL (3.4-5.0); ALBUMIN/GLOBULIN RATIO 0.7 (1.0-1.7); ALK PHOS 83 U/L (46-116); ALT (SGPT) 17 U/L (16-63); ANION GAP 11 (6-14); AST (SGOT) 19 U/L (15-37); BLOOD UREA NITROGEN 13 mg/dL (8-26); BUN/CREATININE RATIO 12 (6-20); CALCIUM 8.8 mg/dL (8.5-10.1); CARBON DIOXIDE 25 mmol/L (21-32); CHLORIDE 89 mmol/L (98-107); CREATININE 1.1 mg/dL (0.7-1.3); GLUCOSE 115 mg/dL (70-99); MAGNESIUM 1.7 mg/dL (1.8-2.4); POTASSIUM 4.1 mmol/L (3.5-5.1); TOTAL BILIRUBIN 1.5 mg/dL (0.2-1.0); TOTAL PROTEIN 6.8 g/dL (6.4-8.2)
[2018-01-24 06:20] LABS: SODIUM 125 mmol/L (136-145)
[2018-01-24] MEDS: SUCRALFATE 1 GM/10 ML ORAL.SUSP. PO ×4 (07:30→20:38)
[2018-01-24] MEDS: POTASSIUM CHLORIDE 20 MEQ TABLET.ER. PO ×3 (08:32→18:12)
[2018-01-24] MEDS: PANTOPRAZOLE 40 MG TABLET.DR. PO (08:32)
[2018-01-24] MEDS: predniSONE 10 MG TABLET PO ×2 (08:32→18:12)
[2018-01-24] MEDS: CALCIUM CARB/VIT D3 500/200 TABLET. PO ×2 (08:32→18:13)
[2018-01-24] MEDS: MAGNESIUM CHLORIDE ER 64 MG TABLET.ER PO ×2 (08:32→20:39)
[2018-01-24] MEDS: SPIRONOLACTONE 25 MG TABLET PO (08:32)
[2018-01-24] MEDS: METOPROLOL SUCC 24HR ER 50 MG TAB.ER.24H. PO (08:34)
[2018-01-24] MEDS: ISOSORBIDE MONONITRATE ER 30 MG TAB.ER.24H PO (08:34)
[2018-01-24] MEDS: FUROSEMIDE 40 MG TABLET. PO (08:34)
[2018-01-24] MEDS: ALBUTEROL SULFATE 2.5 MG/3 ML NEBU. NEB ×4 (08:59→19:31)
[2018-01-24] MEDS: BUDESONIDE 0.5 MG/2 ML NEBU. NEB ×2 (08:59→19:31)
[2018-01-24] MEDS: ENZALUTAMIDE 160 MG PO (11:24)
[2018-01-24 14:55] LABS: BASO % 0 % (0-3); EOS # 0.1 x10^3/uL (0.0-0.7); EOS % 1 % (0-3); HEMATOCRIT 30.2 % (39.0-53.0); HEMOGLOBIN 9.5 g/dL (13.0-17.5); LYMPH # 0.2 x10^3/uL (1.0-4.8); LYMPH % 2 % (24-48); MEAN CORPUSCULAR HEMOGLOBIN 26 pg (25-35); MEAN CORPUSCULAR HGB CONC 32 g/dL (31-37); MEAN CORPUSCULAR VOLUME 81 fL (79-100); MONO # 1.2 x10^3/uL (0.0-1.1); MONO % 11 % (0-9); NEUT # 8.9 x10^3uL (1.8-7.7); NEUT % 85 % (31-73); PLATELET COUNT 168 x10^3/uL (140-400); RED BLOOD COUNT 3.72 x10^6/uL (4.30-5.70); RED CELL DISTRIBUTION WIDTH 20.4 % (11.5-14.5); WHITE BLOOD COUNT 10.4 x10^3/uL (4.0-11.0)
[2018-01-24 15:26] LABS: ADD MAN DIFF? YES
[2018-01-24 15:59] LABS: % BANDS 11 % (0-9); % EOS 3 % (0-5); % LYMPHS 1 % (24-48); % METAS 1 % (0-0); % MONOS 12 % (0-10); % MYELOS 3 % (0-0); % SEGS 69 % (35-66); PLT ESTIMATE ADEQUATE (ADEQUATE)
[2018-01-24 16:00] LABS: ANISOCYTOSIS MOD; POIKILOCYTOSIS SLIGHT; POLYCHROMASIA SLIGHT
[2018-01-24] MEDS: NON FORMULARY ITEM (Abiraterone Acetate (Zytiga) 1,000 MG) PO (18:13)
[2018-01-24] MEDS: ATORVASTATIN CALCIUM 40 MG TABLET. PO (20:39)
[2018-01-24] MEDS: ALPRAZolam 0.5 MG TABLET PO (21:30)
[2018-01-25] MEDS: hydrALAZINE 20 MG/ML VIAL. IVP (04:13)
[2018-01-25] MEDS: cloNIDine HCL 0.1 MG TABLET PO (05:59)
[2018-01-25] MEDS: SUCRALFATE 1 GM/10 ML ORAL.SUSP. PO (07:30)
[2018-01-25 07:43] LABS: ADD MAN DIFF? NO
[2018-01-25 07:57] LABS: BASO % 1 % (0-3); EOS # 0.2 x10^3/uL (0.0-0.7); EOS % 2 % (0-3); HEMATOCRIT 31.5 % (39.0-53.0); HEMOGLOBIN 9.7 g/dL (13.0-17.5); LYMPH # 0.3 x10^3/uL (1.0-4.8); LYMPH % 3 % (24-48); MEAN CORPUSCULAR HEMOGLOBIN 25 pg (25-35); MEAN CORPUSCULAR HGB CONC 31 g/dL (31-37); MEAN CORPUSCULAR VOLUME 82 fL (79-100); MONO % 11 % (0-9); NEUT # 7.7 x10^3uL (1.8-7.7); NEUT % 83 % (31-73); PLATELET COUNT 184 x10^3/uL (140-400); RED BLOOD COUNT 3.86 x10^6/uL (4.30-5.70); RED CELL DISTRIBUTION WIDTH 20.8 % (11.5-14.5); WHITE BLOOD COUNT 9.3 x10^3/uL (4.0-11.0)
[2018-01-25] MEDS: BUDESONIDE 0.5 MG/2 ML NEBU. NEB (08:01)
[2018-01-25] MEDS: ALBUTEROL SULFATE 2.5 MG/3 ML NEBU. NEB (08:01)
[2018-01-25 08:06] LABS: ALBUMIN 2.9 g/dL (3.4-5.0); ALBUMIN/GLOBULIN RATIO 0.7 (1.0-1.7); ALK PHOS 84 U/L (46-116); ALT (SGPT) 19 U/L (16-63); ANION GAP 8 (6-14); AST (SGOT) 21 U/L (15-37); BLOOD UREA NITROGEN 11 mg/dL (8-26); BUN/CREATININE RATIO 10 (6-20); CALCIUM 8.6 mg/dL (8.5-10.1); CARBON DIOXIDE 28 mmol/L (21-32); CHLORIDE 90 mmol/L (98-107); CREATININE 1.1 mg/dL (0.7-1.3); GLUCOSE 120 mg/dL (70-99); MAGNESIUM 1.7 mg/dL (1.8-2.4); POTASSIUM 3.7 mmol/L (3.5-5.1); SODIUM 126 mmol/L (136-145); TOTAL BILIRUBIN 1.6 mg/dL (0.2-1.0); TOTAL PROTEIN 7.2 g/dL (6.4-8.2)
[2018-01-25] MEDS: CALCIUM CARB/VIT D3 500/200 TABLET. PO (08:16)
[2018-01-25] MEDS: POTASSIUM CHLORIDE 20 MEQ TABLET.ER. PO (08:16)
[2018-01-25] MEDS: PANTOPRAZOLE 40 MG TABLET.DR. PO (08:16)
[2018-01-25] MEDS: MAGNESIUM CHLORIDE ER 64 MG TABLET.ER PO (08:17)
[2018-01-25] MEDS: SPIRONOLACTONE 25 MG TABLET PO (08:17)
[2018-01-25] MEDS: predniSONE 10 MG TABLET PO (08:17)
[2018-01-25] MEDS: FUROSEMIDE 40 MG TABLET. PO (08:17)
[2018-01-25] MEDS: METOPROLOL SUCC 24HR ER 50 MG TAB.ER.24H. PO (08:18)
[2018-01-25] MEDS: ISOSORBIDE MONONITRATE ER 30 MG TAB.ER.24H PO (08:18)
[2018-01-25] MEDS: ENZALUTAMIDE 160 MG PO (10:00)
== END 2018-01-25 10:00 | disposition home or self-care (01) | DRG 177 ==
LOC: ER 14:18 → 2 SOUTH 18:09
PROC: 30233N1 Transfusion of Nonautologous Red Blood Cells into Peripheral Vein, Percutaneous Approach (ICD-10-PCS; principal; 2018-01-20)
PROC: 5A09357 Assistance with Respiratory Ventilation, Less than 24 Consecutive Hours, Continuous Positive Airway Pressure (ICD-10-PCS; 2018-01-24)
DX: J15.6 Pneumonia due to other Gram-negative bacteria (principal); I50.23 Acute on chronic systolic (congestive) heart failure; J96.21 Acute and chronic respiratory failure with hypoxia; D62 Acute posthemorrhagic anemia; E83.42 Hypomagnesemia; E87.1 Hypo-osmolality and hyponatremia; I13.0 Hypertensive heart and chronic kidney disease with heart failure and stage 1 through stage 4 chronic kidney disease, or unspecified chronic kidney disease; I42.9 Cardiomyopathy, unspecified; J44.1 Chronic obstructive pulmonary disease with (acute) exacerbation; I27.29 Other secondary pulmonary hypertension; C61 Malignant neoplasm of prostate; N18.3 Chronic kidney disease, stage 3 (moderate); D63.8 Anemia in other chronic diseases classified elsewhere; E78.5 Hyperlipidemia, unspecified; K21.9 Gastro-esophageal reflux disease without esophagitis; M19.90 Unspecified osteoarthritis, unspecified site; G47.00 Insomnia, unspecified; E87.6 Hypokalemia; I27.81 Cor pulmonale (chronic); F32.9 Major depressive disorder, single episode, unspecified; I25.10 Atherosclerotic heart disease of native coronary artery without angina pectoris; I25.2 Old myocardial infarction; Z79.51 Long term (current) use of inhaled steroids; Z79.899 Other long term (current) drug therapy; Z82.49 Family history of ischemic heart disease and other diseases of the circulatory system; Z88.8 Allergy status to other drugs, medicaments and biological substances; Z85.46 Personal history of malignant neoplasm of prostate; Z87.891 Personal history of nicotine dependence; Z95.1 Presence of aortocoronary bypass graft; Z98.61 Coronary angioplasty status
CPT/HCPCS: 36415; 71045; 80048; 80053; 80076; 82274; 83690; 83735; 83880; 84132; 84484; 85007; 85025; 85027; 86850; 86900; 86901; 86920; 93005; 94640; 94760; 96374; 99285; 99285-25; J0360; J1940; J1956; J2270; J3475; J7512; J7613; J7620; J7626; P9016

== ENCOUNTER 2018-03-08 16:51 | Inpatient (IN) | payer BC ==
[2018-03-08] MEDS: NITROGLYCERIN OINT 1 GM PACKET. TP (16:55)
[2018-03-08 17:24] LABS: BASO # 0.1 x10^3/uL (0.0-0.2); BASO % 1 % (0-3); EOS % 0 % (0-3); HEMATOCRIT 31.3 % (39.0-53.0); HEMOGLOBIN 9.9 g/dL (13.0-17.5); LYMPH # 0.5 x10^3/uL (1.0-4.8); LYMPH % 5 % (24-48); MEAN CORPUSCULAR HEMOGLOBIN 27 pg (25-35); MEAN CORPUSCULAR HGB CONC 32 g/dL (31-37); MEAN CORPUSCULAR VOLUME 86 fL (79-100); MONO # 1.4 x10^3/uL (0.0-1.1); MONO % 15 % (0-9); NEUT # 7.1 x10^3uL (1.8-7.7); NEUT % 79 % (31-73); PLATELET COUNT 141 x10^3/uL (140-400); RED BLOOD COUNT 3.64 x10^6/uL (4.30-5.70); RED CELL DISTRIBUTION WIDTH 23.2 % (11.5-14.5); WHITE BLOOD COUNT 9.1 x10^3/uL (4.0-11.0)
[2018-03-08 17:25] LABS: ADD MAN DIFF? YES
[2018-03-08 17:32] LABS: INR 1.3 (0.8-1.1); PROTHROMBIN TIME PATIENT 15.9 SEC (11.7-14.0)
[2018-03-08 17:35] LABS: ANION GAP 5 (6-14); BLOOD UREA NITROGEN 17 mg/dL (8-26); CALCIUM 8.4 mg/dL (8.5-10.1); CARBON DIOXIDE 30 mmol/L (21-32); CHLORIDE 98 mmol/L (98-107); CREATININE 1.2 mg/dL (0.7-1.3); GFR 59.7; GLUCOSE 130 mg/dL (70-99); POTASSIUM 4.6 mmol/L (3.5-5.1); SODIUM 133 mmol/L (136-145)
[2018-03-08 17:42] LABS: TROPONINI 0.018 ng/mL (0.000-0.055)
[2018-03-08 17:48] LABS: NT-PRO BNP 8808 pg/mL (0-124)
[2018-03-08 17:51] LABS: % BANDS 6 % (0-9); % LYMPHS 3 % (24-48); % MONOS 12 % (0-10); % SEGS 79 % (35-66)
[2018-03-08 17:53] LABS: PLT ESTIMATE ADEQUATE (ADEQUATE); POLYCHROMASIA SLIGHT
[2018-03-08] MEDS ORDERED: ONDANSETRON PF 4 MG/2 ML VIAL. IV (19:30)
[2018-03-08] MEDS ORDERED: ACETAMINOPHEN 325 MG TABLET. PO (19:30)
[2018-03-08 19:58] LABS: D-DIMER 1.39 ug/mlFEU (0.00-0.50)
[2018-03-08] MEDS ORDERED: ALBUTEROL NEBULIZER NEB (20:00)
[2018-03-08] MEDS ORDERED: MORPHINE SULFATE 4 MG/ML DISP.SYRIN. IV (20:00)
[2018-03-08] MEDS: FUROSEMIDE 40 MG/4 ML VIAL. IVP (20:03)
[2018-03-08] MEDS: methylPREDNISolone SOD SUCC PF 125 MG/2 ML VIAL. IV (20:03)
[2018-03-08] MEDS: IPRATRPIUM/ALBUTEROL 0.5/2.5MG 3 ML NEBU. NEB (20:10)
[2018-03-08] MEDS: IOHEXOL 300 MG/ML 100ML VIAL. IV (20:58)
[2018-03-08 22:36] LABS: TROPONINI < 0.017 ng/mL (0.000-0.055)
[2018-03-08] MEDS ORDERED: IPRATRPIUM/ALBUTEROL 0.5/2.5MG 3 ML NEBU. NEB (23:00)
[2018-03-08] MEDS ORDERED: ALBUTEROL SULFATE 2.5 MG/3 ML NEBU. NEB (23:45)
[2018-03-09] MEDS ORDERED: NON FORMULARY ITEM (Albuterol Sulfate (Ventolin Hfa Inhaler) 2 PUFF) INH
[2018-03-09 01:36] LABS: ADD MAN DIFF? NO
[2018-03-09 02:00] LABS: TROPONINI < 0.017 ng/mL (0.000-0.055)
[2018-03-09 03:26] LABS: BASO % 0 % (0-3); EOS % 0 % (0-3); HEMATOCRIT 27.8 % (39.0-53.0); HEMOGLOBIN 8.8 g/dL (13.0-17.5); LYMPH # 0.2 x10^3/uL (1.0-4.8); LYMPH % 5 % (24-48); MEAN CORPUSCULAR HEMOGLOBIN 27 pg (25-35); MEAN CORPUSCULAR HGB CONC 32 g/dL (31-37); MEAN CORPUSCULAR VOLUME 86 fL (79-100); MONO # 0.2 x10^3/uL (0.0-1.1); MONO % 6 % (0-9); NEUT # 3.5 x10^3uL (1.8-7.7); NEUT % 89 % (31-73); PLATELET COUNT 109 x10^3/uL (140-400); RED BLOOD COUNT 3.22 x10^6/uL (4.30-5.70); RED CELL DISTRIBUTION WIDTH 23.8 % (11.5-14.5)
[2018-03-09 03:44] LABS: ANION GAP 7 (6-14); BLOOD UREA NITROGEN 14 mg/dL (8-26); CARBON DIOXIDE 29 mmol/L (21-32); CHLORIDE 98 mmol/L (98-107); CREATININE 1.2 mg/dL (0.7-1.3); GFR 59.7; GLUCOSE 163 mg/dL (70-99); POTASSIUM 3.9 mmol/L (3.5-5.1); SODIUM 134 mmol/L (136-145)
[2018-03-09] MEDS: BUDESONIDE 0.5 MG/2 ML NEBU. NEB ×2 (07:50→20:23)
[2018-03-09] MEDS: IPRATRPIUM/ALBUTEROL 0.5/2.5MG 3 ML NEBU. NEB ×4 (07:50→20:23)
[2018-03-09] MEDS: SENNOSIDES/DOCUSATE 8.6/50MG TABLET. PO ×2 (09:00→21:50)
[2018-03-09] MEDS ORDERED: NON FORMULARY ITEM (Tiotropium Bromide (Spiriva) 2 INH) IH (09:00)
[2018-03-09] MEDS ORDERED: NON FORMULARY ITEM (Budesonide/Formoterol Fumarate (Symbicort 160-4.5 Mcg Inhaler) 2 PUFF) IH (09:00)
[2018-03-09] MEDS: FERROUS SULFATE 325 MG TABLET. PO (09:00)
[2018-03-09] MEDS: ISOSORBIDE MONONITRATE ER 30 MG TAB.ER.24H PO (09:00)
[2018-03-09] MEDS: POTASSIUM CHLORIDE 20 MEQ TABLET.ER. PO ×3 (09:01→21:51)
[2018-03-09] MEDS: predniSONE 5 MG TABLET PO ×2 (09:01→17:26)
[2018-03-09] MEDS: buPROPion XL 150 MG TAB.ER.24H. PO (09:01)
[2018-03-09] MEDS: METOPROLOL SUCC 24HR ER 100 MG TAB.ER.24H. PO (09:01)
[2018-03-09] MEDS: CALCIUM CARB/VIT D3 500/200 TABLET. PO ×2 (09:01→17:25)
[2018-03-09] MEDS: SPIRONOLACTONE 25 MG TABLET PO (09:02)
[2018-03-09] MEDS: ENZALUTAMIDE 160 MG PO (09:02)
[2018-03-09] MEDS: FUROSEMIDE 40 MG TABLET. PO (09:02)
[2018-03-09] MEDS: PANTOPRAZOLE 40 MG TABLET.DR. PO (09:02)
[2018-03-09] MEDS: methylPREDNISolone SOD SUCC PF 125 MG/2 ML VIAL. IV ×2 (09:46→21:52)
[2018-03-09] MEDS: FUROSEMIDE 40 MG/4 ML VIAL. IVP (13:00)
[2018-03-09] MEDS ORDERED: LIDOCAINE WITH 8.4% SOD BICARB 3 ML DISP.SYRIN. ×2 (13:11→14:43)
[2018-03-09 13:57] LABS: BASE EXCESS ABG 3 mmol/L (-3-3); HCO3 ABG 27 mmol/L (21-28); PCO2 ABG 39 mmHg (35-46); PH ABG 7.45 (7.35-7.45); PO2 ABG 74 mmHg (65-108); SAT O2 ABG 94 % (92-99)
[2018-03-09] MEDS: LIDOCAINE WITH 8.4% SOD BICARB 3 ML DISP.SYRIN. IJ (15:30)
[2018-03-09 16:37] LABS: FIO2 ABG 40
[2018-03-09] MEDS: ABIRATERONE ACETATE 1000 MG PO (17:26)
[2018-03-09] MEDS: ATORVASTATIN CALCIUM 40 MG TABLET. PO (21:51)
[2018-03-10 05:25] LABS: ALBUMIN 2.8 g/dL (3.4-5.0); ALBUMIN/GLOBULIN RATIO 0.8 (1.0-1.7); ALK PHOS 84 U/L (46-116); ALT (SGPT) 11 U/L (16-63); ANION GAP 10 (6-14); AST (SGOT) 15 U/L (15-37); BLOOD UREA NITROGEN 13 mg/dL (8-26); BUN/CREATININE RATIO 9 (6-20); CALCIUM 8.6 mg/dL (8.5-10.1); CARBON DIOXIDE 25 mmol/L (21-32); CHLORIDE 95 mmol/L (98-107); CREATININE 1.4 mg/dL (0.7-1.3); GLUCOSE 208 mg/dL (70-99); MAGNESIUM 1.9 mg/dL (1.8-2.4); POTASSIUM 4.4 mmol/L (3.5-5.1); SODIUM 130 mmol/L (136-145); TOTAL PROTEIN 6.5 g/dL (6.4-8.2)
[2018-03-10 05:36] LABS: PREALBUMIN 11.6 mg/dL (16.0-42.0)
[2018-03-10] MEDS: IPRATRPIUM/ALBUTEROL 0.5/2.5MG 3 ML NEBU. NEB ×4 (06:44→19:52)
[2018-03-10] MEDS: BUDESONIDE 0.5 MG/2 ML NEBU. NEB ×2 (06:44→19:52)
[2018-03-10] MEDS: ISOSORBIDE MONONITRATE ER 30 MG TAB.ER.24H PO (08:47)
[2018-03-10] MEDS: METOPROLOL SUCC 24HR ER 100 MG TAB.ER.24H. PO (08:47)
[2018-03-10] MEDS: predniSONE 10 MG TABLET PO (08:48)
[2018-03-10] MEDS: buPROPion XL 150 MG TAB.ER.24H. PO (08:48)
[2018-03-10] MEDS: SPIRONOLACTONE 25 MG TABLET PO (08:48)
[2018-03-10] MEDS: CALCIUM CARB/VIT D3 500/200 TABLET. PO ×2 (08:48→17:40)
[2018-03-10] MEDS: PANTOPRAZOLE 40 MG TABLET.DR. PO (08:48)
[2018-03-10] MEDS: POTASSIUM CHLORIDE 20 MEQ TABLET.ER. PO ×3 (08:48→20:56)
[2018-03-10] MEDS: FUROSEMIDE 40 MG/4 ML VIAL. IVP (08:48)
[2018-03-10] MEDS: ENZALUTAMIDE 160 MG PO (08:48)
[2018-03-10] MEDS: FERROUS SULFATE 325 MG TABLET. PO (08:49)
[2018-03-10] MEDS: FUROSEMIDE 20 MG/2 ML VIAL. IVP (16:20)
[2018-03-10] MEDS: ABIRATERONE ACETATE 1000 MG PO (17:40)
[2018-03-10] MEDS: SENNOSIDES/DOCUSATE 8.6/50MG TABLET. PO (17:40)
[2018-03-10] MEDS: ALPRAZolam 0.5 MG TABLET PO (20:56)
[2018-03-10] MEDS: ATORVASTATIN CALCIUM 40 MG TABLET. PO (20:57)
[2018-03-11 06:47] LABS: ANION GAP 5 (6-14); BLOOD UREA NITROGEN 14 mg/dL (8-26); CALCIUM 8.7 mg/dL (8.5-10.1); CARBON DIOXIDE 29 mmol/L (21-32); CHLORIDE 96 mmol/L (98-107); CREATININE 1.1 mg/dL (0.7-1.3); GLUCOSE 96 mg/dL (70-99); SODIUM 130 mmol/L (136-145)
[2018-03-11] MEDS: IPRATRPIUM/ALBUTEROL 0.5/2.5MG 3 ML NEBU. NEB ×4 (07:02→19:59)
[2018-03-11] MEDS: BUDESONIDE 0.5 MG/2 ML NEBU. NEB ×2 (07:02→19:59)
[2018-03-11] MEDS: CALCIUM CARB/VIT D3 500/200 TABLET. PO ×2 (08:00→17:00)
[2018-03-11] MEDS: PANTOPRAZOLE 40 MG TABLET.DR. PO (09:07)
[2018-03-11] MEDS: FUROSEMIDE 40 MG/4 ML VIAL. IVP (09:07)
[2018-03-11] MEDS: POTASSIUM CHLORIDE 20 MEQ TABLET.ER. PO ×3 (09:08→21:02)
[2018-03-11] MEDS: SPIRONOLACTONE 25 MG TABLET PO (09:08)
[2018-03-11] MEDS: METOPROLOL SUCC 24HR ER 100 MG TAB.ER.24H. PO (09:09)
[2018-03-11] MEDS: buPROPion XL 150 MG TAB.ER.24H. PO (09:10)
[2018-03-11] MEDS: ISOSORBIDE MONONITRATE ER 30 MG TAB.ER.24H PO (09:10)
[2018-03-11] MEDS: predniSONE 10 MG TABLET PO (09:11)
[2018-03-11] MEDS: FERROUS SULFATE 325 MG TABLET. PO (09:11)
[2018-03-11] MEDS: ENZALUTAMIDE 160 MG PO (09:16)
[2018-03-11 14:29] LABS: BODY FLUID LDH 88 IU/L (.)
[2018-03-11] MEDS: BENZONATATE 100 MG CAPSULE. PO ×2 (16:38→21:03)
[2018-03-11] MEDS: ABIRATERONE ACETATE 1000 MG PO (16:42)
[2018-03-11] MEDS: FUROSEMIDE 20 MG/2 ML VIAL. IVP (16:49)
[2018-03-11] MEDS: ATORVASTATIN CALCIUM 40 MG TABLET. PO (21:02)
[2018-03-11] MEDS: SENNOSIDES/DOCUSATE 8.6/50MG TABLET. PO (21:03)
[2018-03-12] MEDS: PANTOPRAZOLE 40 MG TABLET.DR. PO (06:20)
[2018-03-12] MEDS: BENZONATATE 100 MG CAPSULE. PO (07:22)
[2018-03-12] MEDS: CALCIUM CARB/VIT D3 500/200 TABLET. PO (08:00)
[2018-03-12] MEDS: FERROUS SULFATE 325 MG TABLET. PO (08:54)
[2018-03-12] MEDS: ISOSORBIDE MONONITRATE ER 30 MG TAB.ER.24H PO (08:56)
[2018-03-12] MEDS: FUROSEMIDE 40 MG/4 ML VIAL. IVP (08:56)
[2018-03-12] MEDS: buPROPion XL 150 MG TAB.ER.24H. PO (08:57)
[2018-03-12] MEDS: SPIRONOLACTONE 25 MG TABLET PO (08:57)
[2018-03-12] MEDS: METOPROLOL SUCC 24HR ER 100 MG TAB.ER.24H. PO (08:57)
[2018-03-12] MEDS: POTASSIUM CHLORIDE 20 MEQ TABLET.ER. PO (08:57)
[2018-03-12] MEDS: predniSONE 10 MG TABLET PO (08:58)
[2018-03-12] MEDS: ENZALUTAMIDE 160 MG PO (08:58)
[2018-03-12] MEDS: IPRATRPIUM/ALBUTEROL 0.5/2.5MG 3 ML NEBU. NEB ×2 (09:02→12:45)
== END 2018-03-12 14:55 | DRG 291 ==
LOC: ER 16:51 → 2 NORTH 19:49
PROC: 0W993ZZ Drainage of Right Pleural Cavity, Percutaneous Approach (ICD-10-PCS; principal; 2018-03-08)
PROC: 5A09357 Assistance with Respiratory Ventilation, Less than 24 Consecutive Hours, Continuous Positive Airway Pressure (ICD-10-PCS; 2018-03-08)
PROC: 5A09357 Assistance with Respiratory Ventilation, Less than 24 Consecutive Hours, Continuous Positive Airway Pressure (ICD-10-PCS; 2018-03-09)
PROC: 5A09357 Assistance with Respiratory Ventilation, Less than 24 Consecutive Hours, Continuous Positive Airway Pressure (ICD-10-PCS; 2018-03-11)
DX: I11.0 Hypertensive heart disease with heart failure (principal); J96.21 Acute and chronic respiratory failure with hypoxia; R64 Cachexia; J90 Pleural effusion, not elsewhere classified; C79.51 Secondary malignant neoplasm of bone; E46 Unspecified protein-calorie malnutrition; I42.9 Cardiomyopathy, unspecified; J44.1 Chronic obstructive pulmonary disease with (acute) exacerbation; I50.23 Acute on chronic systolic (congestive) heart failure; C61 Malignant neoplasm of prostate; I25.10 Atherosclerotic heart disease of native coronary artery without angina pectoris; E78.5 Hyperlipidemia, unspecified; Z88.8 Allergy status to other drugs, medicaments and biological substances; I25.2 Old myocardial infarction; K21.9 Gastro-esophageal reflux disease without esophagitis; Z51.5 Encounter for palliative care; Z66 Do not resuscitate; Z81.8 Family history of other mental and behavioral disorders; Z82.0 Family history of epilepsy and other diseases of the nervous system; Z82.49 Family history of ischemic heart disease and other diseases of the circulatory system; Z82.5 Family history of asthma and other chronic lower respiratory diseases; Z83.3 Family history of diabetes mellitus; Z85.46 Personal history of malignant neoplasm of prostate; Z87.891 Personal history of nicotine dependence; Z98.61 Coronary angioplasty status; Z95.1 Presence of aortocoronary bypass graft
CPT/HCPCS: 32555; 36415; 36600; 71045; 71275; 80048; 80053; 82805; 83615; 83735; 83880; 84134; 84157; 84484; 85007; 85025; 85379; 85610; 87071; 87075; 87205; 88112; 88305; 93005; 93925; 94640; 94660; 94760; 96374; 96375; 97116-GP; 97162-GP; 97166-GO; 97530-GP; 99285; 99285-25; J1940; J2930; J7512; J7620; J7626; Q9967

== ENCOUNTER 2018-03-21 15:52 | Observation (INO) | payer BC ==
[2018-03-21] MEDS: MORPHINE SULFATE 20 MG/ML CONC SOLUTION. SL ×2 (18:31→22:19)
[2018-03-21] MEDS ORDERED: IPRATRPIUM/ALBUTEROL 0.5/2.5MG 3 ML NEBU. NEB (20:15)
[2018-03-21] MEDS ORDERED: ALPRAZolam 0.5 MG TABLET PO (20:15)
[2018-03-21] MEDS ORDERED: SENNOSIDES/DOCUSATE 8.6/50MG TABLET. PO (20:15)
[2018-03-21] MEDS: ATORVASTATIN CALCIUM 40 MG TABLET. PO (21:00)
[2018-03-21] MEDS: predniSONE 10 MG TABLET PO (21:00)
[2018-03-21] MEDS ORDERED: NON FORMULARY ITEM (Budesonide/Formoterol Fumarate (Symbicort 160-4.5 Mcg Inhaler) 2 PUFF) IH (21:00)
[2018-03-21] MEDS: BUDESONIDE 0.5 MG/2 ML NEBU. NEB (21:59)
[2018-03-21] MEDS: IPRATRPIUM/ALBUTEROL 0.5/2.5MG 3 ML NEBU. NEB (21:59)
[2018-03-22] MEDS ORDERED: NON FORMULARY ITEM (Albuterol Sulfate (Ventolin Hfa Inhaler) 2 PUFF) INH
[2018-03-22] MEDS: ALBUTEROL SULFATE 2.5 MG/3 ML NEBU. NEB (05:05)
[2018-03-22] MEDS: MORPHINE SULFATE 20 MG/ML CONC SOLUTION. SL ×4 (05:22→22:10)
[2018-03-22] MEDS: IPRATRPIUM/ALBUTEROL 0.5/2.5MG 3 ML NEBU. NEB ×4 (07:30→19:34)
[2018-03-22] MEDS: BUDESONIDE 0.5 MG/2 ML NEBU. NEB (07:30)
[2018-03-22] MEDS: PANTOPRAZOLE 40 MG TABLET.DR. PO (08:43)
[2018-03-22] MEDS: POTASSIUM CHLORIDE 20 MEQ TABLET.ER. PO (08:43)
[2018-03-22] MEDS: CALCIUM CARB/VIT D3 500/200 TABLET. PO (08:43)
[2018-03-22] MEDS: buPROPion XL 150 MG TAB.ER.24H. PO (08:43)
[2018-03-22] MEDS ORDERED: FUROSEMIDE 40 MG TABLET. PO (09:00)
[2018-03-22] MEDS ORDERED: ISOSORBIDE MONONITRATE ER 30 MG TAB.ER.24H PO (09:00)
[2018-03-22] MEDS ORDERED: FERROUS SULFATE 325 MG TABLET. PO (09:00)
[2018-03-22] MEDS ORDERED: METOPROLOL SUCC 24HR ER 50 MG TAB.ER.24H. PO (09:00)
[2018-03-22] MEDS ORDERED: NON FORMULARY ITEM (Tiotropium Bromide (Spiriva) 2 INH) IH (09:00)
[2018-03-22] MEDS ORDERED: SPIRONOLACTONE 25 MG TABLET PO (09:00)
[2018-03-22] MEDS: diphenhydrAMINE ORAL ELIXIR 12.5 MG/5 ML ML PO (18:15)
[2018-03-23] MEDS: MORPHINE SULFATE 20 MG/ML CONC SOLUTION. SL ×3 (01:14→07:26)
[2018-03-23] MEDS: IPRATRPIUM/ALBUTEROL 0.5/2.5MG 3 ML NEBU. NEB ×2 (07:26→07:27)
[2018-03-23] MEDS: diphenhydrAMINE ORAL ELIXIR 12.5 MG/5 ML ML PO (07:35)
[2018-03-23] MEDS: LORazepam INTENSOL 2 MG/ML ORAL.CONC SL (07:43)
[2018-03-23] MEDS ORDERED: IPRATRPIUM/ALBUTEROL 0.5/2.5MG 3 ML NEBU. NEB (08:15)
[2018-03-23] MEDS ORDERED: MORPHINE SULFATE 20 MG/ML CONC SOLUTION. SL (09:00)
[2018-03-23] MEDS ORDERED: LORazepam INTENSOL 2 MG/ML ORAL.CONC SL (09:15)
[2018-03-23] MEDS ORDERED: ATROPINE 1% OPHTH SOLUTION 5ML BOTTLE. SL (10:15)
[2018-03-23] MEDS ORDERED: HALOPERIDOL 2 MG TABLET. PO (10:15)
== END 2018-03-23 14:22 ==
LOC: ER 15:52 → 5 SOUTH 16:15
DX: J96.21 Acute and chronic respiratory failure with hypoxia (principal); E44.0 Moderate protein-calorie malnutrition; C79.51 Secondary malignant neoplasm of bone; R64 Cachexia; I42.9 Cardiomyopathy, unspecified; E78.00 Pure hypercholesterolemia, unspecified; I25.10 Atherosclerotic heart disease of native coronary artery without angina pectoris; I11.0 Hypertensive heart disease with heart failure; I50.9 Heart failure, unspecified; K21.9 Gastro-esophageal reflux disease without esophagitis; I73.9 Peripheral vascular disease, unspecified; E78.5 Hyperlipidemia, unspecified; R91.8 Other nonspecific abnormal finding of lung field; C61 Malignant neoplasm of prostate; F41.9 Anxiety disorder, unspecified; I27.20 Pulmonary hypertension, unspecified; Z68.22 Body mass index [BMI] 22.0-22.9, adult; Z88.8 Allergy status to other drugs, medicaments and biological substances; I25.2 Old myocardial infarction; Z95.5 Presence of coronary angioplasty implant and graft; Z95.1 Presence of aortocoronary bypass graft; Z66 Do not resuscitate
CPT/HCPCS: 94640; 99285-25; G0378; G0379; J7613; J7620; J7626